=== PATIENT | male | born 2000 | race Caucasian/White ===

== ENCOUNTER 2019-12-02 10:45 | Emergency (ER) | payer OTHER, SELFPAY ==
[2019-12-02 10:50] VITALS: BP 134/87; PULSE 118; RESP 14; TEMP 37.1; O2SAT 100
--- NOTE | 2019-12-02 11:03 | ED.GENADULT ---
HPI - General Adult General Chief complaint: Skin/Abscess/Foreign Body Stated complaint: genital rash Time Seen by Provider: 12/02/19 10:51 Source: patient Mode of arrival: ambulatory Limitations: no limitations History of Present Illness HPI narrative: Patient is a 19-year-old male who presents to emergency department for evaluation of wound to his penis noting small bump to the dorsal surface of the shaft that is been there for 1 day patient denies similar occurrence injury or trauma or concern for STD patient notes that he had shaved the area but was unsure as to whether or not this may have caused the problem. Patient has not taken anything for his symptoms patient has not been seen for this complaint Related Data Home Medications Medication Instructions Recorded Confirmed No Home Medications 12/02/19 12/02/19 Allergies Allergy/AdvReac Type Severity Reaction Status Date / Time No Known Allergies Allergy Verified 12/02/19 10:46 Review of Systems Review of Systems: All systems reviewed & are unremarkable except as noted in HPI and below PMFSH Social History Social History (Updated 12/02/19 @ 11:05 by Arya Aparicio PA-C) Smoking status: Current every day smoker Gender identity (if verbalized by the patient): Male Exam Narrative: Exam Narrative: GENERAL: Well-appearing, well-nourished, and in no acute distress. HEAD: Normocephalic, atraumatic. EYES: PERRLA and EOMI. ENT: Nares clear, no rhinorrhea or epistaxis. Mucous membranes moist. MALE GENITOURINARY: Patient with small nonerythematous less than half centimeter bump to the dorsal surface of the shaft of the penis without any other abnormalities noted SKIN: Warm, dry, no rash. NEURO: No focal deficits. Alert and oriented x3. Normal speech and gait PSYCH: Normal mood and affect. Course Course Emergency Course: Patient in the room in no distress aware of case findings treatment plan and diagnosis Vital Signs Vital signs: Vital Signs Temperature 98.8 F 12/02/19 10:50 Pulse Rate 118 H 12/02/19 10:50 Respiratory Rate 12/02/19 10:50 Blood Pressure 134/87 12/02/19 10:50 Pulse Oximetry 100 12/02/19 10:50 Temperature 98.8 F 12/02/19 10:50 Pulse Rate 118 H 12/02/19 10:50 Respiratory Rate 14 12/02/19 10:50 Blood Pressure 134/87 12/02/19 10:50 Pulse Oximetry 100 12/02/19 10:50 Medical Decision Making MDM Narrative Medical decision making narrative: Patient in the room in no distress agreeing to follow-up with urology and primary care also provided with reasons to return was tested for STDs and referred to urology for further identification of the etiology of the bump on his shaft of his penis Vital Signs Vital Signs: Vital Signs Temperature 98.8 F 12/02/19 10:50 Pulse Rate 118 H 12/02/19 10:50 Respiratory Rate 14 12/02/19 10:50 Blood Pressure 134/87 12/02/19 10:50 Pulse Oximetry 100 12/02/19 10:50 Temperature 98.8 F 12/02/19 10:50 Pulse Rate 118 H 12/02/19 10:50 Respiratory Rate 14 12/02/19 10:50 Blood Pressure 134/87 12/02/19 10:50 Pulse Oximetry 100 12/02/19 10:50 Discharge Plan Discharge Clinical Impression: Sore of penis Patient Disposition: Home, Self-Care Condition: Stable Instructions: Antibiotic Form, Acute Wounds (ED) Additional Instructions: Follow-up with primary care and urology in the next 7 days for reevaluation of your wound Practice safe sex and use condoms Increase fluid intake. Tylenol and Motrin for pain and or fever if needed. Follow up with your doctor for further care. Call your doctor or return to the emergency department if needed for worsening symptoms or problems, especially if you have persistent high fever, vomiting, inability to urinate, weakness, blood in your urine, chnage in mental status, or other serious concerns. Prescriptions: No Action No Home Medications RF: 0 Follow-up/Referrals: PHYSICIAN,ON
[2019-12-02 11:57] VITALS: BP 120/80; PULSE 80; RESP 20; TEMP 36.7; O2SAT 99
[2019-12-02 12:21] LABS: Add Urine Microscopic? YES; Appearance Urine Clear (Clear); Bilirubin Urine Negative (Negative); Blood Urine Negative (Negative); Calcium Oxalate Crystals Urine Present /hpf; Color Urine Yellow (Yellow); Glucose Urine UA Negative (Negative); Ketones Urine Trace mg/dL (Negative); Leukocyte Esterase Ur Negative LEU/UL (Negative); Mucus Urine Heavy /lpf; Nitrate Urine Negative (Negative); Protein Urine 2+ mg/dL (Negative); RBC Urine 0-2 /hpf (0-2); Squamous Epithelial Cell Urine Rare /hpf (Few); WBC Urine 0-3 /hpf
[2019-12-02 12:23] LABS: Specific Grav Ur 1.031 (1.001-1.035)
== END 2019-12-02 11:58 | disposition home or self-care (01) ==
PROVIDERS: Emergency Medicine Emergency Medical Services; Emergency Provider Emergency Medicine
DX: L98.9 Disorder of the skin and subcutaneous tissue, unspecified (principal); F17.200 Nicotine dependence, unspecified, uncomplicated
CPT/HCPCS: 81001; 87491; 87591; 99283

== ENCOUNTER 2020-04-06 02:50 | Emergency (ER) | payer OTHER, SELFPAY ==
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
[2020-04-06 02:51] VITALS: BP 129/109; PULSE 122; RESP 18; TEMP 35.7; O2SAT 100
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
[2020-04-06 03:30] VITALS: BP 107/76; PULSE 117; RESP 21; O2SAT 97
[2020-04-06 04:00] VITALS: BP 112/78; PULSE 108; RESP 21; O2SAT 95
[2020-04-06 04:30] VITALS: BP 111/73; PULSE 116; RESP 18; O2SAT 95
[2020-04-06 05:15] VITALS: BP 134/89; PULSE 93; RESP 18; TEMP 36.7; O2SAT 98
== END 2020-04-06 05:16 | disposition home or self-care (01) ==
PROVIDERS: Emergency Provider Emergency Medicine
DX: S09.90XA Unspecified injury of head, initial encounter (principal); S66.911A Strain of unspecified muscle, fascia and tendon at wrist and hand level, right hand, initial encounter; S80.211A Abrasion, right knee, initial encounter; Y00.XXXA Assault by blunt object, initial encounter; F17.200 Nicotine dependence, unspecified, uncomplicated
CPT/HCPCS: 70450; 73130; 73560; 99284

== ENCOUNTER 2020-05-08 09:02 | Emergency (ER) | payer OTHER, SELFPAY ==
[2020-05-08 09:08] VITALS: BP 141/97; PULSE 113; RESP 15; TEMP 37; O2SAT 98
--- NOTE | 2020-05-08 09:19 | ED.GENADULT ---
HPI - General Adult General Chief complaint: Animal Bite <Arya Aparicio PA-C - Last Filed: 05/08/20 09:53> Stated complaint: Spider Bite On Head <Arya Aparicio PA-C - Last Filed: 05/08/20 09:53> Time Seen by Provider: 05/08/20 09:08 <Arya Aparicio PA-C - Last Filed: 05/08/20 09:53> Source: patient <CONSUELO Hale Last Filed: 05/08/20 09:53> Mode of arrival: ambulatory <CONSUELO Hale Last Filed: 05/08/20 09:53> Limitations: no limitations <Arya Aparicio PA-C - Last Filed: 05/08/20 09:53> History of Present Illness HPI narrative: Patient is a 19-year-old male who presents with a wound to the parietal scalp that has been present since Friday believes he was bit by an insect is unsure notes small red area notes minimal discomfort or other complaints presents in no distress has not been seen for this complaint <Arya Aparicio PA-C - Last Filed: 05/08/20 09:53> Related Data Allergies/adverse reactions: Allergies Allergy/AdvReac Type Severity Reaction Status Date / Time No Known Allergies Allergy Verified 12/02/19 10:46 <Arya Aparicio PA-C - Last Filed: 05/08/20 09:53> Review of Systems Review of Systems: All systems reviewed & are unremarkable except as noted in HPI and below <Arya Aparicio PA-C - Last Filed: 05/08/20 09:53> PMFSH Social History Social History: Social History Smoking status: Current every day smoker Gender identity (if verbalized by the patient): Male <Arya Aparicio PA-C - Last Filed: 05/08/20 09:53> Exam Narrative: Exam Narrative: GENERAL: Well-appearing, well-nourished, and in no acute distress. HEAD: Normocephalic, atraumatic. EYES: PERRLA and EOMI. ENT: Nares clear, no rhinorrhea or epistaxis. Mucous membranes moist. EXTREMITIES: Normal range of motion. No edema. SKIN: Warm, dry, no rash. Small pink-colored lesion half centimeter in diameter slightly raised of the parietal scalp no drainage no fluctuance NEURO: No focal deficits. Alert and oriented x3. PSYCH: Normal mood and affect. <Arya Aparicio PA-C - Last Filed: 05/08/20 09:53> Course Course Emergency Course: Patient in the room in no distress will be referred back to primary care for reevaluation and consideration of dermatology referral patient agrees with this plan will be discharged home patient provided with reasons to return <Arya Aparicio PA-C - Last Filed: 05/08/20 09:53> Vital Signs Vital signs: Vital Signs Temperature 37.0 C 05/08/20 09:08 Pulse Rate 113 H 05/08/20 09:08 Respiratory Rate 15 05/08/20 09:08 Blood Pressure 141/97 H 05/08/20 09:08 Pulse Oximetry 98 05/08/20 09:08 Temperature 37.0 C 05/08/20 09:08 Pulse Rate 113 H 05/08/20 09:08 Respiratory Rate 15 05/08/20 09:08 Blood Pressure 141/97 H 05/08/20 09:08 Pulse Oximetry 98 05/08/20 09:08 <Arya Aparicio PA-C - Last Filed: 05/08/20 09:53> Vital Signs Temperature 37.0 C 05/08/20 09:08 Pulse Rate 113 H 05/08/20 09:08 Respiratory Rate 15 05/08/20 09:08 Blood Pressure 141/97 H 05/08/20 09:08 Pulse Oximetry 98 05/08/20 09:08 Temperature 37.0 C 05/08/20 09:08 Pulse Rate 113 H 05/08/20 09:08 Respiratory Rate 15 05/08/20 09:08 Blood Pressure 141/97 H 05/08/20 09:08 Pulse Oximetry 98 05/08/20 09:08 <Crissy Richards MD - Last Filed: 05/08/20 10:29> Medical Decision Making MDM Narrative Medical decision making narrative: Patient in the room in no distress no concerning findings will be referred to primary care for reevaluation discussion of dermatology referral for consideration of biopsy if necessary <Arya Aparicio PA-C - Last Filed: 05/08/20 09:53> Vital Signs Vital Signs: Vital Signs Temperature 37.0 C 05/08/20 09:08 Pulse Rate 113 H 05/08/20 09:08 Respiratory Rate 15 05/08
== END 2020-05-08 10:01 | disposition home or self-care (01) ==
PROVIDERS: Emergency Provider Emergency Medicine
DX: S01.00XA Unspecified open wound of scalp, initial encounter (principal); X58.XXXA Exposure to other specified factors, initial encounter
CPT/HCPCS: 99283

== ENCOUNTER 2020-12-20 07:36 | Emergency (ER) | payer OTHER, SELFPAY ==
[2020-12-20 08:06] VITALS: BP 128/90; PULSE 115; RESP 22; TEMP 37.1; O2SAT 100
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
[2020-12-20 09:02] LABS: Basophils Percent Auto 0.4 % (0.2-1.2); Eosinophils Percent Auto 0.2 % (0-4.4); Hematocrit 46.9 % (42.0-52.0); Hemoglobin 16.3 g/dL (14.0-18.0); Immature Granulocyte Absolute 0.03 K/mm3 (0.00-0.031); Immature Granulocyte Percent A 0.4 % (0-0.5); Lymphocytes Percent Auto 23.6 % (18.3-44.2); Mean Corpuscular HGB Conc 34.8 g/dl (32-36); Mean Corpuscular Hemoglobin 30.6 pg (26-34); Mean Platelet Volume 9.3 fl (7.4-10.4); Monocytes Absolute Auto 0.8 K/mm3 (0.1-0.6); Monocytes Percent Auto 9.7 % (2.6-8.5); Neutrophils Absolute Auto 5.3 K/mm3 (1.3-6.7); Neutrophils Percent Auto 65.7 % (45.5-73.1); Platelet Count Result 358 k/mm3 (150-375); Red Blood Count 5.33 M/mm3 (4.6-6.20); Red Cell Distribution Width 12.1 % (11.5-14.5); White Blood Count 8.1 K/mm3 (4.5-10.0)
--- NOTE | 2020-12-20 09:03 | PC.NURSE ---
Spoke with Andreina at [facility] in [facility] pt left [facility] waiting room this am after being told he would have to wait until noon to be seen by a doctor. Pt tried returning to [facility] but was told he needed medical clearance fist Andreina stated to fax over [facility] d/c papers once obtained (fax: [phone], direct phone [phone]), then they can call back once approved to arrange transportation
[2020-12-20 09:12] LABS: Alanine Aminotransferase 33 U/L (4-50); Albumin Level 5.3 g/dL (3.5-5.1); Alkaline Phosphatase 86 U/L (38-126); Anion Gap 15 mmol/L (8-16); Aspartate Amino Transferase 25 U/L (17-59); Bilirubin,Total 1.2 mg/dL (0.2-1.3); Blood Urea Nitrogen 29 mg/dL (9-20); Calcium 10.9 mg/dL (8.4-10.2); Carbon Dioxide 30 mmol/L (22-30); Chloride 88 mmol/L (98-107); Estimated CRCL calculation 82 ml/min; Estimated Glomerular Filt Rate > 60; Glucose 101 mg/dL (75-110); Lipase 57 U/L (23-300); Potassium 4.2 mmol/L (3.4-5.0); Sodium 133 mmol/L (137-145)
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
[2020-12-20] MEDS: SODIUM CHLORIDE 0.9% IV 1,000 ML 999 ML IV CONT (10:20)
[2020-12-20 13:11] VITALS: BP 130/96; PULSE 107; RESP 16; O2SAT 98
== END 2020-12-20 13:11 | disposition other institution (70) ==
PROVIDERS: Emergency Provider Emergency Medicine; PCP Physician Assistant
DX: R11.2 Nausea with vomiting, unspecified (principal); F17.210 Nicotine dependence, cigarettes, uncomplicated
CPT/HCPCS: 36415; 80053; 83690; 85025; 96360; 96361; 99283; J7030

== ENCOUNTER 2021-06-25 15:11 | Outpatient (CLI) | payer OTHER, SELFPAY ==
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
== END 2021-06-25 15:12 | disposition home or self-care (01) ==
LOC: ANHIMG 15:17
PROVIDERS: PCP Family Medicine; Visit Provider Physician Assistant
DX: M54.9 Dorsalgia, unspecified (principal); S22.088A Other fracture of T11-T12 vertebra, initial encounter for closed fracture; M41.84 Other forms of scoliosis, thoracic region
CPT/HCPCS: 72072

== ENCOUNTER 2022-04-15 23:52 | Emergency (ER) | payer OTHER, SELFPAY ==
--- NOTE | 2022-04-15 23:55 | PC.NURSE ---
arrived to ed c/o lac to left index finger. Decided not to be seen prior to triage, as no active bleeding.
== END 2022-04-16 00:26 | disposition left against medical advice (07) ==
LOC: ANHED 04-16 00:07
PROVIDERS: PCP Family Medicine
DX: Z53.21 Procedure and treatment not carried out due to patient leaving prior to being seen by health care provider (principal)
CPT/HCPCS: 99199

== ENCOUNTER 2023-03-28 16:27 | Emergency (ER) | payer OTHER, SELFPAY ==
[2023-03-28 16:41] VITALS: BP 131/76; PULSE 100; RESP 18; TEMP 36.4; O2SAT 99
--- NOTE | 2023-03-28 19:47 | PC.NURSE ---
Patient called for room assignment, no answer and not seen in waiting room.
== END 2023-03-28 19:50 | disposition left against medical advice (07) ==
LOC: ANHED 19:54
PROVIDERS: PCP Family Medicine
DX: T14.8XXA Other injury of unspecified body region, initial encounter (principal)
CPT/HCPCS: 99199

== ENCOUNTER 2024-05-08 20:03 | Emergency (ER) | payer OTHER, SELFPAY ==
--- NOTE | 2024-05-08 20:22 | ECG_ITS ---
Test Date: 2024-05-08 20:26:05 Measurements Intervals [place] Rate: 117 P: 57 ID: [id number] QRS: 84 QRSD: 92 T: 48 QT: 315 QTc: 441 Interpretive Statements SINUS TACHYCARDIA MINIMAL Q WAVES- INFERIOR LEADS BASELINE ARTIFACT- I, II, III, AVR, AVL, AVF, V1-V6 ABNORMAL ECG No previous ECG available for comparison Electronically Signed On 05-08-2024 22:27:58 INTERNAL SECURITY MANAGER by Eric Blackwell D.O.
[2024-05-08 20:25] VITALS: BP 129/90; PULSE 106; RESP 14; TEMP 36.8; O2SAT 100
[2024-05-08 20:31] VITALS: O2SAT 100
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
[2024-05-08 20:51] LABS: Basophils Absolute Auto 0.1 K/mm3 (0.0-0.1); Basophils Percent Auto 0.6 % (0.2-1.2); Eosinophils Percent Auto 0.1 % (0-4.4); Hematocrit 46.1 % (42.0-52.0); Hemoglobin 15.3 g/dL (14.0-18.0); Immature Granulocyte Absolute 0.03 K/mm3 (0.00-0.031); Immature Granulocyte Percent A 0.3 % (0-0.5); Lymphocytes Absolute Auto 3.64 K/mm3 (0.9-3.2); Lymphocytes Percent Auto 32.3 % (18.3-44.2); Mean Corpuscular HGB Conc 33.2 g/dl (32-36); Mean Corpuscular Hemoglobin 28.7 pg (26-34); Mean Corpuscular Volume 86.3 fl (80-100); Mean Platelet Volume 9.8 fl (7.4-10.4); Monocytes Absolute Auto 0.6 K/mm3 (0.1-0.6); Monocytes Percent Auto 5.4 % (2.6-8.5); Neutrophils Absolute Auto 6.9 K/mm3 (1.3-6.7); Neutrophils Percent Auto 61.3 % (45.5-73.1); Platelet Count Result 314 k/mm3 (150-375); Red Blood Count 5.34 M/mm3 (4.6-6.20); Red Cell Distribution Width 11.6 % (11.5-14.5); White Blood Count 11.3 K/mm3 (4.5-10.0)
--- NOTE | 2024-05-08 20:52 | PC.NURSE ---
RN and Provider explained to patient the importance of being seen for unknown drug overdose. Patient states he wants to leave and does not want to stay here. Patient walked out of [facility] with steady gait.
--- NOTE | 2024-05-08 20:58 | ED_ITS ---
HPI - Overdose General Chief Complaint: Overdose Stated Complaint: od Time Seen by Provider: 05/08/24 20:24 History of Present Illness HPI Narrative: 23-year-old male with a history of opiate use disorder presenting to the emergency department in custody by police. Patient was. A traffic violation and has no rest warrant. On route to the group home the patient disclosed to the officer that patient recently injected fentanyl about 1 hour prior to being pulled over. Patient has a history of injection and intranasal fentanyl use. Previously has had substance abuse therapy and rehabilitation. Previously was on Suboxone therapy. Patient presents to the emergency department for medical clearance at this time. Patient is awake alert oriented as baseline mentation. He states that he feels like his heart is racing a that he is going to withdrawal he admits to last intravenous vanco use about 1 hour prior to arrival. Denies any respiratory complaints such as difficulty breathing or chest pain. States that he has gone through withdrawals before but denies any use of naloxone or antagonist opiate therapy today such as buprenorphine. Patient denies any other symptoms at this time and states he otherwise was in his normal state of health. Related Data Allergies Allergy/AdvReac Type Severity Reaction Status Date / Time No Known Allergies Allergy Verified 10/20/23 15:21 Review of Systems Review of Systems: As reviewed above in HPI [facility] Past Medical History Medical History Healthy adult male Surgical History Surgical History No history of previous surgery Social History Social History Smoking status: Smoker, status unknown Tobacco type: e-cigarettes/vaping Alcohol intake: never Gender identity (if verbalized by the patient): Male Exam Narrative: GENERAL: [Well-appearing, well-nourished, and in no acute distress.] HEAD: [Normocephalic, atraumatic.] EYES: [PERRLA and EOMI.] ENT: Nares clear, no rhinorrhea or epistaxis. Mucous membranes moist. NECK: Supple. CHEST: [Clear to auscultation. No respiratory distress.] HEART: [ tachycardic rate but regular rhythm, warm well-perfused extremities]. No murmur heard. [Normal peripheral pulses.] ABDOMEN: [Soft, nondistended], [nontender], [No rigidity or guarding] EXTREMITIES: Normal range of motion. [No edema.] SKIN: Warm, dry, no rash. NEURO: [No focal deficits]. Alert and oriented [x3.] PSYCH: [Normal mood and affect.] Course Vital Signs Vital signs: Vital Signs Temperature 36.8 C 05/08/24 20:25 Pulse Rate 106 H 05/08/24 20:25 Respiratory Rate 14 05/08/24 20:25 Blood Pressure 129/90 05/08/24 20:25 Pulse Oximetry 100 05/08/24 20:25 Oxygen Delivery Room Air 05/08/24 20:25 Temperature 36.8 C 05/08/24 20:25 Pulse Rate 106 H 05/08/24 20:25 Respiratory Rate 14 05/08/24 20:25 Blood Pressure 129/90 05/08/24 20:25 Pulse Oximetry 100 05/08/24 20:31 Oxygen Delivery Room Air 05/08/24 20:31 MDM - Overdose MDM Narrative Medical decision making narrative: 23-year-old male with a history of fentanyl use disorder. Patient presents the emergency department in police custody. Patient states that he used fentanyl and disclose this to the officer while they were on route to the group home. Patient was diverted to the nearest hospital for medical clearance. Patient otherwise has only complaints of feeling his heart is racing. also states he felt somewhat nauseous but presently no vomiting. Denies any fever, chills, chest pain shortness a breath. Slightly tachycardic on triage vitals but otherwise not hypoxic, no fever or blood pressure concerns. Respiratory rate appropriate of 14. He states that 1 hour ago he used fentanyl intravenously. No signs of respiratory depression or intoxication at this time. CBC, BMP and urine drug screen is ordered his provided fluid bolus as well as Zofran for symptom control. Patient will be observed for medical clearance to make sure that he does not show any signs of respiratory depression or an opiate intoxication/toxidrome. Clinically patient is not going through withdrawals especially with the timeline of events being 1 hour since last opiate use. Shortly after my initial evaluation the patient I was informed by the mounted police that he was no longer in custody and that they were leaving the department. Patient was made aware of this by the mounted police and elected to leave against medical advice at this time given that he is no longer in custody. Patient's laboratory studies are still pending. I discussions with the patient risks and benefits about leaving the hospital without any further evaluation or observation. Patient is in his right mind awake alert oriented and not intoxicated, able to make his own medical decisions at this time. Patient signed AMA paperwork and left without any further incident. Medical Records Attestation: I reviewed the patient's medical records. Lab Data Attestation: I reviewed the patient's lab results. 05/08/24 20:35 05/08/24 20:35 Labs: Lab Results 05/08/24 Range/Units 20:35 WBC 11.3 H (4.5-10.0) K/mm3 RBC 5.34 (4.6-6.20) M/mm3 Hgb 15.3 (14.0-18.0) g/dL Hct 46.1 (42.0-52.0) % MCV 86.3 (80-100) fl MCH 28.7 (26-34) pg MCHC 33.2 (32-36) g/dl RDW 11.6 (11.5-14.5) % Plt Count 314 (150-375) k/mm3 MPV 9.8 (7.4-10.4) fl Immature Gran % (Auto) 0.3 (0-0.5) % Neut % (Auto) 61.3 (45.5-73.1) % Lymph % (Auto) 32.3 (18.3-44.2) % Moffat % (Auto) 5.4 (2.6-8.5) % Eos % (Auto) 0.1 (0-4.4) % Baso % (Auto) 0.6 (0.2-1.2) % Lymph # (Auto) 3.64 H (0.9-3.2) K/mm3 Moffat # (Auto) 0.6 (0.1-0.6) K/mm3 Eos # (Auto) 0.0 (0-0.3) K/mm3 Baso # (Auto) 0.1 (0.0-0.1) K/mm3 Abs Immat Gran (auto) 0.03 (0.00-0.031) K/mm3 Absolute Neuts (auto) 6.9 H (1.3-6.7) K/mm3 Absolute Nucleated RBC 0.000 (0.0-0.012) K/mm3 Nucleated RBC % 0.0 (0.0-0.2) % Sodium Pending Potassium Pending Chloride Pending Carbon Dioxide Pending Anion Gap Pending BUN Pending Creatinine Pending Estim Creat Clear Calc Pending Estimated GFR Pending Glucose Pending Calcium Pending Urine Opiates Screen Pending Urine Methadone Screen Pending Ur Barbiturates Screen Pending Ur Phencyclidine Scrn Pending Ur Amphetamine Screen Pending U Benzodiazepines Scrn Pending Urine Cocaine Screen Pending U Cannabinoids Screen Pending Discharge Plan Discharge Clinical Impression: Fentanyl use disorder, severe, dependence, Drug overdose Patient Disposition: Left Against Medical Advice Condition: Stable Prescriptions: No Action ibuprofen 800 mg tablet 800 mg PO TID Qty: 90 0RF lidocaine 5 % adhesive patch,medicated 1 patch topical DAILY Qty: 30 0RF Rx Instructions: leave on most painful area for up to 12 hrs Follow-up/Referrals: Aminah Torres MD [Primary Care Provider] - Time of Disposition: 21:04
[2024-05-08 21:00] LABS: Anion Gap 10 mmol/L (4-12); Blood Urea Nitrogen 15 mg/dL (9-20); Calcium 8.8 mg/dL (8.4-10.2); Carbon Dioxide 26 mmol/L (22-30); Chloride 102 mmol/L (98-107); Estimated Glomerular Filt Rate > 60; Glucose 116 mg/dL (65-110); Sodium 138 mmol/L (137-145)
[2024-05-08 21:04] LABS: Amphetamine Screen Urine Positive (Negative); Barbiturate Screen Urine Negative (Negative); Benzodiazepines Screen Urine Negative (Negative); Cannabinoid Screen Urine Positive (Negative); Cocaine Screen Urine Negative (Negative); Methadone Screen Urine Negative (Negative); Opiate Screen Urine Positive (Negative); Phencyclidine Screen Urine Negative (Negative)
== END 2024-05-08 20:54 | disposition left against medical advice (07) ==
LOC: ANHED 20:43
PROVIDERS: Emergency Provider Student in an Organized Health Care Education/Training Program; PCP Family Medicine
DX: T40.411A Poisoning by fentanyl or fentanyl analogs, accidental (unintentional), initial encounter (principal); F11.20 Opioid dependence, uncomplicated; F17.290 Nicotine dependence, other tobacco product, uncomplicated
CPT/HCPCS: 36415; 80048; 80307; 85025; 93005; 99281; 99283

== ENCOUNTER 2024-07-14 03:31 | Emergency (ER) | payer OTHER, SELFPAY ==
--- OUTSIDE RECORDS SUMMARY | 2024-07-14 03:34 | XMS_ITS | Patient Health Record ---
Author Organization [facility] Address [address] [place] [address] Care Team Providers Care Vault Person Name Role Phone Dwight Mas Primary Care Provider Ti Jain Williams [phone] Allergies No Known Allergies Results Component Value Reference Range Notes 12 Panel Urine Drug Screen Reviewed date:01/09/2024 09:42:01 AM Interpretation: Performing Lab: Notes/Report: THC pos LOLIS neg MOP (OPI) neg AMP neg MET neg BAR neg BZO neg MDMA neg MTD neg OXY neg PCP neg BUP neg Medication Assisted Treatmen t (MAT) Buprenorphine, Norbuprenorphine, and Naloxone MS Confirmation, Urine Reviewed date:11/11/2023 03:44:04 PM Interpretation: Performing Lab:[facility], [address] [place] [address], Phone - [phone], Director - Colten Notes/Report: Creatinine 229 Testing Threshold: buprenorphine, 1.0 ng/mL norbuprenorphine, 5.0 ng/mL naloxone, 10 ng/mL This test was developed and its performance characteristics determined by [facility]. It has not been cleared or approved by the Food and Drug Administration. REFERENCE RANGE: Ref Range>=20 BUPRENORPHINE ++POSITIVE++ Buprenorphine 68 Norbuprenorphine 148 N/B Ratio 2.17 >=0.3 OPIATE ANTAGONIST ++POSITIVE++ Naloxone 85 12 Panel Urine Drug Screen Reviewed date:10/24/2023 10:39:12 AM Interpretation: Performing Lab: Notes/Report: THC POS LOLIS neg MOP (OPI) neg AMP neg MET neg BAR neg BZO neg MDMA neg MTD neg OXY neg PCP neg BUP POS 12 Panel Urine Drug Screen Reviewed date:11/11/2023 03:44:05 PM Interpretation: Performing Lab: Notes/Report: THC pos LOLIS neg MOP (OPI) neg AMP neg MET neg BAR neg BZO neg MDMA neg MTD neg OXY neg PCP neg BUP pos Reason For Referral Reason OUD, depressed mood, family issues, childhood and adult trauma Diagnosis 1 Mood disorder (F39) Referral Organization [facility] Referring Provider First Name Sally Referring Provider Last Name Jarvis Referring Provider Speciality Behavioral Health Referred Provider Specialty Behavioral [facility] Clinical Notes Swati Hess 08:51:41 AM >HN PW attempted contact with consumer regarding referral. VM left requesting a return call., Swati Hess 10/31/2023 09:54:28 AM >[facility] PW attempted contact with consumer regarding referral. VM left requesting a return call., Swati Hess 11/05/2023 03:47:04 PM >HN PW contacted consumer regarding referral. Consumer stated he is not wanting to start therapy services at this time. Consumer is not in agreement with therapy referral and stated no other needed resources at this time. Advised consumer to inform provider if and when therapy services are warranted. Case addressed and closed. Referral Priority Routine Medications Medication SIG (Take, Route, Frequency, Duration) Notes Start Date End Date Status Suboxone 8-2 MG 1/2 film under the t ongue and allow to dissolve Sublingual TWICE A DAY 01/09/2024 Active Narcan 4 MG/0.1ML 4mg as needed for op ioid overdose Nasally once 11/07/2023 Not-Taking Acetaminophen 500 MG two tablets as need ed for pain (maximum of 6 tablets in 24 hours) Orally every 6 hrs 10/24/2023 Not-Taking Social History Tobacco Use: Social History Observation Description Date Details (start date - stop date) Current Smoker NA - NA Sex Assigned At : Social History Observation Description Sex Assigned At Male Dont use, Tobacco Use/Smoking Question Answer Notes Are you a current every day smoker Tobacco Control (Standard) Question Answer Notes Tobacco use: Current every day smoker Additional Findings: Tobacco user e-cigarette Problems Problem Type SNOMED Code ICD Code Onset Dates Problem Status W/U Status Risk Notes Problem Mood disorder (55669302) Mood disorder (F39) 10/24/2023 Active confirmed Problem Scoliosis (549913339) Scoliosis (M41.9) Active confirmed Problem Tobacco use (213106167) Tobacco use disorder (F17.200) Active confirmed Problem Mental disorder caused by drug (741959388) Opioid use disorder (F11.99) Active confirmed Vital Signs Heart Rate 71 /min 01/09/2024 Respiratory Rate 16 /min 01/09/2024 Blood pressure diastolic 70 mm Hg 01/09/2024 Oximetry 97 % 01/09/2024 Height 69.50 in 01/09/2024 Blood pressure systolic 118 mm Hg 01/09/2024 Weight 116.00 lbs 01/09/2024 BMI 16.88 kg/m2 01/09/2024 Encounters Encounter Location Date Provider Diagnosis [address] [facility] [place] [address] 11/05/2023 Dwight Mas [address] [place] [address] 12/17/2023 Ti Jain [address] [place] [address] 11/07/2023 Ti Jain Opioid use disorder F11.99 and Opioid use disorder F11.99 [address] [address] [place] [address] 01/09/2024 Ti Jain Opioid use disorder F11.99 [address] [address] [place] [address] 10/24/2023 Ti Jain Opioid use disorder F11.99 ; 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 11/07/2023 Opioid use disorder (ICD-10 - F11.99) RECORDS REVIEWED FROM [facility] 10/24/2023 Dorsalgia of multiple sites in spine (ICD-10 - M54.9) 10/24/2023 Opioid use disorder (ICD-10 - F11.99) RAJENDRA SIGNED FOR [facility]. 10/24/2023 Scoliosis (ICD-10 - M41.9) 10/24/2023 Mood disorder (ICD-10 - F39) 10/24/2023 Body mass index (BMI) 19.9 or less, adult (ICD-10 - Z68.1) 10/24/2023 Nutritional counseling (ICD-10 - Z71.3) Plan Of Treatment No Information Insurance Providers Payer Name Payer Address Payer Phone Subscriber Number Group Number Insured Name Patient Relationship to Insured Coverage Start Date Coverage End Date [employer] [address] [phone] [id number] Humberto Tan Self - patient is the insured 1 Medical (General) History Surgical History Surgery Date(Month/Year) Hospitalization History Reason Date(Month/Year) detoxed [facility] fractured spine 09/2020
--- OUTSIDE RECORDS SUMMARY | 2024-07-14 03:34 | XMS_ITS | Clinical Summary ---
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 ondansetron (ZOFRAN-ODT) 4 MG TABLET DISPERSIBLE Take 1 Tablet by mouth every 6 hours as needed for Nausea - 1st line. 10 Tablet 4 Active senna (SENOKOT) 8.6 MG Tablet Take 1 Tablet by mouth 2 times daily as needed for Constipation - 2nd line. 30 Tablet 4 Active nicotine (NICODERM CQ) 21 MG/24HR PATCH 24 HR 1 Patch by Transdermal route daily as needed for Other (smoking cessation). 30 Patch 4 Active Active Problems Problem Noted Date Diagnosed Date Opiate withdrawal 09/12/2023 Severe malnutrition 09/12/2023 Encounters * This document contains information received from the source organization and may not represent a complete record from that organization. Date Type Department Care Team Description 06/28/2024 Travel from Last 3 Months Immunizations Immunization Administration Dates Next Due Influenza,Split Virus,Trivalent,Injectable,PF Family History Medical History Relation Name Comments Cirrhosis Father Lung Cancer Father Dementia Mother Liver Disease Mother Relation Name Status Comments Father Alive Mother Social History Tobacco Use Types Packs/Day Years Used Date Smoking Tobacco: Never Passive Smoke Exposure: Never Smokeless Tobacco: Never Tobacco Cessation:Counseling Given: Not Answered Alcohol Use Standard Drinks/Week Comments Not Currently 0 (1 standard drink = 0.6 oz pur e alcohol) [facility] Utilities Answer Date Recorded In the past 12 months has e electric, gas, oil, or water company threatened to shut off services in your home? No 06/28/2024 Social Connection and Isolat ion Panel [NHANES] Answer Date Recorded In a typical week, how many times do you talk on the phone with family, friends, or neighbors? Three times a week 06/28/2024 How often do you get togethe r with friends or relatives? Twice a week 06/28/2024 How often do you attend chur ch or hoahaoism services? More than 4 times per year 06/28/2024 Do you belong to any clubs o r organizations such as religious groups, unions, fraternal or athletic groups, or school groups? No 06/28/2024 How often do you attend meet ings of the clubs or organizations you belong to? Never 06/28/2024 Are you , , di vorced, , never , or living with a partner? Never 06/28/2024 AUDIT-C Answer Date Recorded Q1: How often do you have a drink containing alcohol? Never 06/28/2024 Q2: How many drinks containi ng alcohol do you have on a typical day when you are drinking? Patient does not drink Q3: How often do you have si x or more drinks on one occasion? Never 06/28/2024 Overall Financial Resource Strain (CARDIA) Answe r Date Recorded How hard is it for you to pa y for the very basics like food, housing, medical care, and heating? Not very hard 06/28/2024 [facility] - Occupational Stress Questionnaire Answer Date Recorded Do you feel stress - tense, restless, nervous, or anxious, or unable to sleep at night because your mind is troubled all the time - these days? Very much 06/28/2024 Exercise Vital Sign Answer Date Recorde d On average, how many days pe r week do you engage in moderate to strenuous exercise (like a brisk walk)? 2 days 06/28/2024 On average, how many minutes do you engage in exercise at this level? 20 min 06/28/2024 Hunger Vital Sign Answer Date Recorded Within the past 12 months, y ou worried that your food would run out before you got the money to buy more. Never true 06/28/19 Within the past 12 months, t he food you bought just didn't last and you didn't have money to get more. Never true 06/28/2024 PRAPARE - Transportation Answer Date Re corded In the past 12 months, has l ack of transportation kept you from medical appointments or from getting medications? No 06/16 In the past 12 months, has l ack of transportation kept you from meetings, work, or from getting things needed for daily living? No 06/28/2024 Housing Stability Vital Sign Answer Myles e Recorded In the last 12 months, was t here a time when you were not able to pay the mortgage or rent on time? No 09/12/2023 In the last 12 months, how many places have you lived? 1 09/12/2023 In the last 12 months, was t here a time when you did not have a steady place to sleep or slept in a senior living (including now)? No 09/12/2023 Housing Stability Vital Sign Answer Myles e Recorded In the last 12 months, was t here a time when you were not able to pay the mortgage or rent on time? No 06/28/19 In the past 12 months, how m any times have you moved where you were living? 1 06/28/2024 At any time in the past 12 m [facility], were you homeless or living in a senior living (including now)? Patient declined 06/28/2024 Sexually Active Control Partners Comments Not Currently Female Sex and Gender Information Value Date Recorded Sex Assigned at Not on file Legal Sex Male 12:50 PM CDT Gender Identity Not on file Sexual Orientation Not on file Last Filed Vital Signs Vital Sign Reading Time Taken Comments Blood Pressure 114/80 06/30/2024 1:36 AM REVENUE ENFORCEMENT COLLECTION AGENT Pulse 97 06/30/2024 1:36 AM REVENUE ENFORCEMENT COLLECTION AGENT Temperature 36.4 ??C (97.6 ??F) 06/30/2024 1:36 AM CS T Respiratory Rate 16 06/30/2024 1:36 AM [employer]UE ENFORCEMENT COLLECTION AGENT Oxygen Saturation 96% 06/30/2024 1:36 AM RE[employer]UE ENFORCEMENT COLLECTION AGENT Inhaled Oxygen Concentration - - Weight 54.9 kg (121 lb) 06/29/2024 9:00 AM REVENUE ENFORCEMENT COLLECTION AGENT b ed scale Height 172.7 cm (5' 8 ) 06/28/2024 5:20 PM [employer]UE ENFORCEMENT COLLECTION AGENT Body Mass Index 18.4 06/28/2024 5:20 PM RE[employer]UE ENFORCEMENT COLLECTION AGENT Plan of Treatment Not on file Procedures Procedure Name Priority Date/Time Associated Diagnosis Comments URINE DRUG SCREEN Routine 06/28/2024 6:1 6 PM [employer] ENF[employer]CEMENT COLLECTION AGENT CBC WITH AUTO DIFFERENTIAL Routine 06/28/2024 6:10 PM [employer] ENFORCEMENT COLLECTION AGENT COMPLETE BLOOD COUNT (CBC) WITH DIFF Routine 06/28/2024 6:10 PM RE[employer]UE ENFORCEMENT COLLECTION AGENT CMP (COMPREHENSIVE METABOLIC PANEL) Routine 06/28/2024 6:10 PM REVENUE ENFORCEMENT COLLECTION AGENT from Last 3 Months Results * (ABNORMAL) Urine Drug Screen (06/28/2024 6:16 PM REVENUE ENFORCEMENT COLLECTION AGENT) [facility] UR AMPHETAMINE DETECTED(A) NON DETECTED 06/28/2024 6:36 PM REVENUE ENFORCEMENT COLLECTION AGENT [facility] Comment: FOR MEDICAL USE ONLY. CUTOFF CONCENTRATION FOR DETECTED RESULT: AMPHETAMINE: ??500 NG/ML UR BENZODIAZEPINES NON DETECTED NON DETECTED 06/28/2024 6:36 PM REVENUE ENFORCEMENT COLLECTION AGENT [facility] Comment: FOR MEDICAL USE ONLY. CUTOFF CONCENTRATION FOR DETECTED RESULT: BENZODIAZAPINE: ??200 NG/ML UR COCAINE METABOLITE NON DETECTED NON DETECTED 06/28/2024 6:36 PM REVENUE ENFORCEMENT COLLECTION AGENT [facility] Comment: FOR MEDICAL USE ONLY. CUTOFF CONCENTRATION FOR DETECTED RESULT: COCAINE: ??150 NG/ML UR OPIATES DETECTED(A) NON DETECTED 06/28/2024 6:36 PM REVENUE ENFORCEMENT COLLECTION AGENT [facility] Comment: FOR MEDICAL USE ONLY. CUTOFF CONCENTRATION FOR DETECTED RESULT: OPIATES: ? 300 NG/ML UR PHENCYCLIDINE NON DETECTED NON DETECTED 06/28/2024 6:36 PM REVENUE ENFORCEMENT COLLECTION AGENT [facility] Comment: FOR MEDICAL USE ONLY. CUTOFF CONCENTRATION FOR DETECTED RESULT: PCP: ? 25 NG/ML UR CANNABINOID DETECTED(A) NON DETECTED 06/28/2024 6:36 PM REVENUE ENFORCEMENT COLLECTION AGENT [facility] Comment: FOR MEDICAL USE ONLY. CUTOFF CONCENTRATION FOR DETECTED RESULT: THC (MARIJUANA): 50 NG/ML UR BARBITURATE NON DETECTED NON DETECTED 06/28/2024 6:36 PM REVENUE ENFORCEMENT COLLECTION AGENT [facility] Comment: FOR MEDICAL USE ONLY. CUTOFF CONCENTRATION FOR DETECTED RESULT: BARBITUATES: ? 200 NG/ML UR FENTANYL DETECTED(A) NON DETECTED 06/28/2024 6:36 PM REVENUE ENFORCEMENT COLLECTION AGENT [facility] Comment: FOR MEDICAL USE ONLY. CUTOFF CONCENTRATION FOR DETECTED RESULT: FENTANYL: ??1.0 NG/ML Urine Non-Phlebotomy Collection / Unknown 06/28/2024 6:16 PM RE[employer] ENFORCEMENT COLLECTION AGENT 06/28/2024 6:16 PM REVENUE ENFORCEMENT COLLECTION AGENT us Merrick Painter MD URINE ORDERABLES Final R esult [facility] [address] [place] [address] * (ABNORMAL) CBC with Auto Differential (06/28/2024 6:10 PM RE[employer] ENFORCEMENT COLLECTION AGENT) WBC 12.84(H) 4.00 - 12.00 10(3)/mcL 06/28/2024 6:24 PM RE[employer] ENFORCEMENT COLLECTION AGENT [facility] RBC 5.19 4.40 - 5.80 10(6)/mcL 06/28/2024 6:24 PM RE[employer] ENFORCEMENT COLLECTION AGENT [facility] HEMOGLOBIN (HGB) 14.8 13.0 - 16.5 g/dL 06/28/2024 6:24 PM RE[employer] ENFORCEMENT COLLECTION AGENT [facility] HEMATOCRIT (HCT) 42.6 38.0 - 50.0 % 06/28/2024 6:24 PM RE[employer] ENFORCEMENT COLLECTION AGENT [facility] MCV 82.1 82.0 - 96.0 fL 06/28/2024 6:24 PM [employer] E[employer]ORCEMENT COLLECTION AGENT [facility] MCH 28.5 26.0 - 32.0 pg 06/28/2024 6:24 PM RE[employer] ENFORCEMENT COLLECTION AGENT [facility] MCHC 34.7 31.0 - 36.0 g/dL 06/28/2024 6:24 PM [facility] PLATELET COUNT 451(H) 140 - 440 10(3)/[facility] 06/28/2024 6:24 PM [facility] RDW 12.1 11.8 - 15.5 % 06/28/2024 6:24 PM [facility] MPV 9.1 8.0 - 12.6 fL 06/28/2024 6:24 PM [facility] NEUTROPHILS 83.5(H) 40.0 - 68.0 % 06/28/2024 6:24 PM [facility] LYMPHOCYTES 12.5(L) 19.0 - 49.0 % 06/28/2024 6:24 PM [facility] MONOCYTES 3.6 3.0 - 13.0 % 06/28/2024 6:24 PM [facility] EOSINOPHILS 0.0 0.0 - 8.0 % 06/28/2024 6:24 PM [facility] BASOPHILS 0.4 0.0 - 1.0 % 06/28/2024 6:24 PM [facility] ABSOLUTE NEUTROPHILS 10.72(H) 1.40 - 5.30 10(3)/[facility] 06/28/2024 6:24 PM [facility] ABSOLUTE LYMPHOCYTES 1.61 0.90 - 3.30 10(3)/[facility] 06/28/2024 6:24 PM [facility] ABSOLUTE MONOCYTES 0.46 0.10 - 0.90 10(3)/[facility] 06/28/2024 6:24 PM [facility] ABSOLUTE EOSINOPHIL 0.00 0.00 - 0.50 10(3)/[facility] 06/28/2024 6:24 PM [facility] ABSOLUTE BASOPHILS 0.05 0.00 - 0.10 10(3)/[facility] 06/28/2024 6:24 PM [facility] NRBC PER 100 WBC 0 06/28/19 6:24 PM [facility] Blood Venipuncture / Unknown 06/28/2024 6:10 PM RE[employer] E[employer]ORCEMENT COLLECTION AGENT 06/28/2024 6:17 PM REVENUE ENFORCEMENT COLLECTION AGENT us Merrick Painter MD HEMATOLOGY ORDERABLES Fi nal Result [facility] [address] [place] [address] * (ABNORMAL) CMP (Comprehensive Metabolic Panel) (06/28/2024 6:10 PM REVENUE ENFORCEMENT COLLECTION AGENT) SODIUM 143 136 - 145 mmol/L 06/28/2024 6:39 PM [facility] POTASSIUM 4.3 3.5 - 5.1 mmol/L 06/28/2024 6:39 PM [facility] CHLORIDE 106 98 - 107 mmol/L 06/28/2024 6:39 PM [facility] CO2, VENOUS 24 22 - 30 mmol/L 06/28/2024 6:39 PM [facility] ANION GAP 17.3 <18.0 mmol/L 06/28/2024 6:39 PM [facility] GLUCOSE 129(H) 70 - 99 mg/dL 06/28/2024 6:39 PM [facility] BUN 8(L) 9 - 21 mg/dL 06/28/2024 6:39 PM [facility] CREATININE, BLOOD 0.97 0.70 - 1.30 mg/dL 06/28/2024 6:39 PM [facility] BUN/CREATININE RATIO 8(L) 12 - 20 ratio 06/28/2024 6:39 PM [facility] TOTAL PROTEIN 7.7 6.3 - 8.2 g/dL 06/28/2024 6:39 PM [facility] ALBUMIN 4.8 3.5 - 5.0 g/dL 06/28/2024 6:39 PM [facility] A/G RATIO 1.7 1.0 - 2.2 06/28/2024 6:39 PM [employer] ENFORCEMENT COLLECTION AGENT [facility] CALCIUM 10.2 8.7 - 10.5 mg/dL 06/28/2024 6:39 PM RE[employer] ENFORCEMENT COLLECTION AGENT [facility] T BILI 0.4 0.2 - 1.2 mg/dL 06/28/2024 6:39 PM [employer] ENFORCEMENT COLLECTION AGENT [facility] SGOT (AST) 16 5 - 34 U/L 06/28/2024 6:39 PM [employer] ENFORCEMENT COLLECTION AGENT [facility] SGPT (ALT) 14 0 - 55 U/L 06/28/2024 6:39 PM [employer] ENFORCEMENT COLLECTION AGENT [facility] ALKALINE PHOSPHATASE 89 40 - 150 U/L 06/28/2024 6:39 PM [employer] ENFORCEMENT COLLECTION AGENT [facility] GFR, ESTIMATED >60 >=60 06/28/2024 6:39 PM REVENUE ENFORCEMENT COLLECTION AGENT [facility] Comment: Creatinine Clearance is the preferred criteria for selecting drug dose adjustments in renally impaired patients. ??The GFR is provided as additional pertinent clinical information. GFR is reported in mL/min/1.73 sq m. Calculation based on the Chronic Kidney Disease Epidemiology Collaboration (CKD- EPI) equation refit without adjustment for race. GFR, EST. >60 >=60 025 6:39 PM REVENUE ENFORCEMENT COLLECTION AGENT [facility] GFR, EST. NONAFRICAN >60 >=60 06/28/2024 6:39 PM REVENUE ENFORCEMENT COLLECTION AGENT [facility] Blood Venipuncture / Unknown 06/28/2024 6:10 PM RE[employer] ENFORCEMENT COLLECTION AGENT 06/28/2024 6:17 PM RE[employer]UE ENFORCEMENT COLLECTION AGENT us Merrick Painter MD CHEMISTRY ORDERABLES Fin al Result [facility] [address] [place] [address] from Last 3 Months Insurance [place]ID [place] Advance Directives * Full Code (Latest Code Status on File) Date Activated Date Inactivated Comments 06/29/2024 2:25 PM CPR-Full Treat ment: FULL ARREST: Attempt Resuscitation/CPR wit intubation and mechanical ventilation. PRE-ARREST: Use entire range of life support measures to stabilize the patient. * Full Code Date Activated Date Inactivated Comments 09/12/2023 12:30 PM 09/17/2023 1:09 PM CPR-Full [place] atment: FULL ARREST: Attempt Resuscitation/CPR wit intubation and mechanical ventilation. PRE-ARREST: Use entire range of life support measures to stabilize the patient. Care Teams Deck Engine Operator Relationship Specialty Start Date End Date Jessica Carrington PAC [address] [place] [address] PCP - General Physician Director Of Critical Care 09/12/23
--- OUTSIDE RECORDS SUMMARY | 2024-07-14 03:34 | XMS_ITS | Patient Health Summary ---
Author Organization [facility] Address [address] [place] [address] Care Team Providers Care Appliance Worker Name Role Phone Unavailable Primary Care Provider Unavailabl e Note from [facility],non-owned Affiliates and Associated Physician Practices is amultiple site organization consisting of ambulatory clinics and hospital sitesin [place], [place], [place] and [place]. This disclosure is being madepursuant to the Care Everywhere program and may not contain all information available regarding this patient. Last updated 18.[facility] Allergies No known active allergies Medications * Be aware that medications may not be up to date on this document. Alwaysverify current medications with the patient. * melatonin 3 MG tablet Take 3 mg by mouth nightly as needed for Insomnia * oxyCODONE, immediate release, 10 MG tablet(Started 10/04/2020) Take 1 (one) tablet by mouth every 4 hours as needed for Pain * folic acid (FOLVITE) 1 MG tablet(Started 10/05/2020) Take 1 (one) tablet by mouth once daily * thiamine (VITAMIN B-1) 100 MG tablet(Started 10/05/2020) Take 1 (one) tablet by mouth once daily * multivitamin daily tablet(Started 10/05/2020) Take 1 (one) tablet by mouth once daily Active Problems Problem Noted Date Diagnosed Date Alcohol withdrawal syndrome with complication Alcohol withdrawal seizure 10/04/2020 Alcohol use disorder, severe, dependence 021 Compression fracture of T11 vertebra 10/04/2020 Burst fracture of T12 vertebra 10/04/2020 Acute midline thoracic back pain 10/02/2020 Mood disorder 07/29/2013 Resolved Problems Problem Noted Date Diagnosed Date Resolved Date Hypokalemia 10/04/2020 10/04/2020 Alcohol abuse 10/02/2020 10/04/2020 Seizure 10/02/2020 10/04/2020 Shaking 10/02/2020 10/04/2020 Social History Tobacco Use Types Packs/Day Years Used Date Smoking Tobacco: Never Smokeless Tobacco: Never Tobacco Cessation:Counseling Given: Yes Alcohol Use Standard Drinks/Week Comments Yes 0 (1 standard drink = 0.6 oz pur e alcohol) 1/2 pint per day Sex and Gender Information Value Date Recorded Sex Assigned at Not on file Gender Identity Not on file Sexual Orientation Not on file Last Filed Vital Signs Vital Sign Reading Time Taken Comments Blood Pressure 128/80 10/04/2020 3:31 PM CDT Pulse 98 10/04/2020 3:31 PM CDT Temperature 36.8 ??C (98.2 ??F) 10/04/2020 3:31 PM CD T Respiratory Rate 16 10/04/2020 3:31 PM CDT Oxygen Saturation 95% 10/04/2020 8:22 AM CDT Inhaled Oxygen Concentration - - Weight 63.5 kg (140 lb) 10/02/2020 8:03 PM CDT Height 177.8 cm (5' 10 ) 10/02/2020 8:03 PM CDT Body Mass Index 20.09 10/02/2020 8:03 PM CDT Procedures * XR THORACOLUMBAR SPINE 2VW(Performed 10/04/2020) Performed for Acute midline thoracic back pain * CBC W/O DIFFERENTIAL(Performed 10/04/2020) Performed for Acute midline thoracic back pain, Seizure (HCC) * BASIC METABOLIC PANEL (CALCIUM TOTAL)(Performed 10/04/2020) Performed for Acute midline thoracic back pain, Shaking, Seizure (HCC) * CT HEAD WO CONTRAST(Performed 10/03/2020) Performed for Seizure (HCC) * CARDIAC EKG ORDER(Performed 10/03/2020) * URINE DRUG SCREEN IMMUNOASSAY(Performed 10/03/2020) * CBC W/O DIFFERENTIAL(Performed 10/03/2020) Performed for Acute midline thoracic back pain, Seizure (HCC) * MAGNESIUM BLOOD(Performed 10/03/2020) Performed for Mood disorder (HCC) * BASIC METABOLIC PANEL (CALCIUM TOTAL)(Performed 10/03/2020) Performed for Acute midline thoracic back pain, Shaking, Seizure (HCC) * CK BLOOD(Performed 10/03/2020) Performed for Acute midline thoracic back pain, Shaking * CT CERVICAL SPINE WO CONTRAST(Performed 10/03/2020) Performed for Acute midline thoracic back pain * CT LUMBAR SPINE WO CONTRAST(Performed 10/03/2020) Performed for Acute midline thoracic back pain * EKG 12-LEAD(Performed 10/02/2020) Performed for Shaking * CT THORACIC SPINE WO CONTRAST(Performed 10/02/2020) Performed for Acute midline thoracic back pain * PT-INR [facility](Performed 10/02/2020) * ALCOHOL ETHYL BLOOD(Performed 10/02/2020) * COMPREHENSIVE METABOLIC PANEL(Performed 10/02/2020) * CBC W AUTO DIFFERENTIAL(Performed 10/02/2020) * URINE DRUG SCREEN IMMUNOASSAY(Performed 07/29/2013) * URINALYSIS REFLEX TO MICROSCOPIC NO CULTURE(Performed 07/29/2013) * URINE MICROSCOPIC ONLY(Performed 07/29/2013) * URINALYSIS REFLEX TO MICROSCOPIC NO CULTURE(Performed 04/22/2013) * URINE DRUG SCREEN IMMUNOASSAY(Performed 04/22/2013) * DRUG SCREEN TOX LIMITED BLD PNL 3 INHOUSE(Performed 04/21/2013) * COMPREHENSIVE METABOLIC PANEL(Performed 04/21/2013) * CBC W AUTO DIFFERENTIAL(Performed 04/21/2013) * T4 TOTAL(Performed 04/21/2013) * TSH(Performed 04/21/2013) Results * XR THORACOLUMBAR SPINE 2VW (10/04/2020 12:58 PM CDT) Anatomical Region Laterality Modality Spine Radiographic Micaela ging 10/04/2020 3:42 PM CDT Impressions 10/05/2020 7:41 AM CDT FINDINGS/impression: Patient was imaged supine. There is leftward scoliosis. Compression deformity of the T8, T10-T12 are again noted. Fracture of the T2-T4 which were in prior CT are not visualized in this study. There is diffuse osteoporosis demineralization. Report dictated by Almas Desai M.D. (residential program manager). IDr. SAI have personally reviewed and interpreted this examination/study. This report was electronically signed by SAI HURD ??on 10/05/2020 7:41 AM . Narrative 10/05/2020 7:41 AM CDT EXAMINATION: XR THORACOLUMBAR SPINE 2VW HISTORY: M54.6: Acute midline thoracic back pain COMPARISON: CT thoracic spine dated 10/02/2020 Procedure Note Sai Hurd DO - 10/05/2020 EXAMINATION: XR THORACOLUMBAR SPINE 2VW HISTORY: M54.6: Acute midline thoracic back pain COMPARISON: CT thoracic spine dated 10/02/2020 FINDINGS/impression: Patient was imaged supine. There is leftward scoliosis. Compression deformity of the T8, [id number] again noted. Fracture of the T2-T4 which were in prior CT are not visualized in this study. There is diffuse osteoporosisdemineralization. Report dictated by Almas Desai M.D. (residential program manager). I, Dr. SAI HURD have personally reviewed and interpreted this examination/study. This report was electronically signed by SAI HURD on 10/05/2020 7:41 AM . Julio Cesar Dixon MD DIAGNOSTIC MICAELA GING ORDERABLES * CBC W/O DIFFERENTIAL (10/04/2020 2:57 AM CDT) Only the most recent of2 resultswithin the time period is included. WBC 8.3 3.5 - 10.5 10? 3 /uL 10/04/2020 3:32 AM CDT [facility] RBC 4.66 4.30 - 5.70 10? 6 /uL 10/04/2020 3:32 AM T [facility] Hemoglobin 14.5 13.5 - 17.5 g/dL 10/04/2020 3:32 AM [facility] Hematocrit 41.9 39.0 - 50.0 % 10/04/2020 3:32 AM [facility] MCV 89.9 81.0 - 97.0 fL 10/04/2020 3:32 AM T [facility] MCH 31.1 28.0 - 34.0 pg 10/04/2020 3:32 [facility] MCHC 34.6 32.0 - 36.0 g/dL 10/04/2020 3:32 AM [facility] Platelet Count 255 150 - 400 10? 3 /uL 10/04/2020 3:32 AM [facility] RDW-SD 38.4 36.0 - 50.0 fL 10/04/2020 3:32 AM [facility] RDW-CV 11.8 11.2 - 14.8 % 10/04/2020 3:32 AM [facility] MPV 10.0 9.3 - 12.8 fL 10/04/2020 3:32 AM [facility] nRBC Absolute 0.00 0 10? 3 /uL 10/04/2020 3:32 AM [facility] nRBC Auto 0.0 0 /100 WBC 10/04/2020 3:32 AM [facility] Blood BLOOD SPECIMEN / Unknown Lab Venipuncture / Unknown 10/04/2020 2:57 AM CDT 10/04/2020 3:22 AM CDT Yoli Lofton MD LAB - HEMATOLOGY OR DERABLES Performing Organization Address City/State/[facility] Co de Phone Number [facility] [address] [place] [address], [facility] [phone] * (ABNORMAL) BASIC METABOLIC PANEL (CALCIUM TOTAL) (10/04/2020 2:57 AM CDT) Only the most recent of2 resultswithin the time period is included. BUN <5(L) 7 - 26 mg/dL 10/04/2020 3:45 AM [facility] Creatinine 0.8 0.6 - 1.2 mg/dL 10/04/2020 3:45 AM [facility] Sodium 140 136 - 145 mmol/L 10/04/2020 3:45 AM [facility] Potassium 3.7 3.5 - 4.5 mmol/L 10/04/2020 3:45 AM [facility] Chloride 107 98 - 107 mmol/L 10/04/2020 3:45 AM CDT [facility] CO2 22 22 - 29 mmol/L 10/04/2020 3:45 AM CDT [facility] Glucose 83 70 - 115 mg/dL 10/04/2020 3:45 AM T [facility] Calcium 8.4 8.4 - 10.2 mg/dL 10/04/2020 3:45 AM T [facility] Anion Gap 15 8 - 18 10/04/2020 3:45 AM T [facility] BUN/Creatinine Ratio <6(L) 7 - 23 10/04/2020 3:45 AM [facility] Osmolality Calculated <286 270 - 300 mOsm/kg 10/04/2020 3:45 AM [facility] eGFR >60 >60 mL/min/1.7 3 m2 10/04/2020 3:45 AM T [facility] Blood BLOOD SPECIMEN / Unknown Lab Venipuncture / Unknown 10/04/2020 2:57 AM CDT 10/04/2020 3:22 AM CDT Yoli Lofton MD LAB - CHEMISTRY ORD ERABLES [facility] [address] [place] [address], [facility] [phone] * CT HEAD WO CONTRAST (10/03/2020 7:23 PM CDT) Anatomical Region Laterality Modality Head Computed Tomogra phy 10/04/2020 9:50 AM CDT Impressions 10/04/2020 10:53 AM CDT IMPRESSION: 1.No acute intracranial hemorrhage, midline shift, or significant mass effect. Dictated by Yamil Garza MD (residential program manager). This report was approved ??by Yamil Garza ?? on 10/04/2020 10:53 AM . I, Dr. DAVID FINNEY have personally reviewed and interpreted this examination/study. This report was electronically signed by DAVID FINNEY ??on 10/04/2020 10:53 AM . Narrative 10/04/2020 10:[address] HEAD WO CONTRAST EXAMINATION: Computed tomography (CT) of the head without contrast DATE: 10/03/2020 7:23 PM HISTORY: R56.9: 20-year-old male presenting with seizures secondary to alcohol withdrawal. TECHNIQUE: CT of the head was performed without contrast according to standard protocol. COMPARISON: CT head 10/02/2020. FINDINGS: No acute intra- or extra-axial fluid collections are identified. The ventricles are of normal size, shape, and morphology. The basilar cisterns are patent. No mass effect or midline shift is seen. The roblero-white matter differentiation is normal. There is suspected trace vascular calcification of the carotid siphons. No acute calvarial fracture is identified. The orbits appear normal. Mild aged indeterminate deformity of the left nasal bone. There is mild paranasal sinus disease. Partial opacification of the left mastoid air cells. No soft tissue abnormality is identified. Procedure Note David Finney MD - 10/04/2020 CT HEAD WO CONTRAST EXAMINATION: Computed tomography (CT) of the head without contrast DATE: 10/03/2020 7:23 PM HISTORY: R56.9: 20-year-old male presenting with seizures secondary to alcohol withdrawal. TECHNIQUE: CT of the head was performed without contrast according to standard protocol. COMPARISON: CT head 10/02/2020. FINDINGS: No acute intra- or extra-axial fluid collections are identified. The ventricles are of normal size, shape, and morphology. The basilarcisterns are patent. No mass effect or midline shift is seen. The roblero-whitematter differentiation is normal. There is suspected trace vascularcalcification of the carotid siphons. No acute calvarial fracture is identified. The orbits appear normal. Mild aged indeterminate deformity of the leftnasal bone. There is mild paranasal sinus disease. Partial opacification ofthe left mastoid air cells. No soft tissue abnormality is identified. IMPRESSION: 1.No acute intracranial hemorrhage, midline shift, or significant mass effect. Dictated by Yamil Garza MD (residential program manager). This report was approved by Yamil Garza on 10/04/2020 10:53 AM . I, Dr. DAVID FINNEY have personally reviewed and interpreted this examination/study. This report was electronically signed by DAVID FINNEY on10/04/2020 10:53 AM . Julio Cesar Dixon MD CT ORDERABLES * CARDIAC EKG ORDER (10/03/2020 2:27 PM CDT) Narrative 10/03/2020 2:27 PM CDT Ordered by an unspecified provider. Scanned Document CARDIAC SERVICES ORD ERABLES * (ABNORMAL) DRUG SCREEN TOX URINE PANEL (10/03/2020 12:06 PM CDT) Only the most recent of3 resultswithin the time period is included. Amphetamines Screen Urine Negative Negative : < 1000 ng/mL 10/03/2020 12:49 PM [facility] Barbiturates Screen Urine Negative Negative : < 200 ng/mL 10/03/2020 12:49 PM [facility] Benzodiazepine Screen Urine Negative Negative : < 200 ng/mL 10/03/2020 12:49 PM [facility] Opiates Urine Positive(A) Negative : < 300 ng/mL 10/03/2020 12:49 PM [facility] Comment:Positive urine opiat e screening results should be confirmed by another generally accepted non-immunological method such as gas chromatography or mass spectrometry. Cocaine Metabolites Urine Negative Negative : < 300 ng/mL 10/03/2020 12:49 PM [facility] Phencyclidine Screen Urine Negative Negative : < 25 ng/ml 10/03/2020 12:49 PM [facility] Cannabinoids Screen Urine Positive(A) Negative : <50 ng/mL 10/03/2020 12:49 PM [facility] Comment:Positive urine canna binoids (THC) screening results should be confirmed by another generally accepted non-immunological method such as gas chromatography or mass spectrometry. Methadone Screen Urine Negative Negative : < 300 ng/mL 10/03/2020 12:49 PM [facility] Fentanyl Screen Urine Positive(A) Negative : <1.0 ng/mL 10/03/2020 12:49 PM [facility] Comment:Positive urine fenta nyl screening results should be confirmed by another generally accepted non-immunological method such as gas chromatography or mass spectrometry. Urine URINE / Unknown Collection / Unknown 10/03/2020 12:06 PM CDT 10/03/2020 12:34 PM CDT Narrative [facility] - 10/03/2020 12:49 PM CDT The Urine Toxicology Screening Panel does not screen for Propoxyphene, Meprobamate, Carisoprodol, Trazodone, laam-qcm-jqfrshx medications and/or volatiles (Acetone, Isopropanol, Methanol or Ethylene Glycol). Ethanol, Salicylate, Acetaminophen, Tricyclic Antidepressants and several therapeutic drugs may be individually assayed in serum or plasma specimen. Toxicology testing by the [facility] is an aid to medical diagnosis and treatment of patients. No documented chain of custody was maintained. Results are intended to be used for clinical purposes only. ? Moniac Sauceda MD LAB - URINE CHEMISTR Y ORDERABLES Performing Organization Address [facility] Phone Number [address] [address], [facility] [phone] * MAGNESIUM BLOOD (10/03/2020 2:25 AM CDT) Magnesium 1.8 1.6 - 2.6 mg/dL 10/03/2020 6:04 AM CDT [facility] Blood BLOOD SPECIMEN / Unknown Lab Venipuncture / Unknown 10/03/2020 2:25 AM CDT 10/03/2020 3:00 AM CDT Salman Adrián Rolly MD LAB - CHEMISTRY ORD ERABLES [address] [address], [facility] [phone] * CK BLOOD (10/03/2020 2:25 AM CDT) CK Total 150 30 - 200 Units/L 10/03/2020 3:32 AM CDT [facility] Blood BLOOD SPECIMEN / Unknown Lab Venipuncture / Unknown 10/03/2020 2:25 AM CDT 10/03/2020 3:00 AM CDT Yoli Lofton MD LAB - CHEMISTRY ORD ERABLES Performing Organization Address [facility]/ZIP Co de Phone Number [address] [address], [place] [phone] * CT LUMBAR SPINE WO CONTRAST (10/03/2020 12:03 AM CDT) Anatomical Region Laterality Modality Spine Computed Tomogra phy 10/03/2020 8:56 AM CDT Impressions 10/03/2020 10:12 AM CDT IMPRESSION: 1.No fracture of the cervical and lumbar spine. 2.Acute fractures of T2-T4, T8, T10-T12 vertebral bodies. 3.Retropulsion at T12 with mild spinal canal stenosis. 4.Diffuse severe osseous demineralization, greater than expected for age. Please refer to the separately dictated report of CT scan of the chest, abdomen and pelvis for intrathoracic and intra-abdominal findings. Dictated by Mariama Rodriguez MD (residential program manager). I, Dr. JOAN JEFF have personally reviewed and interpreted this examination/study. This report was electronically signed by JOAN JEFF ??on 10/03/2020 10:12 AM . Narrative 10/03/2020 10:12 AM CDT EXAMINATION: Computed tomography (CT) of the cervical spine without contrast CT of the thoracic spine CT of the lumbar spine HISTORY: M54.6: Acute midline thoracic back pain s/p fall of 12 steps backward, diffuse back pain, denies numbness TECHNIQUE: CT of the cervical spine, thoracic and lumbar was performed without contrast according to standard protocol. COMPARISON: No prior study is available for comparison at the time of this dictation. FINDINGS: Diffuse osteopenia is present. CERVICAL SPINE: There is no acute fracture . The spine curvature is maintained without subluxation. There is no aggressive appearing lytic or sclerotic lesions. There is no significant degenerative changes. There is no prevertebral soft tissue swelling. Subsegmental atelectasis is present in the dependent portions of bilateral lungs. THORACIC SPINE: There is mild height loss and superior endplate concavity of T2, T3, T4, T8 and T10 vertebrae, most likely representing acute fractures. There is moderate height loss of anterior compression deformity of T11 vertebral body without significant retropulsion. There is mild height loss of T12 vertebral body with retropulsion of the posterior superior fracture fragment for approximately 4 mm. There is resulting mild spinal canal stenosis. There is no subluxation. There are no aggressive appearing lytic or sclerotic lesions. There is no significant degenerative changes. There is no evidence of foraminal stenosis. There is no significant soft tissue abnormality. LUMBAR SPINE: Lumbarization of the S1 is incidentally noted. There is no acute fracture. There is deformity of the posterior superior endplate of L2 vertebral body, likely due to a Schmorl's node. The spinal curvature is otherwise maintained without subluxation. There are no aggressive appearing lytic or sclerotic lesions. Minor degenerative changes are seen without significant spinal canal or foraminal stenosis. There is narrowing of the right L4-5 lateral recess due to right central disc protrusion. There is no significant soft tissue abnormality. Procedure Note Joan Jeff MD - 10/03/2020 EXAMINATION: Computed tomography (CT) of the cervical spine without contrast CT of the thoracic spine CT of the lumbar spine HISTORY: M54.6: Acute midline thoracic back pain s/p fall of 12 steps backward, diffuse back pain, denies numbness TECHNIQUE: CT of the cervical spine, thoracic and lumbar was performed without contrast according to standard protocol. COMPARISON: No prior study is available for comparison at the time ofthis dictation. FINDINGS: Diffuse osteopenia is present. CERVICAL SPINE: There is no acute fracture . The spine curvature is maintained without subluxation. There is no aggressive appearing lytic or scleroticlesions. There is no significant degenerative changes. There is no prevertebral soft tissue swelling. Subsegmental atelectasis is present in thedependent portions of bilateral lungs. THORACIC SPINE: There is mild height loss and superior endplate concavity of T2, T3, T4, T8 and T10 vertebrae, most likely representing acute fractures. There is moderate height loss of anterior compression deformity of T11 vertebral body without significant retropulsion. There is mild height loss of T12 vertebral body with retropulsion of the posterior superior fracture fragment for approximately 4 mm. There is resulting mild spinal canal stenosis. There is no subluxation. There are no aggressive appearing lytic or sclerotic lesions. There isno significant degenerative changes. There is no evidence of foraminal stenosis. There is no significant soft tissue abnormality. LUMBAR SPINE: Lumbarization of the S1 is incidentally noted. There is no acute fracture. There is deformity of the posterior superior endplate of L2 vertebral body, likely due to a Schmorl's node. Thespinal curvature is otherwise maintained without subluxation. There are no aggressive appearing lytic or sclerotic lesions. Minor degenerative changes are seen without significant spinal canal or foraminal stenosis. There is narrowing of the right L4-5 lateral recess due to right central disc protrusion. There is no significant soft tissue abnormality. IMPRESSION: 1.No fracture of the cervical and lumbar spine. 2.Acute fractures of T2-T4, T8, T10-T12 vertebral bodies. 3.Retropulsion at T12 with mild spinal canal stenosis. 4.Diffuse severe osseous demineralization, greater than expected forage. Please refer to the separately dictated report of CT scan of the chest, abdomen and pelvis for intrathoracic and intra-abdominal findings. Dictated by Mariama Rodriguez MD (residential program manager). I, Dr. JOAN JEFF have personally reviewed and interpreted this examination/study. This report was electronically signed by JOAN JEFF on 10/03/2020 10:12 AM . Monica Sauceda MD CT ORDERABLES * CT CERVICAL SPINE WO CONTRAST (10/03/2020 12:03 AM CDT) Anatomical Region Laterality Modality Spine Computed Tomogra phy 10/03/2020 8:56 AM CDT Impressions 10/03/2020 10:12 AM CDT IMPRESSION: 1.No fracture of the cervical and lumbar spine. 2.Acute fractures of T2-T4, T8, T10-T12 vertebral bodies. 3.Retropulsion at T12 with mild spinal canal stenosis. 4.Diffuse severe osseous demineralization, greater than expected for age. Please refer to the separately dictated report of CT scan of the chest, abdomen and pelvis for intrathoracic and intra-abdominal findings. Dictated by Mariama Rodriguez MD (residential program manager). I, Dr. JOAN JEFF have personally reviewed and interpreted this examination/study. This report was electronically signed by JOAN JEFF ??on 10/03/2020 10:12 AM . Narrative 10/03/2020 10:12 AM CDT EXAMINATION: Computed tomography (CT) of the cervical spine without contrast CT of the thoracic spine CT of the lumbar spine HISTORY: M54.6: Acute midline thoracic back pain s/p fall of 12 steps backward, diffuse back pain, denies numbness TECHNIQUE: CT of the cervical spine, thoracic and lumbar was performed without contrast according to standard protocol. COMPARISON: No prior study is available for comparison at the time of this dictation. FINDINGS: Diffuse osteopenia is present. CERVICAL SPINE: There is no acute fracture . The spine curvature is maintained without subluxation. There is no aggressive appearing lytic or sclerotic lesions. There is no significant degenerative changes. There is no prevertebral soft tissue swelling. Subsegmental atelectasis is present in the dependent portions of bilateral lungs. THORACIC SPINE: There is mild height loss and superior endplate concavity of T2, T3, T4, T8 and T10 vertebrae, most likely representing acute fractures. There is moderate height loss of anterior compression deformity of T11 vertebral body without significant retropulsion. There is mild height loss of T12 vertebral body with retropulsion of the posterior superior fracture fragment for approximately 4 mm. There is resulting mild spinal canal stenosis. There is no subluxation. There are no aggressive appearing lytic or sclerotic lesions. There is no significant degenerative changes. There is no evidence of foraminal stenosis. There is no significant soft tissue abnormality. LUMBAR SPINE: Lumbarization of the S1 is incidentally noted. There is no acute fracture. There is deformity of the posterior superior endplate of L2 vertebral body, likely due to a Schmorl's node. The spinal curvature is otherwise maintained without subluxation. There are no aggressive appearing lytic or sclerotic lesions. Minor degenerative changes are seen without significant spinal canal or foraminal stenosis. There is narrowing of the right L4-5 lateral recess due to right central disc protrusion. There is no significant soft tissue abnormality. Procedure Note Joan Jeff MD - 10/03/2020 EXAMINATION: Computed tomography (CT) of the cervical spine without contrast CT of the thoracic spine CT of the lumbar spine HISTORY: M54.6: Acute midline thoracic back pain s/p fall of 12 steps backward, diffuse back pain, denies numbness TECHNIQUE: CT of the cervical spine, thoracic and lumbar was performed without contrast according to standard protocol. COMPARISON: No prior study is available for comparison at the time ofthis dictation. FINDINGS: Diffuse osteopenia is present. CERVICAL SPINE: There is no acute fracture . The spine curvature is maintained without subluxation. There is no aggressive appearing lytic or scleroticlesions. There is no significant degenerative changes. There is no prevertebral soft tissue swelling. Subsegmental atelectasis is present in thedependent portions of bilateral lungs. THORACIC SPINE: There is mild height loss and superior endplate concavity of T2, T3, T4, T8 and T10 vertebrae, most likely representing acute fractures. There is moderate height loss of anterior compression deformity of T11 vertebral body without significant retropulsion. There is mild height loss of T12 vertebral body with retropulsion of the posterior superior fracture fragment for approximately 4 mm. There is resulting mild spinal canal stenosis. There is no subluxation. There are no aggressive appearing lytic or sclerotic lesions. There isno significant degenerative changes. There is no evidence of foraminal stenosis. There is no significant soft tissue abnormality. LUMBAR SPINE: Lumbarization of the S1 is incidentally noted. There is no acute fracture. There is deformity of the posterior superior endplate of L2 vertebral body, likely due to a Schmorl's node. Thespinal curvature is otherwise maintained without subluxation. There are no aggressive appearing lytic or sclerotic lesions. Minor degenerative changes are seen without significant spinal canal or foraminal stenosis. There is narrowing of the right L4-5 lateral recess due to right central disc protrusion. There is no significant soft tissue abnormality. IMPRESSION: 1.No fracture of the cervical and lumbar spine. 2.Acute fractures of T2-T4, T8, T10-T12 vertebral bodies. 3.Retropulsion at T12 with mild spinal canal stenosis. 4.Diffuse severe osseous demineralization, greater than expected forage. Please refer to the separately dictated report of CT scan of the chest, abdomen and pelvis for intrathoracic and intra-abdominal findings. Dictated by Mariama Rodriguez MD (residential program manager). I, Dr. JOAN JEFF have personally reviewed and interpreted this examination/study. This report was electronically signed by JOAN JEFF on 10/03/2020 10:12 AM . Monica Sauceda MD CT ORDERABLES * EKG 12-LEAD (10/02/2020 8:57 PM CDT) Ventricular Rate 83 BPM [facility] Atrial Rate 83 BPM [facility] P-R Interval 148 ms [facility] QRS Duration ms 92 ms [facility] Q-T Interval ms 350 ms [facility] QTC Calculation (Bezet) 411 ms [facility] Calculated P [place] 4 degrees [facility] Calculated R [place] 81 degrees [facility] Calculated T [place] 63 degrees [facility] Interpretation EKG NORMAL SINUS RHYTHM NORMAL ECG NO PREVIOUS ECGS AVAILABLE Confirmed by Jose Barclay ([id number]) on 10/03/2020 1:06:39 PM [facility] MUSE 10/02/2020 8:57 PM CDT 10/03/2020 1:06 PM CDT Monica Sauceda MD ECG ORDERABLES [facility] MUSE * CT THORACIC SPINE WO CONTRAST (10/02/2020 8:41 PM CDT) Anatomical Region Laterality Modality Spine Computed Tomogra phy 10/03/2020 8:56 AM CDT Impressions 10/03/2020 10:12 AM CDT IMPRESSION: 1.No fracture of the cervical and lumbar spine. 2.Acute fractures of T2-T4, T8, T10-T12 vertebral bodies. 3.Retropulsion at T12 with mild spinal canal stenosis. 4.Diffuse severe osseous demineralization, greater than expected for age. Please refer to the separately dictated report of CT scan of the chest, abdomen and pelvis for intrathoracic and intra-abdominal findings. Dictated by Mariama Rodriguez MD (residential program manager). I, Dr. JOAN JEFF have personally reviewed and interpreted this examination/study. This report was electronically signed by JOAN JEFF ??on 10/03/2020 10:12 AM . Narrative 10/03/2020 10:12 AM CDT EXAMINATION: Computed tomography (CT) of the cervical spine without contrast CT of the thoracic spine CT of the lumbar spine HISTORY: M54.6: Acute midline thoracic back pain s/p fall of 12 steps backward, diffuse back pain, denies numbness TECHNIQUE: CT of the cervical spine, thoracic and lumbar was performed without contrast according to standard protocol. COMPARISON: No prior study is available for comparison at the time of this dictation. FINDINGS: Diffuse osteopenia is present. CERVICAL SPINE: There is no acute fracture . The spine curvature is maintained without subluxation. There is no aggressive appearing lytic or sclerotic lesions. There is no significant degenerative changes. There is no prevertebral soft tissue swelling. Subsegmental atelectasis is present in the dependent portions of bilateral lungs. THORACIC SPINE: There is mild height loss and superior endplate concavity of T2, T3, T4, T8 and T10 vertebrae, most likely representing acute fractures. There is moderate height loss of anterior compression deformity of T11 vertebral body without significant retropulsion. There is mild height loss of T12 vertebral body with retropulsion of the posterior superior fracture fragment for approximately 4 mm. There is resulting mild spinal canal stenosis. There is no subluxation. There are no aggressive appearing lytic or sclerotic lesions. There is no significant degenerative changes. There is no evidence of foraminal stenosis. There is no significant soft tissue abnormality. LUMBAR SPINE: Lumbarization of the S1 is incidentally noted. There is no acute fracture. There is deformity of the posterior superior endplate of L2 vertebral body, likely due to a Schmorl's node. The spinal curvature is otherwise maintained without subluxation. There are no aggressive appearing lytic or sclerotic lesions. Minor degenerative changes are seen without significant spinal canal or foraminal stenosis. There is narrowing of the right L4-5 lateral recess due to right central disc protrusion. There is no significant soft tissue abnormality. Procedure Note Joan Jeff MD - 10/03/2020 EXAMINATION: Computed tomography (CT) of the cervical spine without contrast CT of the thoracic spine CT of the lumbar spine HISTORY: M54.6: Acute midline thoracic back pain s/p fall of 12 steps backward, diffuse back pain, denies numbness TECHNIQUE: CT of the cervical spine, thoracic and lumbar was performed without contrast according to standard protocol. COMPARISON: No prior study is available for comparison at the time ofthis dictation. FINDINGS: Diffuse osteopenia is present. CERVICAL SPINE: There is no acute fracture . The spine curvature is maintained without subluxation. There is no aggressive appearing lytic or scleroticlesions. There is no significant degenerative changes. There is no prevertebral soft tissue swelling. Subsegmental atelectasis is present in thedependent portions of bilateral lungs. THORACIC SPINE: There is mild height loss and superior endplate concavity of T2, T3, T4, T8 and T10 vertebrae, most likely representing acute fractures. There is moderate height loss of anterior compression deformity of T11 vertebral body without significant retropulsion. There is mild height loss of T12 vertebral body with retropulsion of the posterior superior fracture fragment for approximately 4 mm. There is resulting mild spinal canal stenosis. There is no subluxation. There are no aggressive appearing lytic or sclerotic lesions. There isno significant degenerative changes. There is no evidence of foraminal stenosis. There is no significant soft tissue abnormality. LUMBAR SPINE: Lumbarization of the S1 is incidentally noted. There is no acute fracture. There is deformity of the posterior superior endplate of L2 vertebral body, likely due to a Schmorl's node. Thespinal curvature is otherwise maintained without subluxation. There are no aggressive appearing lytic or sclerotic lesions. Minor degenerative changes are seen without significant spinal canal or foraminal stenosis. There is narrowing of the right L4-5 lateral recess due to right central disc protrusion. There is no significant soft tissue abnormality. IMPRESSION: 1.No fracture of the cervical and lumbar spine. 2.Acute fractures of T2-T4, T8, T10-T12 vertebral bodies. 3.Retropulsion at T12 with mild spinal canal stenosis. 4.Diffuse severe osseous demineralization, greater than expected forage. Please refer to the separately dictated report of CT scan of the chest, abdomen and pelvis for intrathoracic and intra-abdominal findings. Dictated by Mariama Rodriguez MD (residential program manager). I, Dr. JOAN JEFF have personally reviewed and interpreted this examination/study. This report was electronically signed by JOAN JEFF on 10/03/2020 10:12 AM . Monica Sauceda MD CT ORDERABLES * PT-INR [facility] (10/02/2020 8:19 PM CDT) PT 13.0 12.1 - 14.8 Seconds 10/02/2020 8:37 PM CDT [facility] INR 1.0 See Comment 10/02/2020 8:37 PM CDT [facility] Comment:The suggested therap eutic range for standard coumadin (warfarin) therapy is an INR of 2.0-3.0. For high-risk patients (Mechanical Mitral Valve Prosthesis, etc.), the suggested prophylactic therapeutic range is an INR of 2.5-3.5. Blood BLOOD SPECIMEN / Unknown Venipuncture / Unknown 10/02/2020 8:19 PM CDT 10/02/2020 8:28 PM CDT Monica Sauceda MD LAB - COAGULATION OR DERABLES Performing Organization Address City/State/[facility] Co de Phone Number [facility] [address] [place] [id number], [facility] [phone] * (ABNORMAL) CBC W AUTO DIFFERENTIAL (10/02/2020 8:19 PM CDT) Only the most recent of2 resultswithin the time period is included. WBC 12.1(H) 3.5 - 10.5 10? 3 /uL 10/02/2020 8:28 PM CDT [facility] RBC 4.44 4.30 - 5.70 10? 6 /uL 10/02/2020 8:28 PM CDT [facility] Hemoglobin 14.1 13.5 - 17.5 g/dL 10/02/2020 8:28 PM CDT [facility] Hematocrit 40.8 39.0 - 50.0 % 10/02/2020 8:28 PM [facility] MCV 91.9 81.0 - 97.0 fL 10/02/2020 8:28 PM [facility] MCH 31.8 28.0 - 34.0 pg 10/02/2020 8:28 PM [facility] MCHC 34.6 32.0 - 36.0 g/dL 10/02/2020 8:28 PM [facility] Platelet Count 248 150 - 400 10? 3 /uL 10/02/2020 8:28 PM [facility] RDW-SD 39.6 36.0 - 50.0 fL 10/02/2020 8:28 PM [facility] RDW-CV 11.7 11.2 - 14.8 % 10/02/2020 8:28 PM [facility] MPV 9.8 9.3 - 12.8 fL 10/02/2020 8:28 PM [facility] nRBC Absolute 0.00 0 10? 3 /uL 10/02/2020 8:28 PM [facility] nRBC Auto 0.0 0 /100 WBC 10/02/2020 8:28 PM [facility] Neutrophils % 83.0(H) 35.0 - 70.0 % 10/02/2020 8:28 PM [facility] Lymphocytes % 11.0(L) 19.7 - 55.1 % 10/02/2020 8:28 PM [facility] Monocytes % 4.7 3.0 - 15.0 % 10/02/2020 8:28 PM [facility] Eosinophils % 0.5 0.0 - 6.0 % 10/02/2020 8:28 PM [facility] Basophil % 0.2 0.0 - 1.5 % 10/02/2020 8:28 PM [facility] Neutrophils Absolute 10.1(H) 1.6 - 7.0 10? 3 /uL 10/02/2020 8:28 PM [facility] Lymphocyte Absolute 1.3 0.8 - 2.9 10? 3 /uL 10/02/2020 8:28 PM [facility] Monocytes Absolute 0.57 0.14 - 0.66 10? 3 /uL 10/02/2020 8:28 PM CDT [facility] Eosinophils Absolute 0.06 0.00 - 0.45 10? 3 /uL 10/02/2020 8:28 PM CDT [facility] Basophils Absolute 0.03 0.00 - 0.06 10? 3 /uL 10/02/2020 8:28 PM CDT [facility] Immature Granulocytes % 0.6 0.0 - 1.0 % 10/02/2020 8:28 PM T [facility] Blood BLOOD SPECIMEN / Unknown Venipuncture / Unknown 10/02/2020 8:19 PM CDT 10/02/2020 8:24 PM CDT Monica Sauceda MD LAB - HEMATOLOGY ORD ERABLES [facility] [address] [place] [address], [facility] [phone] * (ABNORMAL) COMPREHENSIVE METABOLIC PANEL (10/02/2020 8:19 PM CDT) Only the most recent of2 resultswithin the time period is included. BUN <5(L) 7 - 26 mg/dL 10/02/2020 8:53 PM [facility] Creatinine 0.7 0.6 - 1.2 mg/dL 10/02/2020 8:53 PM [facility] Sodium 139 136 - 145 mmol/L 10/02/2020 8:53 PM [facility] Potassium 4.3 3.5 - 4.5 mmol/L 10/02/2020 8:53 PM [facility] Comment: Hemolysis detected in this specimen. ??Hemolysis is known to cause elevations in this analyte. ??Caution should be exercised in the interpretation of this result. ??Recommend repeat testing if clinically indicated. Hemolysis detected in this specimen. Hemolysis is known to cause elevations in this analyte. Caution should be exercised in the interpretation of this result. Recommend repeat testing if clinically indicated. Chloride 107 98 - 107 mmol/L 10/02/2020 8:53 PM [facility] CO2 22 22 - 29 mmol/L 10/02/2020 8:53 PM [facility] Glucose 80 70 - 115 mg/dL 10/02/2020 8:53 PM [facility] Calcium 8.0(L) 8.4 - 10.2 mg/dL 10/02/2020 8:53 PM [facility] Protein Total 6.4 6.0 - 8.3 g/dL 10/02/2020 8:53 PM [facility] Comment:Hemolysis detected i n this specimen. Hemolysis is known to cause elevations in this analyte. Caution should be exercised in the interpretation of this result. Recommend repeat testing if clinically indicated. Albumin 3.6 3.4 - 5.0 g/dL 10/02/2020 8:53 PM [facility] Bilirubin Total 0.7 0.2 - 1.2 mg/dL 10/02/2020 8:53 PM [facility] Alkaline Phosphatase 87 40 - 150 Units/L 10/02/2020 8:53 PM [facility] ALT 30 0 - 55 Units/L 10/02/2020 8:53 PM [facility] AST 37(H) 5 - 34 Units/L 10/02/2020 8:53 PM [facility] Comment: Hemolysis detected in this specimen. ??Hemolysis is known to cause elevations in this analyte. ??Caution should be exercised in the interpretation of this result. ??Recommend repeat testing if clinically indicated. Hemolysis detected in this specimen. Hemolysis is known to cause elevations in this analyte. Caution should be exercised in the interpretation of this result. Recommend repeat testing if clinically indicated. Anion Gap 14 8 - 18 10/02/2020 8:53 PM [facility] BUN/Creatinine Ratio <7(L) 7 - 23 10/02/2020 8:53 PM [facility] Osmolality Calculated <284 270 - 300 mOsm/kg 10/02/2020 8:53 PM [facility] Albumin/Globulin Ratio 1.3 1.1 - 2.3 10/02/2020 8:53 PM [facility] eGFR >60 >60 mL/min/1. 73 m2 10/02/2020 8:53 PM [facility] Blood BLOOD SPECIMEN / Unknown Venipuncture / Unknown 10/02/2020 8:19 PM CDT 10/02/2020 8:24 PM CDT Monica Sauceda MD LAB - CHEMISTRY [facility]HR[facility] J[facility]NS[facility] [address] [address], [facility] [phone] * ALCOHOL ETHYL BLOOD (10/02/2020 8:19 PM CDT) Interpretation Ethanol None Detected None Detected mg/dL 10/02/2020 8:53 PM CDT [facility] Comment:Ethanol levels less than 10 mg/dL are resulted as None detected . Blood BLOOD SPECIMEN / Unknown Venipuncture / Unknown 10/02/2020 8:19 PM CDT 10/02/2020 8:24 PM CDT Monica Sauceda MD LAB - CHEMISTRY MEHRAN JOHNSON Performing Organization Address [facility] Co de Phone Number [address] [address], [facility] [phone] * (ABNORMAL) URINALYSIS ROUTINE AUTO (07/29/2013 9:28 AM [employer]) Only the most recent of2 resultswithin the time period is included. Color UA Yellow Straw, Yellow, Dark Yellow 07/29/2013 9:40 AM [employer] [facility] Clarity UA Clear 07/29/2013 9:40 AM [employer] [facility] Specific Thompson UA 1.010 1.005 - 1.030 07/29/2013 9:40 AM [employer] [facility] pH UA 5.5 5.0 - 8.0 pH 07/29/2013 9:40 AM [employer] [facility] Protein UA Negative Negative 07/29/2013 9:40 AM [employer] [facility] Blood UA Trace(A) Negative 07/29/2013 9:40 AM [employer] [facility] Leukocyte UA Negative Negative 07/29/2013 9:40 AM [employer] [facility] Nitrite UA Negative Negative 07/29/2013 9:40 AM [employer] [facility] Glucose UA Negative Negative 07/29/2013 9:40 AM [employer] [facility] Ketone UA Negative Negative 07/29/2013 9:40 AM [employer] [facility] Bilirubin UA Negative Negative 07/29/2013 9:40 AM [facility] Urobilinogen UA 0.2 0.1 - 1.0 EU/dL 07/29/2013 9:40 AM [facility] Urine Microscopy Urine microscopy to follow 07/29/2013 9:40 AM [facility] Urine URINE SPECIMEN OBTAINED BY CLEAN CATCH PROCEDURE / Unknown 07/29/2013 9:28 AM [employer] 07/29/2013 9:30 AM [facility] [email or web address]] Dougie Snyder MD LAB - URINALYSIS ORD ERABLES Performing Organization Address [facility]/ZIP Co de Phone Number [facility] [address] [place] [address] * URINALYSIS MICROSCOPIC ONLY (07/29/2013 9:28 AM [facility] [[email or web address] RBC UA 0-2 0-2, 2-5 # /hpf 07/29/2013 9:40 AM [facility] WBC UA 0-2 0-2, 2-5 # /hpf 07/29/2013 9:40 AM [facility] Bacteria UA None Seen None Seen 07/29/2013 9:40 AM [facility] Epithelial Cell UA 0-2 0-2, 2-5 07/29/2013 9:40 AM [facility] Hyaline Casts 0-2 0 - 2 # /lpf 07/29/2013 9:40 AM [facility] Urine URINE SPECIMEN OBTAINED BY CLEAN CATCH PROCEDURE / Unknown 07/29/2013 9:28 AM [employer] 07/29/2013 9:30 AM [facility] [[email or web address]] Dougie Snyder MD LAB - URINALYSIS ORD ERABLES Performing Organization Address [facility] Co de Phone Number [facility] [address] [place] [address] * (ABNORMAL) DRUG SCREEN TOX LIMITED BLD PNL 3 INHOUSE (04/21/2013 10:45 AM [employer]) Acetaminophen 3.5(L) 10.0 - 30.0 ug/mL 04/21/2013 11:08 AM [facility] Ethanol <3 <10 mg/dL 04/21/2013 11:08 AM [facility] Salicylate <1.7 <20.0 mg/dL 04/21/2013 11:08 AM [facility] Ethanol Calculated <0.100 gm/dL 04/21/2013 11:08 AM [facility] [employer] Comment:Not Calculated Blood BLOOD SPECIMEN / Unknown 04/21/2013 10:45 AM [employer] 04/21/2013 10:49 AM [employer] Narrative [facility] - 04/21/2013 11:08 AM [facility] ACETAMINOPHEN COMMENT Contact the [place] [facility] at [facility] for advice in interpreting acetaminophen levels or if an overdose is suspected. Critical values: 4 Hours Post Ingestion: Critical value > 200 ??g/mL 12 Hours Post Ingestion: Critical value >150 ??g/mL Random values: Critical value: For patients 18 years or less: No numeric critical defined. Critical value: For patients 18 years or older: >50 ??g/mL. Dougie Snyder MD LAB - CHEMISTRY MEHRAN JOHNSON Performing Organization Address City/[facility] Co de Phone Number [facility] [address] [place] [address] * (ABNORMAL) TSH (04/21/2013 10:45 AM [employer]) TSH 4.54(H) 0.358 - 3.740 uIU/mL 04/21/2013 5:00 PM [employer] [facility] Blood BLOOD SPECIMEN / Unknown 04/21/2013 10:45 AM [employer] 04/21/2013 4:33 PM [employer] Santhosh Cuellar MD LAB - CHEMISTRY MEHRAN JOHNSON Performing Organization Address [facility] Co de Phone Number [facility] [address] [place] [address] * T4 TOTAL (04/21/2013 10:45 AM [employer]) T4 Total 8.6 4.7 - 13.3 ug/dL 04/21/2013 4:55 PM [employer] [facility] Blood BLOOD SPECIMEN / Unknown 04/21/2013 10:45 AM [employer] 04/21/2013 4:33 PM [employer] Santhosh Cuellar MD LAB - CHEMISTRY MEHRAN JOHNSON [facility] [address] [place] [address]
--- OUTSIDE RECORDS SUMMARY | 2024-07-14 03:34 | XMS_ITS ---
[facility] Organization [facility] Address [address] [place] [address] Care Team Providers Care Printed Circuit Photographer Name Role Phone Dwight Mas Primary Care Provider Ti Jain [phone] REASON FOR VISIT MAT F/U; relapsed in past 30 days; SUBOXONE; has warm handoff info Social History Sex Assigned At : Social History Observation Description Sex Assigned At Male Encounters Encounter Location Date Provider Diagnosis [facility] [address] [place] [address] 12/19/2023 Ti Jain Plan Of Treatment No Information Progress Notes * Humberto TANDOB:2000 (24 yo M)Acc No.[id number]:12/19/2023 UNLOCKED PROGRESS NOTE Patient:?Humberto TAN Provider:?Ti Jain :2000???Age:23 Y???Sex:Male Myles e:12/19/2023 Address:[address] , [place], [place] Pcp:Dwight Mas Subjective: * Chief Complaints: * ???1. MAT F/U; relapsed in p ast 30 days; SUBOXONE; has warm handoff info. * Medical History:? Objective: * Vitals:? Assessment: Plan: * Treatment: * Care Plan Details* * Electronic signature of Juvenal Jain [id number] on 07/14/2024 at 03:34 AM TEXTILE CUTTING MACHINE OPERATOR Sign off status: Pending * Provider:?Ti Jain Date:? 4 Generated for Jovany obrien/Terrie/Afia on:?07/14/2024 03:34 AM TEXTILE CUTTING MACHINE OPERATOR
--- OUTSIDE RECORDS SUMMARY | 2024-07-14 03:34 | XMS_ITS | Referral Summary ---
Author Organization [facility] Address [address] [place] [address] Care Team Providers Care Signal System Testing Maintainer Name Role Phone Unavailable Primary Care Provider Unavailabl e Source Comments [facility], formerly [facility],non-owned Affiliates and Associated Physician Practices is amultiple site organization consisting of ambulatory clinics and hospital sitesin [place], [place], [place] and [place]. This disclosure is being madepursuant to the Care Everywhere program and may not contain all information available regarding this patient. Last updated 18.[facility] Allergies No known active allergies Medications * Be aware that medications may not be up to date on this document. Alwaysverify current medications with the patient. Medication Sig Dispensed Refills Start Date End Date Status melatonin 3 MG tablet Take 3 mg by mouth nightly as needed for Insomnia Active oxyCODONE, immediate release, 10 MG tablet Take 1 (one) tablet by mouth every 4 hours as needed for Pain 12 tablet 10/04/2020 Active folic acid (FOLVITE) 1 MG tablet Take 1 (one) tablet by mouth once daily 10/05/2020 Active thiamine (VITAMIN B-1) 100 MG tablet Take 1 (one) tablet by mouth once daily 10/05/2020 Active multivitamin daily tablet Take 1 (one) tablet by mouth once daily 10/05/2020 Active Active Problems Problem Noted Date Diagnosed [...] Mass Index 20.09 10/02/2020 8:03 PM CDT Functional Status Functional Status Response Date of Assess ment Is person deaf or have serious hearing difficult y? No 10/04/2020 Is person blind or have serious difficulty seein g? No 10/04/2020 Does person have serious dif ficulty walking/climbing stairs? Yes 10/04/2020 Does person have difficulty dressing/bathing? Ye s 10/04/2020 Does person have difficulty doing errands alone? No 10/04/2020 Cognitive Status Response Date of Assessm ent Does person have difficulty concentrating/remembering/making decisions? No 10/04/2020 Plan of Treatment Not on file Advance Directives * Full Code (Latest Code Status on File) Date Activated Date Inactivated Comments 10/02/2020 11:13 PM 10/04/2020 6:19 PM
--- OUTSIDE RECORDS SUMMARY | 2024-07-14 03:34 | XMS_ITS | Clinical Summary ---
Author Organization [facility] Address [address] [place] [address] Care Team Providers Care Crm Marketing Analyst Name Role Phone Unavailable Primary Care Provider Unavailabl e Source Comments [facility],non-owned Affiliates and Associated Physician Practices is amultiple site organization consisting of ambulatory clinics and hospital sitesin [place], [place] and [place]. This disclosure is being madepursuant to the Care Everywhere program and may not contain all information available regarding this patient. Last updated 18.[facility] Allergies No known active allergies Medications * [...] 10/04/2020 Seizure 10/02/2020 10/04/2020 Shaking 10/02/2020 10/04/2020 Family History Relation Name Status Comments Mother Social History Tobacco Use Types Packs/Day [...] Mass Index 20.09 10/02/2020 8:03 PM CDT Plan of Treatment Health Maintenance Due Date Last Done Comments HIV SCREENING 2013 HPV VACCINE (1 - Male 3-dose series) 2013 HEPATITIS C SCREENING 06/16/2016 DTAP/TDAP/TD VACCINES (1 - Tdap) 2017 HEPATITIS B VACCINE (1 of 3 - 19+ 3-dose series) 2017 COVID-19 VACCINE (1 - 2023-2 5 season) 2024 INFLUENZA VACCINE (#1) 2024 DEPRESSION SCREENING 06/16/2024 ZOSTER VACCINE (1 of 2) 2048 HIB VACCINE Aged Out No longer eligi ble based on patient's age to complete this topic MENINGOCOCCAL (Group B) VACCINE Aged Out No longer eligible based on patient's age to complete this topic MENINGOCOCCAL VACCINE Aged Out No corwin janny eligible based on patient's age to complete this topic PNEUMOCOCCAL VACCINE Aged Out No long er eligible based on patient's age to complete this topic Advance Directives * Full Code (Latest Code Status on File) Date Activated Date Inactivated Comments 10/02/2020 11:13 PM 10/04/2020 6:19 PM
--- OUTSIDE RECORDS SUMMARY | 2024-07-14 03:35 | XMS_ITS ---
Author Organization [facility] Address [address] [place] [address] Care Team Providers Care Centrex Radio Operator Name Role Phone Dwight Mas Primary Care Provider Ti Jain [phone] REASON FOR VISIT MAT F/U Social History Sex Assigned At : Social History Observation Description Sex Assigned At Male Encounters Encounter Location Date Provider Diagnosis [address] [place] [address] 12/17/2023 Ti Jain Plan Of Treatment No Information Progress Notes * Humberto TANDOB:2000 (23 yo M)Acc No.[id number]:12/17/2023 Patient:?Humberto TAN :2000???Age:23 Y???Sex:Male Address:[address], [place], [address] * true * Date:? Generated for Printi ng/Facharang/eTransmitting on:?07/14/2024 03:34 AM LABORATORY IMMUNOLOGIST
[2024-07-14 03:39] VITALS: BP 150/102; PULSE 95; RESP 24; TEMP 36.4; O2SAT 99
[2024-07-14 05:16] VITALS: BP 125/76; PULSE 80; RESP 20; O2SAT 100
--- NOTE | 2024-07-14 05:36 | PC.NURSE ---
This rn was cleaning the waiting room and found a prescription pill bottle with this patients name for suboxone 8/2mg film slips. Under the couch where the patient was laying and shoved between the couch cushions there were 10 open suboxone film slips. ED Charge and patient RN notified of this rn findings.
[2024-07-14 05:50] VITALS: O2SAT 98
[2024-07-14 05:51] VITALS: RESP 17
--- NOTE | 2024-07-14 06:18 | PC.NURSE ---
Pt continuously yelling out I am in pain, I need help. Get me some Librium . Pt moved from room 2 to H3 for private room. Pt educated on importance of using call light instead of yelling throughout department and respecting other patients within department.
--- OUTSIDE RECORDS SUMMARY | 2024-07-14 06:57 | XMS_ITS ---
Author Organization [facility] Address [address] [place] [address] Care Team Providers Care Corporate Representative Name Role Phone Dwight Mas Primary Care Provider [phone] Ti Jain [phone] Results Component Value Reference Range Notes 12 Panel Urine Drug Screen Reviewed date:01/09/2024 09:42:01 AM Interpretation: Performing Lab: Notes/Report: 0 THC pos LOLIS neg MOP (OPI) neg AMP neg MET neg BAR neg BZO neg MDMA neg MTD neg OXY neg PCP neg BUP neg REASON FOR VISIT MAT F/U Medications Medication SIG (Take, Route, Frequency, Duration) [...] day smoker Additional Findings: Tobacco user e-cigarette Vital Signs Weight 116.00 lbs 01/09/2024 Height 69.50 in 01/09/2024 Blood pressure systolic 118 mm Hg 01/09/20 24 Blood pressure diastolic 70 mm Hg 024 Heart Rate 71 /min 01/09/2024 Respiratory Rate 16 /min 01/09/2024 BMI 16.88 kg/m2 01/09/2024 Oximetry 97 % 01/09/2024 Encounters Encounter Location Date Provider Diagnosis [facility] [address] [address] 01/09/2024 Ti Jain Opioid use disorder F11.99 Assessments Encounter Date Diagnosis (ICD Code) Assessment Notes Treatment Notes Treatment Clinical Notes Section Notes 01/09/2024 Opioid use disorder (ICD-10 - F11.99) Plan Of Treatment Medication Medication Name Sig Start Date Stop Date Notes Suboxone 8-2 MG 1/2 film under the t ongue and allow to dissolve Sublingual TWICE A DAY 01/09/2024 Next Appt Details Follow Up: 1 Week, Reason: 1 WK MAT AFTER RESTARTING SUBOXONE Progress Notes * Humberto TANDOB:2000 (23 yo M)Acc No.[id number]:01/09/2024 Patient:?Humberto TAN Provider:?Ti Jain :2000???Age:23 Y???Sex:Male Myles e:01/09/2024 Address:[address] [place], [place] [id number] Pcp:Dwight Mas Check 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 Wish to be : Have you wished you were or wished you could go to sleep and not wake up??No ?2. Suicidal Thoughts: Have you actually had any thoughts of killing yourself??No ?6. Suicide Behaviour: Have you ever done anything,started to do anything, or prepared to end your life??No ?Interpretation:?Low Risk ???Preventative Health and Wellness follow-up:? . . ???CSSRS Interpretation and Follow Up Plan:?CSSRS Interpretation and Follow Up Plan. ?CSSRS Interpretation and Follow Up Plan?CSSRS Screen documented using SF?Yes ?Moderate or High risk requires selection of a follow up plan?CSSRS No/Low: intervention not needed at this time ???MAR follow-up:?MAR F/U TAPERED OFF SUBOXONE AND HAD CRAVINGS. FOUND SOME OLD FENTANYL IN HIS HOUSE LAST WEEK AND USED IT 4 DAYS AGO.? TODAY IS HAVING MILD ACHES AND RHINORHEA.? WANTS TO RESTART SUBOXONE. ?Medication Monitoring and Risk Mitigation?Up-to-date on ASA recommended lab testing??Yes [facility] 09/2023 ?Prescribed a buprenorphine product??Yes ?Has patient had a buprenorphine and metabolite lab ordered/collected??Yes (see notes for date of last metabolite testing) ?Date of last buprenorphine and metabolite?11/07/2023 ?Prescription Drug Monitoring Program Review?Yes. No concerns at this time. ?Plan to address any concerns identified:?No concerns identified. Will continue treatment plan as is. ?Cravings, Setbacks, Substance use, and Stressors?Cravings since last visit:?No. Patient denies cravings since last visit. ?Setbacks since last visit??No, patient denies setbacks since last visit. ?Misuse of substances since last visit:?No, patient denies. ?Stressors?Yes, patient admits to stressors. See notes. ?Mental Health, Support System, and Social Determinants?Mental Health Status?Stable. ?Support Systems Include:?Individual counseling or therapy., Personal support system (see notes). ?Court System Involvement??No ?Housing Stability:?Stable and safe housing. 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 ?Referrals needed:?No referrals needed at this time. ?Recommended Wellness and Prevention Follow-up?Recommended Wellness and Prevention reviewed:?Yes. No additional orders/actions needed at this time. ?Other concerns:?Other Concerns??No. ?Narcan need?No. Patient already has Narcan. * ROS:?Basic ROS:?Admits?Substance Abuse.? * Medical History:? * Surgical History:?No Surgica l History documented. * Hospitalization/Major Diagno stic Procedure:?fractured spine etoxed [facility] * Family History:?Father: vangie jang.?Mother: , drug overdose.? * Social History:?Primary Social History:?Living Arrangement?Living Arrangement:?Dependent Living ?Living with:?Parent(s), Grandparent(s) ?Is this a supportive environment??Yes ?Alcohol Use?Alcohol Use Frequency:?Monthly or less ?Illicit Substance Usage?Illicit Substance Usage:?Yes Last Use Fentanyl 08/2023 ?Interested in quitting:?Yes ?Employment Status?Employment Status:?Unemployed ???Tobacco Use:?Dont use, Tobacco Use/Smoking?Are you a?current every day smoker ?Tobacco Control (Standard)?Tobacco use:?Current every day smoker ?Additional Findings: Tobacco user?e-cigarette ???Miscellaneous:?Method of learning?Preferred method of learning:?Discussion,Demonstration,Hearing * Medications:?Not-TakingSubox one 8-2 MG Film 1/2 film under the tongue and allow to dissolve Sublingual TWICE A DAY Acetaminophen 500 MG Tablet two tablets as needed for pain (maximum of 6 tablets in 24 hours) Orally every 6 hrs Narcan 4 MG/0.1ML Liquid 4mg as needed for opioid overdose Nasally once Not-Taking Suboxone 8-2 MG Film 1/2 film under the tongue and allow to dissolve Sublingual TWICE A DAY Not-Taking Acetaminophen 500 MG Tablet two tablets as needed for pain (maximum of 6 tablets in 24 hours) Orally every 6 hrs Not-Taking Narcan 4 MG/0.1ML Liquid 4mg as needed for opioid overdose Nasally once * Allergies:?no[Allergies Veri fied] Objective: * Vitals:?Initials: hp, Wt:116 .00, Ht:69.50, BMI:16.88, BP:118/70, HR:71, Oxygen sat %:97, RR:16, Pain scale:7. * Examination: ???ASAM Physical Assessment: ?Intoxication and Withdrawal signs? Assessment: * Assessment: 1.?Opioid use disorder - F11 .99 (Primary)??? Plan: * Treatment: ? Value Reference Range ?THC pos * ?LOLIS neg * ?MOP (OPI) neg * ?AMP neg * ?MET neg * ?BAR neg * ?BZO neg * ?MDMA neg * ?MTD neg * ?OXY neg * ?PCP neg * ?BUP neg * Recommended Wellness and Pre vention Guidelines: * ?Status ?Alert ?Last Done ?Next Due ?Action Taken ?NONCOMPLIANT ?Alcohol use screening ?- ? 4 ?- ?NONCOMPLIANT ?HIV screening ?- ?01/09/2024 ?- * Procedure Codes:?45192 SPECI MEN HANDLING * Follow Up:?1 Week (Reason: 1 WK MAT AFTER RESTARTING SUBOXONE) * Care Plan Details* * Sign off status: Completed true * Provider:?Ti Jain Date:? 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 Wish to be : Have yo u wished you were or wished you could go to sleep and not wake up?: No ?2. Suicidal Thoughts: Have you actually had any thoughts of killing yourself?: No ?6. Suicide Behaviour: Have you ever done anything,started to do anything, or prepared to end your life?: No ?Interpretation:: Low Risk Do Not Use CSSRS Interpretation and Follow Up Plan CSSRS Interpretation and Follow Up Plan CSSRS Screen documented using SF: Yes Moderate or High risk requir es selection of a follow up plan: CSSRS No/Low: intervention not needed at this time MAR follow-up Medication Monitorin g and Risk Mitigation Up-to-date on ASA recommended lab testing?: Yes [facility] 09/2023 Prescribed a buprenorphine product?: Yes ?Has patient had a buprenorp deidra and metabolite lab ordered/collected?: Yes (see notes for date of last metabolite testing) ??Date of last buprenorphine and metabol ite: 11/07/2023 Prescription Drug Monitoring Program Rev iew: Yes. No concerns at this time. Plan to address any concerns identified:: No concerns identified. Will continue treatment plan as is. Cravings, Setbacks, Substanc e use, and Stressors Cravings since last visit:: No. Patient denies cravings since last visit. Setbacks since last visit?: No, patient denies setbacks since last visit. Misuse of substances since last visit:: No, patient denies. Stressors: Yes, patient admits to stress ors. See notes. Mental Health, Support Syste m, and Social Determinants Mental Health Status: Stable. Support Systems Include:: In dividual counseling or therapy., Personal support system (see notes). Court System Involvement?: No Housing Stability:: Stable and safe hous ing. 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 Referrals needed:: No referrals needed a t this time. Recommended Wellness and Pre vention Follow-up Recommended Wellness and Prevention reviewed:: Yes. No additional orders/actions needed at this time. Other concerns: Other Concerns?: No. Narcan need: No. Patient already has [place] can. Preventative Health and Wellness follow-up . . Examination Category Sub-Category Detail Notes Category Not es ASAM Physical Assessment Intoxication and Withdrawal signs Intoxication signs: No signs of intoxication are present during examination. Withdrawal Signs: No withdrawal signs ar e present during examination.
--- OUTSIDE RECORDS SUMMARY | 2024-07-14 06:57 | XMS_ITS | Patient Health Summary ---
Author Organization [facility] Address [address] [place] [address] Care Team Providers Care Offline Editor Name Role Phone Unavailable Primary Care Provider Unavailabl e Note from [facility],non-owned Affiliates and Associated Physician Practices is amultiple site organization consisting of ambulatory clinics and hospital sitesin [place], [place], [place] and [place]. This disclosure is being madepursuant to the Care Everywhere program and may not contain all information available regarding this patient. Last updated 18.[facility] Allergies No known active allergies Medications * [...] demineralization. Report dictated by Almas Desai M.D. (radiology asst). IDr. SAI have personally reviewed and interpreted [...] leftward scoliosis. Compression deformity of the T8, [id number] again noted. Fracture of the T2-T4 which were in prior CT are not visualized in this study. There is diffuse osteoporosisdemineralization. Report dictated by Almas Desai M.D. (radiology asst). I, Dr. SAI HURD have personally reviewed and interpreted this examination/study. This report was electronically signed by SAI HURD on 10/05/2020 7:41 AM . Julio Cesar Dixon MD DIAGNOSTIC MICAELA GING ORDERABLES * CBC W/O DIFFERENTIAL (10/04/2020 2:57 AM CDT) Only the most recent of2 resultswithin the time period is included. WBC 8.3 3.5 - 10.5 10? 3 /uL 10/04/2020 3:32 AM CDT [facility] RBC 4.66 4.30 - 5.70 10? 6 /uL 10/04/2020 3:32 AM T [facility] Hemoglobin 14.5 13.5 - 17.5 g/dL 10/04/2020 3:32 AM [facility] Hematocrit 41.9 39.0 - 50.0 % 10/04/2020 3:32 AM [facility] MCV 89.9 81.0 - 97.0 fL 10/04/2020 3:32 AM T [facility] MCH 31.1 28.0 - 34.0 pg 10/04/2020 3:32 AM [facility] MCHC 34.6 32.0 - 36.0 g/dL 10/04/2020 3:32 AM [facility] Platelet Count 255 150 - 400 10? 3 /uL 10/04/2020 3:32 AM [facility] RDW-SD 38.4 36.0 - 50.0 fL 10/04/2020 3:32 AM [facility] RDW-CV 11.8 11.2 - 14.8 % 10/04/2020 3:32 AM [facility] MPV 10.0 9.3 - 12.8 fL 10/04/2020 3:32 AM [facility] nRBC Absolute 0.00 0 10? 3 /uL 10/04/2020 3:32 AM [facility] nRBC Auto 0.0 0 /100 WBC 10/04/2020 3:32 AM [facility] Blood BLOOD SPECIMEN / Unknown Lab Venipuncture / Unknown 10/04/2020 2:57 AM CDT 10/04/2020 3:22 AM CDT Yoli Lofton MD LAB - HEMATOLOGY OR DERABLES Performing Organization Address City/State/[facility] Co de Phone Number [facility] [address] [place] [address], [facility] [phone] * (ABNORMAL) BASIC METABOLIC PANEL (CALCIUM TOTAL) (10/04/2020 2:57 AM CDT) Only the most recent of2 resultswithin the time period is included. BUN <5(L) 7 - 26 mg/dL 10/04/2020 3:45 AM [facility] Creatinine 0.8 0.6 - 1.2 mg/dL 10/04/2020 3:45 AM [facility] Sodium 140 136 - 145 mmol/L 10/04/2020 3:45 AM [facility] Potassium 3.7 3.5 - 4.5 mmol/L 10/04/2020 3:45 AM [facility] Chloride 107 98 - 107 mmol/L 10/04/2020 3:45 AM CDT [facility] CO2 22 22 - 29 mmol/L 10/04/2020 3:45 AM CDT [facility] Glucose 83 70 - 115 mg/dL 10/04/2020 3:45 AM T [facility] Calcium 8.4 8.4 - 10.2 mg/dL 10/04/2020 3:45 AM T [facility] Anion Gap 15 8 - 18 10/04/2020 3:45 AM T [facility] BUN/Creatinine Ratio <6(L) 7 - 23 10/04/2020 3:45 AM [facility] Osmolality Calculated <286 270 - 300 mOsm/kg 10/04/2020 3:45 AM [facility] eGFR >60 >60 mL/min/1.7 3 m2 10/04/2020 3:45 AM T [facility] Blood BLOOD SPECIMEN / Unknown Lab Venipuncture / Unknown 10/04/2020 2:57 AM CDT 10/04/2020 3:22 AM CDT Yoli Lofton MD LAB - CHEMISTRY ORD ERABLES [facility] [address] [place] [address], [facility] [phone] * CT HEAD WO CONTRAST (10/03/2020 7:23 PM CDT) Anatomical Region Laterality Modality Head Computed Tomogra phy 10/04/2020 9:50 AM CDT Impressions 10/04/2020 10:53 AM CDT IMPRESSION: 1.No acute intracranial hemorrhage, midline shift, or significant mass effect. Dictated by Yamil Garza MD (radiology asst). This report was approved ??by Yamil Garza [...] mass effect. Dictated by Yamil Garza MD (radiology asst). This report was approved by Yamil Garza [...] : < 1000 ng/mL 10/03/2020 12:49 PM [facility] Barbiturates Screen Urine Negative Negative : < 200 ng/mL 10/03/2020 12:49 PM [facility] Benzodiazepine Screen Urine Negative Negative : < 200 ng/mL 10/03/2020 12:49 PM [facility] Opiates Urine Positive(A) Negative : < 300 ng/mL 10/03/2020 12:49 PM [facility] Comment:Positive urine opiat e screening results should be confirmed by another generally accepted non-immunological method such as gas chromatography or mass spectrometry. Cocaine Metabolites Urine Negative Negative : < 300 ng/mL 10/03/2020 12:49 PM [facility] Phencyclidine Screen Urine Negative Negative : < 25 ng/ml 10/03/2020 12:49 PM [facility] Cannabinoids Screen Urine Positive(A) Negative : <50 ng/mL 10/03/2020 12:49 PM [facility] Comment:Positive urine canna binoids (THC) screening results should be confirmed by another generally accepted non-immunological method such as gas chromatography or mass spectrometry. Methadone Screen Urine Negative Negative : < 300 ng/mL 10/03/2020 12:49 PM [facility] Fentanyl Screen Urine Positive(A) Negative : <1.0 ng/mL 10/03/2020 12:49 PM [facility] Comment:Positive urine fenta nyl screening results should be confirmed by another generally accepted non-immunological method such as gas chromatography or mass spectrometry. Urine URINE / Unknown Collection / Unknown 10/03/2020 12:06 PM CDT 10/03/2020 12:34 PM CDT Narrative [facility] - 10/03/2020 12:49 PM CDT The Urine Toxicology Screening Panel does not screen for Propoxyphene, Meprobamate, Carisoprodol, Trazodone, [id number] medications and/or volatiles (Acetone, Isopropanol, Methanol or Ethylene Glycol). Ethanol, Salicylate, Acetaminophen, Tricyclic Antidepressants and several therapeutic drugs may be individually assayed in serum or plasma specimen. Toxicology testing by the [facility] is an aid to medical diagnosis and treatment of patients. No documented chain of custody was maintained. Results are intended to be used for clinical purposes only. ? Monica Sauceda MD LAB - URINE CHEMISTR Y ORDERABLES Performing Organization Address [facility] Phone Number [address] [address], [facility] [phone] * MAGNESIUM BLOOD (10/03/2020 2:25 AM CDT) Magnesium 1.8 1.6 - 2.6 mg/dL 10/03/2020 6:04 AM CDT [facility] Blood BLOOD SPECIMEN / Unknown Lab Venipuncture / Unknown 10/03/2020 2:25 AM CDT 10/03/2020 3:00 AM CDT Salman Adrián Rolly MD LAB - CHEMISTRY ORD ERABLES [address] [address], [facility] [phone] * CK BLOOD (10/03/2020 2:25 AM CDT) CK Total 150 30 - 200 Units/L 10/03/2020 3:32 AM CDT [facility] Blood BLOOD SPECIMEN / Unknown Lab Venipuncture / Unknown 10/03/2020 2:25 AM CDT 10/03/2020 3:00 AM CDT Yoli Lofton MD LAB - CHEMISTRY ORD ERABLES Performing Organization Address [facility]/ZIP Co de Phone Number [address] [address], [place] [phone] * CT LUMBAR SPINE WO CONTRAST (10/03/2020 [...] intra-abdominal findings. Dictated by Mariama Rodriguez MD (radiology asst). I, Dr. JOAN JEFF have personally reviewed [...] intra-abdominal findings. Dictated by Mariama Rodriguez MD (radiology asst). I, Dr. JOAN JEFF have personally reviewed [...] intra-abdominal findings. Dictated by Mariama Rodriguez MD (radiology asst). I, Dr. JOAN JEFF have personally reviewed [...] intra-abdominal findings. Dictated by Mariama Rodriguez MD (radiology asst). I, Dr. JOAN JEFF have personally reviewed [...] (Bezet) 411 ms [facility] MUSE Calculated P [place] 4 degrees [facility] MUSE Calculated R [place] 81 degrees [facility] MUSE Calculated T [place] 63 degrees [facility] MUSE Interpretation EKG NORMAL SINUS RHYTHM NORMAL ECG NO PREVIOUS ECGS AVAILABLE Confirmed by Jose Barclay ([id number]) on 10/03/2020 1:06:39 PM SL MUSE 10/02/2020 8:57 PM CDT 10/03/2020 1:06 PM CDT Monica Sauceda MD ECG ORDERABLES [facility] MUSE * CT THORACIC SPINE WO CONTRAST [...] intra-abdominal findings. Dictated by Mariama Rodriguez MD (radiology asst). I, Dr. JOAN JEFF have personally reviewed [...] intra-abdominal findings. Dictated by Mariama Rodriguez MD (radiology asst). I, Dr. JOAN JEFF have personally reviewed and interpreted this examination/study. This report was electronically signed by JOAN JEFF on 10/03/2020 10:12 AM . Monica Sauceda MD CT ORDERABLES * PT-INR [facility] (10/02/2020 8:19 PM CDT) PT 13.0 12.1 - 14.8 Seconds 10/02/2020 8:37 PM CDT [facility] INR 1.0 See Comment 10/02/2020 8:37 PM CDT [facility] Comment:The suggested therap eutic range for standard coumadin (warfarin) therapy is an INR of 2.0-3.0. For high-risk patients (Mechanical Mitral Valve Prosthesis, etc.), the suggested prophylactic therapeutic range is an INR of 2.5-3.5. Blood BLOOD SPECIMEN / Unknown Venipuncture / Unknown 10/02/2020 8:19 PM CDT 10/02/2020 8:28 PM CDT Monica Sauceda MD LAB - COAGULATION OR DERABLES Performing Organization Address City/State/[facility] Co de Phone Number [facility] [address] [place] [phone], [facility] [phone] * (ABNORMAL) CBC W AUTO DIFFERENTIAL (10/02/2020 8:19 PM CDT) Only the most recent of2 resultswithin the time period is included. WBC 12.1(H) 3.5 - 10.5 10? 3 /uL 10/02/2020 8:28 PM CDT [facility] RBC 4.44 4.30 - 5.70 10? 6 /uL 10/02/2020 8:28 PM CDT [facility] Hemoglobin 14.1 13.5 - 17.5 g/dL 10/02/2020 8:28 PM CDT [facility] Hematocrit 40.8 39.0 - 50.0 % 10/02/2020 8:28 PM [facility] MCV 91.9 81.0 - 97.0 fL 10/02/2020 8:28 PM [facility] MCH 31.8 28.0 - 34.0 pg 10/02/2020 8:28 PM [facility] MCHC 34.6 32.0 - 36.0 g/dL 10/02/2020 8:28 PM [facility] Platelet Count 248 150 - 400 10? 3 /uL 10/02/2020 8:28 PM [facility] RDW-SD 39.6 36.0 - 50.0 fL 10/02/2020 8:28 PM [facility] RDW-CV 11.7 11.2 - 14.8 % 10/02/2020 8:28 PM [facility] MPV 9.8 9.3 - 12.8 fL 10/02/2020 8:28 PM [facility] nRBC Absolute 0.00 0 10? 3 /uL 10/02/2020 8:28 PM [facility] nRBC Auto 0.0 0 /100 WBC 10/02/2020 8:28 PM [facility] Neutrophils % 83.0(H) 35.0 - 70.0 % 10/02/2020 8:28 PM [facility] Lymphocytes % 11.0(L) 19.7 - 55.1 % 10/02/2020 8:28 PM [facility] Monocytes % 4.7 3.0 - 15.0 % 10/02/2020 8:28 PM [facility] Eosinophils % 0.5 0.0 - 6.0 % 10/02/2020 8:28 PM [facility] Basophil % 0.2 0.0 - 1.5 % 10/02/2020 8:28 PM [facility] Neutrophils Absolute 10.1(H) 1.6 - 7.0 10? 3 /uL 10/02/2020 8:28 PM [facility] Lymphocyte Absolute 1.3 0.8 - 2.9 10? 3 /uL 10/02/2020 8:28 PM [facility] Monocytes Absolute 0.57 0.14 - 0.66 10? 3 /uL 10/02/2020 8:28 PM CDT [facility] Eosinophils Absolute 0.06 0.00 - 0.45 10? 3 /uL 10/02/2020 8:28 PM CDT [facility] Basophils Absolute 0.03 0.00 - 0.06 10? 3 /uL 10/02/2020 8:28 PM CDT [facility] Immature Granulocytes % 0.6 0.0 - 1.0 % 10/02/2020 8:28 PM T [facility] Blood BLOOD SPECIMEN / Unknown Venipuncture / Unknown 10/02/2020 8:19 PM CDT 10/02/2020 8:24 PM CDT Monica Sauceda MD LAB - HEMATOLOGY ORD ERABLES [facility] [address] [place] [address], [facility] [phone] * (ABNORMAL) COMPREHENSIVE METABOLIC PANEL (10/02/2020 8:19 PM CDT) Only the most recent of2 resultswithin the time period is included. BUN <5(L) 7 - 26 mg/dL 10/02/2020 8:53 PM [facility] Creatinine 0.7 0.6 - 1.2 mg/dL 10/02/2020 8:53 PM [facility] Sodium 139 136 - 145 mmol/L 10/02/2020 8:53 PM [facility] Potassium 4.3 3.5 - 4.5 mmol/L 10/02/2020 8:53 PM [facility] Comment: Hemolysis detected in this specimen. [...] 98 - 107 mmol/L 10/02/2020 8:53 PM [facility] CO2 22 22 - 29 mmol/L 10/02/2020 8:53 PM [facility] Glucose 80 70 - 115 mg/dL 10/02/2020 8:53 PM [facility] Calcium 8.0(L) 8.4 - 10.2 mg/dL 10/02/2020 8:53 PM [facility] Protein Total 6.4 6.0 - 8.3 g/dL 10/02/2020 8:53 PM [facility] Comment:Hemolysis detected i n this specimen. Hemolysis is known to cause elevations in this analyte. Caution should be exercised in the interpretation of this result. Recommend repeat testing if clinically indicated. Albumin 3.6 3.4 - 5.0 g/dL 10/02/2020 8:53 PM [facility] Bilirubin Total 0.7 0.2 - 1.2 mg/dL 10/02/2020 8:53 PM [facility] Alkaline Phosphatase 87 40 - 150 Units/L 10/02/2020 8:53 PM [facility] ALT 30 0 - 55 Units/L 10/02/2020 8:53 PM [facility] AST 37(H) 5 - 34 Units/L 10/02/2020 8:53 PM [facility] Comment: Hemolysis detected in this specimen. [...] 14 8 - 18 10/02/2020 8:53 PM [facility] BUN/Creatinine Ratio <7(L) 7 - 23 10/02/2020 8:53 PM [facility] Osmolality Calculated <284 270 - 300 mOsm/kg 10/02/2020 8:53 PM [facility] Albumin/Globulin Ratio 1.3 1.1 - 2.3 10/02/2020 8:53 PM [facility] eGFR >60 >60 mL/min/1. 73 m2 10/02/2020 8:53 PM [facility] Blood BLOOD SPECIMEN / Unknown Venipuncture / Unknown 10/02/2020 8:19 PM CDT 10/02/2020 8:24 PM CDT Monica Sauceda MD LAB - CHEMISTRY MEHRAN JOHNSON [address] [address], [facility] [phone] * ALCOHOL ETHYL BLOOD (10/02/2020 8:19 PM CDT) Interpretation Ethanol None Detected None Detected mg/dL 10/02/2020 8:53 PM CDT [facility] Comment:Ethanol levels less than 10 mg/dL are resulted as None detected . Blood BLOOD SPECIMEN / Unknown Venipuncture / Unknown 10/02/2020 8:19 PM CDT 10/02/2020 8:24 PM CDT Monica Sauceda MD LAB - CHEMISTRY MEHRAN JOHNSON Performing Organization Address [facility] Co de Phone Number [address] [address], [facility] [phone] * (ABNORMAL) URINALYSIS ROUTINE AUTO (07/29/2013 9:28 AM CALCULATOR OPERATOR) Only the most recent of2 resultswithin the time period is included. Color UA Yellow Straw, Yellow, Dark Yellow 07/29/2013 9:40 AM CALCULATOR OPERATOR [facility] Clarity UA Clear 07/29/2013 9:40 AM CALCULATOR OPERATOR [facility] Specific [place] UA 1.010 1.005 - 1.030 07/29/2013 9:40 AM CALCULATOR OPERATOR [facility] pH UA 5.5 5.0 - 8.0 pH 07/29/2013 9:40 AM CALCULATOR OPERATOR [facility] Protein UA Negative Negative 07/29/2013 9:40 AM CALCULATOR OPERATOR [facility] Blood UA Trace(A) Negative 07/29/2013 9:40 AM CALCULATOR OPERATOR [facility] Leukocyte UA Negative Negative 07/29/2013 9:40 AM CALCULATOR OPERATOR [facility] Nitrite UA Negative Negative 07/29/2013 9:40 AM CALCULATOR OPERATOR [facility] Glucose UA Negative Negative 07/29/2013 9:40 AM CALCULATOR OPERATOR [facility] Ketone UA Negative Negative 07/29/2013 9:40 AM CALCULATOR OPERATOR [facility] Bilirubin UA Negative Negative 07/29/2013 9:[address] [facility] Urobilinogen UA 0.2 0.1 - 1.0 EU/dL 07/29/2013 9:[address] [facility] Urine Microscopy Urine microscopy to follow 07/29/2013 9:[address] [facility] Urine URINE SPECIMEN OBTAINED BY CLEAN CATCH PROCEDURE / Unknown 07/29/2013 9:28 AM CALCULATOR OPERATOR 07/29/2013 9:30 AM [facility] Dougie Snyder MD LAB - URINALYSIS ORD ERABLES Performing Organization Address [facility]/ZIP Co de Phone Number [facility] [address] [place] [address] * URINALYSIS MICROSCOPIC ONLY (07/29/2013 9:28 AM [facility]) RBC UA 0-2 0-2, 2-5 # /hpf 07/29/2013 9:[address] [facility] WBC UA 0-2 0-2, 2-5 # /hpf 07/29/2013 9:[address] [facility] Bacteria UA None Seen None Seen 07/29/2013 9:[address] [facility] Epithelial Cell UA 0-2 0-2, 2-5 07/29/2013 9:[address] [facility] Hyaline Casts 0-2 0 - 2 # /lpf 07/29/2013 9:[address] [facility] Urine URINE SPECIMEN OBTAINED BY CLEAN CATCH PROCEDURE / Unknown 07/29/2013 9:28 AM CALCULATOR OPERATOR 07/29/2013 9:30 AM [facility] Dougie Snyder MD LAB - URINALYSIS ORD ERABLES Performing Organization Address [facility] Co de Phone Number [facility] [address] [place] [address] * (ABNORMAL) DRUG SCREEN TOX LIMITED BLD PNL 3 INHOUSE (04/21/2013 10:45 AM CALCULATOR OPERATOR) Acetaminophen 3.5(L) 10.0 - 30.0 ug/mL 04/21/2013 11:[address] [facility] Ethanol <3 <10 mg/dL 04/21/2013 11:[address] [facility] Salicylate <1.7 <20.0 mg/dL 04/21/2013 11:08 AM CALCULATOR OPERATOR [facility] Ethanol Calculated <0.100 gm/dL 04/21/2013 11:08 AM CALCULATOR OPERATOR [facility] Comment:Not Calculated Blood BLOOD SPECIMEN / Unknown 04/21/2013 10:45 AM CALCULATOR OPERATOR 04/21/2013 10:49 AM CALCULATOR OPERATOR Narrative [facility] - 04/21/2013 11:08 AM [facility] ACETAMINOPHEN COMMENT Contact the [place] [facility] at [facility] [employer] [phone] for advice in interpreting acetaminophen levels or [...] - CHEMISTRY MEHRAN JOHNSON Performing Organization Address City/[facility] Co de Phone Number [facility] [address] [place] [address] * (ABNORMAL) TSH (04/21/2013 10:45 AM CALCULATOR OPERATOR) TSH 4.54(H) 0.358 - 3.740 uIU/mL 04/21/2013 5:00 PM CALCULATOR OPERATOR [facility] Blood BLOOD SPECIMEN / Unknown 04/21/2013 10:45 AM CALCULATOR OPERATOR 04/21/2013 4:33 PM CALCULATOR OPERATOR Santhosh Cuellar MD LAB - CHEMISTRY MEHRAN JOHNSON Performing Organization Address [facility] Co de Phone Number [facility] [address] [place] [address] * T4 TOTAL (04/21/2013 10:45 AM CALCULATOR OPERATOR) T4 Total 8.6 4.7 - 13.3 ug/dL 04/21/2013 4:55 PM CALCULATOR OPERATOR [facility] Blood BLOOD SPECIMEN / Unknown 04/21/2013 10:45 AM CALCULATOR OPERATOR 04/21/2013 4:33 PM CALCULATOR OPERATOR Santhosh Cuellar MD LAB - CHEMISTRY MEHRAN JOHNSON [facility] [address] [place] [address]
--- OUTSIDE RECORDS SUMMARY | 2024-07-14 06:57 | XMS_ITS | Referral Summary ---
Author Organization [facility] [employer] Address [address] [place] [address] Care Team Providers Care Electronics Engineering Technician Name Role Phone Unavailable Primary Care Provider Unavailabl e Source Comments [facility],non-owned Affiliates and Associated Physician Practices is amultiple site organization consisting of ambulatory clinics and hospital sitesin [place], [place], [place] and [place]. This disclosure is being madepursuant to the Care Everywhere program and may not contain all information available regarding this patient. Last updated 18.[facility] [employer] Allergies No known active allergies Medications * [...]
--- OUTSIDE RECORDS SUMMARY | 2024-07-14 06:57 | XMS_ITS | Clinical Summary ---
Author Organization [facility] [employer] Address [address] [place] [address] Care Team Providers Care Fishing Instructor Name Role Phone Unavailable Primary Care Provider Unavailabl e Source Comments [facility] [employer],non-owned Affiliates and Associated Physician Practices is amultiple site organization consisting of ambulatory clinics and hospital sitesin [place], [place], [place] and [place]. This disclosure is being madepursuant to the Care Everywhere program and may not contain all information available regarding this patient. Last updated 18.[facility] [employer] Allergies No known active allergies Medications * [...]
--- OUTSIDE RECORDS SUMMARY | 2024-07-14 06:57 | XMS_ITS | Clinical Summary ---
Author Organization [facility] Address [address] [place] [address] Phone Care Team Providers Care Shingle Catcher Name Role Phone Jessica Carrington PAC Primary [...] drink = 0.6 oz pur e alcohol) [facility] Utilities Answer Date Recorded In the past [...] often do you attend chur ch or restorationist services? More than 4 times per year 06/28/2024 Do you belong to any clubs o r organizations such as taoism groups, unions, fraternal or athletic groups, or [...] care, and heating? Not very hard 06/28/2024 [facility] - Occupational Stress [...] place to sleep or slept in a long-term (including now)? No 09/12/2023 Housing Stability Vital Sign Answer Myles e Recorded In the last 12 months, was t here a time when you were not able to pay the mortgage or rent on time? No 06/28/19 In the past 12 months, how m any times have you moved where you were living? 1 06/28/2024 At any time in the past [address] [facility], were you homeless or living in a long-term (including now)? Patient declined 06/28/2024 Sexually Active Control Partners Comments Not Currently Female Sex and Gender Information Value Date Recorded Sex Assigned at Not on file Legal Sex Male 12:50 PM CDT Gender Identity Not on file Sexual Orientation Not on file Last Filed Vital Signs Vital Sign Reading Time Taken Comments Blood Pressure 114/80 06/30/2024 1:36 AM PRECISION DANCER Pulse 97 06/30/2024 1:36 AM PRECISION DANCER Temperature 36.4 ??C (97.6 ??F) 06/30/2024 1:36 AM CS T Respiratory Rate 16 06/30/2024 1:36 AM PRECISION DANCER Oxygen Saturation 96% 06/30/2024 1:36 AM PRECISION DANCER Inhaled Oxygen Concentration - - Weight 54.9 kg (121 lb) 06/29/2024 9:00 AM PRECISION DANCER b ed scale Height 172.7 cm (5' 8 ) 06/28/2024 5:20 PM PRECISION DANCER Body Mass Index 18.4 06/28/2024 5:20 PM PRECISION DANCER Plan of Treatment Not on file Procedures Procedure Name Priority Date/Time Associated Diagnosis Comments URINE DRUG SCREEN Routine 06/28/2024 6:1 6 PM PRECISION DANCER CBC WITH AUTO DIFFERENTIAL Routine 06/28/2024 6:10 PM PRECISION DANCER COMPLETE BLOOD COUNT (CBC) WITH DIFF Routine 06/28/2024 6:10 PM PRECISION DANCER CMP (COMPREHENSIVE METABOLIC PANEL) Routine 06/28/2024 6:10 PM PRECISION DANCER from Last 3 Months Results * (ABNORMAL) Urine Drug Screen (06/28/2024 6:16 PM PRECISION DANCER) [facility] UR AMPHETAMINE DETECTED(A) NON DETECTED 06/28/2024 6:36 PM PRECISION DANCER [facility] Comment: FOR MEDICAL USE ONLY. CUTOFF CONCENTRATION FOR DETECTED RESULT: AMPHETAMINE: ??500 NG/ML UR BENZODIAZEPINES NON DETECTED NON DETECTED 06/28/2024 6:36 PM PRECISION DANCER [facility] Comment: FOR MEDICAL USE ONLY. CUTOFF CONCENTRATION FOR DETECTED RESULT: BENZODIAZAPINE: ??200 NG/ML UR COCAINE METABOLITE NON DETECTED NON DETECTED 06/28/2024 6:36 PM PRECISION DANCER [facility] Comment: FOR MEDICAL USE ONLY. CUTOFF CONCENTRATION FOR DETECTED RESULT: COCAINE: ??150 NG/ML UR OPIATES DETECTED(A) NON DETECTED 06/28/2024 6:36 PM PRECISION DANCER [facility] Comment: FOR MEDICAL USE ONLY. CUTOFF CONCENTRATION FOR DETECTED RESULT: OPIATES: ? 300 NG/ML UR PHENCYCLIDINE NON DETECTED NON DETECTED 06/28/2024 6:36 PM PRECISION DANCER [facility] Comment: FOR MEDICAL USE ONLY. CUTOFF CONCENTRATION FOR DETECTED RESULT: PCP: ? 25 NG/ML UR CANNABINOID DETECTED(A) NON DETECTED 06/28/2024 6:36 PM PRECISION DANCER [facility] Comment: FOR MEDICAL USE ONLY. CUTOFF CONCENTRATION FOR DETECTED RESULT: THC (MARIJUANA): 50 NG/ML UR BARBITURATE NON DETECTED NON DETECTED 06/28/2024 6:36 PM PRECISION DANCER [facility] Comment: FOR MEDICAL USE ONLY. CUTOFF CONCENTRATION FOR DETECTED RESULT: BARBITUATES: ? 200 NG/ML UR FENTANYL DETECTED(A) NON DETECTED 06/28/2024 6:36 PM PRECISION DANCER [facility] Comment: FOR MEDICAL USE ONLY. CUTOFF CONCENTRATION FOR DETECTED RESULT: FENTANYL: ??1.0 NG/ML Urine Non-Phlebotomy Collection / Unknown 06/28/2024 6:16 PM PRECISION DANCER 06/28/2024 6:16 PM PRECISION DANCER us Merrick Painter MD URINE ORDERABLES Final R esult [facility] [address] [place] [address] * (ABNORMAL) CBC with Auto Differential (06/28/2024 6:10 PM PRECISION DANCER) WBC 12.84(H) 4.00 - 12.00 10(3)/mcL 06/28/2024 6:24 PM PRECISION DANCER [facility] RBC 5.19 4.40 - 5.80 10(6)/mcL 06/28/2024 6:24 PM PRECISION DANCER [facility] HEMOGLOBIN (HGB) 14.8 13.0 - 16.5 g/dL 06/28/2024 6:24 PM PRECISION DANCER [facility] HEMATOCRIT (HCT) 42.6 38.0 - 50.0 % 06/28/2024 6:24 PM PRECISION DANCER [facility] MCV 82.1 82.0 - 96.0 fL 06/28/2024 6:24 PM PRECISION DANCER [facility] MCH 28.5 26.0 - 32.0 pg 06/28/2024 6:24 PM PRECISION DANCER [facility] MCHC 34.7 31.0 - 36.0 g/dL 06/28/2024 6:24 PM [facility] PLATELET COUNT 451(H) 140 - 440 10(3)/[facility] 06/28/2024 6:24 PM [facility] RDW 12.1 11.8 - 15.5 % 06/28/2024 6:24 PM [facility] MPV 9.1 8.0 - 12.6 fL 06/28/2024 6:24 PM [facility] NEUTROPHILS 83.5(H) 40.0 - 68.0 % 06/28/2024 6:24 PM [facility] LYMPHOCYTES 12.5(L) 19.0 - 49.0 % 06/28/2024 6:24 PM [facility] MONOCYTES 3.6 3.0 - 13.0 % 06/28/2024 6:24 PM [facility] EOSINOPHILS 0.0 0.0 - 8.0 % 06/28/2024 6:24 PM [facility] BASOPHILS 0.4 0.0 - 1.0 % 06/28/2024 6:24 PM [facility] ABSOLUTE NEUTROPHILS 10.72(H) 1.40 - 5.30 10(3)/[facility] 06/28/2024 6:24 PM [facility] ABSOLUTE LYMPHOCYTES 1.61 0.90 - 3.30 10(3)/[facility] 06/28/2024 6:24 PM [facility] ABSOLUTE MONOCYTES 0.46 0.10 - 0.90 10(3)/[facility] 06/28/2024 6:24 PM [facility] ABSOLUTE EOSINOPHIL 0.00 0.00 - 0.50 10(3)/[facility] 06/28/2024 6:24 PM [facility] ABSOLUTE BASOPHILS 0.05 0.00 - 0.10 10(3)/[facility] 06/28/2024 6:24 PM [facility] NRBC PER 100 WBC 0 06/28/19 6:24 PM [facility] Blood Venipuncture / Unknown 06/28/2024 6:10 PM PRECISION DANCER 06/28/2024 6:17 PM PRECISION DANCER us Merrick Painter MD HEMATOLOGY ORDERABLES Fi nal Result [facility] [address] [place] [address] * (ABNORMAL) CMP (Comprehensive Metabolic Panel) (06/28/2024 6:10 PM PRECISION DANCER) SODIUM 143 136 - 145 mmol/L 06/28/2024 6:39 PM [facility] POTASSIUM 4.3 3.5 - 5.1 mmol/L 06/28/2024 6:39 PM [facility] CHLORIDE 106 98 - 107 mmol/L 06/28/2024 6:39 PM [facility] CO2, VENOUS 24 22 - 30 mmol/L 06/28/2024 6:39 PM [facility] ANION GAP 17.3 <18.0 mmol/L 06/28/2024 6:39 PM [facility] GLUCOSE 129(H) 70 - 99 mg/dL 06/28/2024 6:39 PM [facility] BUN 8(L) 9 - 21 mg/dL 06/28/2024 6:39 PM [facility] CREATININE, BLOOD 0.97 0.70 - 1.30 mg/dL 06/28/2024 6:39 PM [facility] BUN/CREATININE RATIO 8(L) 12 - 20 ratio 06/28/2024 6:39 PM [facility] TOTAL PROTEIN 7.7 6.3 - 8.2 g/dL 06/28/2024 6:39 PM [facility] ALBUMIN 4.8 3.5 - 5.0 g/dL 06/28/2024 6:39 PM [facility] A/G RATIO 1.7 1.0 - 2.2 06/28/2024 6:39 PM PRECISION DANCER [facility] CALCIUM 10.2 8.7 - 10.5 mg/dL 06/28/2024 6:39 PM PRECISION DANCER [facility] T BILI 0.4 0.2 - 1.2 mg/dL 06/28/2024 6:39 PM PRECISION DANCER [facility] SGOT (AST) 16 5 - 34 U/L 06/28/2024 6:39 PM PRECISION DANCER [facility] SGPT (ALT) 14 0 - 55 U/L 06/28/2024 6:39 PM PRECISION DANCER [facility] ALKALINE PHOSPHATASE 89 40 - 150 U/L 06/28/2024 6:39 PM PRECISION DANCER [facility] GFR, ESTIMATED >60 >=60 06/28/2024 6:39 PM PRECISION DANCER [facility] Comment: Creatinine Clearance is the preferred criteria for selecting drug dose adjustments in renally impaired patients. ??The GFR is provided as additional pertinent clinical information. GFR is reported in mL/min/1.73 sq m. Calculation based on the Chronic Kidney Disease Epidemiology Collaboration (CKD- EPI) equation refit without adjustment for race. GFR, EST. >60 >=60 025 6:39 PM PRECISION DANCER [facility] GFR, EST. NONAFRICAN >60 >=60 06/28/2024 6:39 PM PRECISION DANCER [facility] Blood Venipuncture / Unknown 06/28/2024 6:10 PM PRECISION DANCER 06/28/2024 6:17 PM PRECISION DANCER us Merrick Painter MD CHEMISTRY ORDERABLES Fin al Result [facility] [address] [place] [address] from Last 3 Months Insurance MEDICAID [place] [...] measures to stabilize the patient. Care Teams Shingle Catcher Relationship Specialty Start Date End Date Jessica Carrington PAC [address] [place] [address] PCP - General Physician Map And Chart Mounter 09/12/23
[2024-07-14] MEDS: METOCLOPRAMIDE HCL INJ 10 MG/2 ML VIAL IV PUSH (07:17)
[2024-07-14] MEDS: SODIUM CHLORIDE 0.9% IV 1,000 ML 999 ML IV CONT (07:17)
[2024-07-14 07:20] VITALS: BP 132/77; PULSE 78; RESP 26; O2SAT 100
[2024-07-14 07:22] LABS: Basophils Percent Auto 0.2 % (0.2-1.2); Hematocrit 44.2 % (42.0-52.0); Hemoglobin 15.4 g/dL (14.0-18.0); Immature Granulocyte Absolute 0.04 K/mm3 (0.00-0.031); Immature Granulocyte Percent A 0.3 % (0-0.5); Lymphocytes Absolute Auto 0.85 K/mm3 (0.9-3.2); Lymphocytes Percent Auto 6.9 % (18.3-44.2); Mean Corpuscular HGB Conc 34.8 g/dl (32-36); Mean Corpuscular Hemoglobin 28.8 pg (26-34); Mean Corpuscular Volume 82.8 fl (80-100); Monocytes Absolute Auto 0.3 K/mm3 (0.1-0.6); Monocytes Percent Auto 2.2 % (2.6-8.5); Neutrophils Absolute Auto 11.2 K/mm3 (1.3-6.7); Neutrophils Percent Auto 90.4 % (45.5-73.1); Platelet Count Result 479 k/mm3 (150-375); Red Blood Count 5.34 M/mm3 (4.6-6.20); Red Cell Distribution Width 12.3 % (11.5-14.5); White Blood Count 12.4 K/mm3 (4.5-10.0)
[2024-07-14 07:32] LABS: Alanine Aminotransferase 19 U/L (6-50); Alkaline Phosphatase 101 U/L (38-126); Anion Gap 15 mmol/L (4-12); Aspartate Amino Transferase 23 U/L (17-59); Bilirubin,Total 0.7 mg/dL (0.2-1.3); Blood Urea Nitrogen 12 mg/dL (9-20); Calcium 10.5 mg/dL (8.4-10.2); Carbon Dioxide 25 mmol/L (22-30); Chloride 101 mmol/L (98-107); Estimated CRCL calculation 109 ml/min; Estimated Glomerular Filt Rate > 60; Glucose 166 mg/dL (65-110); Potassium 3.8 mmol/L (3.4-5.0); Sodium 141 mmol/L (137-145)
[2024-07-14 07:40] LABS: INR 1.1; Prothrombin Time 14.1 Seconds (11.1-14.7)
[2024-07-14 07:41] LABS: Partial Thromboplastin Time 25.4 Seconds (22.3-36.8)
[2024-07-14] MEDS: KETOROLAC 15 MG/ML VIAL (*BKC) IV PUSH (07:48)
--- NOTE | 2024-07-14 07:52 | ED_ITS ---
HPI - General Adult General Chief complaint: Overdose Stated complaint: fentanyl Time Seen by Provider: 07/14/24 06:52 History of Present Illness HPI narrative: 24-year-old male presents to the emergency department for evaluation for fentanyl withdrawal. Patient states he is attempting to stop his family is. Patient reports he had been using 20-30 beings of fentanyl daily. Patient did take final yesterday. Patient does not appear to be in significant distress. Patient was complaining of nausea vomiting and body ache. Patient was told he would not be treated with narcotic pain medications. Related Data Allergies Allergy/AdvReac Type Severity Reaction Status Date / Time No Known Allergies Allergy Verified 10/20/23 15:21 Review of Systems 2 Review of Systems: All systems reviewed & are unremarkable except as noted in HPI and below PMFSH Past Medical History Medical History Healthy adult male Surgical History Surgical History No history of previous surgery Social History Social History Smoking status: Smoker, status unknown Tobacco type: e-cigarettes/vaping Alcohol intake: never Substance use type: opiates Gender identity (if verbalized by the patient): Male Exam 2 Narrative: APPEARANCE: Well appearing, no pain, no distress, well-nourished. HEAD: normocephalic, atraumatic. EYES: PERRLA/EOMI, conjunctivae clear. NOSE: Normal no drainage EARS:TMS clear with good light reflex. THROAT: Pharynx clear, no exudate. NECK: Supple. No adenopathy, no masses. RESPIRATORY: Airway patent, respirations nonlabored. Clear to auscultation bilaterally, no rales, rhonchi, wheezing. CARDIOVASCULAR: Regular rate and rhythm without murmurs rubs or gallops. ABDOMINAL: Soft, nontender, nondistended, normal bowel sounds MUSCULOSKELETAL: Moves all extremities. Strength/ROM intact, No edema, No calf tenderness. NEURO: Alert. Cranial nerves II through XII intact. Grossly intact SKIN: Warm, dry. Normal Color Course Vital Signs Vital signs: Vital Signs Temperature 97.6 F 07/14/24 03:39 Pulse Rate 95 07/14/24 03:39 Respiratory Rate 24 H 07/14/24 03:39 Blood Pressure 150/102 H 07/14/24 03:39 Pulse Oximetry 99 07/14/24 03:39 Temperature 97.6 F 07/14/24 03:39 Pulse Rate 78 07/14/24 07:20 Respiratory Rate 26 H 07/14/24 07:20 Blood Pressure 132/77 07/14/24 07:20 Pulse Oximetry 100 07/14/24 07:20 Oxygen Delivery Room Air 07/14/24 05:50 Medical Decision Making MDM Narrative Medical decision making narrative: 24-year-old male presents emergency department for evaluation for fentanyl withdrawal/nausea vomiting. Patient was treated with Toradol for pain control, Ativan for anxiety L of IV fluid. Patient did have a white blood cell count of 12.4 hemoglobin of 15.4. Patient and INR 1.1. Patient's creatinine was 0.6 a bed and a gap of 15 prior to rehydration. Patient's glucose 166. Patient did elope from the emergency department prior to re-evaluation. Vital Signs Vital Signs: Vital Signs Temperature 97.6 F 07/14/24 03:39 Pulse Rate 95 07/14/24 03:39 Respiratory Rate 24 H 07/14/24 03:39 Blood Pressure 150/102 H 07/14/24 03:39 Pulse Oximetry 99 07/14/24 03:39 Temperature 97.6 F 07/14/24 03:39 Pulse Rate 78 07/14/24 07:20 Respiratory Rate 26 H 07/14/24 07:20 Blood Pressure 132/77 07/14/24 07:20 Pulse Oximetry 100 07/14/24 07:20 Oxygen Delivery Room Air 07/14/24 05:50 Lab Data 07/14/24 07:17 07/14/24 07:17 Labs: Lab Results 07/14/24 Range/Units 07:17 WBC 12.4 H (4.5-10.0) K/mm3 RBC 5.34 (4.6-6.20) M/mm3 Hgb 15.4 (14.0-18.0) g/dL Hct 44.2 (42.0-52.0) % MCV 82.8 (80-100) fl MCH 28.8 (26-34) pg MCHC 34.8 (32-36) g/dl RDW 12.3 (11.5-14.5) % Plt Count 479 H D (150-375) k/mm3 MPV 9.0 (7.4-10.4) fl Immature Gran % (Auto) 0.3 (0-0.5) % Neut % (Auto) 90.4 H (45.5-73.1) % Lymph % (Auto) 6.9 L (18.3-44.2) % [place] % (Auto) 2.2 L (2.6-8.5) % Eos % (Auto) 0.0 (0-4.4) % Baso % (Auto) 0.2 (0.2-1.2) % Lymph # (Auto) 0.85 L (0.9-3.2) K/mm3 [place] # (Auto) 0.3 (0.1-0.6) K/mm3 Eos # (Auto) 0.0 (0-0.3) K/mm3 Baso # (Auto) 0.0 (0.0-0.1) K/mm3 Abs Immat Gran (auto) 0.04 H (0.00-0.031) K/mm3 Absolute Neuts (auto) 11.2 H (1.3-6.7) K/mm3 Absolute Nucleated RBC 0.000 (0.0-0.012) K/mm3 Nucleated RBC % 0.0 (0.0-0.2) % PT 14.1 (11.1-14.7) Seconds INR 1.1 APTT 25.4 (22.3-36.8) Seconds Sodium 141 (137-145) mmol/L Potassium 3.8 (3.4-5.0) mmol/L Chloride 101 (98-107) mmol/L Carbon Dioxide 25 (22-30) mmol/L Anion Gap 15 H (4-12) mmol/L BUN 12 (9-20) mg/dL Creatinine 0.68 L (0.7-1.3) mg/dL Estim Creat Clear Calc 109 ml/min Estimated GFR > 60 (59 - ) Glucose 166 H (65-110) mg/dL Calcium 10.5 H (8.4-10.2) mg/dL Total Bilirubin 0.7 (0.2-1.3) mg/dL AST 23 (17-59) U/L ALT 19 (6-50) U/L Alkaline Phosphatase 101 (38-126) U/L Total Protein 9.0 H (6.3-8.2) g/dL Albumin 5.0 (3.5-5.1) g/dL Discharge Plan Discharge Clinical Impression: Fentanyl use disorder, severe, dependence Patient Disposition: Elopement After Seen by Prov Condition: Stable Patient Language: Comoran Prescriptions: No Action ibuprofen 800 mg tablet 800 mg PO TID Qty: 90 0RF lidocaine 5 % adhesive patch,medicated 1 patch topical DAILY Qty: 30 0RF Rx Instructions: leave on most painful area for up to 12 hrs Follow-up/Referrals: Aminah Torres MD [Primary Care Provider] -
[2024-07-14] MEDS: LORazepam INJ (*CRX) 2 MG/ML VIAL 1 MG IV PUSH (08:46)
--- NOTE | 2024-07-14 10:09 | PC.NURSE ---
Pt found to be leaving ED w/out papers. EDP at bedside to discuss plan and meds, pt declined, removed own IV and left w/out re vitals, steady gait on exit. Refused to sign paperwork.
== END 2024-07-14 10:11 | disposition left against medical advice (07) ==
PROVIDERS: Emergency Provider Emergency Medicine; PCP Family Medicine
DX: F11.20 Opioid dependence, uncomplicated (principal); F17.290 Nicotine dependence, other tobacco product, uncomplicated
CPT/HCPCS: 36415; 80053; 85025; 85610; 85730; 96361; 96374; 96375; 99284; J1885; J2060; J2765; J7030

== ENCOUNTER 2024-09-27 16:54 | Emergency (ER) | payer OTHER, SELFPAY ==
[2024-09-27 17:11] VITALS: BP 104/66; PULSE 118; RESP 16; TEMP 36.3; O2SAT 98
[2024-09-27 17:47] LABS: Amphetamine Screen Urine Negative (Negative); Barbiturate Screen Urine Negative (Negative); Benzodiazepines Screen Urine Negative (Negative); Cannabinoid Screen Urine Positive (Negative); Cocaine Screen Urine Negative (Negative); Methadone Screen Urine Negative (Negative); Opiate Screen Urine Positive (Negative); Phencyclidine Screen Urine Negative (Negative)
--- OUTSIDE RECORDS SUMMARY | 2024-09-27 17:52 | XMS_ITS ---
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 Name Role Phone Dwight Mas Primary Care Provider [phone] Ti Jani [phone] Results Component Value Reference Range Notes 12 [...] 116.00 lbs 01/09/2024 Height 69.50 in 01/09/2024 BMI 16.88 kg/m2 01/09/2024 Blood pressure systolic 118 mm Hg 01/09/20 24 Blood pressure diastolic 70 mm Hg 024 Heart Rate 71 /min 01/09/2024 Oximetry 97 % 01/09/2024 Respiratory Rate 16 /min 01/09/2024 Encounters Encounter Location Date Provider Diagnosis [facility] [place] [address] 01/09/2024 Ti Jain Opioid use disorder F11.99 [...] Notes * Humberto TANDOB:2000 (23 yo M)Acc No.[id number]:01/09/2024 Patient: Humberto MARISCAL Provider: Crista Jain :2000 A ge:23 Y S ex:Male Date:01/09/2024 Address:[address] [place], [place] [id number] Pcp:Dwight Mas Check 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 Was hospitalized N o. S creening: [place] Suicide Severity Rating Scale (LF) D o you want to initiate with S creener form 1 . Wish to be : Have you wished you were or wished you could go to sleep and not wake up? N o 2 . Suicidal Thoughts: Have you actually had any thoughts of killing yourself? N o 6 . Suicide Behaviour: Have you ever done anything,started to do anything, or prepared to end your life? N o I nterpretation: L ow Risk P reventative Health and Wellness follow-up: . . C SSRS Interpretation and Follow Up Plan: CSSRS Interpretation and Follow Up Plan. CSSRS Interpretation and Follow Up Plan C SSRS Screen documented using SF Y es M oderate or High risk requires selection of a follow up plan C SSRS No/Low: intervention not needed at this time M AR follow-up: AUG F/U TAPERED OFF SUBOXONE AND HAD CRAVINGS. FOUND SOME OLD FENTANYL IN HIS HOUSE LAST WEEK AND USED IT 4 DAYS AGO. TODAY IS HAVING MILD ACHES AND RHINORHEA. WANTS TO RESTART SUBOXONE. Medication Monitoring and Risk Mitigation U p-to-date on ASAM recommended lab testing??Yes [facility] 09/2023 P rescribed a buprenorphine product? Y es H as patient had a buprenorphine and metabolite lab ordered/collected? Y es (see notes for date of last metabolite testing) D ate of last buprenorphine and metabolite?11/07/2023 P rescription Drug Monitoring Program Review?Yes. No concerns at this time. P helena to address any concerns identified: N o concerns identified. Will continue treatment plan as is. Cravings, Setbacks, Substance use, and Stressors C ravings since last visit: N o. Patient denies cravings since last visit. S etbacks since last visit? N o, patient denies setbacks since last visit. M isuse of substances since last visit: N o, patient denies. S tressors Y es, patient admits to stressors. See notes. Mental Health, Support System, and Social Determinants M ental Health Status S table. S upport Systems Include: I ndividual counseling or therapy., Personal support system (see notes). C ourt System Involvement? N o H ousing Stability: S table and safe housing. 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 R eferrals needed: N o referrals needed at this time. Recommended Wellness and Prevention Follow-up R ecommended Wellness and Prevention reviewed:?Yes. No additional orders/actions needed at this time. Other concerns: O ther Concerns? N o. N arcan need N o. Patient already has Narcan. * ROS: B asic ROS: Admits S ubstance Abuse. * Medical History: * Surgical History: N o Surgical History documented. * Hospitalization/Major Diagno stic Procedure: f ractured spine etoxed [facility] * Family History: F ather: alive, lukemia. M other: , drug overdose. * Social History: P rimary Social History: L iving Arrangement L iving Arrangement: D ependent Living L iving with: P arent(s), Grandparent(s) I s this a supportive environment? Y es Alcohol Use A lcohol Use Frequency: M onthly or less Illicit Substance Usage I llicit Substance Usage: Y es Last Use Fentanyl 08/2023 I nterested in quitting: Y es Employment Status E mployment Status: U nemployed T obacco Use: D ont use, Tobacco Use/Smoking A re you a c urrent every day smoker Tobacco Control (Standard) T obacco use: C urrent every day smoker A dditional Findings: Tobacco user e -cigarette M iscellaneous: M ethod of learning P referred method of learning: D iscussion,Demonstration,Hearing * Medications: N ot-TakingSuboxone 8-2 MG Film 1/2 film under the [...] needed for opioid overdose Nasally once * Allergies: n o[Allergies Verified] Objective: * Vitals: I nitials: hp, Wt:116.00, Ht:69.50, BMI:16.88, BP:118/70, HR:71, Oxygen sat %:97, RR:16, Pain scale:7. * Examination: A SHERIDAN Physical Assessment: Intoxication and Withdrawal signs I ntoxication signs N o signs of intoxication are present during examination. W ithdrawal Signs N o withdrawal signs are present during examination. Assessment: * Assessment: 1. O pioid use disorder - F11.99 (Primary) Plan: * Treatment: Value Reference Range T HC pos * C OC neg * M OP (OPI) neg * A MP neg * M ET neg * B AR neg * B ZO neg * M DMA neg * M TD neg * O XY neg * P CP neg * B UP neg * Recommended Wellness and Pre vention Guidelines: * S tatus A lert L ast Done N ext Due A ction Taken N ONCOMPLIANT A lcohol use screening - 0 01/09/2024 - N ONCOMPLIANT H IV screening - 0 01/09/2024 - * Procedure Codes: 9 9000 SPECIMEN HANDLING * Follow Up: 1 Week (Reason: 1 WK MAT AFTER RESTARTING SUBOXONE) * Care Plan Details* * Sign off status: Completed true * Provider: Crista Jain Date: 0 01/09/2024 Generated for Jovany obrien/Terrie/eTransmitting on: 0 09/27/2024 05:52 PM CDT History and Physical Notes * HPI (History of Present Illness) Category Sub-Category Detail Notes Category Not es Interim History Was hospitalized No Emergency room visit No Screening [place] Suicide Sev erity Rating Scale (LF) Do you want to initiate with: Screener form 1. Wish to be : Have you wished you were or wished you could go to sleep and not wake up?: No 2. Suicidal Thoughts: Have you actually had any thoughts of killing yourself?: No 6. Suicide Behavior Question: Have you ever done anything,started to do anything, or prepared to end your life?: No Interpretation:: Low Risk Do Not Use CSSRS Interpretation and Follow Up Plan CSSRS Interpretation and Follow Up Plan CSSRS Screen documented using SF: Yes Moderate or High risk requir es selection of a follow up plan: CSSRS No/Low: intervention not needed at this time MAR follow-up Medication Monitorin g and Risk Mitigation Up-to-date on ASA recommended lab testing?: Yes [facility] 09/2023 Prescribed a buprenorphine product?: Yes Has patient had a buprenorphine and metabolite lab ordered/collected?: Yes (see notes for date of last metabolite testing) Date of last buprenorphine and metabolite: 11/07/2023 Prescription Drug Monitoring Program Rev iew: [...] and safe hous ing. 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 Referrals needed:: No referrals needed a t [...]
--- OUTSIDE RECORDS SUMMARY | 2024-09-27 17:53 | XMS_ITS | Patient Health Record ---
Author Organization [facility] Address [address] [place] [address] Care Team Providers Care Gas Line Installer Name Role Phone Mas, Dwight Primary Care Provider Kiara Paula Unavailable [phone] Ti Jain Unavailable [phone] Allergies No Known Allergies Results Component Value Reference Range Notes 12 Panel Urine Drug Screen Reviewed date:01/09/2024 09:42:01 AM Interpretation: Performing Lab: Notes/Report: THC pos LOLIS neg MOP (OPI) neg AMP neg MET neg BAR neg BZO neg MDMA neg MTD neg OXY neg PCP neg BUP neg 12 Panel Urine Drug Screen Reviewed date:09/08/2024 04:01:46 PM Interpretation: Performing Lab: Notes/Report: THC positive LOLIS neg MOP (OPI) positive AMP neg MET neg BAR neg BZO positive MDMA positive MTD neg OXY neg PCP neg BUP positive Rapid Plasma Reagin (RPR) Te st With Reflex to Quantitative RPR and Confirmatory Treponema pallidum Antibodies Reviewed date:09/15/2024 09:14:26 AM Interpretation:Normal Performing Lab:[facility], [facility], Phone - [phone], Director - PhDMarin Notes/Report: RPR Non Reactive Non Reactive QuantiFERON-TB Gold Plus ([id number]) Reviewed date:09/15/2024 09:14:26 AM Interpretation:Normal Performing Lab:[facility], [address], [place], Phone - [phone], Director - PhDWaqasi Notes/Report: QuantiFERON Incubation Incubation performed. QuantiFERON-TB Gold Plus Negative Negative No response to M tuberculosis antigens detected. Infection with M tuberculosis is unlikely, but high risk individuals should be considered for additional testing (ATS/IDSA/CDC Clinical Practice Guidelines, 2017). The reference range is an Antigen minus Nil result of <0.35 IU/mL. Chemiluminescence immunoassay methodology QuantiFERON Criteria QuantiFERON-TB Gold Plus is a qualitative indirect test for M tuberculosis infection (including disease) and is intended for use in conjunction with risk assessment, radiography, and other medical and diagnostic evaluations. The QuantiFERON-TB Gold Plus result is determined by subtracting the Nil value from either TB antigen (Ag) value. The Mitogen tube serves as a control for the test. QuantiFERON TB1 Ag Value 0.04 QuantiFERON TB2 Ag Value 0.04 QuantiFERON Nil Value 0.04 QuantiFERON Mitogen Value >10.00 CMP 14 Comprehensive Metabol ic Panel* Reviewed date:09/15/2024 09:14:26 AM Interpretation: Performing Lab:[facility] [facility] [employer] [place], [employer] [facility], [place], Phone - [phone], Director - Elise Notes/Report: Glucose 68 70-99 mg/dL BUN 10 6-20 mg/dL Creatinine 0.78 0.76-1.27 mg/dL eGFR 126 >59 mL/min/1.73 BUN/Creatinine Ratio 13 9-20 Sodium 144 134-144 mmol/L Potassium 3.2 3.5-5.2 mmol/L Chloride 97 96-106 mmol/L Carbon Dioxide, Total 30 20-29 mmol/L Calcium 9.2 8.7-10.2 mg/dL Protein, Total 6.2 6.0-8.5 g/dL Albumin 4.3 4.3-5.2 g/dL Globulin, Total 1.9 1.5-4.5 g/dL Bilirubin, Total 0.3 0.0-1.2 mg/dL Alkaline Phosphatase 87 44-121 IU/L AST (SGOT) 20 0-40 IU/L ALT (SGPT) 17 0-44 IU/L Hepatitis C Virus Antibody w /Rflx to Quantitative Real-time PCR ([id number]) Reviewed date:09/15/2024 09:13:40 AM Interpretation:Normal [facility]forming Lab[facility], [address] [facility], Phone - [phone], Director - [facility] Notes/Report: HCV Ab Non Reactive Non Reactive Interpretation: Not infected with HCV unless early or acute infection is suspected (which may be delayed in an immunocompromised individual), or other evidence exists to indicate HCV infection. CBC With Differential/Platel et* Reviewed date:09/15/2024 09:13:40 AM Interpretation:Normal Performing Lab:[facility], [address] [facility], Phone - [phone], Director - [facility] Notes/Report: WBC 7.0 3.4-10.8 x10E3/uL RBC 4.55 4.14-5.80 x10E6/uL Hemoglobin 13.2 13.0-17.7 g/dL Hematocrit 40.5 37.5-51.0 % MCV 89 79-97 fL MCH 29.0 26.6-33.0 pg MCHC 32.6 31.5-35.7 g/dL RDW 13.2 11.6-15.4 % Platelets 374 150-450 x10E3/uL Neutrophils 63 Not Estab. % Lymphs 32 Not Estab. % Monocytes 5 Not Estab. % Eos 0 Not Estab. % Basos 0 Not Estab. % Neutrophils (Absolute) 4.3 1.4-7.0 x10E3/uL Lymphs (Absolute) 2.3 0.7-3.1 x10E3/uL Monocytes(Absolute) 0.3 0.1-0.9 x10E3/uL Eos (Absolute) 0.0 0.0-0.4 x10E3/uL Baso (Absolute) 0.0 0.0-0.2 x10E3/uL Immature Granulocytes 0 Not Estab. % Immature Grans (Abs) 0.0 0.0-0.1 x10E3/uL HIV Screen *HIV 1, 2 Ab, p24 Ag ([id number]) Reviewed date:09/15/2024 09:13:40 AM Interpretation:Normal Performing Lab:[facility], [address] [facility], Phone - [phone], Director - [facility] Notes/Report: HIV Ab/p24 Ag Screen Non Reactive Non Reactive HIV-1/HIV-2 antibodies and HIV-1 p24 antigen were NOT detected. There is no laboratory evidence of HIV infection. HIV Negative 12 Panel Urine Drug Screen Reviewed date:10/24/2023 [...] neg OXY neg PCP neg BUP pos Medication Assisted Treatmen t (MAT) Buprenorphine, Norbuprenorphine, and Naloxone MS Confirmation, Urine Reviewed date:11/11/2023 03:44:04 PM Interpretation: Performing Lab:[facility], [address] [place] [address], Phone - [phone], Director - Colten Notes/Report: Creatinine 229 Testing Threshold: buprenorphine, 1.0 ng/mL norbuprenorphine, 5.0 ng/mL naloxone, 10 ng/mL This test was developed and its performance characteristics determined by [employer] It has not been cleared or approved by the Food and Drug Administration. REFERENCE RANGE: Ref Range>=20 BUPRENORPHINE ++POSITIVE++ Buprenorphine 68 Norbuprenorphine 148 N/B Ratio 2.17 >=0.3 OPIATE ANTAGONIST ++POSITIVE++ Naloxone 85 Reason For Referral Reason OUD, depressed mood, family issues, childhood and adult trauma Diagnosis 1 Mood disorder (F39) Referral Organization [facility] Referring Provider First Name Sally Referring Provider Last Name Jarvis Referring Provider Speciality Behavioral Health Referred Provider Specialty Behavioral [facility] Clinical Notes Swati Hess 08:51:41 AM >HN PW attempted contact with consumer regarding referral. SAURAV left requesting a return call.Deshawn Paulean 10/31/2023 09:54:28 AM >HN PW attempted contact with consumer regarding referral. SAURAV left requesting a return call.Deshawn Paulean 11/05/2023 03:47:04 PM >HN PW contacted consumer [...] Duration) Notes Start Date End Date Status Acetaminophen 500 MG two tablets as need ed for pain (maximum of 6 tablets in 24 hours) Orally every 6 hrs 10/24/2023 Active Narcan 4 MG/0.1ML 4mg as needed for op ioid overdose Nasally once 11/07/2023 Active Buprenorphine HCl-Naloxone HCl 8-2 MG 1 film under the tongue and allow to dissolve Sublingual twice a day 09/07/2024 Active Social History Tobacco Use: Social History Observation Description Date Details (start date - stop date) Current Smoker NA - NA Sex Assigned At : Social History Observation Description Sex Assigned At Male Dont use, Tobacco Use/Smoking Question Answer Notes Are you a current every day smoker Tobacco Control (Standard) Question Answer Notes Tobacco use: Current smoker How often do you smoke cigarettes? Every day Additional Findings: Tobacco user e-cigarette Problems Problem Type SNOMED Code ICD Code Onset Dates Problem Status W/U Status Risk Notes Problem Tobacco user (696715800) Nicotine dependence, unspecified, uncomplicated (F17.200) Active confirmed Problem Mood disorder (57111192) Mood disorder (F39) Active confirmed Problem Scoliosis (646652616) Scoliosis (M41.9) Active confirmed Problem Tobacco use (072813088) Tobacco use disorder (F17.200) Active confirmed Problem Opioid use disorder (9654910995) Opioid use disorder (F11.99) Active confirmed Vital Signs Heart Rate 90 /min 09/07/2024 Temperature 98.6 degrees Fahrenheit 09/07/2024 Respiratory Rate 16 /min 09/07/2024 Blood pressure diastolic 68 mm Hg 09/07/2024 Oximetry 99 % 09/07/2024 Height 69 in 09/07/2024 Blood pressure systolic 100 mm Hg 09/07/2024 Weight 114.8 lbs 09/07/2024 BMI 16.95 kg/m2 09/07/2024 Encounters Encounter Location Date Provider Diagnosis [facility] [address] [place] [address] 10/24/2023 Ti Jain Opioid use disorder F11.99 ; 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 ; Scoliosis M41.9 ; Mood disorder F39 ; Body mass index (BMI) 19.9 or less, adult Z68.1 and Nutritional counseling Z71.3 [facility] [address] [facility] [address] 11/07/2023 Ti Jain Opioid use disorder F11.99 and Opioid use disorder F11.99 [facility] [place] [address] 01/09/2024 Ti Jain Opioid use disorder F11.99 [place] [address] [place] [address] 09/07/2024 Kiara Mcnealherman Opioid use disorder F11.99 ; Patient underweight R63.6 ; Nutritional counseling Z71.3 and Tobacco use disorder F17.[address] [place] [address] 11/05/2023 Dwight Mas [address] [place] [address] 12/17/2023 Ti Jain Assessments Encounter Date Diagnosis (ICD Code) Assessment Notes Treatment Notes Treatment Clinical Notes Section Notes 09/07/2024 Opioid use disorder (ICD-10 - F11.99) 01/09/2024 Opioid use disorder (ICD-10 - F11.99) 11/07/2023 Opioid use disorder (ICD-10 - F11.99) RECORDS [facility] FROM [facility] 11/07/2023 Opioid use disorder (ICD-10 - F11.99) RECORDS REVIEWED FROM [facility] 09/07/2024 Patient underweight (ICD-10 - R63.6) 10/24/2023 Dorsalgia of multiple sites in spine (ICD-10 - M54.9) 10/24/2023 Opioid use disorder (ICD-10 - F11.99) RAJENDRA SIGNED FOR [facility]. 09/07/2024 Nutritional counseling (ICD-10 - Z71.3) 10/24/2023 Scoliosis (ICD-10 - M41.9) 09/07/2024 Tobacco use disorder (ICD-10 - F17.200) 10/24/2023 Mood disorder (ICD-10 - F39) 10/24/2023 Body mass index (BMI) 19.9 or less, adult (ICD-10 - Z68.1) 10/24/2023 Nutritional counseling (ICD-10 - Z71.3) 09/07/2024 Other Discussed medication side effects, adverse effects, risks, benefits, as well as interactions. Encouraged non-use of opioids. Has naloxone. Recommended participation in recovery groups and/or counseling services. May contact office with questions or concerns. Patient may self-administer their own medications or may self-administer their own oral medications per [facility] Protocol. Plan Of Treatment No Information Insurance Providers Payer Name Payer Address Payer Phone Subscriber Number Group Number Insured Name Patient Relationship to Insured Coverage Start Date Coverage End Date [employer] [address] [phone] [id number] Humberto Tan Self - patient is the insured 1 Medical (General) History Surgical History Surgery Date(Month/Year) Hospitalization History Reason Date(Month/Year) fractured spine 09/[address] [facility]
--- OUTSIDE RECORDS SUMMARY | 2024-09-27 17:53 | XMS_ITS | Clinical Summary ---
Author Organization [facility] Address [address] [place] [address] Phone Care Team Providers Care Dealer Sales Manager Name Role Phone Jessica Carrington PAC Primary [...] Date Opiate withdrawal 09/12/2023 Severe malnutrition 09/12/2023 Immunizations Immunization Administration Dates Next Due Influenza,Split [...] drink = 0.6 oz pur e alcohol) [facility] Utilities Answer Date Recorded In the past 12 months has e [employer], gas, oil, or water [employer] threatened to shut off services in your [...] 06/28/2024 How often do you attend chur or worship services? More than 4 times per year 06/28/2024 Do you belong to any clubs o r organizations such as buddhism groups, unions, fraternal or athletic groups, or [...] care, and heating? Not very hard 06/28/2024 [facility] - Occupational Stress [...] the money to buy more. Never true 01/13/20 25 Within the past 12 months, t he [...] place to sleep or slept in a nursing home (including now)? No 09/12/2023 Housing Stability Vital Sign Answer Myles e Recorded In the last 12 months, was t here a time when you were not able to pay the mortgage or rent on time? No 06/28/19 In the past 12 months, how m any times have you moved where you were living? 1 06/28/2024 At any time in the past 12 m [facility], were you homeless or living in a nursing home (including now)? 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 [employer] Pulse 97 06/30/2024 1:36 AM INST[employer] Temperature 36.4 C (97.6 F) 06/30/2024 1:36 AM INSTALLER [employer]ING Respiratory Rate 16 06/30/2024 1:36 AM INSTALLER [employer] Oxygen Saturation 96% 06/30/2024 1:36 AM INST[employer]ER [employer] Inhaled Oxygen Concentration - - Weight 54.9 kg (121 lb) 06/29/2024 9:00 AM INSTALLER [employer]LOORING b ed scale Height 172.7 cm (5' 8 ) 06/28/2024 5:20 PM INST[employer]ER [employer] Body Mass Index 18.4 06/28/2024 5:20 PM [employer] Plan of Treatment Not on file Insurance MEDICAID [place] Advance Directives * Full [...] measures to stabilize the patient. Care Teams Dealer Sales Manager Relationship Specialty Start Date End Date Jessica Carrington PAC [address] [place] [address] PCP - General Physician Tunnel Kiln Repairer 09/12/23
--- OUTSIDE RECORDS SUMMARY | 2024-09-27 17:53 | XMS_ITS | Clinical Summary ---
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 20 tablet 8 Active cyclobenzaprine (FLEXERIL) 10 mg tablet Take 1 tablet (10 mg total) by mouth 2 (two) times a day as needed for muscle spasms. 20 tablet 8 Active traMADol (ULTRAM) 50 mg tablet Take 1 tablet (50 mg total) by mouth every 4 (four) hours as needed for pain. 20 tablet 8 Active ibuprofen (ADVIL,MOTRIN) 800 mg tablet Take 1 tablet (800 mg total) by mouth 3 (three) times a day. 21 tablet 8 Active cefuroxime (CEFTIN) 500 mg tabletIndication s:Febrile illness suspected aspiration Take 1 tablet (500 mg total) by mouth 2 (two) times a day for 14 doses 14 tablet 5 09/07/19 25 doxycycline monohydrate (MONODOX) 100 mg capsuleIndicatio ns:Febrile illness suspected aspiration Take 1 capsule (100 mg total) by mouth 2 (two) times a day for 13 doses 13 capsule 5 09/08/19 25 Active Problems Patient Care Coordination No te Formatting of this note migh t be different from the original. Checked with [facility] to see if referral to them re: pt's father convincing his very sick son to come home to take care of him rather than get the treatment he needs. Was told that unless the son was disabled, they would not take case. No Adult Protective Services case will be made. Problem Noted Date Diagnosed Date Alcohol withdrawal syndrome without complication 08/28/2024 Syncope and collapse 08/27/2024 Moderate protein-calorie malnutrition 08/27/2024 Opiate withdrawal 09/12/2023 Severe malnutrition 09/12/2023 Alcohol use disorder, severe, dependence 021 Alcohol withdrawal seizure 10/04/2020 Burst fracture of T12 vertebra 10/04/2020 Compression fracture of T11 vertebra 10/04/2020 Mood disorder 07/29/2013 Resolved Problems Problem Noted Date Diagnosed Date Resolved Date Visual disturbance 02/23/2015 Overview (09/19/2016): Visual disturbance Headache 02/23/2015 08/27/2024 Overview (09/19/2016): Frequent headaches Encounters Date Type Department Care Team Description 08/31/2024 Documentation [facility] Social Work [address] [place] [id number] Francesco Ortega, COMPONENT INSPECTOR 08/26/2024 10:32 PM CDT - 08/30/2024 6:34 PM CDT Hospital Encounter [address] [id number] Edith Peck DO Chowdhury, Farhanaz, MD Alcohol withdrawal syndrome without complication (HCC) (Primary Dx); Opioid withdrawal (HCC); Chest pain, unspecified type; Shortness of breath; Syncope, unspecified syncope type; New onset a-fib (HCC) Discharge Disposition: Left Against Medical Advice from Last 3 Months Immunizations Immunization Administration Dates Next Due Influenza, Unspecified 02/15/2024 Medical History Medical History Date Comments Alcohol withdrawal seizure (HCC) 10/04/2020 Alcohol use disorder, severe, dependence (HCC) 0 10/04/2020 Burst fracture of T12 vertebra (HCC) 10/04/2020 Mood disorder 07/29/2013 Compression fracture of T11 vertebra (HCC) 10/04 Opiate withdrawal (HCC) 09/12/2023 Severe malnutrition 09/12/2023 Family History Medical History Relation Name Comments Alcohol abuse Father Alcoholism; Hypertension Father Hypertension; Arthritis Mother Arthritis; Relation Name Status Comments Father Mother Social History Tobacco Use Types Packs/Day Years Used Date Smoking Tobacco: Never Smokeless Tobacco: Never [facility] Utilities Answer Date Recorded In the past 12 months has th e electric, gas, oil, or water company threatened to shut off services in your home? No 08/27/2024 Social Connection and Isolation Panel [NHANES] A nswer Date Recorded In a typical week, how many times do you talk on the phone with family, friends, or neighbors? Three times a week 08/28/19 How often do you get togethe r with friends or relatives? Three times a week 08/27/2024 How often do you attend chur ch or adventism services? Never 08/27/2024 Do you belong to any clubs o r organizations such as uatsdin groups, unions, fraternal or athletic groups, or school groups? No 08/27/2024 How often do you attend meet ings of the clubs or organizations you belong to? Never 08/27/2024 Are you , , di vorced, , never , or living with a partner? Living with partner 08/27/2024 Overall Financial Resource Strain (CARDIA) Answe r Date Recorded How hard is it for you to pa y for the very basics like food, housing, medical care, and heating? Not hard at all 08/27/2024 Hunger Vital Sign Answer Date Recorded Within the past 12 months, y ou worried that your food would run out before you got the money to buy more. Never true 08/28/19 Within the past 12 months, t he food you bought just didn't last and you didn't have money to get more. Never true 08/27/2024 PRAPARE - Transportation Answer Date Re corded In the past 12 months, has l ack of transportation kept you from medical appointments or from getting medications? No 08/14 In the past 12 months, has l ack of transportation kept you from meetings, work, or from getting things needed for daily living? No 08/27/2024 Housing Stability Vital Sign Answer Myles e Recorded In the last 12 months, was t here a time when you were not able to pay the mortgage or rent on time? No 08/27/2024 In the past 12 months, how m any times have you moved where you were living? 0 08/27/2024 At any time in the past 12 m [facility], were you homeless or living in a skilled nursing (including now)? No 08/27/2024 Personal Safety Answer Date Recorded Have you ever been in or are you currently in a harmful physical or emotional relationship or is someone making you feel afraid or unsafe? Denies 08/27/2024 Sex and Gender Information Value Date Recorded Sex Assigned at Not on file Legal Sex Male 1:41 PM [employer]AL INS[employer] Gender Identity Not on file Sexual Orientation Not on file Obstetrics History Last Filed Vital Signs Vital Sign Reading Time Taken Comments Blood Pressure 120/73 08/30/2024 4:46 PM CDT Pulse 63 08/30/2024 4:46 PM CDT Temperature 36.8 C (98.2 F) 08/30/2024 4:46 PM CDT Respiratory Rate 18 08/30/2024 4:46 PM CDT Oxygen Saturation 99% 08/30/2024 4:46 PM CDT Inhaled Oxygen Concentration - - Weight 55 kg (121 lb 4.1 oz) 08/27/2024 3:56 AM CDT Height 175.3 cm (5' 9 ) 08/27/2024 3:56 AM CDT Body Mass Index 17.91 08/27/2024 3:56 AM CDT Plan of Treatment Health Maintenance Due Date Last Done Comments Depression Screening 1998 Hepatitis C Screening 1998 HPV Vaccines (1 - Male 3-dose series) 2013 Regular Well Visit/Exam 18-64 2016 DTaP/Tdap/Td Vaccine (8 - Td or Tdap) 01/11/2029 01/11/2019, 02/13/2009, 02/22/2003, Additional history exists Hepatitis B Screening Completed 04/27/1999 , 1998, 1998 Varicella Vaccines Completed 07/18/2008, 06/29/1999 Influenza Vaccine Completed 06/29/2024, , 04/27/2012 Pneumococcal vaccine <65 Aged Out No longer eligible based on patient's age to complete this topic Procedures Procedure Name Priority Date/Time Associated Diagnosis Comments XR FEMUR LEFT 1 VIEW IP Routine 08/30/2024 1:05 PM CDT XR FEMUR RIGHT 1 VIEW IP Routine 08/30/2024 1:04 PM CDT EGFR Routine 08/30/2024 6:43 AM CDT DIFFERENTIAL AUTO Routine 08/30/2024 6:4 3 AM CDT VANCOMYCIN LEVEL TROUGH Timed 08/30/2024 6:43 AM CDT CBC WITH AUTO DIFFERENTIAL Routine 08/30/2024 6:43 AM CDT BASIC METABOLIC PANEL Routine 08/30/2024 6:43 AM CDT XR CHEST 1 VIEW IP Routine 08/29/2024 8:36 AM CDT EGFR Routine 08/29/2024 4:42 AM CDT DIFFERENTIAL AUTO Routine 08/29/2024 4: 42 AM CDT CBC WITH AUTO DIFFERENTIAL Routine 08/29/2024 4:42 AM CDT VANCOMYCIN LEVEL TROUGH Timed 08/29/2024 4:42 AM CDT BASIC METABOLIC PANEL Routine 08/29/2024 4:[address] HEAD WO CONTRAST IP Routine 08/29/2024 1 2:[address] FACIAL BONES WO CONTRAST IP Routine 08/29/2024 12:25 AM CDT URINALYSIS, MICROSCOPIC ONLY STAT 08/28/2024 11:37 AM CDT DRUGS OF ABUSE SCREEN, URINE WITHOUT CONFIRMATION Routine 08/28/2024 11:37 AM CDT URINALYSIS AND REFLEX TO MICROSCOPIC AND CULTURE STAT 08/28/2024 11:37 AM CDT TRANSTHORACIC ECHO (TTE) COMPLETE W DOPPLER/CF WO CONTRAST Routine 08/28/2024 10:54 AM CDT MANUAL DIFFERENTIAL Routine 08/28/2024 9 :31 AM CDT CBC WITH AUTO DIFFERENTIAL Routine 08/28/2024 9:31 AM CDT EGFR Routine 08/28/2024 4:10 AM CDT BASIC METABOLIC PANEL Routine 08/28/2024 4:10 AM CDT VANCOMYCIN LEVEL TROUGH Timed 08/28/2024 4:10 AM CDT HEMOGLOBIN AND HEMATOCRIT Routine 08/27/2024 4:57 PM CDT ECG 12-LEAD Routine 08/27/2024 3:10 PM CDT TROPONIN T HIGH-SENSITIVITY 6-HOUR Timed 08/27/2024 5:34 AM CDT EGFR Timed 08/27/2024 5:34 AM CDT DIFFERENTIAL AUTO Timed 08/27/2024 5:3 4 AM CDT CBC WITH AUTO DIFFERENTIAL Timed 08/27/2024 5:34 AM CDT PHOSPHORUS Timed 08/27/2024 5:34 AM CDT MAGNESIUM Timed 08/27/2024 5:34 AM CDT COMPREHENSIVE METABOLIC PANEL Timed 08/27/2024 5:34 AM CDT SEPSIS LACTATE WITH REFLEX Timed 08/27/2024 5:34 AM CDT BLOOD CULTURE STAT 08/27/2024 1:39 AM CDT BLOOD CULTURE STAT 08/27/2024 1:39 AM CDT CRP (ACUTE PHASE) Timed 08/27/2024 1:0 2 AM CDT PROLACTIN Add-On 08/27/2024 1:02 AM CDT TROPONIN T HIGH-SENSITIVITY 2-HOUR Timed 08/27/2024 1:02 AM CDT ECG 12-LEAD Routine 08/27/2024 1:[address] CHEST PE W CONTRAST ED 08/27/2024 12:[address] HEAD WO CONTRAST ED 08/27/2024 1 2:36 AM CDT ERYTHROCYTE SEDIMENTATION RATE STAT 08/26/2024 11:00 PM CDT PRO B-TYPE NATRIURETIC PEPTIDE STAT 08/26/2024 11:00 PM CDT MAGNESIUM STAT 08/26/2024 11:00 PM CDT EGFR STAT 08/26/2024 11:00 PM CDT PHOSPHORUS STAT 08/26/2024 11:00 PM CDT ETHANOL STAT 08/26/2024 11:00 PM CDT DIFFERENTIAL AUTO STAT 08/26/2024 11: 00 PM CDT SEPSIS LACTATE WITH REFLEX STAT 08/26/2024 11:00 PM CDT TROPONIN T HIGH-SENSITIVITY SERIES (BASELINE, 2HR, 4HR, 6HR) STAT 08/26/2024 11:00 PM CDT CBC WITH AUTO DIFFERENTIAL STAT 08/26/2024 11:00 PM CDT COMPREHENSIVE METABOLIC PANEL STAT 08/26/2024 11:00 PM CDT INFLUENZA A/B, RSV, AND COVID-19 PCR STAT 08/26/2024 11:00 PM CDT XR CHEST 1 VIEW ED 08/26/2024 10:44 PM CDT ECG 12-LEAD STAT 08/26/2024 10:39 PM CDT from Last 3 Months Results * XR Femur Left 1 View (08/30/2024 1:05 PM CDT) Anatomical Region Laterality Modality Lower Extremities, Thigh, Femur Left Computed Radiography 08/30/2024 3:39 PM CDT Narrative 08/30/2024 3:40 PM CDT EXAM DESCRIPTION: XR FEMUR RIGHT 1 VIEW; XR FEMUR LEFT 1 VIEW REASON FOR STUDY: to r/o presence of bullet TECHNIQUE: 2 radiographic view(s) of the right femur; two views of the left femur . COMPARISON: None FINDINGS: BONES/JOINTS: There is no acute fracture, malalignment or osseous abnormality. The joint spaces are normal. SOFT TISSUES: Within normal limits. IMPRESSION: No acute osseous abnormality. No radiopaque foreign body. THIS IS AN ELECTRONICALLY VERIFIED FINAL REPORT 08/30/2024 3:40 PM - Electronically signed by Marley Burger M.D. FT T: Report ID: [id number] Reading Location: [id number] Procedure Note Marley Benson MD - 08/30/2024 EXAM DESCRIPTION: XR FEMUR RIGHT 1 VIEW; XR FEMUR LEFT 1 VIEW REASON FOR STUDY: to r/o presence of bullet TECHNIQUE: 2 radiographic view(s) of the right femur; two views of theleft femur . COMPARISON: None FINDINGS: BONES/JOINTS: There is no acute fracture, malalignment orosseous abnormality. The joint spaces are normal. SOFT TISSUES: Within normal limits. IMPRESSION: No acute osseous abnormality. No radiopaque foreign body. THIS IS AN ELECTRONICALLY VERIFIED FINAL REPORT 08/30/2024 3:40 PM - Electronically signed by Marley Burger M.D. FT T: Report ID: [id number] Reading Location: [id number] Leticia Gonzalez MD IMG XR PROCEDURES Final Re sult * XR Femur Right 1 View (08/30/2024 1:04 PM CDT) Anatomical Region Laterality Modality Lower Extremities, Thigh, Femur Right Computed Radiography 08/30/2024 3:39 PM CDT Narrative 08/30/2024 3:40 PM CDT EXAM DESCRIPTION: XR FEMUR RIGHT 1 VIEW; XR FEMUR LEFT 1 VIEW REASON FOR STUDY: to r/o presence of bullet TECHNIQUE: 2 radiographic view(s) of the right femur; two views of the left femur . COMPARISON: None FINDINGS: BONES/JOINTS: There is no acute fracture, malalignment or osseous abnormality. The joint spaces are normal. SOFT TISSUES: Within normal limits. IMPRESSION: No acute osseous abnormality. No radiopaque foreign body. THIS IS AN ELECTRONICALLY VERIFIED FINAL REPORT 08/30/2024 3:40 PM - Electronically signed by Marley uBrger M.D. FT T: Report ID: [id number] Reading Location: [place] [id number] Procedure Note Marley Benson MD - 08/30/2024 EXAM DESCRIPTION: XR FEMUR RIGHT 1 VIEW; XR FEMUR LEFT 1 VIEW REASON FOR STUDY: to r/o presence of bullet TECHNIQUE: 2 radiographic view(s) of the right femur; two views of theleft femur . COMPARISON: None FINDINGS: BONES/JOINTS: There is no acute fracture, malalignment orosseous abnormality. The joint spaces are normal. SOFT TISSUES: Within normal limits. IMPRESSION: No acute osseous abnormality. No radiopaque foreign body. THIS IS AN ELECTRONICALLY VERIFIED FINAL REPORT 08/30/2024 3:40 PM - Electronically signed by Marley Burger M.D. FT T: Report ID: [id number] Reading Location: [id number] Leticia Gonzalez MD IMG XR PROCEDURES Final Re sult * eGFR (08/30/2024 6:43 AM CDT) eGFR >90 >=60 mL/min/1. 73 m2 Comment: Interpretive Data Reference Interval Normal >/= 90 mL/min/1.73m2 Mildly decreased* 60 - 89 mL/min/1.73m2 Mildly to moderately decreased 45 - 59 mL/min/1.73m2 Moderately to severely decreased 30 - 44 mL/min/1.73m2 Severely decreased 15 - 29 mL/min/1.73m2 Kidney Failure < 15 mL/min/1.73m2 *Relative to young adult level Estimated glomerular filtration rate is determined by the 2020 CKD-EPI equation recommended by the National Kidney Foundation (A Unifying Approach to GFR Estimation: Recommendations of the NKF-ASK Task Force on Reassessing the Inclusion of Race in Diagnosing Kidney Disease, JASN 2020). The CKD-EPI equation should not be used for patients with unstable renal function and has not been validated in children and those over 70. Current interpretive data was last reviewed 2021. Blood 08/30/2024 6:43 AM CDT 08/30/2024 7:07 AM CDT Edith Peck DO LAB BLOOD ORDERABLES Fin al Result [facility] [address] [facility] Department [place] [address] * Differential, auto (08/30/2024 6:43 AM CDT) Neutrophil abs 6.1 1.5 - 6.5 K/cumm Imm gran abs 0.0 0.0 - 0.1 K/cumm [facility] Lymphocyte abs 2.1 0.8 - 3.3 K/cumm [facility] Monocyte abs 0.5 0.2 - 0.8 K/cumm [facility] Eosinophil abs 0.1 0.0 - 0.5 K/cumm [facility] Basophil abs 0.1 0.0 - 0.1 K/cumm [facility] Neutrophil pct 68.8 % [facility] Comment: Interpretive Data Percent cell count reference ranges are not reported, since discordance with absolute values may lead to misinterpretation of CBC data. Current Interpretive Data was last revised on 2017. Imm gran pct 0.5 % [facility] Comment: Interpretive Data Percent cell count reference ranges are not reported, since discordance with absolute values may lead to misinterpretation of CBC data. Current Interpretive Data was last revised on 2017. Lymphocyte pct 24.2 % [facility] Comment: Interpretive Data Percent cell count reference ranges are not reported, since discordance with absolute values may lead to misinterpretation of CBC data. Current Interpretive Data was last revised on 2017. Monocyte pct 5.3 % [facility] Comment: Interpretive Data Percent cell count reference ranges are not reported, since discordance with absolute values may lead to misinterpretation of CBC data. Current Interpretive Data was last revised on 2017. Eosinophil pct 0.6 % [facility] Comment: Interpretive Data Percent cell count reference ranges are not reported, since discordance with absolute values may lead to misinterpretation of CBC data. Current Interpretive Data was last revised on 2017. Basophil pct 0.6 % [facility] Comment: Interpretive Data Percent cell count reference ranges are not reported, since discordance with absolute values may lead to misinterpretation of CBC data. Current Interpretive Data was last revised on 2017. Blood 08/30/2024 6:43 AM CDT 08/30/2024 7:07 AM CDT us Leticia Gonzalez MD LAB BLOOD ORDERABLES Final Result [facility] [address] [facility] Department of Laboratories [place], [place] [id number] * CBC with auto differential (08/30/2024 6:43 AM CDT) WBC 8.8 3.8 - 9.9 K/cumm Hgb 13.5 13.0 - 17.5 g/dL [facility] Hct 38.9 38.9 - 50.3 % [facility] Plt 311 150 - 400 K/cumm [facility] MPV 9.6 9.1 - 12.3 fL [facility] RBC 4.71 4.30 - 5.80 M/cumm [facility] MCV 82.6 81.3 - 96.4 fL [facility] MCH 28.7 27.1 - 33.3 pg [facility] MCHC 34.7 32.3 - 35.7 g/dL [facility] RDW CV 12.0 11.1 - 14.9 % [facility] RDW SD 36.7 35.7 - 48.1 fL [facility] NRBC abs 0.00 0.00 - 0.01 K/cumm [facility] Blood 08/30/2024 6:43 AM CDT 08/30/2024 7:07 AM CDT Leticia Gonzalez MD LAB BLOOD ORDERABLES Final Result Performing Organization Address [facility] Co de Phone Number [address] [place] [place] [address] * (ABNORMAL) Vancomycin level trough (08/30/2024 6:43 AM CDT) [facility] Vancomycin trough 23.1(H) 10.0 - 20.0 mcg/mL Blood 08/30/2024 6:43 AM CDT 08/30/2024 7:07 AM CDT Leticia Gonzalez MD LAB BLOOD ORDERABLES Final Result Performing Organization Address City/[facility] Co de Phone Number [address] [place] [address] * (ABNORMAL) Basic metabolic panel (08/30/2024 6:43 AM CDT) [facility] Sodium 135 135 - 145 mmol/L Potassium, pl 3.6 3.3 - 4.9 mmol/L [facility] Chloride 104 97 - 110 mmol/L [facility] CO2 17(L) 22 - 32 mmol/L [facility] Anion gap 14 2 - 15 mmol/L [facility] BUN 6 6 - 25 mg/dL [facility] Creatinine 0.68(L) 0.80 - 1.30 mg/dL [facility] Glucose 78 70 - 199 mg/dL [facility] Comment: Interpretive Data Fasting glucose >/= 126 mg/dl is diagnostic for diabetes. Fasting is defined as no caloric intake for at least 8 hours. Fasting glucose between 100 mg/dl to 125 mg/dl is diagnostic of prediabetes. In a patient with classic symptoms of hyperglycemia or hyperglycemic crisis, a random glucose >/= 200 mg/dl is diagnostic for diabetes. In the absence of unequivocal hyperglycemia, results should be confirmed by repeat testing. The classification and Diagnosis of Diabetes Diabetes Care 202; 46: S19-S40. Current interpretive data was last revised 2022. Calcium 8.7 8.5 - 10.3 mg/dL [facility] Blood 08/30/2024 6:43 AM CDT 08/30/2024 7:07 AM CDT Edith Peck DO LAB BLOOD ORDERABLES Fin al Result [facility] [address] [facility] Department [place] [address] * XR Chest 1 View (08/29/2024 8:36 AM CDT) Anatomical Region Laterality Modality Body, Chest N/A Computed Radiogr aphy 08/29/2024 9:28 AM CDT Narrative 08/29/2024 9:30 AM CDT EXAM DESCRIPTION: XR CHEST 1 VIEW REASON FOR STUDY: fever, Tachypnea Fever, tachypnea per order reasoning. TECHNIQUE: Frontal radiographic view(s) of the chest. COMPARISON: 08/27/2024 , 10/02/2020 FINDINGS: LUNGS: Mild bibasilar atelectasis. No focal pulmonary parenchymal consolidation, pulmonary edema, pleural effusion, or pneumothorax. HEART/MEDIASTINUM: Cardiac silhouette normal in size. Mediastinal and hilar contours appear normal. LINES/TUBES: None. BONES: There is mild dextro rotatory curvature of the thoracic spine. Lower thoracic vertebral compression fractures are redemonstrated, better characterized on prior CT 10/02/2020. IMPRESSION: No definitive radiographic evidence of acute cardiopulmonary abnormality. THIS IS AN ELECTRONICALLY VERIFIED FINAL REPORT 08/29/2024 9:30 AM - Electronically signed by Sravan Oliva M.D. AT T: Report ID: [id number] Reading Location: [id number] Procedure Note Sravan Oliva MD - 08/29/2024 EXAM DESCRIPTION: XR CHEST 1 VIEW REASON FOR STUDY: fever, Tachypnea Fever, tachypnea per order reasoning. TECHNIQUE: Frontal radiographic view(s) of the chest. COMPARISON: 08/27/2024 , 10/02/2020 FINDINGS: LUNGS: Mild bibasilar atelectasis. No focal pulmonaryparenchymal consolidation, pulmonary edema, pleural effusion, or pneumothorax. HEART/MEDIASTINUM: Cardiac silhouette normal in size. Mediastinal andhilar contours appear normal. LINES/TUBES: None. BONES: There is mild dextro rotatory curvature of the thoracic spine.Lower thoracic vertebral compression fractures are redemonstrated, better characterized on prior CT 10/02/2020. IMPRESSION: No definitive radiographic evidence of acute cardiopulmonary abnormality. THIS IS AN ELECTRONICALLY VERIFIED FINAL REPORT 08/29/2024 9:30 AM - Electronically signed by Sravan Oliva M.D. AT T: Report ID: [id number] Reading Location: [id number] us Leticia Gonzalez MD IMG XR PROCEDURES Final Re sult * eGFR (08/29/2024 4:42 AM CDT) eGFR >90 >=60 mL/min/1. 73 m2 Comment: Interpretive Data Reference Interval Normal >/= 90 mL/min/1.73m2 Mildly decreased* 60 - 89 mL/min/1.73m2 Mildly to moderately decreased 45 - 59 mL/min/1.73m2 Moderately to severely decreased 30 - 44 mL/min/1.73m2 Severely decreased 15 - 29 mL/min/1.73m2 Kidney Failure < 15 mL/min/1.73m2 *Relative to young adult level Estimated glomerular filtration rate is determined by the 2020 CKD-EPI equation recommended by the National Kidney Foundation (A Unifying Approach to GFR Estimation: Recommendations of the NKF-ASK Task Force on Reassessing the Inclusion of Race in Diagnosing Kidney Disease, JASN 202). The CKD-EPI equation should not be used for patients with unstable renal function and has not been validated in children and those over 70. Current interpretive data was last reviewed 2021. Blood 08/29/2024 4:42 AM CDT 08/29/2024 5:19 AM CDT Edith Peck DO LAB BLOOD ORDERABLES Fin al Result [facility] [address] [facility] Department [place] [address] * (ABNORMAL) Differential, auto (08/29/2024 4:42 AM CDT) Neutrophil abs 10.0(H) 1.5 - 6.5 K/cumm Imm gran abs 0.1 0.0 - 0.1 K/cumm [facility] Lymphocyte abs 2.2 0.8 - 3.3 K/cumm [facility] Monocyte abs 0.8 0.2 - 0.8 K/cumm [facility] Eosinophil abs 0.0 0.0 - 0.5 K/cumm [facility] Basophil abs 0.0 0.0 - 0.1 K/cumm [facility] Neutrophil pct 76.2 % [facility] Comment: Interpretive Data Percent cell count reference ranges are not reported, since discordance with absolute values may lead to misinterpretation of CBC data. Current Interpretive Data was last revised on 2017. Imm gran pct 0.5 % [facility] Comment: Interpretive Data Percent cell count reference ranges are not reported, since discordance with absolute values may lead to misinterpretation of CBC data. Current Interpretive Data was last revised on 2017. Lymphocyte pct 16.9 % [facility] Comment: Interpretive Data Percent cell count reference ranges are not reported, since discordance with absolute values may lead to misinterpretation of CBC data. Current Interpretive Data was last revised on 2017. Monocyte pct 6.2 % [facility] Comment: Interpretive Data Percent cell count reference ranges are not reported, since discordance with absolute values may lead to misinterpretation of CBC data. Current Interpretive Data was last revised on 2017. Eosinophil pct 0.0 % [facility] Comment: Interpretive Data Percent cell count reference ranges are not reported, since discordance with absolute values may lead to misinterpretation of CBC data. Current Interpretive Data was last revised on 2017. Basophil pct 0.2 % [facility] [facility] Comment: Interpretive Data Percent cell count reference ranges are not reported, since discordance with absolute values may lead to misinterpretation of CBC data. Current Interpretive Data was last revised on 2017. Blood 08/29/2024 4:42 AM CDT 08/29/2024 5:13 AM CDT us Leticia Gonzalez MD LAB BLOOD ORDERABLES Final Result [facility] [address] [facility] Department [place] [address] * (ABNORMAL) CBC with auto differential (08/29/2024 4:42 AM CDT) WBC 13.2(H) 3.8 - 9.9 K/cumm Hgb 12.9(L) 13.0 - 17.5 g/dL [facility] Hct 36.4(L) 38.9 - 50.3 % [facility] Plt 390 150 - 400 K/cumm [facility] MPV 9.7 9.1 - 12.3 fL [facility] RBC 4.50 4.30 - 5.80 M/cumm [facility] MCV 80.9(L) 81.3 - 96.4 fL [facility] MCH 28.7 27.1 - 33.3 pg [facility] MCHC 35.4 32.3 - 35.7 g/dL [facility] RDW CV 12.4 11.1 - 14.9 % [facility] RDW SD 35.9 35.7 - 48.1 fL [facility] NRBC abs 0.00 0.00 - 0.01 K/cumm [facility] Blood 08/29/2024 4:42 AM CDT 08/29/2024 5:13 AM CDT Leticia Gonzalez MD LAB BLOOD ORDERABLES Final Result Performing Organization Address [facility] Co de Phone Number [address] [place] [address] * (ABNORMAL) Vancomycin level trough (08/29/2024 4:42 AM CDT) [facility] Vancomycin trough 22.8(H) 10.0 - 20.0 mcg/mL Blood 08/29/2024 4:42 AM CDT 08/29/2024 5:13 AM CDT Leticia Gonzalez MD LAB BLOOD ORDERABLES Final Result Performing Organization Address [facility] de Phone Number [address] [place] [address] * (ABNORMAL) Basic metabolic panel (08/29/2024 4:42 AM CDT) [facility] Sodium 131(L) 135 - 145 mmol/L Potassium, pl 3.3 3.3 - 4.9 mmol/L [facility] Chloride 102 97 - 110 mmol/L [facility] CO2 18(L) 22 - 32 mmol/L [facility] Anion gap 11 2 - 15 mmol/L [facility] BUN 7 6 - 25 mg/dL [facility] Creatinine 0.71(L) 0.80 - 1.30 mg/dL [facility] Glucose 118 70 - 199 mg/dL [facility] Comment: Interpretive Data Fasting glucose >/= 126 mg/dl is diagnostic for diabetes. Fasting is defined as no caloric intake for at least 8 hours. Fasting glucose between 100 mg/dl to 125 mg/dl is diagnostic of prediabetes. In a patient with classic symptoms of hyperglycemia or hyperglycemic crisis, a random glucose >/= 200 mg/dl is diagnostic for diabetes. In the absence of unequivocal hyperglycemia, results should be confirmed by repeat testing. The classification and Diagnosis of Diabetes Diabetes Care 2021; 46: S19-S40. Current interpretive data was last revised 2022. Calcium 8.4(L) 8.5 - 10.3 mg/dL [facility] Blood 08/29/2024 4:42 AM CDT 08/29/2024 5:19 AM CDT us Edith Peck DO LAB BLOOD ORDERABLES Fin al Result [facility] [address] [facility] Department [place] [address] * CT Facial Bones WO Contrast (08/29/2024 12:25 AM CDT) Anatomical Region Laterality Modality Head and Neck N/A Computed Tomogra phy 08/29/2024 12:5 8 AM CDT Narrative 08/29/2024 1:08 AM CDT EXAM DESCRIPTION: CT FACIAL BONES WO CONTRAST REASON FOR STUDY: Facial trauma, blunt Pt fell out of bed, he's restless and detoxing and is trying to get up and walk around. Happened this evening pt hit right side of head TECHNIQUE: Noncontrast computed tomography images through the paranasal sinuses. Reconstructed MPR images reviewed. All images stored on PACS. Automated exposure control was used as a dose optimization technique for this examination. COMPARISON: None FINDINGS: BONES: No fracture, malalignment, or suspicious lesion. SINUSES/MIDDLE EAR/MASTOIDS: Mild mucosal thickening TMJ: Normal. NASAL CAVITY: Midline nasal septum. ORBITS: Orbits and globes appear normal. OTHER SOFT TISSUES: Unremarkable. BRAIN: Visualized portions unremarkable. C-SPINE: Unremarkable. IMPRESSION: No fracture or malalignment identified. THIS IS AN ELECTRONICALLY VERIFIED FINAL REPORT 08/29/2024 1:08 AM - Electronically signed by Adin ARCHULETA T: Report ID: [id number] Reading Location: [id number] Procedure Note Adin Fitzpatrick MD - 08/29/2024 EXAM DESCRIPTION: CT FACIAL BONES WO CONTRAST REASON FOR STUDY: Facial trauma, blunt Pt fell out of bed, he's restless and detoxing and is trying to get up and walk around. Happened this evening pt hit right side of head TECHNIQUE: Noncontrast computed tomography images through the paranasal sinuses. Reconstructed MPR images reviewed. All images stored on PACS. Automated exposure control was used as a dose optimization technique forthis examination. COMPARISON: None FINDINGS: BONES: No fracture, malalignment, or suspicious lesion. SINUSES/MIDDLE EAR/MASTOIDS: Mild mucosal thickening TMJ: Normal. NASAL CAVITY: Midline nasal septum. ORBITS: Orbits and globes appear normal. OTHER SOFT TISSUES: Unremarkable. BRAIN: Visualized portions unremarkable. C-SPINE: Unremarkable. IMPRESSION: No fracture or malalignment identified. THIS IS AN ELECTRONICALLY VERIFIED FINAL REPORT 08/29/2024 1:08 AM - Electronically signed by Adin ARCHULETA T: Report ID: [id number] Reading Location: [id number] Edith Peck DO IMG CT PROCEDURES Final Result * CT Head WO Contrast (08/29/2024 12:25 AM CDT) Anatomical Region Laterality Modality Head and Neck N/A Computed Tomogra phy 08/29/2024 1:08 AM CDT Narrative 08/29/2024 1:09 AM CDT EXAM DESCRIPTION: CT HEAD WO CONTRAST REASON FOR STUDY: Facial trauma, blunt Pt fell out of bed, he's restless and detoxing and is trying to get up and walk around. Happened this evening pt hit right side of head TECHNIQUE: Axial images acquired through the brain without intravenous contrast. Images stored on PACS. Automated exposure control was used as a dose optimization technique for this examination. COMPARISON: 08/27/2024 FINDINGS: BRAIN: No mass, hemorrhage, or recent infarct. Normal white matter. Volume within normal limits for age. VASCULAR: No dense vessel or obvious aneurysm. EXTRA-AXIAL SPACES: No mass or fluid collection. ORBITS/GLOBES: Unremarkable. SOFT TISSUES: Unremarkable. BONES/SINUSES: No fracture or lesion. Paranasal sinuses and other skullbase airspaces are clear. IMPRESSION: No acute abnormality identified. THIS IS AN ELECTRONICALLY VERIFIED FINAL REPORT 08/29/2024 1:09 AM - Electronically signed by Adin Fitzpatrick M.D. AR T: Report ID: [id number] Reading Location: [id number] Procedure Note Adin Fitzpatrick MD - 08/29/2024 EXAM DESCRIPTION: CT HEAD WO CONTRAST REASON FOR STUDY: Facial trauma, blunt Pt fell out of bed, he's restless and detoxing and is trying to get up and walk around. Happened this evening pt hit right side of head TECHNIQUE: Axial images acquired through the brain without intravenous contrast. Images stored on PACS. Automated exposure control was used asa dose optimization technique for this examination. COMPARISON: 08/27/2024 FINDINGS: BRAIN: No mass, hemorrhage, or recent infarct. Normal white matter. Volume within normal limits for age. VASCULAR: No dense vessel or obvious aneurysm. EXTRA-AXIAL SPACES: No mass or fluid collection. ORBITS/GLOBES: Unremarkable. SOFT TISSUES: Unremarkable. BONES/SINUSES: No fracture or lesion. Paranasal sinuses and otherskullbase airspaces are clear. IMPRESSION: No acute abnormality identified. THIS IS AN ELECTRONICALLY VERIFIED FINAL REPORT 08/29/2024 1:09 AM - Electronically signed by Adin Fitzpatrick M.D. AR T: Report ID: [id number] Reading Location: [id number] Edith Peck DO IMG CT PROCEDURES Final Result * (ABNORMAL) Urinalysis reflex to microscopic and culture Urine (08/28/2024 11:37 AM CDT) Color, ur Yellow Yellow Clarity, ur Cloudy(A) Clear [facility] Specific gravity, ur 1.034(H) 1.003 - 1.030 [facility] pH, urine 6.0 [facility] Comment: Interpretive Data U rine pH is affected by diet, medications, systemic acid-base disturbances, and renal tubular function. pH may affect urinary stone formation. For example, urine pH below 6.0 may help reduce the tendency for calcium phosphate stones and pH greater than 6.0 may reduce the tendency for uric acid stone formation. Source: [facility] Current Interpretive Data was last revised on 2017 Protein, ur ql 1+(A) Negative [facility] Glucose, ur ql Negative Negative [facility] Ketones, ur 1+(A) Negative [facility] Bilirubin, ur Negative Negative [facility] Blood, ur Negative Negative [facility] Urobilinogen, ur <2.0 <2.0 mg/dL [facility] Nitrite, ur Negative Negative [facility] Leukocyte esterase, ur Negative Negative [facility] UA reflex comment Reflex to microscopic UA will be performed. [facility] Urine 08/28/2024 11:3 7 AM CDT 08/28/2024 12:05 PM CDT Carmina GARCIA LAB MICROBIOLOGY - GENERAL ORDER LAINA Final Result [facility] [address] [facility] Department [place] [address] * (ABNORMAL) Drugs of Abuse Screen, Urine without Confirmation (08/28/2024 11:37 AM CDT) Amphetamine, ur Not Detected CutOff 500ng/mL Comment: Interpretive Data - Amphetamines: Samples containing greater than 500 ng/mL d-methamphetamine or other cross-reacting amphetamine compounds are reported as positive. Amphetamine immunoassays are subject to significant false positive rates due to cross-reactivity of non-amphetamine drugs. Confirmatory testing required for definitive results. Current Interpretive Data was last reviewed 2023. Barbiturates, ur Not Detected CutOff 200ng/mL [facility] Comment: Interpretive Data - Barbiturates: Samples containing greater than 200 ng/mL secobarbital or other cross-reacting barbiturate compounds are reported as positive. False positive and false negative results are possible. Confirmatory testing required for definitive results. Current Interpretive Data was last reviewed 2023. Benzodiazepines, ur Screen Positive, presumptive (A) CutOff 100ng/mL [facility] Comment: Interpretive Data - Benzodiazepines: Samples containing greater than 100 ng/mL nordiazepam or other cross-reacting compounds are reported as positive. False positive and false negative results are possible. Confirmatory testing required for definitive results. Current Interpretive Data was last reviewed 2023. Cannabinoids, ur Screen Positive, presumptive (A) CutOff 50 ng/mL [facility] Comment: Interpretive Data - Cannabinoids: Samples containing greater than 50 ng/mL delta-9 THC -COOH or other cross- reacting compounds are reported as positive. False positive and false negative results are possible. Confirmatory testing required for definitive results. Current Interpretive Data was last reviewed 2023. Cocaine, ur Not Detected CutOff 150ng/mL [facility] Comment: Interpretive Data - Cocaine: Samples containing greater than 150 ng/mL benzoylecgonine or other cross- reacting compounds are reported as positive. False positive and false negative results are possible. Confirmatory testing required for definitive results. Current Interpretive Data was last reviewed 2023. Fentanyl, Ur Screen Positive, presumptive (A) CutOff 5 ng/mL [facility] Comment: Interpretive Data - Fentanyl: Samples containing greater than 5 ng/mL norfentanyl, fentanyl, or other cross-reacting fentanyl compounds are reported as positive. False positive and false negative results are possible. Confirmatory testing required for definitive results. Current Interpretive Data was last reviewed 2023. Methadone, ur Not Detected CutOff 300ng/mL [facility] Comment: Interpretive Data - Methadone: Samples containing greater than 300 ng/mL d,l-methadone or other cross-reacting compounds are reported as positive. False positive and false negative results are possible. Confirmatory testing required for definitive results. Current Interpretive Data was last reviewed 2023. Opiates, ur Not Detected CutOff 300ng/mL [facility] Comment: Interpretive Data - Opiates: Samples containing greater than 300 ng/mL morphine or other cross-reacting compounds are reported as positive. False positive and false negative results are possible. Confirmatory testing required for definitive results. Current Interpretive Data was last reviewed 2023. Oxycodone, ur Not Detected CutOff 100ng/mL [facility] Comment: Interpretive Data - Oxycodone: Samples containing greater than 100 ng/mL oxycodone or other cross-reacting compounds are reported as positive. False positive and false negative results are possible. Confirmatory testing required for definitive results. Current Interpretive Data was last reviewed 2023. Phencyclidine, ur Not Detected CutOff 25 ng/mL [facility] Comment: Interpretive Data - Phencyclidine: Samples containing greater than 25 ng/mL phencyclidine or other cross-reacting compounds are reported as positive. False positive and false negative results are possible. Confirmatory testing required for definitive results. Current Interpretive Data was last reviewed 2023. Urine Creatinine 270 mg/dL [facility] Comment: Interpretive Data Urine Creatinine: < 10 mg/dL is extremely dilute = or > 10 but < 20 mg/dL is dilute = or > 20 mg/dL is normal Current Interpretive Data was last revised on 2017. Urine 08/28/2024 11:3 7 AM CDT 08/28/2024 12:05 PM CDT Leticia Gonzalez MD LAB URINE ORDERABLES Final Result Performing Organization Address [facility] Co de Phone Number [address] [place] [address] * (ABNORMAL) Urinalysis, microscopic only (08/28/2024 11:37 AM CDT) WBC, ur 6-10(A) 0 - 5 /HPF RBC, ur 3-5(A) 0 - 2 /HPF [facility] Epithelial cells, squamous, ur 1-5 0 - 5 /HPF [facility] Mucous, ur Present(A) [facility] Culture Reflex Comment Reflex conditions for urine culture (WBC >10) not met. [facility] Urine 08/28/2024 11:3 7 AM CDT 08/28/2024 12:05 PM CDT Carmina GARCIA LAB URINE ORDERABLES Final Resul t Performing Organization Address [facility] Co de Phone Number [address] [place] [address] * TRANSTHORACIC ECHO (TTE) COMPLETE W DOPPLER/CF WO CONTRAST (08/28/2024 10:54 AM CDT) Anatomical Region Laterality Modality Ultrasound 08/28/2024 10:4 2 AM CDT Narrative 08/29/2024 1:21 PM CDT Transthoracic Echocardiographic Report Patient Name: CLAIRE XIAO A : 2000 (24y 2m) Gender: M Study Date: 08/28/2024 10:42:45 AM Ht(Inch): 69 Wt(Lb): 121 BSA: 1.63 Pot Annealer: MORTEZA Noonan,RVT Location: [id number] Order Provider: EDITH PECK Heart Rate: 76 BMI: 17.87 BP: 139/88 Ref Provider: EDITH PECK PROCEDURES: Echocardiographic Report: ([id number]) Transthoracic complete echo, 2D, spectral and tissue Doppler, color flow Doppler, M-mode. Technically difficult study due to: Technically difficult study due patients inability to cooperate. INDICATIONS: Syncope. FINDINGS: Left Ventricle: The Ejection Fraction (Parada's) is measured at 51 %. Diastolic Function Left ventricular diastolic parameters are consistent with Grade I diastolic dysfunction (normal LA pressure). Appears grossly normal in size. Right Ventricle: Grossly normal in size and appears to have normal systolic function. Left Atrium: The left atrium is normal in size. Right Atrium: The right atrium is normal in size. Mitral Valve: Normal mitral valve leaflet structure. There is mild mitral valve regurgitation. No mitral valve stenosis. Aortic Valve: Trileaflet aortic valve. No aortic regurgitation seen. No aortic valve stenosis. Tricuspid Valve: The tricuspid valve demonstrates normal leaflet structure. There is mild tricuspid regurgitation. The estimated right ventricular systolic pressure is 27 mmHg. Pulmonic Valve: Pulmonic Valve not well visualized due to poor echo windows. There is trace pulmonic regurgitation. Aorta: Aorta not well visualized. IVC: The estimated RA pressure is 3 mmHg. CONCLUSIONS: 1. The Ejection Fraction (Parada's) is measured at 51 %. Diastolic Function Left ventricular diastolic parameters are consistent with Grade I diastolic dysfunction (normal LA pressure). 2. There is mild mitral valve regurgitation. 3. There is trace pulmonic regurgitation. 4. There is mild tricuspid regurgitation. The estimated right ventricular systolic pressure is 27 mmHg. MEASUREMENTS: 2D/MM Value Range Doppler Value EF Mod BP 51 % [ 52 - 72 ] AV Peak Amaury 1.17 m/s LA Length 4C 4.11 cm AV Peak PG 5.48 mmHg LVOT Peak Amaury 0.98 m/s LVOT Peak PG 3.84 mmHg MV E Peak Amaury 0.64 m/s MV A Peak Amaury 0.75 m/s MV E/A 0.90 ratio MV Decel Time 90.00 msec Med E` Amaury 9.46 cm/sec Lat E` Amaury 12.20 cm/sec Average E/E` 5.91 TR Peak Amaury 2.43 m/s TR Peak PG 23.6 mmHg RA Pressure 3.00 mmHg RVSP 26.60 mmHg PV Peak Amaury 0.92 m/s PV Peak PG 3.39 mmHg - ATTESTATION: I have reviewed and interpreted the pertinent images and measurements of this study. I attest to the conclusions in the final report that is provided above. DISCLAIMER: The study images and the final report will be retained in the patient chart by the [facility] for the legally required time period. This chart constitutes the legal record of any testing performed. Electronically Signed By: Saurav Meeks MD 08/29/2024 1:21:08 PM CDT Procedure Note Saurav Meeks Jr., MD - 09/07/2024 Transthoracic Echocardiographic Report Patient Name: CLAIRE XIAO A : 2000 (24y 2m) Gender: M Study Date: 08/28/2024 10:42:45 AM Ht(Inch): 69 Wt(Lb): 121 BSA: 1.63 Pot Annealer: MORTEZA Noonan,RVT Location: [id number] Order Provider:EDITH PECK Heart Rate: 76 BMI: 17.87 BP: 139/88 Ref Provider: EDITH PECK PROCEDURES: Echocardiographic Report: ([id number]) Transthoracic complete echo, 2D,spectral and tissue Doppler, color flow Doppler, M-mode. Technically difficult study due to: Technically difficult study duepatients inability to cooperate. INDICATIONS: Syncope. FINDINGS: Left Ventricle: The Ejection Fraction (Parada's) is measured at 51 %.Diastolic Function Left ventricular diastolic parameters are consistent with Grade Idiastolic dysfunction (normal LA pressure). Appears grossly normal in size. Right Ventricle: Grossly normal in size and appears to have normalsystolic function. Left Atrium: The left atrium is normal in size. Right Atrium: The right atrium is normal in size. Mitral Valve: Normal mitral valve leaflet structure. There is mild mitralvalve regurgitation. No mitral valve stenosis. Aortic Valve: Trileaflet aortic valve. No aortic regurgitation seen. Noaortic valve stenosis. Tricuspid Valve: The tricuspid valve demonstrates normal leafletstructure. There is mild tricuspid regurgitation. The estimated right ventricular systolic pressureis 27 mmHg. Pulmonic Valve: Pulmonic Valve not well visualized due to poor echowindows. There is trace pulmonic regurgitation. Aorta: Aorta not well visualized. IVC: The estimated RA pressure is 3 mmHg. CONCLUSIONS: 1. The Ejection Fraction (Parada's) is measured at 51 %. DiastolicFunction Left ventricular diastolic parameters are consistent with Grade I diastolicdysfunction (normal LA pressure). 2. There is mild mitral valve regurgitation. 3. There is trace pulmonic regurgitation. 4. There is mild tricuspid regurgitation. The estimated right ventricularsystolic pressure is 27 mmHg. MEASUREMENTS: 2D/MM Value Range Doppler Value EF Mod BP 51 % [ 52 - 72 ] AV Peak Amaury 1.17 m/s LA Length 4C 4.11 cm AV Peak PG 5.48 mmHg LVOT Peak Amaury 0.98 m/s LVOT Peak PG 3.84 mmHg MV E Peak Amaury 0.64 m/s MV A Peak Amaury 0.75 m/s MV E/A 0.90 ratio MV Decel Time 90.00 msec Med E` Amaury 9.46 cm/sec Lat E` Amaury 12.20 cm/sec Average E/E` 5.91 TR Peak Amaury 2.43 m/s TR Peak PG 23.6 mmHg RA Pressure 3.00 mmHg RVSP 26.60 mmHg PV Peak Amaury 0.92 m/s PV Peak PG 3.39 mmHg - ATTESTATION: I have reviewed and interpreted the pertinent images and measurements ofthis study. I attest to the conclusions in the final report that is provided above. DISCLAIMER: The study images and the final report will be retained in the patientchart by the [facility] for the legally required time period. This chart constitutesthe legal record of any testing performed. Electronically Signed By: Saurav Meeks MD 08/29/2024 1:21:08 PM CDT Edith Peck DO CV ECHO PROCEDURES Edite d * (ABNORMAL) CBC with auto differential (08/28/2024 9:31 AM CDT) [facility] WBC 15.8(H) 3.8 - 9.9 K/cumm Hgb 14.0 13.0 - 17.5 g/dL [facility] Hct 40.0 38.9 - 50.3 % [facility] Plt 483(H) 150 - 400 K/cumm [facility] MPV 9.7 9.1 - 12.3 fL [facility] RBC 4.84 4.30 - 5.80 M/cumm [facility] MCV 82.6 81.3 - 96.4 fL [facility] MCH 28.9 27.1 - 33.3 pg [facility] MCHC 35.0 32.3 - 35.7 g/dL [facility] RDW CV 12.8 11.1 - 14.9 % [facility] RDW SD 38.5 35.7 - 48.1 fL [facility] NRBC abs 0.00 0.00 - 0.01 K/cumm [facility] Blood 08/28/2024 9:31 AM CDT 08/28/2024 10:02 AM CDT us Leticia Gonzalez MD LAB BLOOD ORDERABLES Edite d Result - Final [facility] [address] [facility] Department [place] [address] * (ABNORMAL) Manual Differential (08/28/2024 9:31 AM CDT) Differential Manual Cells Counted 100 [facility] Neutrophil abs 13.1(H) 1.5 - 6.5 K/cumm [facility] Lymphocyte abs 2.5 0.8 - 3.3 K/cumm [facility] Monocyte abs 0.2 0.2 - 0.8 K/cumm [facility] Neutrophil pct 83.0 % [facility] Comment: Interpretive Data Percent cell count reference ranges are not reported, since discordance with absolute values may lead to misinterpretation of CBC data. Current Interpretive Data was last revised on 2017. Lymphocyte pct 16.0 % [facility] Comment: Interpretive Data Percent cell count reference ranges are not reported, since discordance with absolute values may lead to misinterpretation of CBC data. Current Interpretive Data was last revised on 2017. Monocyte pct 1.0 % [facility] Comment: Interpretive Data Percent cell count reference ranges are not reported, since discordance with absolute values may lead to misinterpretation of CBC data. Current Interpretive Data was last revised on 2017. RBC morphology Normal [facility] Platelet estimate Automated Count Confirmed [facility] Blood 08/28/2024 9:31 AM CDT 08/28/2024 10:02 AM CDT Leticia Gonzalez MD LAB BLOOD ORDERABLES Final Result Performing Organization Address [facility] de Phone Number [id number] [address] * eGFR (08/28/2024 4:10 AM CDT) eGFR >90 >=60 mL/min/1. 73 m2 Comment: Interpretive Data Reference Interval Normal >/= 90 mL/min/1.73m2 Mildly decreased* 60 - 89 mL/min/1.73m2 Mildly to moderately decreased 45 - 59 mL/min/1.73m2 Moderately to severely decreased 30 - 44 mL/min/1.73m2 Severely decreased 15 - 29 mL/min/1.73m2 Kidney Failure < 15 mL/min/1.73m2 *Relative to young adult level Estimated glomerular filtration rate is determined by the 2020 CKD-EPI equation recommended by the [employer] (A Unifying Approach to GFR Estimation: Recommendations of the NKF-ASK Task Force on Reassessing the Inclusion of Race in Diagnosing Kidney Disease, JASN 2020). The CKD-EPI equation should not be used for patients with unstable renal function and has not been validated in children and those over 70. Current interpretive data was last reviewed 2021. Blood 08/28/2024 4:10 AM CDT 08/28/2024 4:20 AM CDT Edith Peck DO LAB BLOOD ORDERABLES Fin al Result Performing Organization Address [facility] Co de Phone Number CANDIE[address] [place] [address] * (ABNORMAL) Vancomycin level trough (08/28/2024 4:10 AM CDT) Vancomycin trough 9.4(L) 10.0 - 20.0 mcg/mL Blood 08/28/2024 4:10 AM CDT 08/28/2024 4:20 AM CDT Edith Peck DO LAB BLOOD ORDERABLES Mio shyanne Result - Final Performing Organization Address City/[facility]/ZIP Co de Phone Number [facility] [address] [place] [address] * (ABNORMAL) Basic metabolic panel (08/28/2024 4:10 AM CDT) Sodium 135 135 - 145 mmol/L Potassium, pl 3.1(L) 3.3 - 4.9 mmol/L [facility] Comment:Delta - Results Revi ewed Chloride 102 97 - 110 mmol/L [facility] CO2 19(L) 22 - 32 mmol/L [facility] Anion gap 14 2 - 15 mmol/L [facility] BUN 11 6 - 25 mg/dL [facility] Creatinine 0.77(L) 0.80 - 1.30 mg/dL [facility] Glucose 135 70 - 199 mg/dL [facility] Comment: Interpretive Data Fasting glucose >/= 126 mg/dl is diagnostic for diabetes. Fasting is defined as no caloric intake for at least 8 hours. Fasting glucose between 100 mg/dl to 125 mg/dl is diagnostic of prediabetes. In a patient with classic symptoms of hyperglycemia or hyperglycemic crisis, a random glucose >/= 200 mg/dl is diagnostic for diabetes. In the absence of unequivocal hyperglycemia, results should be confirmed by repeat testing. The classification and Diagnosis of Diabetes Diabetes Care 202; 46: S19-S40. Current interpretive data was last revised 2022. Calcium 8.9 8.5 - 10.3 mg/dL [facility] Blood 08/28/2024 4:10 AM CDT 08/28/2024 4:20 AM CDT Edith Peck DO LAB BLOOD ORDERABLES Fin al Result Performing Organization Address City/[facility]/ZIP Co de Phone Number [facility] [place] [address] * Hemoglobin and hematocrit (08/27/2024 4:57 PM CDT) Hgb 14.2 13.0 - 17.5 g/dL Hct 40.9 38.9 - 50.3 % [facility] Blood 08/27/2024 4:57 PM CDT 08/27/2024 5:47 PM CDT Leticia Gonzalez MD LAB BLOOD ORDERABLES Final Result [facility] [address] [facility] Department [place] [address] * ECG 12 lead (08/27/2024 3:10 PM CDT) Pathologist [facility] Ventricular Rate EKG/Min [address] [facility] QRS-Interval (MSEC) [address] [facility] QT-Interval (MSEC) [address] [facility] QTc [address] [facility] R [place] [address] [facility] T [place] [address] [facility] Diagnosis Sinus rhythm with competing Junctional rhythm Rightward axis Abnormal ECG When compared with ECG of 27-AUG-2024 01:00, T wave inversion no longer evident in Anterior leads Junctional beats are new Confirmed by ANGELA PEREIRA M.D. ([id number]) on 08/30/2024 9:45:[address] [facility] 08/27/2024 3:10 PM CDT 08/30/2024 9:45 AM CDT Leticia Gonzalez MD ECG ORDERABLES Final Resu lt Performing Organization Address City/[facility]/ZIP Co de Phone Number [facility] * Troponin T high-sensitivity 6-hour (08/27/2024 5:34 AM CDT) Pathologist [facility] Trop T hs 7 <=22 ng/L Comment: Interpretive Data For further hscTnT resources including the diagnostic algorithm and an aid in interpretation, copy and paste this link: https://nrl.testcatalog.org/show/hsTrop Current Interpretive Data last revised 2020. Trop T hs delta -1 ng/L [facility] Trop T hs interp Insignificant [facility] Blood 08/27/2024 5:34 AM CDT 08/27/2024 6:02 AM CDT Carmina Hoffmanbridger GARCIA LAB BLOOD ORDERABLES Final Resul t [facility] [address] [place] [address] * Sepsis Lactate w/ Reflex (08/27/2024 5:34 AM CDT) Sepsis Lactate 1.5 0.7 - 2.0 mmol/L Blood 08/27/2024 5:34 AM CDT 08/27/2024 6:03 AM CDT Carmina GARCIA LAB BLOOD ORDERABLES Final Resul t Performing Organization Address [facility] de Phone Number [facility] [address] [address] * eGFR (08/27/2024 5:34 AM CDT) eGFR >90 >=60 mL/min/1. 73 m2 Comment: Interpretive Data Reference Interval Normal >/= 90 mL/min/1.73m2 Mildly decreased* 60 - 89 mL/min/1.73m2 Mildly to moderately decreased 45 - 59 mL/min/1.73m2 Moderately to severely decreased 30 - 44 mL/min/1.73m2 Severely decreased 15 - 29 mL/min/1.73m2 Kidney Failure < 15 mL/min/1.73m2 *Relative to young adult level Estimated glomerular filtration rate is determined by the 2020 CKD-EPI equation recommended by the National Kid[employer] (A Unifying Approach to GFR Estimation: Recommendations of the NKF-ASK Task Force on Reassessing the Inclusion of Race in Diagnosing Kidney Disease, JASN 202). The CKD-EPI equation should not be used for patients with unstable renal function and has not been validated in children and those over 70. Current interpretive data was last reviewed 2021. Blood 08/27/2024 5:34 AM CDT 08/27/2024 6:02 AM CDT Edith Peck DO LAB BLOOD ORDERABLES Fin al Result [facility] [address] [facility] Department [place] [address] * (ABNORMAL) Differential, auto (08/27/2024 5:34 AM CDT) Neutrophil abs 16.0(H) 1.5 - 6.5 K/cumm Imm gran abs 0.1 0.0 - 0.1 K/cumm [facility] Lymphocyte abs 1.3 0.8 - 3.3 K/cumm [facility] Monocyte abs 0.9(H) 0.2 - 0.8 K/cumm [facility] Eosinophil abs 0.0 0.0 - 0.5 K/cumm [facility] Basophil abs 0.0 0.0 - 0.1 K/cumm [facility] Neutrophil pct 87.7 % [facility] Comment: Interpretive Data Percent cell count reference ranges are not reported, since discordance with absolute values may lead to misinterpretation of CBC data. Current Interpretive Data was last revised on 2017. Imm gran pct 0.5 % [facility] Comment: Interpretive Data Percent cell count reference ranges are not reported, since discordance with absolute values may lead to misinterpretation of CBC data. Current Interpretive Data was last revised on 2017. Lymphocyte pct 6.8 % [facility] Comment: Interpretive Data Percent cell count reference ranges are not reported, since discordance with absolute values may lead to misinterpretation of CBC data. Current Interpretive Data was last revised on 2017. Monocyte pct 4.8 % [facility] Comment: Interpretive Data Percent cell count reference ranges are not reported, since discordance with absolute values may lead to misinterpretation of CBC data. Current Interpretive Data was last revised on 2017. Eosinophil pct 0.1 % [facility] Comment: Interpretive Data Percent cell count reference ranges are not reported, since discordance with absolute values may lead to misinterpretation of CBC data. Current Interpretive Data was last revised on 2017. Basophil pct 0.1 % [facility] Comment: Interpretive Data Percent cell count reference ranges are not reported, since discordance with absolute values may lead to misinterpretation of CBC data. Current Interpretive Data was last revised on 2017. Blood 08/27/2024 5:34 AM CDT 08/27/2024 6:02 AM CDT [facility] Fin al Result Performing Organization Address City/[facility] Co de Phone Number [facility] [address] [address] * (ABNORMAL) CBC with auto differential (08/27/2024 5:34 AM CDT) WBC 18.3(H) 3.8 - 9.9 K/cumm Hgb 14.4 13.0 - 17.5 g/dL [facility] Hct 42.8 38.9 - 50.3 % [facility] Plt 556(H) 150 - 400 K/cumm [facility] MPV 9.9 9.1 - 12.3 fL [facility] RBC 5.17 4.30 - 5.80 M/cumm [facility] MCV 82.8 81.3 - 96.4 fL [facility] MCH 27.9 27.1 - 33.3 pg [facility] MCHC 33.6 32.3 - 35.7 g/dL [facility] RDW CV 12.6 11.1 - 14.9 % [facility] RDW SD 37.9 35.7 - 48.1 fL [facility] NRBC abs 0.00 0.00 - 0.01 K/cumm [facility] Blood 08/27/2024 5:34 AM CDT 08/27/2024 6:02 AM CDT Edith Jacobs Contextbro[employer] DO LAB BLOOD ORDERABLES Fin al Result Performing Organization Address City/[facility] Co de Phone Number [facility] [address] [place] [address] * Phosphorus (08/27/2024 5:34 AM CDT) Phosphorus, pl 3.6 2.3 - 4.5 mg/dL Blood 08/27/2024 5:34 AM CDT 08/27/2024 6:02 AM CDT Edith Peck LAB BLOOD ORDERABLES Fin al Result Performing Organization Address City/[facility] Co de Phone Number CAND[address] [address] * Magnesium (08/27/2024 5:34 AM CDT) [facility] Magnesium 2.3 1.4 - 2.5 mg/dL Blood 08/27/2024 5:34 AM CDT 08/27/2024 6:02 AM CDT Edith Peck LAB BLOOD ORDERABLES Fin al Result Performing Organization Address [facility] de Phone Number [address] [address] * (ABNORMAL) Comprehensive metabolic panel (08/27/2024 5:34 AM CDT) [facility] Sodium 138 135 - 145 mmol/L Potassium, pl 4.6 3.3 - 4.9 mmol/L [facility] Chloride 103 97 - 110 mmol/L [facility] CO2 20(L) 22 - 32 mmol/L [facility] Anion gap 15 2 - 15 mmol/L [facility] BUN 15 6 - 25 mg/dL [facility] Creatinine 0.83 0.80 - 1.30 mg/dL [facility] Glucose 118 70 - 199 mg/dL [facility] Comment: Interpretive Data Fasting glucose >/= 126 mg/dl is diagnostic for diabetes. Fasting is defined as no caloric intake for at least 8 hours. Fasting glucose between 100 mg/dl to 125 mg/dl is diagnostic of prediabetes. In a patient with classic symptoms of hyperglycemia or hyperglycemic crisis, a random glucose >/= 200 mg/dl is diagnostic for diabetes. In the absence of unequivocal hyperglycemia, results should be confirmed by repeat testing. The classification and Diagnosis of Diabetes Diabetes Care 2021; 46: S19-S40. Current interpretive data was last revised 2022. Calcium 9.6 8.5 - 10.3 mg/dL [facility] Bilirubin, total 0.2 0.1 - 1.2 mg/dL [facility] Protein, pl 7.3 6.5 - 8.5 g/dL [facility] Albumin 4.2 3.5 - 5.0 g/dL [facility] Alk phos 107 40 - 130 Units/L [facility] ALT 8 7 - 55 Units/L [facility] AST 17 10 - 50 Units/L [facility] Blood 08/27/2024 5:34 AM CDT 08/27/2024 6:02 AM CDT Edith Peck DO LAB BLOOD ORDERABLES Fin al Result [facility] [address] [facility] Department [place] [address] * Blood culture Blood Peripheral (08/27/2024 1:39 AM CDT) Report Final Report: No growth Comment:Testing performed by : [facility], [address] [facility] [place]., [address] Blood (Peripheral) 08/27/2024 1:39 AM CDT 08/27/2024 6:09 AM CDT Narrative [facility] - 08/31/2024 7:01 AM CDT From a different site than #1. Draw Blood cultures before administration of Antibiotics Collection->Peripheral 1. Blood cultures are incubated for 4 days on a continuously monitored blood culture system. The first report of a negative culture is issued within 24 hours of receipt of the specimen in the laboratory. 2. Positive culture results are reported as soon as they are detected. 3. The most important factor for detection of microbes in the setting of bloodstream infection is the volume of blood submitted for culture. Failure to collect an optimal blood volume can result in false negative blood cultures. 4. For pediatric patients, the recommended blood volume to collect follows a weight based strategy. See the electronic test catalog for collection instructions. 5. For positive blood cultures, a rapid molecular test may be performed for organism identification using the nusrat ePlex blood culture identification panel for gram positive (BCID-GP) and gram negative (BCID-GN) organisms. This nucleic acid amplification test detects microbial DNA in positive blood culture broth. This assay has been cleared by the [place] Food and Drug Administration and its performance characteristics have been verified by the [facility] Microbiology Laboratory. For questions about this culture, contact the Microbiology Laboratory at [phone]. Interpretive data was last revised on 24. Carmina GARCIA LAB MICROBIOLOGY - GENERAL ORDER LAINA Final Result [facility] [address] [facility] Department [place] [address] * Blood culture Blood Peripheral (08/27/2024 1:39 AM CDT) Report Final Report: No growth Comment:Testing performed by : [facility], [address] [facility] [place]., [address] Blood (Peripheral) 08/27/2024 1:39 AM CDT 08/27/2024 6:09 AM CDT Narrative [facility] - 08/31/2024 7:01 AM CDT Draw Blood cultures before administration of Antibiotics Collection->Peripheral 1. Blood cultures are incubated for 4 days on a continuously monitored blood culture system. The first report of a negative culture is issued within 24 hours of receipt of the specimen in the laboratory. 2. Positive culture results are reported as soon as they are detected. 3. The most important factor for detection of microbes in the setting of bloodstream infection is the volume of blood submitted for culture. Failure to collect an optimal blood volume can result in false negative blood cultures. 4. For pediatric patients, the recommended blood volume to collect follows a weight based strategy. See the electronic test catalog for collection instructions. 5. For positive blood cultures, a rapid molecular test may be performed for organism identification using the nusrat ePlex blood culture identification panel for gram positive (BCID-GP) and gram negative (BCID-GN) organisms. This nucleic acid amplification test detects microbial DNA in positive blood culture broth. This assay has been cleared by the [place] Food and Drug Administration and its performance characteristics have been verified by the [facility]biology [facility]. For questions about this culture, contact the Microbiology Laboratory at [phone]. Interpretive data was last revised on 24. Carmina GARCIA LAB MICROBIOLOGY - GENERAL ORDER LAINA Final Result Performing Organization Address City/[facility]/ZIP Co de Phone Number [facility] [address] [address] * Troponin T high-sensitivity 2-hour (08/27/2024 1:02 AM CDT) Trop T hs 7 <=22 ng/L Comment: Interpretive Data For further hscTnT resources including the diagnostic algorithm and an aid in interpretation, copy and paste this link: https://nrl.testcatalog.org/show/hsTrop Current Interpretive Data last revised 2020. Trop T hs delta -1 ng/L [facility] Trop T hs interp Insignificant [facility] Blood 08/27/2024 1:02 AM CDT 08/27/2024 1:07 AM CDT Carmina GARCIA LAB BLOOD ORDERABLES Final Resul t Performing Organization Address [facility] Co de Phone Number CANDIE[address] [address] * Prolactin (08/27/2024 1:02 AM CDT) Prolactin 4.7 4.0 - 15.2 ng/mL Comment:Testing performed by : [facility], [address] [facility] [place]., [address] Blood 08/27/2024 1:02 AM CDT 08/27/2024 7:24 AM CDT Narrative [facility] - 08/27/2024 7:51 AM CDT Please use blood drawn on 08/26 Edith Peck DO LAB BLOOD ORDERABLES Fin al Result Performing Organization Address City/[facility]/ZIP Co de Phone Number CANDIE[address] [place] [address] * CRP (acute phase) (08/27/2024 1:02 AM CDT) CRP 1.6 <=10.0 mg/L Blood 08/27/2024 1:02 AM CDT 08/27/2024 1:07 AM CDT Edith Peck DO LAB BLOOD ORDERABLES Fin al Result Performing Organization Address [facility] Co de Phone Number [facility] [address] Department [place] [address] * ECG 12 lead (08/27/2024 1:00 AM CDT) Ventricular Rate EKG/Min 61 BPM [facility] Atrial Rate 13 BPM [facility] QRS-Interval (MSEC) 90 ms [facility] QT-Interval (MSEC) [address] [facility] QTc [address] [facility] R [place] [address] [facility] T [place] [address] 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 ([id number]) on 08/30/2024 8:43:[address] [facility] 08/27/2024 1:00 AM CDT 08/30/2024 8:43 AM CDT Carmina GARCIA ECG ORDERABLES Final Result Performing Organization Address [facility] de Phone Number [facility] [employer] [facility] * CT Chest PE (CTA) W Contrast (08/27/2024 12:36 AM CDT) Anatomical Region Laterality Modality Body N/A Computed Tomogra phy 08/27/2024 12:5 4 AM CDT Narrative 08/27/2024 12:57 AM CDT EXAM DESCRIPTION: CT CHEST PE (CTA) W CONTRAST REASON FOR STUDY: Pulmonary embolism (PE) suspected, high prob TECHNIQUE: CT angiogram of the chest performed with intravenous contrast using helical scanning technique with dynamic intravenous contrast injection. Reconstructed coronal and sagittal MPR images reviewed. All images stored on PACS. 3D MIP images rendered on scanning unit and reviewed at time of interpretation. Automated exposure control was used as a dose optimization technique for this examination. CONTRAST TYPE/DOSE: 75mL of IOVERSOL 350 MG IODINE/ML INTRAVENOUS SYRINGE injected via intravenous COMPARISON: 08/26/2024 chest x-ray FINDINGS: VASCULATURE: No identified pulmonary emboli. LUNGS: No nodules or masses. No pneumonia. PLEURA: No effusion. No pneumothorax. MEDIASTINUM/DARREL: No identified masses or abnormal nodes. HEART: Heart size is normal with no pericardial effusion. AXILLA: No adenopathy. CHEST WALL: No masses. No subcutaneous air. HARDWARE/LINES/TUBES: None. UPPER ABDOMEN: No significant abnormality. MUSCULOSKELETAL: Compression fractures are seen of the anterior bodies of T8-T12. This is most severe at T9 where there is almost complete loss of height. No significant retropulsion of fragments is evident. The compression fractures at T11 and T12 are present on the prior study. OTHER: No significant abnormality. IMPRESSION: Multiple lower thoracic compression fractures as above. A least 2 are new when compared with the prior study. Correlation with patient history and symptoms is suggested. THIS IS AN ELECTRONICALLY VERIFIED FINAL REPORT 08/27/2024 12:57 AM - Electronically signed by Ti Willis M.D. T: Report ID: [id number] Reading Location: [place] [address] Procedure Note Ti Willis MD - 08/27/2024 EXAM DESCRIPTION: CT CHEST PE (CTA) W CONTRAST REASON FOR STUDY: Pulmonary embolism (PE) suspected, high prob TECHNIQUE: CT angiogram of the chest performed with intravenous contrastusing helical scanning technique with dynamic intravenous contrast injection. Reconstructed coronal and sagittal MPR images reviewed. All images storedon PACS. 3D MIP images rendered on scanning unit and reviewed at time of interpretation. Automated exposure control was used as a doseoptimization technique for this examination. CONTRAST TYPE/DOSE: 75mL of IOVERSOL 350 MG IODINE/ML INTRAVENOUSSYRINGE injected via intravenous COMPARISON: 08/26/2024 chest x-ray FINDINGS: VASCULATURE: No identified pulmonary emboli. LUNGS: No nodules or masses. No pneumonia. PLEURA: No effusion. No pneumothorax. MEDIASTINUM/DARREL: No identified masses or abnormal nodes. HEART: Heart size is normal with no pericardial effusion. AXILLA: No adenopathy. CHEST WALL: No masses. No subcutaneous air. HARDWARE/LINES/TUBES: None. UPPER ABDOMEN: No significant abnormality. MUSCULOSKELETAL: Compression fractures are seen of the anterior bodiesof T8-T12. This is most severe at T9 where there is almost complete loss of height. No significant retropulsion of fragments is evident. Thecompression fractures at T11 and T12 are present on the prior study. OTHER: No significant abnormality. IMPRESSION: Multiple lower thoracic compression fractures as above. Aleast 2 are new when compared with the prior study. Correlation with patient history and symptoms is suggested. THIS IS AN ELECTRONICALLY VERIFIED FINAL REPORT 08/27/2024 12:57 AM - Electronically signed by Ti Willis M.D. T: Report ID: [id number] Reading Location: [id number] Carmina GARCIA IMG CT PROCEDURES Final Result * CT head without contrast (08/27/2024 12:36 AM CDT) Anatomical Region Laterality Modality Head and Neck N/A Computed Tomogra phy 08/27/2024 12:5 3 AM CDT Narrative 08/27/2024 12:54 AM CDT EXAM DESCRIPTION: CT HEAD WO CONTRAST REASON FOR STUDY: syncope, syncope Pt bibems from [facility] for complaint of syncopal episode. Pt endorses chest pain and SoB in addition, beginning this AM. 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 EMS states pt had an approx 5 min episode of unresponsiveness tug captain, witnessed by facility staff. Pt states chest pain rated 7 out of 10 to middle of chest. Notes recent refusal of Suboxone therapy at facility. Pt Ax4 at baseline, arrives Ax3 TECHNIQUE: Axial images acquired through the brain without intravenous contrast. Images stored on PACS. Automated exposure control was used as a dose optimization technique for this examination. COMPARISON: None FINDINGS: BRAIN: No hemorrhage, edema or mass effect. No recent infarct. Normal white matter. EXTRA-AXIAL SPACES: No fluid collections. No masses. CALVARIUM: No fracture. SINUSES/MASTOIDS: No fluid or mucosal thickening. ORBITS: No significant abnormality. OTHER: No other significant abnormality. IMPRESSION: No acute intracranial findings. THIS IS AN ELECTRONICALLY VERIFIED FINAL REPORT 08/27/2024 12:54 AM - Electronically signed by Ti LONGORIA T: Report ID: [id number] Reading Location: [id number] Procedure Note Ti Willis MD - 08/27/2024 EXAM DESCRIPTION: CT HEAD WO CONTRAST REASON FOR STUDY: syncope, syncope Pt bibems from [facility] for complaint of syncopal episode. Ptendorses chest pain and SoB in addition, beginning this AM. Pt activelyreceiving treatment at [facility] for Opiate, ETOH, and Canabis withdrawal perEMS with last use approx 4 days tug captain. EMS states pt had an approx 5 min episode of unresponsiveness tug captain, witnessed by facility staff. Ptstates chest pain rated 7 out of 10 to middle of chest. Notes recent refusalof Suboxone therapy at facility. Pt Ax4 at baseline, arrives Ax3 TECHNIQUE: Axial images acquired through the brain without intravenous contrast. Images stored on PACS. Automated exposure control was used asa dose optimization technique for this examination. COMPARISON: None FINDINGS: BRAIN: No hemorrhage, edema or mass effect. No recent infarct. Normal white matter. EXTRA-AXIAL SPACES: No fluid collections. No masses. CALVARIUM: No fracture. SINUSES/MASTOIDS: No fluid or mucosal thickening. ORBITS: No significant abnormality. OTHER: No other significant abnormality. IMPRESSION: No acute intracranial findings. THIS IS AN ELECTRONICALLY VERIFIED FINAL REPORT 08/27/2024 12:54 AM - Electronically signed by Ti LONGORIA T: Report ID: [id number] Reading Location: [id number] Carmina GARCIA IMG CT PROCEDURES Final Result * Troponin T high-sensitivity series (baseline, 2hr, 4hr, 6hr) (08/26/2024 11:00 PM CDT) Pathologist [facility] Trop T hs 8 <=22 ng/L Comment: Interpretive Data For further hscTnT resources including the diagnostic algorithm and an aid in interpretation, copy and paste this link: https://nrl.testcatalog.org/show/hsTrop Current Interpretive Data last revised 2020. Blood 08/26/2024 11:0 0 PM CDT 08/26/2024 11:05 PM CDT us Carmina GARCIA LAB BLOOD ORDERABLES Final Resul t [facility] [address] [facility] Department [place] [address] * Influenza A/B, RSV, and COVID-19 PCR Nasopharyngeal (08/26/2024 11:00 PM CDT) [facility] COVID-19 RNA Negative Negative Influenza A RNA Negative Negative [facility] Influenza B RNA Negative Negative [facility] RSV RNA Negative Negative [facility] Comment: Interpretive data: Testing performed by [facility]. This test is performed using the [employer] Xpert Xpress CoV-2/Flu/RSV plus assay. This is a multiplex, real-time reverse transcriptase PCR assay intended for the qualitative detection of nucleic acid from SARS-CoV-2, influenza A, influenza B, and respiratory syncytial virus. This assay has been cleared by the [place] Food and Drug administration. The performance characteristics have been verified by the [facility]. Results must be considered in the clinical context, and a negative result does not rule out infection. Interpretive Data last revised 2023 Nasopharyngeal 08/26/2024 11 :00 PM CDT 08/26/2024 11:07 PM CDT Narrative [facility] - 08/26/2024 11:45 PM CDT Is the Patient experiencing symptoms consistent with COVID?->Unknown us Carmina Lexus PA LAB MICROBIOLOGY - GENERAL ORDER LAINA Final Result [facility] [address] [address] * (ABNORMAL) Sepsis Lactate w/ Reflex (08/26/2024 11:00 PM CDT) Sepsis Lactate 2.5(H) 0.7 - 2.0 mmol/L Blood 08/26/2024 11:0 0 PM CDT 08/26/2024 11:06 PM CDT us [employer] PA LAB BLOOD ORDERABLES Final Resul t Performing Organization Address City/[facility]/ZIP Co de Phone Number [facility] [address] [address] * eGFR (08/26/2024 11:00 PM CDT) eGFR >90 >=60 mL/min/1. 73 m2 Comment: Interpretive Data Reference Interval Normal >/= 90 mL/min/1.73m2 Mildly decreased* 60 - 89 mL/min/1.73m2 Mildly to moderately decreased 45 - 59 mL/min/1.73m2 Moderately to severely decreased 30 - 44 mL/min/1.73m2 Severely decreased 15 - 29 mL/min/1.73m2 Kidney Failure < 15 mL/min/1.73m2 *Relative to young adult level Estimated glomerular filtration rate is determined by the 2020 CKD-EPI equation recommended by the National Kidney Foundation (A Unifying Approach to GFR Estimation: Recommendations of the NKF-ASK Task Force on Reassessing the Inclusion of Race in Diagnosing Kidney Disease, JASN 2020). The CKD-EPI equation should not be used for patients with unstable renal function and has not been validated in children and those over 70. Current interpretive data was last reviewed 2021. Blood 08/26/2024 11:0 0 PM CDT 08/26/2024 11:05 PM CDT us CarminaScarossoe PA LAB BLOOD ORDERABLES Final Resul t [facility] [address] [facility] Department [place] [address] * (ABNORMAL) Differential, auto (08/26/2024 11:00 PM CDT) Neutrophil abs 18.3(H) 1.5 - 6.5 K/cumm Imm gran abs 0.1 0.0 - 0.1 K/cumm [facility] Lymphocyte abs 1.0 0.8 - 3.3 K/cumm [facility] Monocyte abs 0.7 0.2 - 0.8 K/cumm [facility] Eosinophil abs 0.1 0.0 - 0.5 K/cumm [facility] Basophil abs 0.0 0.0 - 0.1 K/cumm [facility] Neutrophil pct 91.0 % [facility] Comment: Interpretive Data Percent cell count reference ranges are not reported, since discordance with absolute values may lead to misinterpretation of CBC data. Current Interpretive Data was last revised on 2017. Imm gran pct 0.4 % [facility] Comment: Interpretive Data Percent cell count reference ranges are not reported, since discordance with absolute values may lead to misinterpretation of CBC data. Current Interpretive Data was last revised on 2017. Lymphocyte pct 4.7 % [facility] Comment: Interpretive Data Percent cell count reference ranges are not reported, since discordance with absolute values may lead to misinterpretation of CBC data. Current Interpretive Data was last revised on 2017. Monocyte pct 3.4 % [facility] Comment: Interpretive Data Percent cell count reference ranges are not reported, since discordance with absolute values may lead to misinterpretation of CBC data. Current Interpretive Data was last revised on 2017. Eosinophil pct 0.4 % [facility] Comment: Interpretive Data Percent cell count reference ranges are not reported, since discordance with absolute values may lead to misinterpretation of CBC data. Current Interpretive Data was last revised on 2017. Basophil pct 0.1 % [facility] Comment: Interpretive Data Percent cell count reference ranges are not reported, since discordance with absolute values may lead to misinterpretation of CBC data. Current Interpretive Data was last revised on 2017. Blood 08/26/2024 11:0 0 PM CDT 08/26/2024 11:05 PM CDT us Carmina GARCIA LAB BLOOD ORDERABLES Final Resul t [facility] [address] [facility] Department [place] [address] * Pro B-type natriuretic peptide (08/26/2024 11:00 PM CDT) NT-proBNP 208 <=300 pg/mL Comment: Interpretive Comments: A. Dyspnea in Acute Care Setting All Ages: < 300 pg/ml, acute heart failure unlikely. < 50 yrs: 300 - 450 pg/ml, further investigation warranted. > 450 pg/ml, acute heart failure likely. 50 - 74 yrs: 300 - 900 pg/ml, further investigation warranted. > 900 pg/ml, acute heart failure likely . > or = 75 yrs: 450 - 1800 pg/ml, further investigation warranted. > 1800 pg/ml, acute heart failure likely. B. Non-acute Setting < 75 yrs < 125 pg/ml, rules out heart failure. > or = 125 pg/ml, further investigation warranted. > or = 75 yrs < 450 pg/ml, rules out heart failure. > or = 450 pg/ml, further investigation warranted. - Knowledge of each individual patient's NT-proBNP range may be more useful than using similar cut-points for every patient. Please note that marked elevations in NT-proBNP levels may be observed in state other than Left Ventricular Congestive Failure, including: acute coronary syndromes, right heart strain/failure (including pulmonary embolism and cor pulmonale), critical illness, renal failure, as well as advanced age. - References: 1. Everton CORDOBA et.al. Eur Heart J. 2006:27:330-337. 2. Roxana CUELLAR, Tres ASKEW. J. AM Anna Cardiol: Cardiovasc Imag. 2009;2: 216- 225. Interpretive Data Last Revised Date: 2018. Blood 08/26/2024 11:0 0 PM CDT 08/26/2024 11:05 PM CDT Carmina GARCIA LAB BLOOD ORDERABLES Final Resul t Performing Organization Address [facility] Co de Phone Number [address] [address] * (ABNORMAL) CBC with auto differential (08/26/2024 11:00 PM CDT) WBC 20.1(H) 3.8 - 9.9 K/cumm Hgb 15.3 13.0 - 17.5 g/dL [facility] Hct 43.7 38.9 - 50.3 % [facility] Plt 494(H) 150 - 400 K/cumm [facility] MPV 9.8 9.1 - 12.3 fL [facility] RBC 5.38 4.30 - 5.80 M/cumm [facility] MCV 81.2(L) 81.3 - 96.4 fL [facility] MCH 28.4 27.1 - 33.3 pg [facility] MCHC 35.0 32.3 - 35.7 g/dL [facility] RDW CV 12.4 11.1 - 14.9 % [facility] RDW SD 35.8 35.7 - 48.1 fL [facility] NRBC abs 0.00 0.00 - 0.01 K/cumm [facility] Blood 08/26/2024 11:0 0 PM CDT 08/26/2024 11:05 PM CDT Carmina GARCIA LAB BLOOD ORDERABLES Final Resul t Performing Organization Address [facility] Co de Phone Number [address] [place] [address] * (ABNORMAL) Erythrocyte sedimentation rate (08/26/2024 11:00 PM CDT) Erythrocyte sedimentation rate 26(H) 1 - 15 mm/hr Blood 08/26/2024 11:0 0 PM CDT 08/26/2024 11:05 PM CDT Edith Peck DO LAB BLOOD ORDERABLES Fin al Result Performing Organization Address [facility] Co de Phone Number CANDIE[address] [place] [address] * (ABNORMAL) Phosphorus (08/26/2024 11:00 PM CDT) Phosphorus, pl 1.5(L) 2.3 - 4.5 mg/dL Blood 08/26/2024 11:0 0 PM CDT 08/26/2024 11:05 PM CDT Carmina GARCIA LAB BLOOD ORDERABLES Final Resul t Performing Organization Address [facility] Co de Phone Number [facility] [address] [place] [address] * Magnesium (08/26/2024 11:00 PM CDT) Pathologist [facility] Magnesium 2.0 1.4 - 2.5 mg/dL Blood 08/26/2024 11:0 0 PM CDT 08/26/2024 11:05 PM CDT Carmina GARCIA LAB BLOOD ORDERABLES Final Resul t Performing Organization Address [facility] de Phone Number [address] [place] [address] * Ethanol (08/26/2024 11:00 PM CDT) Pathologist [facility] Ethanol <10 <=10 mg/dL Comment: Interpretive Data Legal limit of intoxication > or = 80 mg/dL Levels > or = 400 mg/dL are potentially TOXIC. Current interpretive data was last revised on 2018. Blood 08/26/2024 11:0 0 PM CDT 08/26/2024 11:05 PM CDT Carmina GARCIA LAB BLOOD ORDERABLES Final Resul t Performing Organization Address [facility] Co de Phone Number [facility] [address] [place] [address] * (ABNORMAL) Comprehensive metabolic panel (08/26/2024 11:00 PM CDT) Sodium 136 135 - 145 mmol/L Potassium, pl 3.8 3.3 - 4.9 mmol/L [facility] Chloride 98 97 - 110 mmol/L [facility] CO2 21(L) 22 - 32 mmol/L [facility] Anion gap 17(H) 2 - 15 mmol/L [facility] BUN 16 6 - 25 mg/dL [facility] Creatinine 0.89 0.80 - 1.30 mg/dL [facility] Glucose 149 70 - 199 mg/dL [facility] Comment: Interpretive Data Fasting glucose >/= 126 mg/dl is diagnostic for diabetes. Fasting is defined as no caloric intake for at least 8 hours. Fasting glucose between 100 mg/dl to 125 mg/dl is diagnostic of prediabetes. In a patient with classic symptoms of hyperglycemia or hyperglycemic crisis, a random glucose >/= 200 mg/dl is diagnostic for diabetes. In the absence of unequivocal hyperglycemia, results should be confirmed by repeat testing. The classification and Diagnosis of Diabetes Diabetes Care 202; 46: S19-S40. Current interpretive data was last revised 2022. Calcium 10.4(H) 8.5 - 10.3 mg/dL [facility] Bilirubin, total 0.3 0.1 - 1.2 mg/dL [facility] Protein, pl 7.8 6.5 - 8.5 g/dL [facility] Albumin 4.5 3.5 - 5.0 g/dL [facility] Alk phos 123 40 - 130 Units/L [facility] ALT 10 7 - 55 Units/L [facility] AST 21 10 - 50 Units/L [facility] Blood 08/26/2024 11:0 0 PM CDT 08/26/2024 11:05 PM CDT us Carmina GARCIA LAB BLOOD ORDERABLES [facility] [address] Department [place] [address] * XR Chest 1 Vw Portable (if patient condition/safety warrant portable) (08/26/2024 10:44 PM CDT) Anatomical Region Laterality Modality Body, Chest N/A Computed Radiogr aphy 08/26/2024 11:1 6 PM CDT Narrative 08/26/2024 11:19 PM CDT EXAM DESCRIPTION: XR CHEST 1 VIEW REASON FOR STUDY: Shortness of breath Pt bibems from [facility] for complaint of syncopal episode. Pt endorses chest pain and SoB in addition, beginning this AM. 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 EMS states pt had an approx 5 min episode of unresponsiveness tug captain, witnessed by facility staff. Pt states chest pain rated 7 out of 10 to middle of chest. TECHNIQUE: Portable upright AP view of the chest. COMPARISON: 10/02/2020 FINDINGS: LUNGS AND PLEURA: No focal opacity, large effusion, or pneumothorax identified. HEART/MEDIASTINUM: Trachea midline. Cardiac silhouette normal in size. Mediastinal contours appear normal. BONES: Moderate scoliosis. CHEST WALL: Unremarkable. UPPER ABDOMEN: Unremarkable. IMPRESSION: No acute abnormality identified. THIS IS AN ELECTRONICALLY VERIFIED FINAL REPORT 08/26/2024 11:19 PM - Electronically signed by Adin Fitzpatrick M.D. AR T: Report ID: [id number] Reading Location: [id number] Procedure Note Adin Fitzpatrick MD - 08/26/2024 EXAM DESCRIPTION: XR CHEST 1 VIEW REASON FOR STUDY: Shortness of breath Pt bibems from [facility] for complaint of syncopal episode. Ptendorses chest pain and SoB in addition, beginning this AM. Pt activelyreceiving treatment at [facility] for Opiate, ETOH, and Canabis withdrawal perEMS with last use approx 4 days tug captain. EMS states pt had an approx 5 min episode of unresponsiveness tug captain, witnessed by facility staff. Ptstates chest pain rated 7 out of 10 to middle of chest. TECHNIQUE: Portable upright AP view of the chest. COMPARISON: 10/02/2020 FINDINGS: LUNGS AND PLEURA: No focal opacity, large effusion, orpneumothorax identified. HEART/MEDIASTINUM: Trachea midline. Cardiac silhouette normal in size. Mediastinal contours appear normal. BONES: Moderate scoliosis. CHEST WALL: Unremarkable. UPPER ABDOMEN: Unremarkable. IMPRESSION: No acute abnormality identified. THIS IS AN ELECTRONICALLY VERIFIED FINAL REPORT 08/26/2024 11:19 PM - Electronically signed by Adin Fitzpatrick M.D. AR T: Report ID: [id number] Reading Location: [place] [address] Carmina GARCIA IMG XR PROCEDURES Final Result * ECG 12 lead (08/26/2024 10:39 PM CDT) Ventricular Rate EKG/Min 81 BPM [facility] Atrial Rate 81 BPM [facility] DE-Interval (MSEC) 138 ms [facility] QRS-Interval (MSEC) 86 ms [facility] QT-Interval (MSEC) 356 ms [facility] QTc 413 ms [facility] P [place] 19 degrees [facility] R [place] 84 degrees [facility] T [place] 69 degrees [facility] Diagnosis Sinus rhythm with marked sinus arrhythmia Otherwise normal ECG When compared with ECG of 02-OCT-2020 15:36, No significant change was found Confirmed by ANGELA PEREIRA M.D. ([id number]) on 08/30/2024 8:40:[address] [facility] 08/26/2024 10:3 9 PM CDT 08/30/2024 8:40 AM CDT Carmina GARCIA ECG ORDERABLES Final Result [facility] from Last 3 Months Insurance [facility] Advance Directives For more information, please contact: [phone] * Full Code (Latest Code Status on File) Date Activated Date Inactivated Comments 08/27/2024 2:54 AM 08/30/2024 10:39 PM Care Teams Poultry Hatchery Supervisor Relationship Specialty Start Date End Date Lion Veláz[place] [id number] [address] PCP - General 06/26/17
--- OUTSIDE RECORDS SUMMARY | 2024-09-27 17:53 | XMS_ITS ---
[facility] Organization [facility] Address [address] [place] [address] Care Team Providers Care Coffee Farmer Name Role Phone MasDiegoDwight Primary Care Provider [phone] Kiara Paula Unavailable [phone] Allergies No Known Allergies Results Component Value Reference Range Notes 12 Panel Urine Drug Screen Reviewed date:09/08/2024 04:01:46 PM Interpretation: Performing Lab: Notes/Report: THC positive LOLIS neg MOP (OPI) positive AMP neg MET neg BAR neg BZO positive MDMA positive MTD neg OXY neg PCP neg BUP positive REASON FOR VISIT mat new, suboxone, last use 08/29/2024, fentanyl Medications Medication SIG (Take, Route, Frequency, Duration) [...] History Observation Description Sex Assigned At Male Tobacco Control (Standard) Question Answer Notes Tobacco use: Current smoker How often do you smoke cigarettes? Every day Additional Findings: Tobacco user e-cigarette Problems Problem Type SNOMED Code ICD Code Onset Dates Problem Status W/U Status Risk Notes Problem Tobacco user (996745029) Nicotine dependence, unspecified, uncomplicated (F17.200) Active confirmed Vital Signs Weight 114.8 lbs 09/07/2024 BMI 16.95 kg/m2 09/07/2024 Height 69 in 09/07/2024 Blood pressure systolic 100 mm Hg 09/08/19 Blood pressure diastolic 68 mm Hg 025 Heart Rate 90 /min 09/07/2024 Oximetry 99 % 09/07/2024 Temperature 98.6 degrees Fahrenheit 09/08/19 Respiratory Rate 16 /min 09/07/2024 Encounters Encounter Location Date Provider Diagnosis [place] [address] [place] [address] 09/07/2024 Kiara Jimenezfranklin Opioid use disorder F11.99 ; Patient underweight R63.6 ; Nutritional counseling Z71.3 and Tobacco use disorder F17.200 Assessments Encounter Date Diagnosis (ICD Code) Assessment Notes Treatment Notes Treatment Clinical Notes Section Notes 09/07/2024 Opioid use disorder (ICD-10 - F11.99) 09/07/2024 Patient underweight (ICD-10 - R63.6) 09/07/2024 Nutritional counseling (ICD-10 - Z71.3) 09/07/2024 Tobacco use disorder (ICD-10 - F17.200) 09/07/2024 Other Discussed medication side effects, adverse effects, risks, benefits, as well as interactions. Encouraged non-use of opioids. Has naloxone. Recommended participation in recovery groups and/or counseling services. May contact office with questions or concerns. Patient may self-administer their own medications or may self-administer their own oral medications per [facility] [place] Protocol. Plan Of Treatment Medication Medication Name Sig Start Date Stop Date Notes Buprenorphine HCl-Naloxone H Cl 8-2 MG 1 film under the tongue and allow to dissolve Sublingual twice a day 09/07/2024 Treatment Notes Assessment Notes Other Discussed medication side effects, adverse effects, risks, benefits, as well as interactions. Encouraged non-use of opioids. Has naloxone. Recommended participation in recovery groups and/or counseling services. May contact office with questions or concerns. Next Appt Details Follow Up: 2 Weeks, Reason: MAR f/u Progress Notes * Kriss XIAO:2000 (24 yo M)Acc No.[id number]:09/07/2024 Patient: Humberto MARISCAL Provider: Carmelita Paula, MSN, NOZZLE TENDER, SR. 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 Was hospitalized N o. D epression Screening: PHQ-9 L ittle interest or pleasure in doing things?Not at all F eeling down, depressed, or hopeless S everal days T rouble falling or staying asleep, or sleeping too much N early every day F eeling tired or having little energy S everal days P oor appetite or overeating S everal F eeling bad about yourself or that you are a failure, or have let yourself or your family down S everal days T rouble concentrating on things, such as reading the newspaper or watching television S ever M oving or speaking so slowly that other people could have noticed; or the opposite, being so fidgety or restless that you have been moving around a lot more than usual S everal T houghts that you would be better off or of hurting yourself in some way N ot at all M AR Initial Assessment: Humberto presents for [facility] services. Last seen in office on 01/09/2024. Drug of choice: fentanyl - using $60 intranasally daily, last use 4 days ago. Reports taking buprenorphine in the past and would like to restart. Reports no history of non-fatal overdose in the past. Substance use history S ubstance Use History, drugs of choice: O THER (specify): fentanyl Addiction Treatment History P rior Medications for CERON treatment S uboxone T herapy/counseling and Recovery support (peers/groups) N o history of therapy/counseling or engagement with recovery support peer/groups. Therapy/counseling and recovery support discussed and encouraged. Referrals placed. History of Infectious Diseases H istory of viral hepatitis N o H istory of HIV N o H istory of TB N o H istory of other infectious diseases N o History of IV drug use and related infections H istory of injection drug use? N o Acute Trauma A cute Trauma N o Psychiatric History H istory of psychiatric diagnoses? N o Primary Care H as a primary care provider? Y es. See notes for provider. L ast primary care visit: W kasia last year D isclosure authorization obtained? N o. Patient sees [facility] primary care provider. Assessment and history specific to females F emale/Female at ? N o Hepatitis A and B vaccination status V accination status Hep A D enies vaccination to Hep A. Vaccination encouraged and resources offered. V accination status, Hep B R eports vaccination for Hep B Housing Stability and Employment I s housing stable/safe? Y es C urrently employed? U nemployed. cares for his father who recently was released from a senior living facility Support System: H as a support system: Y es (specify): Narcan Access H as Narcan and has been trained on its use??Yes. Prescription Drug Monitoring Program P rescription Drug Monitoring Program reviewed? Y es. No concerns identified. * ROS: B asic ROS: Denies C hills. I nsomnia D enies. D enies A nxiety. D enies D epressed Mood. D enies S uicidal Thoughts. * Medical History: * Surgical History: D enies Past Surgical History * Hospitalization/Major Diagno stic Procedure: f ractured spine 1detoxed [facility] * Family History: F ather: alive, lukemia. [...] Employment Status E mployment Status: U nemployed Single Question Alcohol Screening H ow may times in the past year have you had (4 for women, or 5 for men) or more drinks in a day? 0 T obacco Use: T obacco Control (Standard) T obacco use: C urrent smoker H ow often do you smoke cigarettes? E very day A dditional Findings: Tobacco user e -cigarette M iscellaneous: M ethod of learning P referred method of learning: D iscussion * Medications: T akingAcetaminophen 500 MG Tablet two tablets as needed for pain (maximum of 6 tablets in 24 hours) Orally every 6 hrs Narcan 4 MG/0.1ML Liquid 4mg as needed for opioid overdose Nasally once Medication List reviewed and reconciled with the patientTaking Acetaminophen 500 MG Tablet two tablets as needed for pain (maximum of 6 tablets in 24 hours) Orally every 6 hrs Taking Narcan 4 MG/0.1ML Liquid 4mg as needed for opioid overdose Nasally once Medication List reviewed and reconciled with the patient * Allergies: N .K.D.A.no[Allergies Verified] Objective: * Vitals: I nitials:TT, Wt:114.8, Ht:69, BMI:16.95, BP:100/68, HR:90, Oxygen sat %:99, Temp:98.6, RR:16, Pain scale:0. * Examination: A [facility] Physical Assessment: Intoxication and Withdrawal signs I ntoxication signs N o signs of intoxication are present during examination. W ithdrawal Signs N o withdrawal signs are present during examination. . G eneral Examination: GENERAL APPEARANCE: p leasant, in no acute distress. EYES: P ERRLA. HEART: r egular rate and rhythm. LUNGS: r espirations regular and easy. PSYCH: s peech clear, alert, oriented x4, judgement and insight good, thought process logical, goal directed. Assessment: * Assessment: 1. P atient underweight - R63.6 2 . O pioid use disorder - F11.99 (Primary)? 3. N utritional counseling - Z71.3 4 . T obacco use disorder - F17.200 Plan: * Treatment: Value Reference Range T HC positive * C OC neg * M OP (OPI) positive * A MP neg * M ET neg * B AR neg * B ZO positive * M DMA positive * M TD neg * O XY neg * P CP neg * B UP positive * A standing order allowed [facility] staff to order lab test.Mona Salgado 09/08/2024 03:56:14 PM CDT >Specimen collected, tolerated wellThis lab was reviewed by Mona Salgado on 09/08/2024 at 16:01 PM CDT ?LAB: CBC With Differential/Platelet* (Ordered for 09/14/2024) (Collection Date & Time - 09/07/2024) ?LAB: CMP 14 Comprehensive Metabolic Panel* (Ordered for 09/14/2024) (Collection Date & Time - 09/07/2024) ?LAB: HIV Screen *HIV 1, 2 Ab, p24 Ag ([id number]) (Ordered for 09/14/2024) (Collection Date & Time - 09/07/2024) ?LAB: QuantiFERON-TB Gold Plus ([id number]) (Ordered for 09/14/2024) (Collection Date & Time - 09/07/2024) ?LAB: Rapid Plasma Reagin (RPR) Test With Reflex to Quantitative RPR and Confirmatory Treponema pallidum Antibodies (Ordered for 09/14/2024) (Collection Date & Time - 09/07/2024) ?LAB: Hepatitis C Virus Antibody w/Rflx to Quantitative Real-time PCR ([id number]) (Ordered for 09/14/2024) (Collection Date & Time - 09/07/2024)2.?Others ? Notes: Discussed medication side effects, adverse effects, risks, benefits, as well as interactions. Encouraged non-use of opioids. Has naloxone. Recommended participation in recovery groups and/or counseling services. May contact office with questions or concerns.?? Clinical Notes: Patient may self-administer their own medications or may self- administer their own oral medications per [facility] [place] Protocol.?? * Procedure Codes: 9 9000 SPECIMEN [id number] BEHAV CHNG SMOKING 3-10 [id number] SELF-MGMT EDUC & TRAIN, 1 PT * Preventive Medicine: Counseling: S MOKING: Patient counselled on the dangers of tobacco use and urged to quit. . C are goal follow-up plan: BMI management provided Y es Below Normal BMI Follow-up L ifestyle education regarding diet * Follow Up: 2 Weeks (Reason: AUG f/u) * * Sign off status: Completed true * Provider: Carmelita Paula, MSN, NOZZLE TENDER, SR. MANAGER CORPORATE COMMUNICATIONS-C Date: 0 09/07/2024 Generated for Jovany obrien/Terrie/eTransmitting on: 0 09/27/2024 05:52 PM CDT History and Physical Notes * HPI (History of Present Illness) Category Sub-Category Detail Notes Category Not es Interim History Was hospitalized No Emergency room visit No Depression Screening PHQ-9 Little inte rest or pleasure in doing things: Not at all Feeling down, depressed, or hopeless: Se veral days Trouble falling or staying asleep, or sl eeping too much: Nearly every day Feeling tired or having little energy: S everal days Poor appetite or overeating: Several day s Feeling bad about yourself o r that you are a failure, or have let yourself or your family down: Several days Trouble concentrating on thi ngs, such as reading the newspaper or watching television: Several days Moving or speaking so slowly that other people could have noticed; or the opposite, being so fidgety or restless that you have been moving around a lot more than usual: Several days Thoughts that you would be b marguerite off or of hurting yourself in some way: Not at all MAR Initial Assessment History of Infect ious Diseases History of viral hepatitis: No History of HIV: No History of TB: No History of other infectious diseases: No Acute Trauma Acute Trauma: No History of IV drug use and r elated infections History of injection drug use?: No Psychiatric History History of psychiatric diagn oses?: No Substance use history Substance Use Hist ory, drugs of choice:: OTHER (specify): fentanyl Addiction Treatment History Prior Medica tions for CERON treatment: Suboxone Therapy/counseling and Recov stella support (peers/groups): No history of therapy/counseling or engagement with recovery support peer/groups. Therapy/counseling and recovery support discussed and encouraged. Referrals placed. Primary Care Has a primary care provider?: Gilmar mares See notes for provider. Last primary care visit:: Within last year Disclosure authorization obtained?: No. Patient sees [facility] primary care provider. Assessment and history speci fic to females Female/Female at ?: No Hepatitis A and B vaccination status Vac cination status Hep A: Denies vaccination to Hep A. Vaccination encouraged and resources offered. Vaccination status, Hep B: Reports vacci nation for Hep B Housing Stability and Employment Is housing stab le/safe?: Yes Currently employed?: Unemployed. [employer] or his father who recently was released from a senior living facility Support System: Has a support system:: Yes (spec mackenzie): Narcan Access Has Narcan and has b een trained on its use?: Yes. Prescription Drug Monitoring Program Pre scription Drug Monitoring Program reviewed?: Yes. No concerns identified. Examination Category Sub-Category Detail Notes Category Not es General Examination GENERAL APPEARANCE: pleasant, in n o acute distress EYES: PERRLA HEART: regular rate and rhy thm LUNGS: respirations regular and easy PSYCH: speech clear, alert, oriented x4, judgement and insight good, thought process logical, goal directed ASAM Physical Assessment Intoxication an d Withdrawal signs Intoxication signs: No signs of intoxication are present during examination. . Withdrawal Signs: No withdrawal signs ar e present during examination.
--- OUTSIDE RECORDS SUMMARY | 2024-09-27 17:53 | XMS_ITS | Clinical Summary ---
Author Organization [facility] Address [address] [place] [address] Care Team Providers Care Blemish Remover Name Role Phone Unavailable Primary Care Provider Unavailabl e Source Comments [facility],non-owned Affiliates and Associated Physician Practices is amultiple site organization consisting of ambulatory clinics and hospital sitesin [place], [place] and [place]. This disclosure is being madepursuant to the Care Everywhere program and may not contain all information available regarding this patient. Last updated 18.[facility] [employer] Allergies No known active allergies Medications * This document contains information received from the source organization and may not represent a complete record from that organization. * Be aware that medications may not be up to date on this document. Alwaysverify current medications with the patient. 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 Gender Identity Not on file Sexual Orientation Not on file Last Filed Vital Signs Vital Sign Reading Time Taken Comments Blood Pressure 128/80 10/04/2020 3:31 PM CDT Pulse 98 10/04/2020 3:31 PM CDT Temperature 36.8 C (98.2 F) 10/04/2020 3:31 PM CDT Respiratory Rate 16 10/04/2020 3:31 PM CDT [...] VACCINE (1 - 2023-2 5 season) 2024 DEPRESSION SCREENING 06/16/2024 INFLUENZA VACCINE (Season Ended) 2025 ZOSTER VACCINE (1 of 2) 2048 HIB VACCINE Aged Out No longer eligi ble based on patient's age to complete this topic MENINGOCOCCAL (Group B) VACC INE SHARED DECISION-MAKING Aged Out No longer eligibl e based on patient's age to complete this topic MENINGOCOCCAL GROUPS A/C/Y/W VACCINE Aged Out No longer eligible b ased on patient's age to complete this topic PNEUMOCOCCAL VACCINE Aged Out No long er eligible based on patient's age to complete this topic Insurance [facility] [place] [facility] [place] - [employer] [facility] Advance Directives * Full Code (Latest Code Status on File) Date Activated Date Inactivated Comments 10/02/2020 11:13 PM 10/04/2020 6:19 PM
--- OUTSIDE RECORDS SUMMARY | 2024-09-27 17:53 | XMS_ITS ---
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 Name Role Phone Dwight Mas Primary Care Provider Ti Jain [phone] REASON FOR VISIT MAT F/U; relapsed in past 30 days; SUBOXONE; has warm handoff info Social History Sex Assigned At : Social History Observation Description Sex Assigned At Male Encounters Encounter Location Date Provider Diagnosis [facility] [address] [place] [address] [place] [address] 12/19/2023 Ti Jain Plan Of Treatment No Information Progress Notes * Humberto TANDOB:2000 (24 yo M)Acc No.[id number]:12/19/2023 UNLOCKED PROGRESS NOTE Patient: Humberto MARISCAL Provider: Crista Jain :2000 A ge:23 Y S ex:Male Date:12/19/2023 Address:[address] , [place], [place] Pcp:Dwight Mas Subjective: * Chief Complaints: * 1 . MAT F/U; relapsed in past 30 days; SUBOXONE; has warm handoff info. * Medical History: Objective: * Vitals: Assessment: Plan: * Treatment: * Care Plan Details* * Electronic signature of Juvenal Jain [id number] on 09/27/2024 at 05:52 PM CDT Sign off status: Pending * Provider: Crista Jain Date: 0 12/19/2023 Generated for Jovany obrien/Terrie/Afia on: 0 09/27/2024 05:52 PM CDT
--- OUTSIDE RECORDS SUMMARY | 2024-09-27 17:53 | XMS_ITS | Referral Summary ---
Author Organization [facility] Address [address] [place] [address] Care Team Providers Care Inspector Eyeglass Frames Name Role Phone Lion Velázquez MD Primary Care Provider [phone]- [phone] Encounters Date Type Department Care Team Description 08/31/2024 Documentation [facility] Social Work [address] [place] [address] Francesco Ortega, AIRLINE OPERATIONS AGENT 08/26/2024 10:32 PM CDT - 08/30/2024 6:34 PM CDT Hospital Encounter [address] [address] Edith Peck DO Chowdhury, Farhanaz, MD Alcohol withdrawal syndrome without complication (HCC) (Primary Dx); Opioid withdrawal (HCC); Chest pain, unspecified type; Shortness of breath; Syncope, unspecified syncope type; New onset a-fib (HCC) Discharge Disposition: Left Against Medical Advice from Last 3 Months Allergies No known active allergies Medications naproxen [...] Headache 02/23/2015 08/27/2024 Overview (09/19/2016): Frequent headaches Immunizations Immunization Administration Dates Next Due Influenza, Unspecified 02/15/2024 Social History Tobacco Use Types Packs/Day Years Used Date Smoking Tobacco: Never Smokeless Tobacco: Never [employer] [facility] [employer] Answer Date Recorded In the past 12 months has th e electric, gas, oil, or water company threatened to shut off services in your home? No 08/27/2024 Social Connection and Isolation Panel [NHANES] A nswer Date Recorded In a typical week, how many times do you talk on the phone with family, friends, or neighbors? Three times a week 08/28/19 25 How often do you get togethe r with friends or relatives? Three times a week 08/27/2024 How often do you attend chur ch or bahai services? Never 08/27/2024 Do you belong to any clubs o r organizations such as islam groups, unions, fraternal or athletic groups, or [...] money to buy more. Never true 08/28/19 25 Within the past 12 months, t [...] any time in the past 12 [facility], were you homeless or living in a mcc (including now)? No 08/27/2024 Personal Safety Answer Date Recorded Have you ever been in or are you currently in a harmful physical or emotional relationship or is someone making you feel afraid or unsafe? 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 FT T: Report ID: [id number] Reading Location: [id number] Procedure Note Marley Benson MD - 08/30/2024 [...] Marley Burger M.D. FT T: Report ID: [id number] Reading Location: [place] [address] Leticia Gonzalez MD IMG XR PROCEDURES Final [...] Marley Burger M.D. FT T: Report ID: [id number] Reading Location: [id number] Procedure Note Marley Benson MD - 08/30/2024 [...] Marley Burger M.D. FT T: Report ID: [id number] Reading Location: [id number] Leticia Gonzalez MD IMG XR PROCEDURES Final [...] DO LAB BLOOD ORDERABLES Fin al Result [facility] [address] [facility] [facility] Department [place] [address] * Differential, auto (08/30/2024 6:43 AM CDT) Neutrophil abs 6.1 1.5 - 6.5 K/cumm Imm gran abs 0.0 0.0 - 0.1 K/cumm [facility] Lymphocyte abs 2.1 0.8 - 3.3 K/cumm [facility] Monocyte abs 0.5 0.2 - 0.8 K/cumm [facility] Eosinophil abs 0.1 0.0 - 0.5 K/cumm [facility] Basophil abs 0.1 0.0 - 0.1 K/cumm [facility] Neutrophil pct 68.8 % [facility] Comment: Interpretive Data Percent cell count reference ranges are not reported, since discordance with absolute values may lead to misinterpretation of CBC data. Current Interpretive Data was last revised on 2017. Imm gran pct 0.5 % [facility] Comment: Interpretive Data Percent cell count reference ranges are not reported, since discordance with absolute values may lead to misinterpretation of CBC data. Current Interpretive Data was last revised on 2017. Lymphocyte pct 24.2 % [facility] Comment: Interpretive Data Percent cell count reference ranges are not reported, since discordance with absolute values may lead to misinterpretation of CBC data. Current Interpretive Data was last revised on 2017. Monocyte pct 5.3 % [facility] Comment: Interpretive Data Percent cell count reference ranges are not reported, since discordance with absolute values may lead to misinterpretation of CBC data. Current Interpretive Data was last revised on 2017. Eosinophil pct 0.6 % [facility] Comment: Interpretive Data Percent cell count reference ranges are not reported, since discordance with absolute values may lead to misinterpretation of CBC data. Current Interpretive Data was last revised on 2017. Basophil pct 0.6 % [facility] Comment: Interpretive Data Percent cell count reference ranges are not reported, since discordance with absolute values may lead to misinterpretation of CBC data. Current Interpretive Data was last revised on 2017. Blood 08/30/2024 6:43 AM CDT 08/30/2024 7:07 AM CDT Leticia Gonzalez MD LAB BLOOD ORDERABLES Final Result Performing Organization Address [facility] Co de Phone Number [address] [place] [address] * CBC with auto differential (08/30/2024 6:43 AM CDT) WBC 8.8 3.8 - 9.9 K/cumm Hgb 13.5 13.0 - 17.5 g/dL [facility] Hct 38.9 38.9 - 50.3 % [facility] Plt 311 150 - 400 K/cumm [facility] MPV 9.6 9.1 - 12.3 fL [facility] RBC 4.71 4.30 - 5.80 M/cumm [facility] MCV 82.6 81.3 - 96.4 fL [facility] MCH 28.7 27.1 - 33.3 pg [facility] MCHC 34.7 32.3 - 35.7 g/dL [facility] RDW CV 12.0 11.1 - 14.9 % [facility] RDW SD 36.7 35.7 - 48.1 fL [facility] NRBC abs 0.00 0.00 - 0.01 K/cumm [facility] Blood 08/30/2024 6:43 AM CDT 08/30/2024 7:07 AM CDT Leticia Gonzalez MD LAB BLOOD ORDERABLES Final Result Performing Organization Address City/[facility] Co de Phone Number [address] [place] [address] * (ABNORMAL) Vancomycin level trough (08/30/2024 6:43 AM CDT) Pathologist [facility] Vancomycin trough 23.1(H) 10.0 - 20.0 mcg/mL Blood 08/30/2024 6:43 AM CDT 08/30/2024 7:07 AM CDT Leticia Gonzalez MD LAB BLOOD ORDERABLES Final Result Performing Organization Address City/State/[facility] Co de Phone Number [facility] [address] Department [place] [address] * (ABNORMAL) Basic metabolic panel (08/30/2024 6:43 AM CDT) [facility] Sodium 135 135 - 145 mmol/L Potassium, pl 3.6 3.3 - 4.9 mmol/L [facility] Chloride 104 97 - 110 mmol/L [facility] CO2 17(L) 22 - 32 mmol/L [facility] Anion gap 14 2 - 15 mmol/L [facility] BUN 6 6 - 25 mg/dL [facility] Creatinine 0.68(L) 0.80 - 1.30 mg/dL [facility] Glucose 78 70 - 199 mg/dL [facility] Comment: Interpretive Data Fasting glucose >/= 126 [...] 2022. Calcium 8.7 8.5 - 10.3 mg/dL [facility] Blood 08/30/2024 6:43 AM CDT 08/30/2024 7:07 AM CDT Edith Peck DO LAB BLOOD ORDERABLES Fin al Result [facility] [address] Department [place] [address] * XR Chest 1 View (08/29/2024 8:36 [...] Sravan Oliva M.D. AT T: Report ID: [id number] Reading Location: [place] [address] Procedure Note Sravan Oliva MD - 08/29/2024 [...] Sravan Oliva M.D. AT T: Report ID: [id number] Reading Location: [id number] Leticia Gonzalez MD IMG XR PROCEDURES Final Re sult * eGFR (08/29/2024 4:42 AM CDT) Pathologist [facility] eGFR >90 >=60 mL/min/1. 73 m2 Comment: [...] DO LAB BLOOD ORDERABLES Fin al Result [facility] [address] [facility] Department of Laboratories [place], [place] [id number] * (ABNORMAL) Differential, auto (08/29/2024 4:42 AM CDT) Neutrophil abs 10.0(H) 1.5 - 6.5 K/cumm Imm gran abs 0.1 0.0 - 0.1 K/cumm [facility] Lymphocyte abs 2.2 0.8 - 3.3 K/cumm [facility] Monocyte abs 0.8 0.2 - 0.8 K/cumm [facility] Eosinophil abs 0.0 0.0 - 0.5 K/cumm [facility] Basophil abs 0.0 0.0 - 0.1 K/cumm [facility] Neutrophil pct 76.2 % [facility] Comment: Interpretive Data Percent cell count reference ranges are not reported, since discordance with absolute values may lead to misinterpretation of CBC data. Current Interpretive Data was last revised on 2017. Imm gran pct 0.5 % [facility] Comment: Interpretive Data Percent cell count reference ranges are not reported, since discordance with absolute values may lead to misinterpretation of CBC data. Current Interpretive Data was last revised on 2017. Lymphocyte pct 16.9 % [facility] Comment: Interpretive Data Percent cell count reference ranges are not reported, since discordance with absolute values may lead to misinterpretation of CBC data. Current Interpretive Data was last revised on 2017. Monocyte pct 6.2 % [facility] Comment: Interpretive Data Percent cell count reference ranges are not reported, since discordance with absolute values may lead to misinterpretation of CBC data. Current Interpretive Data was last revised on 2017. Eosinophil pct 0.0 % [facility] Comment: Interpretive Data Percent cell count reference ranges are not reported, since discordance with absolute values may lead to misinterpretation of CBC data. Current Interpretive Data was last revised on 2017. Basophil pct 0.2 % [facility] Comment: Interpretive Data Percent cell count reference ranges are not reported, since discordance with absolute values may lead to misinterpretation of CBC data. Current Interpretive Data was last revised on 2017. Blood 08/29/2024 4:42 AM CDT 08/29/2024 5:13 AM CDT Leticia Gonzalez MD LAB BLOOD ORDERABLES Final Result [address] [address] * (ABNORMAL) CBC with auto differential (08/29/2024 4:42 AM CDT) [facility] WBC 13.2(H) 3.8 - 9.9 K/cumm Hgb 12.9(L) 13.0 - 17.5 g/dL [facility] Hct 36.4(L) 38.9 - 50.3 % [facility] Plt 390 150 - 400 K/cumm [facility] MPV 9.7 9.1 - 12.3 fL [facility] RBC 4.50 4.30 - 5.80 M/cumm [facility] MCV 80.9(L) 81.3 - 96.4 fL [facility] MCH 28.7 27.1 - 33.3 pg [facility] MCHC 35.4 32.3 - 35.7 g/dL [facility] RDW CV 12.4 11.1 - 14.9 % [facility] RDW SD 35.9 35.7 - 48.1 fL [facility] NRBC abs 0.00 0.00 - 0.01 K/cumm [facility] Blood 08/29/2024 4:42 AM CDT 08/29/2024 5:13 AM CDT us Leticia Gonzalez MD LAB BLOOD ORDERABLES Final Result Performing Organization Address [facility] de Phone Number [address] [place] [address] * (ABNORMAL) Vancomycin level trough (08/29/2024 4:42 AM CDT) [facility] Vancomycin trough 22.8(H) 10.0 - 20.0 mcg/mL Blood 08/29/2024 4:42 AM CDT 08/29/2024 5:13 AM CDT us Leticia Gonzalez MD LAB BLOOD ORDERABLES Final Result Performing Organization Address [facility] Co de Phone Number [address] [place] [address] * (ABNORMAL) Basic metabolic panel (08/29/2024 4:42 AM CDT) Sodium 131(L) 135 - 145 mmol/L Potassium, pl 3.3 3.3 - 4.9 mmol/L [facility] Chloride 102 97 - 110 mmol/L [facility] CO2 18(L) 22 - 32 mmol/L [facility] Anion gap 11 2 - 15 mmol/L [facility] BUN 7 6 - 25 mg/dL [facility] Creatinine 0.71(L) 0.80 - 1.30 mg/dL [facility] Glucose 118 70 - 199 mg/dL [facility] Comment: Interpretive Data Fasting glucose >/= 126 [...] 2022. Calcium 8.4(L) 8.5 - 10.3 mg/dL [facility] Blood 08/29/2024 4:42 AM CDT 08/29/2024 5:19 AM CDT us Edith Peck DO LAB BLOOD ORDERABLES Fin al Result [facility] [address] [facility] Department [place] [address] * CT Facial Bones WO Contrast (08/29/2024 [...] signed by Adin ARCHULETA T: Report ID: [id number] Reading Location: [id number] Procedure Note Adin Fitzpatrick MD - 08/29/2024 [...] signed by Adin ARCHULETA T: Report ID: [id number] Reading Location: [id number] Edith Peck DO IMG CT PROCEDURES Final [...] Adin Fitzpatrick M.D. AR T: Report ID: [id number] Reading Location: [place] [address] Procedure Note Adin Fitzpatrick MD - 08/29/2024 [...] 1:09 AM - Electronically signed by Adin ARCHULETA T: Report ID: [id number] Reading Location: [place] [address] Edith Peck DO IMG CT PROCEDURES Final Result * (ABNORMAL) Urinalysis reflex to microscopic and culture Urine (08/28/2024 11:37 AM CDT) Color, ur Yellow Yellow Clarity, ur Cloudy(A) Clear [facility] Specific gravity, ur 1.034(H) 1.003 - 1.030 [facility] pH, urine 6.0 [facility] Comment: Interpretive Data U rine pH is affected by diet, medications, systemic acid-base disturbances, and renal tubular function. pH may affect urinary stone formation. For example, urine pH below 6.0 may help reduce the tendency for calcium phosphate stones and pH greater than 6.0 may reduce the tendency for uric acid stone formation. Source: [facility] Current Interpretive Data was last revised on 2017 Protein, ur ql 1+(A) Negative [facility] Glucose, ur ql Negative Negative [facility] Ketones, ur 1+(A) Negative [facility] Bilirubin, ur Negative Negative [facility] Blood, ur Negative Negative [facility] Urobilinogen, ur <2.0 <2.0 mg/dL [facility] Nitrite, ur Negative Negative [facility] Leukocyte esterase, ur Negative Negative [facility] UA reflex comment Reflex to microscopic UA will be performed. [facility] Urine 08/28/2024 11:3 7 AM CDT 08/28/2024 12:05 PM CDT Carmina GARCIA LAB MICROBIOLOGY - GENERAL ORDER LAINA Final Result [facility] [address] Department [place] [address] * (ABNORMAL) Drugs of Abuse Screen, Urine without Confirmation (08/28/2024 11:37 AM CDT) Pathologist [facility] Amphetamine, ur Not Detected CutOff 500ng/mL Comment: Interpretive Data - Amphetamines: Samples containing greater than 500 ng/mL d-methamphetamine or other cross-reacting amphetamine compounds are reported as positive. Amphetamine immunoassays are subject to significant false positive rates due to cross-reactivity of non-amphetamine drugs. Confirmatory testing required for definitive results. Current Interpretive Data was last reviewed 2023. Barbiturates, ur Not Detected CutOff 200ng/mL [facility] Comment: Interpretive Data - Barbiturates: Samples containing greater than 200 ng/mL secobarbital or other cross-reacting barbiturate compounds are reported as positive. False positive and false negative results are possible. Confirmatory testing required for definitive results. Current Interpretive Data was last reviewed 2023. Benzodiazepines, ur Screen Positive, presumptive (A) CutOff 100ng/mL [facility] Comment: Interpretive Data - Benzodiazepines: Samples containing greater than 100 ng/mL nordiazepam or other cross-reacting compounds are reported as positive. False positive and false negative results are possible. Confirmatory testing required for definitive results. Current Interpretive Data was last reviewed 2023. Cannabinoids, ur Screen Positive, presumptive (A) CutOff 50 ng/mL [facility] Comment: Interpretive Data - Cannabinoids: Samples containing greater than 50 ng/mL delta-9 THC -COOH or other cross- reacting compounds are reported as positive. False positive and false negative results are possible. Confirmatory testing required for definitive results. Current Interpretive Data was last reviewed 2023. Cocaine, ur Not Detected CutOff 150ng/mL [facility] Comment: Interpretive Data - Cocaine: Samples containing greater than 150 ng/mL benzoylecgonine or other cross- reacting compounds are reported as positive. False positive and false negative results are possible. Confirmatory testing required for definitive results. Current Interpretive Data was last reviewed 2023. Fentanyl, Ur Screen Positive, presumptive (A) CutOff 5 ng/mL [facility] Comment: Interpretive Data - Fentanyl: Samples containing greater than 5 ng/mL norfentanyl, fentanyl, or other cross-reacting fentanyl compounds are reported as positive. False positive and false negative results are possible. Confirmatory testing required for definitive results. Current Interpretive Data was last reviewed 2023. Methadone, ur Not Detected CutOff 300ng/mL [facility] Comment: Interpretive Data - Methadone: Samples containing greater than 300 ng/mL d,l-methadone or other cross-reacting compounds are reported as positive. False positive and false negative results are possible. Confirmatory testing required for definitive results. Current Interpretive Data was last reviewed 2023. Opiates, ur Not Detected CutOff 300ng/mL [facility] Comment: Interpretive Data - Opiates: Samples containing greater than 300 ng/mL morphine or other cross-reacting compounds are reported as positive. False positive and false negative results are possible. Confirmatory testing required for definitive results. Current Interpretive Data was last reviewed 2023. Oxycodone, ur Not Detected CutOff 100ng/mL [facility] Comment: Interpretive Data - Oxycodone: Samples containing greater than 100 ng/mL oxycodone or other cross-reacting compounds are reported as positive. False positive and false negative results are possible. Confirmatory testing required for definitive results. Current Interpretive Data was last reviewed 2023. Phencyclidine, ur Not Detected CutOff 25 ng/mL [facility] Comment: Interpretive Data - Phencyclidine: Samples containing greater than 25 ng/mL phencyclidine or other cross-reacting compounds are reported as positive. False positive and false negative results are possible. Confirmatory testing required for definitive results. Current Interpretive Data was last reviewed 2023. Urine Creatinine 270 mg/dL [facility] Comment: Interpretive Data Urine Creatinine: < 10 mg/dL is extremely dilute = or > 10 but < 20 mg/dL is dilute = or > 20 mg/dL is normal Current Interpretive Data was last revised on 2017. Urine 08/28/2024 11:3 7 AM CDT 08/28/2024 12:05 PM CDT Leticia Gonzalez MD LAB URINE ORDERABLES Final Result [facility] [address] [facility] [facility] Department [place] [address] * (ABNORMAL) Urinalysis, microscopic only (08/28/2024 11:37 AM CDT) WBC, ur 6-10(A) 0 - 5 /HPF RBC, ur 3-5(A) 0 - 2 /HPF [facility] Epithelial cells, squamous, ur 1-5 0 - 5 /HPF [facility] Mucous, ur Present(A) [facility] Culture Reflex Comment Reflex conditions for urine culture (WBC >10) not met. [facility] Urine 08/28/2024 11:3 7 AM CDT 08/28/2024 12:05 PM CDT us Carmina GARCIA LAB URINE ORDERABLES Final [facility]ul t [facility] [address] [facility] [facility] Department [place] [address] * TRANSTHORACIC ECHO (TTE) COMPLETE W DOPPLER/CF WO CONTRAST (08/28/2024 10:54 AM CDT) Anatomical Region Laterality Modality Ultrasound 08/28/2024 10:4 2 AM CDT Narrative 08/29/2024 1:21 PM CDT Transthoracic Echocardiographic Report Patient Name: CLAIRE XIAO A : 2000 (24y 2m) Gender: M Study Date: 08/28/2024 10:42:45 AM Ht(Inch): 69 Wt(Lb): 121 BSA: 1.63 Neurodiagnostic Technician: MORTEZA Noonan,RVT Location: [id number] Order Provider: EDITH PECK Heart Rate: 76 BMI: 17.87 BP: 139/88 Ref Provider: EDITH PECK PROCEDURES: Echocardiographic Report: ([id number]) Transthoracic complete echo, 2D, spectral and tissue [...] MD 08/29/2024 1:21:08 PM CDT Procedure Note Sauarv Meeks Jr., MD - 09/07/2024 Transthoracic Echocardiographic Report Patient Name: CLAIRE XIAO A : 2000 (24y 2m) Gender: M Study Date: 08/28/2024 10:42:45 AM Ht(Inch): 69 Wt(Lb): 121 BSA: 1.63 Neurodiagnostic Technician: MORTEZA NoonanT Location: [id number] Order Provider:EDITH PECK Heart Rate: 76 BMI: 17.87 BP: 139/88 Ref Provider: EDITH PECK PROCEDURES: Echocardiographic Report: ([id number]) Transthoracic complete echo, 2D,spectral and tissue Doppler, [...] with auto differential (08/28/2024 9:31 AM CDT) WBC 15.8(H) 3.8 - 9.9 K/cumm Hgb 14.0 13.0 - 17.5 g/dL [facility] Hct 40.0 38.9 - 50.3 % [facility] Plt 483(H) 150 - 400 K/cumm [facility] MPV 9.7 9.1 - 12.3 fL [facility] RBC 4.84 4.30 - 5.80 M/cumm [facility] MCV 82.6 81.3 - 96.4 fL [facility] MCH 28.9 27.1 - 33.3 pg [facility] MCHC 35.0 32.3 - 35.7 g/dL [facility] RDW CV 12.8 11.1 - 14.9 % [facility] RDW SD 38.5 35.7 - 48.1 fL [facility] NRBC abs 0.00 0.00 - 0.01 K/cumm [facility] Blood 08/28/2024 9:31 AM CDT 08/28/2024 10:02 AM CDT Leticia Gonzalez MD LAB BLOOD ORDERABLES Edite d Result - Final [facility] [address] [facility] Department [place] [address] * (ABNORMAL) Manual Differential (08/28/2024 9:31 AM CDT) Differential Manual Cells Counted 100 [facility] Neutrophil abs 13.1(H) 1.5 - 6.5 K/cumm [facility] Lymphocyte abs 2.5 0.8 - 3.3 K/cumm [facility] Monocyte abs 0.2 0.2 - 0.8 K/cumm [facility] Neutrophil pct 83.0 % [facility] Comment: Interpretive Data Percent cell count reference ranges are not reported, since discordance with absolute values may lead to misinterpretation of CBC data. Current Interpretive Data was last revised on 2017. Lymphocyte pct 16.0 % [facility] Comment: Interpretive Data Percent cell count reference ranges are not reported, since discordance with absolute values may lead to misinterpretation of CBC data. Current Interpretive Data was last revised on 2017. Monocyte pct 1.0 % [facility] Comment: Interpretive Data Percent cell count reference ranges are not reported, since discordance with absolute values may lead to misinterpretation of CBC data. Current Interpretive Data was last revised on 2017. RBC morphology Normal [facility] Platelet estimate Automated Count Confirmed [facility] Blood 08/28/2024 9:31 AM CDT 08/28/2024 10:02 AM CDT Leticia Gonzalez MD LAB BLOOD ORDERABLES Final Result [place] [id number] [facility] Department [place] [address] * eGFR (08/28/2024 4:10 AM CDT) eGFR [...] AM CDT 08/28/2024 4:20 AM CDT Edith Jacobs [employer] DO LAB BLOOD ORDERABLES Fin al Result Performing Organization Address [facility] Co de Phone Number [address] [address] * (ABNORMAL) Vancomycin level trough (08/28/2024 4:10 AM CDT) Vancomycin trough 9.4(L) 10.0 - 20.0 mcg/mL Blood 08/28/2024 4:10 AM CDT 08/28/2024 4:20 AM CDT Edith Jacobs Aliyahsridhar LAB BLOOD ORDERABLES Mio shyanne Result - Final Performing Organization Address [facility] de Phone Number [address] [address] * (ABNORMAL) Basic metabolic panel (08/28/2024 4:10 AM CDT) [facility] Sodium 135 135 - 145 mmol/L Potassium, pl 3.1(L) 3.3 - 4.9 mmol/L [facility] Comment:Delta - Results Revi ewed Chloride 102 97 - 110 mmol/L [facility] CO2 19(L) 22 - 32 mmol/L [facility] Anion gap 14 2 - 15 mmol/L [facility] BUN 11 6 - 25 mg/dL [facility] Creatinine 0.77(L) 0.80 - 1.30 mg/dL [facility] Glucose 135 70 - 199 mg/dL [facility] Comment: Interpretive Data Fasting glucose >/= 126 [...] 2022. Calcium 8.9 8.5 - 10.3 mg/dL [facility] Blood 08/28/2024 4:10 AM CDT 08/28/2024 4:20 AM CDT Edith Peck DO LAB BLOOD ORDERABLES Fin al Result Performing Organization Address City/[facility] Co de Phone Number [address] [place] [address] * Hemoglobin and hematocrit (08/27/2024 4:57 PM CDT) [facility] Hgb 14.2 13.0 - 17.5 g/dL Hct 40.9 38.9 - 50.3 % [facility] Blood 08/27/2024 4:57 PM CDT 08/27/2024 5:47 PM CDT Leticia Gonzalez MD LAB BLOOD ORDERABLES Final Result Performing Organization Address [facility] de Phone Number [address] [place] [address] * ECG 12 lead (08/27/2024 3:10 PM CDT) [facility] Ventricular Rate EKG/Min 77 BPM [facility] QRS-Interval (MSEC) 86 ms [facility] QT-Interval (MSEC) 400 ms [facility] QTc 452 ms [facility] R Madison 92 degrees [facility] T [place] 81 degrees [facility] Diagnosis Sinus rhythm with competing Junctional rhythm Rightward axis Abnormal ECG When compared with ECG of 27-AUG-2024 01:00, T wave inversion no longer evident in Anterior leads Junctional beats are new Confirmed by ANGELA PEREIRA M.D. ([id number]) on 08/30/2024 9:45:06 AM [facility] 08/27/2024 3:10 PM CDT 08/30/2024 9:45 AM CDT Leticia Gonzalez MD ECG ORDERABLES Final Resu lt Performing Organization Address City/[facility] Co de Phone Number [facility] * Troponin T high-sensitivity 6-hour (08/27/2024 5:34 AM CDT) Trop T hs 7 <=22 ng/L Comment: Interpretive Data For further hscTnT resources including the diagnostic algorithm and an aid in interpretation, copy and paste this link: https://nrl.testcatalog.org/show/hsTrop Current Interpretive Data last revised 2020. Trop T hs delta -1 ng/L [facility] Trop T hs interp Insignificant [facility] Blood 08/27/2024 5:34 AM CDT 08/27/2024 6:02 AM CDT Carmina Hoffmane PA LAB BLOOD ORDERABLES Final Resul t Performing Organization Address [facility] Co de Phone Number [address] [employer] [place] [address] * Sepsis Lactate w/ Reflex (08/27/2024 5:34 AM CDT) Pathologist [facility] Sepsis Lactate 1.5 0.7 - 2.0 mmol/L Blood 08/27/2024 5:34 AM CDT 08/27/2024 6:03 AM CDT Carmina Lexus PA LAB BLOOD ORDERABLES Final Resul t Performing Organization Address [facility] Co de Phone Number CANDIE[address] [place] [address] * eGFR (08/27/2024 5:34 AM CDT) Pathologist [facility] eGFR >90 >=60 mL/min/1. 73 m2 Comment: [...] DO LAB BLOOD ORDERABLES Fin al Result [place] [id number] [facility] [place] [address] * (ABNORMAL) Differential, auto (08/27/2024 5:34 AM CDT) Neutrophil abs 16.0(H) 1.5 - 6.5 K/cumm Imm gran abs 0.1 0.0 - 0.1 K/cumm [facility] Lymphocyte abs 1.3 0.8 - 3.3 K/cumm [facility] Monocyte abs 0.9(H) 0.2 - 0.8 K/cumm [facility] Eosinophil abs 0.0 0.0 - 0.5 K/cumm [facility] Basophil abs 0.0 0.0 - 0.1 K/cumm [facility] Neutrophil pct 87.7 % [facility] Comment: Interpretive Data Percent cell count reference ranges are not reported, since discordance with absolute values may lead to misinterpretation of CBC data. Current Interpretive Data was last revised on 2017. Imm gran pct 0.5 % [facility] Comment: Interpretive Data Percent cell count reference ranges are not reported, since discordance with absolute values may lead to misinterpretation of CBC data. Current Interpretive Data was last revised on 2017. Lymphocyte pct 6.8 % [facility] Comment: Interpretive Data Percent cell count reference ranges are not reported, since discordance with absolute values may lead to misinterpretation of CBC data. Current Interpretive Data was last revised on 2017. Monocyte pct 4.8 % [facility] Comment: Interpretive Data Percent cell count reference ranges are not reported, since discordance with absolute values may lead to misinterpretation of CBC data. Current Interpretive Data was last revised on 2017. Eosinophil pct 0.1 % [facility] Comment: Interpretive Data Percent cell count reference ranges are not reported, since discordance with absolute values may lead to misinterpretation of CBC data. Current Interpretive Data was last revised on 2017. Basophil pct 0.1 % [facility] Comment: Interpretive Data Percent cell count reference ranges are not reported, since discordance with absolute values may lead to misinterpretation of CBC data. Current Interpretive Data was last revised on 2017. Blood 08/27/2024 5:34 AM CDT 08/27/2024 6:02 AM CDT Edith Peck DO LAB BLOOD ORDERABLES Fin al Result [facility] [address] [facility] [place] [address] * (ABNORMAL) CBC with auto differential (08/27/2024 5:34 AM CDT) WBC 18.3(H) 3.8 - 9.9 K/cumm Hgb 14.4 13.0 - 17.5 g/dL [facility] Hct 42.8 38.9 - 50.3 % [facility] Plt 556(H) 150 - 400 K/cumm [facility] MPV 9.9 9.1 - 12.3 fL [facility] RBC 5.17 4.30 - 5.80 M/cumm [facility] MCV 82.8 81.3 - 96.4 fL [facility] MCH 27.9 27.1 - 33.3 pg [facility] MCHC 33.6 32.3 - 35.7 g/dL [facility] RDW CV 12.6 11.1 - 14.9 % [facility] RDW SD 37.9 35.7 - 48.1 fL [facility] NRBC abs 0.00 0.00 - 0.01 K/cumm [facility] Blood 08/27/2024 5:34 AM CDT 08/27/2024 6:02 AM CDT [facility] Arlene [employer] DO LAB BLOOD ORDERABLES Fin al Result Performing Organization Address City/[facility]/ZIP Co de Phone Number [address] [place] [address] * Phosphorus (08/27/2024 5:34 AM CDT) [facility] Phosphorus, pl 3.6 2.3 - 4.5 mg/dL Blood 08/27/2024 5:34 AM CDT 08/27/2024 6:02 AM CDT [facility] Arlene [employer] DO LAB BLOOD ORDERABLES Fin al Result Performing Organization Address [facility] Co de Phone Number [address] [place] [address] * Magnesium (08/27/2024 5:34 AM CDT) [facility] Magnesium 2.3 1.4 - 2.5 mg/dL Blood 08/27/2024 5:34 AM CDT 08/27/2024 6:02 AM CDT [facility] Arlene [employer] DO LAB BLOOD ORDERABLES Fin al Result Performing Organization Address [facility] Co de Phone Number [address] [place] [address] * (ABNORMAL) Comprehensive metabolic panel (08/27/2024 5:34 AM CDT) [facility] Sodium 138 135 - 145 mmol/L Potassium, pl 4.6 3.3 - 4.9 mmol/L [facility] Chloride 103 97 - 110 mmol/L [facility] CO2 20(L) 22 - 32 mmol/L [facility] Anion gap 15 2 - 15 mmol/L [facility] BUN 15 6 - 25 mg/dL [facility] Creatinine 0.83 0.80 - 1.30 mg/dL [facility] Glucose 118 70 - 199 mg/dL [facility] Comment: Interpretive Data Fasting glucose >/= 126 [...] 2022. Calcium 9.6 8.5 - 10.3 mg/dL [facility] Bilirubin, total 0.2 0.1 - 1.2 mg/dL [facility] Protein, pl 7.3 6.5 - 8.5 g/dL [facility] Albumin 4.2 3.5 - 5.0 g/dL [facility] Alk phos 107 40 - 130 Units/L [facility] ALT 8 7 - 55 Units/L [facility] AST 17 10 - 50 Units/L [facility] Blood 08/27/2024 5:34 AM CDT 08/27/2024 6:02 AM CDT Edith Peck DO LAB BLOOD ORDERABLES Fin al Result [facility] [address] [facility] [place] [address] * Blood culture Blood Peripheral (08/27/2024 1:39 AM CDT) Report Final Report: No growth Comment:Testing performed by : [facility], [address] [facility], [place]., [address] Blood (Peripheral) 08/27/2024 1:39 AM CDT 08/27/2024 [...] performance characteristics have been verified by the [facility] Microbiology Laboratory. For questions about this culture, contact the Microbiology Laboratory at [phone]. Interpretive data was last revised on 24. us Carmina GARCIA LAB MICROBIOLOGY - GENERAL ORDER LAINA Final Result [facility] [address] [facility] Department of Laboratories [place], [place] [id number] * Blood culture Blood Peripheral (08/27/2024 1:39 AM CDT) Report Final Report: No growth Comment:Testing performed by : [facility], [address] [place]., [address] Blood (Peripheral) 08/27/2024 1:39 AM CDT 08/27/2024 [...] performance characteristics have been verified by the [facility] Microbiology Laboratory. For questions about this culture, contact the Microbiology Laboratory at [phone]. Interpretive data was last revised on 24. [employer] LAB MICROBIOLOGY - GENERAL ORDER LAINA Final Result Performing Organization Address City/[facility]/ZIP Co de Phone Number [facility] [address] [facility] Department [place] [address] * Troponin T high-sensitivity 2-hour (08/27/2024 1:02 AM CDT) Trop T hs 7 <=22 ng/L Comment: Interpretive Data For further hscTnT resources including the diagnostic algorithm and an aid in interpretation, copy and paste this link: https://nrl.testcatalog.org/show/hsTrop Current Interpretive Data last revised 2020. Trop T hs delta -1 ng/L [facility] Trop T hs interp Insignificant [facility] Blood 08/27/2024 1:02 AM CDT 08/27/2024 1:07 AM CDT [employer] LAB BLOOD ORDERABLES Final Resul t [address] [place] [address] * Prolactin (08/27/2024 1:02 AM CDT) [facility] Prolactin 4.7 4.0 - 15.2 ng/mL Comment:Testing performed by : [facility], [address] [place]., [address] Blood 08/27/2024 1:02 AM CDT 08/27/2024 7:24 AM CDT Narrative [facility] 08/27/2024 7:51 AM CDT Please use blood drawn on 08/26 Edith Peck DO LAB BLOOD ORDERABLES Fin al Result Performing Organization Address [facility]/ZIP Co de Phone Number [address] [address] * CRP (acute phase) (08/27/2024 1:02 AM CDT) [facility] CRP 1.6 <=10.0 mg/L Blood 08/27/2024 1:02 AM CDT 08/27/2024 1:07 AM CDT Edith Peck DO LAB BLOOD ORDERABLES Fin al Result Performing Organization Address [facility]/ZIP Co de Phone Number [address] [address] * ECG 12 lead (08/27/2024 1:00 AM CDT) [facility] Ventricular Rate EKG/Min 61 BPM [facility] Atrial Rate 13 BPM [facility] QRS-Interval (MSEC) 90 ms [facility] QT-Interval (MSEC) 412 ms [facility] QTc 414 ms [facility] R [place] 79 degrees [facility] T [place] 73 degrees [facility] Diagnosis 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 ([id number]) on 08/30/2024 8:43:54 AM [employer] 08/27/2024 1:00 AM CDT 08/30/2024 8:43 AM CDT us Carmina GARCIA ECG ORDERABLES Final Result [employer] [facility] * CT Chest PE (CTA) W [...] 12:57 AM - Electronically signed by Ti LONGORIA T: Report ID: [id number] Reading Location: [id number] Procedure Note Ti Willis MD - 08/27/2024 [...] 12:57 AM - Electronically signed by Ti LONGORIA T: Report ID: [id number] Reading Location: [place] [address] Carmina GARCIA [facility] PROCEDURES Final Result * CT head without contrast (08/27/2024 12:36 AM CDT) Anatomical Region Laterality Modality Head and Neck N/A Computed Tomogra phy 08/27/2024 12:5 3 AM CDT Narrative 08/27/2024 12:54 AM CDT EXAM DESCRIPTION: CT HEAD WO CONTRAST REASON FOR STUDY: syncope, syncope Pt bibems from [facility] for complaint of syncopal episode. Pt endorses chest pain and SoB in addition, beginning this AM. 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 Pt states [...] 12:54 AM - Electronically signed by Ti Willis M.D. T: Report ID: [id number] Reading Location: [id number] Procedure Note Ti Willis MD - 08/27/2024 EXAM DESCRIPTION: CT HEAD WO CONTRAST REASON FOR STUDY: syncope, syncope Pt bibems from [facility] for complaint of syncopal episode. Ptendorses chest pain and SoB in addition, beginning this AM. 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 Ptstates chest [...] 12:54 AM - Electronically signed by Ti Willis M.D. KH T: Report ID: [id number] Reading Location: [place] [address] us Carmina GARCIA IMG CT PROCEDURES Final Result * Troponin T high-sensitivity series (baseline, 2hr, 4hr, 6hr) (08/26/2024 11:00 PM CDT) Pathologist [facility] Trop T hs 8 <=22 ng/L Comment: Interpretive Data For further hscTnT resources including the diagnostic algorithm and an aid in interpretation, copy and paste this link: https://nrl.testcatalog.org/show/hsTrop Current Interpretive Data last revised 2020. Blood 08/26/2024 11:0 0 PM CDT 08/26/2024 11:05 PM CDT us Carmina GARCIA LAB BLOOD ORDERABLES Final Resul t [facility] [address] [facility] Department [place] [address] * Influenza A/B, RSV, and COVID-19 PCR Nasopharyngeal (08/26/2024 11:00 PM CDT) Pathologist [facility] COVID-19 RNA Negative Negative Influenza A RNA Negative Negative [facility] Influenza B RNA Negative Negative [facility] RSV RNA Negative Negative [facility] Comment: Interpretive data: Testing performed by [facility]. This test is performed using the [employer] Xpert Xpress CoV-2/Flu/RSV plus assay. This is a multiplex, real-time reverse transcriptase PCR assay intended for the qualitative detection of nucleic acid from SARS-CoV-2, influenza A, influenza B, and respiratory syncytial virus. This assay has been cleared by the [place] Food and Drug administration. The performance characteristics have been verified by the [facility]. Results must be considered in the clinical context, and a negative result does not rule out infection. Interpretive Data last revised 2023 Nasopharyngeal 08/26/2024 11 :00 PM CDT 08/26/2024 11:07 PM CDT Narrative [facility] - 08/26/2024 11:45 PM CDT Is the Patient experiencing symptoms consistent with COVID?->Unknown [employer] LAB MICROBIOLOGY - GENERAL ORDER LAINA Final Result Performing Organization Address [facility]/ZIP Co de Phone Number [place] [id number] [facility] [place] [address] * (ABNORMAL) Sepsis Lactate w/ Reflex (08/26/2024 11:00 PM CDT) [facility] Sepsis Lactate 2.5(H) 0.7 - 2.0 mmol/L Blood 08/26/2024 11:0 0 PM CDT 08/26/2024 11:06 PM CDT [employer] [place] LAB BLOOD ORDERABLES Final Resul t Performing Organization Address City/[facility]/ZIP Co de Phone Number [place] [id number] [place] [address] * eGFR (08/26/2024 11:00 PM CDT) [facility] eGFR >90 >=60 mL/min/1. 73 m2 Comment: [...] GARCIA LAB BLOOD ORDERABLES Final Resul t [facility] Department [place] [address] * (ABNORMAL) Differential, auto (08/26/2024 11:00 PM CDT) Neutrophil abs 18.3(H) 1.5 - 6.5 K/cumm Imm gran abs 0.1 0.0 - 0.1 K/cumm [facility] Lymphocyte abs 1.0 0.8 - 3.3 K/cumm [facility] Monocyte abs 0.7 0.2 - 0.8 K/cumm [facility] Eosinophil abs 0.1 0.0 - 0.5 K/cumm [facility] Basophil abs 0.0 0.0 - 0.1 K/cumm [facility] Neutrophil pct 91.0 % [facility] Comment: Interpretive Data Percent cell count reference ranges are not reported, since discordance with absolute values may lead to misinterpretation of CBC data. Current Interpretive Data was last revised on 2017. Imm gran pct 0.4 % [facility] Comment: Interpretive Data Percent cell count reference ranges are not reported, since discordance with absolute values may lead to misinterpretation of CBC data. Current Interpretive Data was last revised on 2017. Lymphocyte pct 4.7 % [facility] Comment: Interpretive Data Percent cell count reference ranges are not reported, since discordance with absolute values may lead to misinterpretation of CBC data. Current Interpretive Data was last revised on 2017. Monocyte pct 3.4 % [facility] Comment: Interpretive Data Percent cell count reference ranges are not reported, since discordance with absolute values may lead to misinterpretation of CBC data. Current Interpretive Data was last revised on 2017. Eosinophil pct 0.4 % [facility] Comment: Interpretive Data Percent cell count reference ranges are not reported, since discordance with absolute values may lead to misinterpretation of CBC data. Current Interpretive Data was last revised on 2017. Basophil pct 0.1 % [facility] Comment: Interpretive Data Percent cell count reference ranges are not reported, since discordance with absolute values may lead to misinterpretation of CBC data. Current Interpretive Data was last revised on 2017. Blood 08/26/2024 11:0 0 PM CDT 08/26/2024 11:05 PM CDT us Carmina GARCIA LAB BLOOD ORDERABLES Final Resul t [facility] [address] [facility] [place] [address] * Pro B-type natriuretic peptide (08/26/2024 11:00 [...] et.al. Eur Heart J. 2006:27:330-337. 2. Roxana RW, Tres ASKEW. J. AM Anna Cardiol: Cardiovasc Imag. 2009;2: 216- 225. Interpretive Data Last Revised Date: 2018. Blood 08/26/2024 11:0 0 PM CDT 08/26/2024 11:05 PM CDT us Carmina GARCIA LAB BLOOD ORDERABLES Final Resul t [facility] [address] [facility] [place] [address] * (ABNORMAL) CBC with auto differential (08/26/2024 11:00 PM CDT) WBC 20.1(H) 3.8 - 9.9 K/cumm Hgb 15.3 13.0 - 17.5 g/dL [facility] Hct 43.7 38.9 - 50.3 % [facility] Plt 494(H) 150 - 400 K/cumm [facility] MPV 9.8 9.1 - 12.3 fL [facility] RBC 5.38 4.30 - 5.80 M/cumm [facility] MCV 81.2(L) 81.3 - 96.4 fL [facility] MCH 28.4 27.1 - 33.3 pg [facility] MCHC 35.0 32.3 - 35.7 g/dL [facility] RDW CV 12.4 11.1 - 14.9 % [facility] RDW SD 35.8 35.7 - 48.1 fL [facility] NRBC abs 0.00 0.00 - 0.01 K/cumm [facility] Blood 08/26/2024 11:0 0 PM CDT 08/26/2024 11:05 PM CDT Carmina GARCIA LAB BLOOD ORDERABLES Final Resul t Performing Organization Address [facility] Co de Phone Number [facility] [address] [place] [address] * (ABNORMAL) Erythrocyte sedimentation rate (08/26/2024 11:00 PM CDT) Erythrocyte sedimentation rate 26(H) 1 - 15 mm/hr Blood 08/26/2024 11:0 0 PM CDT 08/26/2024 11:05 PM CDT Edith Peck DO LAB BLOOD ORDERABLES Fin al Result Performing Organization Address [facility] Co de Phone Number [address] [address] * (ABNORMAL) Phosphorus (08/26/2024 11:00 PM CDT) Phosphorus, pl 1.5(L) 2.3 - 4.5 mg/dL Blood 08/26/2024 11:0 0 PM CDT 08/26/2024 11:05 PM CDT Carmina GARCIA LAB BLOOD ORDERABLES Final Resul t Performing Organization Address [facility] de Phone Number [address] [place] [address] * Magnesium (08/26/2024 11:00 PM CDT) Magnesium 2.0 1.4 - 2.5 mg/dL Blood 08/26/2024 11:0 0 PM CDT 08/26/2024 11:05 PM CDT [facility] LAB BLOOD ORDERABLES Final Resul t Performing Organization Address [facility] Co de Phone Number [address] [address] * Ethanol (08/26/2024 11:00 PM CDT) Ethanol <10 <=10 mg/dL Comment: Interpretive Data Legal limit of intoxication > or = 80 mg/dL Levels > or = 400 mg/dL are potentially TOXIC. Current interpretive data was last revised on 2018. Blood 08/26/2024 11:0 0 PM CDT 08/26/2024 11:05 PM CDT [facility] LAB BLOOD ORDERABLES Final Resul t Performing Organization Address [facility] de Phone Number CAND[address] [address] * (ABNORMAL) Comprehensive metabolic panel (08/26/2024 11:00 PM CDT) [facility] Sodium 136 135 - 145 mmol/L Potassium, pl 3.8 3.3 - 4.9 mmol/L [facility] Chloride 98 97 - 110 mmol/L [facility] CO2 21(L) 22 - 32 mmol/L [facility] Anion gap 17(H) 2 - 15 mmol/L [facility] BUN 16 6 - 25 mg/dL [facility] Creatinine 0.89 0.80 - 1.30 mg/dL [facility] Glucose 149 70 - 199 mg/dL [facility] Comment: Interpretive Data Fasting glucose >/= 126 [...] 2022. Calcium 10.4(H) 8.5 - 10.3 mg/dL [facility] Bilirubin, total 0.3 0.1 - 1.2 mg/dL [facility] Protein, pl 7.8 6.5 - 8.5 g/dL [facility] Albumin 4.5 3.5 - 5.0 g/dL [facility] Alk phos 123 40 - 130 Units/L [facility] ALT 10 7 - 55 Units/L [facility] AST 21 10 - 50 Units/L [facility] Blood 08/26/2024 11:0 0 PM CDT 08/26/2024 11:05 PM CDT us Carmina GARCIA LAB BLOOD ORDERABLES Final Resul t [facility] [address] [facility] [place], [place] [address] * XR Chest 1 Vw Portable (if patient condition/safety warrant portable) (08/26/2024 10:44 PM CDT) Anatomical Region Laterality Modality Body, Chest N/A Computed Radiogr aphy 08/26/2024 11:1 6 PM CDT Narrative 08/26/2024 11:19 PM CDT EXAM DESCRIPTION: XR CHEST 1 VIEW REASON FOR STUDY: Shortness of breath Pt bibems from [facility] for complaint of syncopal episode. Pt endorses chest pain and SoB in addition, beginning this AM. 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 Pt states [...] Adin Fitzpatrick M.D. AR T: Report ID: [id number] Reading Location: [id number] Procedure Note Adin Fitzpatrick MD - 08/26/2024 EXAM DESCRIPTION: XR CHEST 1 VIEW REASON FOR STUDY: Shortness of breath Pt bibems from [facility] for complaint of syncopal episode. Ptendorses chest pain and SoB in addition, beginning this AM. 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 Ptstates chest [...] Adin Fitzpatrick M.D. AR T: Report ID: [id number] Reading Location: [id number] [facility] GARCIA IMG XR PROCEDURES Final Result * ECG 12 lead (08/26/2024 10:39 PM CDT) Ventricular Rate EKG/Min 81 BPM [facility] Atrial Rate 81 BPM [facility] [place]-Interval (MSEC) 138 ms [facility] QRS-Interval (MSEC) 86 ms [facility] QT-Interval (MSEC) 356 ms [facility] QTc 413 ms [facility] P [place] 19 degrees [facility] R [place] 84 degrees [facility] T [place] 69 degrees [facility] Diagnosis Sinus rhythm with marked sinus arrhythmia Otherwise normal ECG When compared with ECG of 02-OCT-2020 15:36, No significant change was found Confirmed by ANGELA PEREIRA M.D. ([id number]) on 08/30/2024 8:40:53 AM [facility] 08/26/2024 10:3 9 PM CDT 08/30/2024 8:40 AM CDT us Car[facility] GARCIA ECG ORDERABLES Final Result [facility] from Last 3 Months Insurance Advance Directives For more information, please contact: [phone] * Full Code (Latest Code Status on File) Date Activated Date Inactivated Comments 08/27/2024 2:54 AM 08/30/2024 10:39 PM Care Teams Inspector Eyeglass Frames Relationship Specialty Start Date End Date Lion Veláz[place] [id number] [place] [address] PCP - General 06/26/17
[2024-09-27 18:03] LABS: Add Urine Microscopic? YES; Appearance Urine Clear (Clear); Bacteria Urine None Seen /hpf; Bilirubin Urine Negative (Negative); Blood Urine Negative (Negative); Color Urine Yellow (Yellow); Glucose Urine UA Negative (Negative); Ketones Urine Negative (Negative); Leukocyte Esterase Ur Negative LEU/UL (Negative); Nitrate Urine Negative (Negative); Non Pathogenic Casts 0-2; Protein Urine Trace mg/dL (Negative); RBC Urine 0-2 /hpf (0-2); Specific Grav Ur 1.022 (1.001-1.035); Squamous Epithelial Cell Urine None Seen /hpf (Few); Urobilinogen Urine 0.2 mg/dL (<2.0); WBC Urine 0-5 /hpf (0-3); pH Urine 6.5 (5.0-9.0)
--- NOTE | 2024-09-27 19:04 | ED.GENADULT ---
HPI - General Adult General Chief complaint: Unspecified Stated complaint: Fentanyl withdrawal Time Seen by Provider: 09/27/24 19:01 Source: patient and police Limitations: no limitations History of Present Illness HPI narrative: Patient presents with concern for opiate withdrawal. Patient states he uses 200 dollars per day often all typically by snorting. He does 14-15 an hour ?. He states that he has been trying to be more discrete recently because he has a girlfriend does not want to use around her. His last use was approximately 1.5-2.5 hours prior to arrival. There was initial notation of 16 beers being consumed at 4:00 p.m. however patient adamantly denies any alcohol use. He states that he is having nausea, myalgias, back pain. He has chronic back pain and notes that he was recently diagnosed with scoliosis. He notes that he last week through 3 weeks ago this was complicated by questionable seizures (?) For which he was at [facility] and on Suboxone and Librium, again denies alcohol use. He states his Suboxone dose had been 8 mg sublingual. Related Data Allergies Allergy/AdvReac Type Severity Reaction Status Date / Time No Known Allergies Allergy Verified 10/20/23 15:21 [facility] Past Medical History Medical History Scoliosis Surgical History Surgical History No history of previous surgery Social History Social History Smoking status: Smoker, status unknown Tobacco type: e-cigarettes/vaping Alcohol intake: never Substance use type: opiates Last use: 09/27/24 Gender identity (if verbalized by the patient): Male Exam Narrative: GENERAL: Well-appearing, well-nourished, and in no acute distress. HEAD: Normocephalic, atraumatic. EYES: Non injected, non icteric. Pupils 5mm bilaterally. ENT: Nares clear, no rhinorrhea or epistaxis. NECK: Supple. CHEST: Speaking in full sentences. No respiratory distress. HEART: Tachycardic rate and rhythm. . ABDOMEN: Soft, nondistended. EXTREMITIES: Normal range of motion. No lower extremity edema. SKIN: Warm, dry, no rash. No piloerection NEURO: No focal deficits. Alert and oriented x3. Tremulous at baseline and especially with outstretched hands. PSYCH: Congruent mood and affect. Course Vital Signs Vital signs: Vital Signs Temperature 97.4 F L 09/27/24 17:11 Pulse Rate 118 H 09/27/24 17:11 Respiratory Rate 16 09/27/24 17:11 Blood Pressure 104/66 09/27/24 17:11 Pulse Oximetry 98 09/27/24 17:11 Oxygen Delivery Room Air 09/27/24 17:11 Temperature 97.4 F L 09/27/24 17:11 Pulse Rate 111 H 09/27/24 20:07 Respiratory Rate 15 09/27/24 20:07 Blood Pressure 136/88 09/27/24 20:07 Pulse Oximetry 99 09/27/24 20:07 Oxygen Delivery Room Air 09/27/24 17:11 Medical Decision Making MDM Narrative Medical decision making narrative: During emergency department visit today, patient admits to chronic opioid use. As per my assessment patient meets criteria for opiate use disorder (OUD). I am also concerned the patient might be in opioid withdrawal. In the emergency department he is afebrile vital signs notable for tachycardia. Urinalysis unremarkable. UDS positive for opioids and cannabinoids. Normocytic anemia. They have a clinical opiate withdrawal scale (COWS) score of 14 (2 points for resting pulse rate, 1 point for subjective report of chills her flushing, 1 for reporting difficulty to sit still believed to do so, 1 for pupils possibly larger than normal for like, 2 points for severe diffuse aching or joint/muscles, 2 points for nose running or tearing, 2 points for nausea or loose stool, 2 points for slight tremor, 1 point for reported increasing irritability or anxiousness) However, time since last use was <4 hours. Initiating buprenorphine for outpatient treatment of OUD would be complicated given this. Fluids initiated while pursue rest of work up. Physical Anthropologist has left and patient has decided to leave against medical advice. Patient is otherwise of sound mind and has the ability to make decisions for himself. We extensively discussed that he can return at any time in the future. Written Instructions were still provided to the patient and a one-week supply of Suboxone prescribed as well given that by tomorrow patient will be in the window of induction therapy. [employer]PER[employer] MANAGER is reviewed which shows patient had previously been on suboxone. He is also prescribed Narcan if he relapses. Form signed and placed in chart. Vital Signs Vital Signs: Vital Signs Temperature 97.4 F L 09/27/24 17:11 Pulse Rate 118 H 09/27/24 17:11 Respiratory Rate 16 09/27/24 17:11 Blood Pressure 104/66 09/27/24 17:11 Pulse Oximetry 98 09/27/24 17:11 Oxygen Delivery Room Air 09/27/24 17:11 Temperature 97.4 F L 09/27/24 17:11 Pulse Rate 111 H 09/27/24 20:07 Respiratory Rate 15 09/27/24 20:07 Blood Pressure 136/88 09/27/24 20:07 Pulse Oximetry 99 09/27/24 20:07 Oxygen Delivery Room Air 09/27/24 17:11 Lab Data Lab results reviewed: Yes I reviewed the patient's lab results. 09/27/24 19:24 09/27/24 19:24 Labs: Lab Results 09/27/24 09/27/24 09/27/24 Range/Units 17:23 19:24 19:26 WBC 6.8 (4.5-10.0) K/mm3 RBC 4.56 L (4.6-6.20) M/mm3 Hgb 13.0 L (14.0-18.0) g/dL Hct 39.7 L (42.0-52.0) % MCV 87.1 (80-100) fl MCH 28.5 (26-34) pg MCHC 32.7 (32-36) g/dl RDW 12.3 (11.5-14.5) % Plt Count 326 (150-375) k/mm3 MPV 9.5 (7.4-10.4) fl Immature Gran % (Auto) 0.4 (0-0.5) % Neut % (Auto) 76.9 H (45.5-73.1) % Lymph % (Auto) 17.2 L (18.3-44.2) % [place] % (Auto) 4.9 (2.6-8.5) % Eos % (Auto) 0.0 (0-4.4) % Baso % (Auto) 0.6 (0.2-1.2) % Lymph # (Auto) 1.16 (0.9-3.2) K/mm3 [place] # (Auto) 0.3 (0.1-0.6) K/mm3 Eos # (Auto) 0.0 (0-0.3) K/mm3 Baso # (Auto) 0.0 (0.0-0.1) K/mm3 Abs Immat Gran (auto) 0.03 (0.00-0.031) K/mm3 Absolute Neuts (auto) 5.2 (1.3-6.7) K/mm3 Absolute Nucleated RBC 0.000 (0.0-0.012) K/mm3 Nucleated RBC % 0.0 (0.0-0.2) % Sodium 139 (137-145) mmol/L Potassium 4.2 (3.4-5.0) mmol/L Chloride 100 (98-107) mmol/L Carbon Dioxide 32 H (22-30) mmol/L Anion Gap 7 (4-12) mmol/L BUN 11 (9-20) mg/dL Creatinine 0.72 (0.7-1.3) mg/dL Estim Creat Clear Calc 103 ml/min Estimated GFR > 60 (59 - ) Glucose 116 H (65-110) mg/dL Calcium 9.4 (8.4-10.2) mg/dL Magnesium 1.6 Cancelled (1.6-2.3) mg/dL Urine Color Yellow (Yellow) Urine Appearance Clear (Clear) Urine pH 6.5 (5.0-9.0) Ur Specific [place] 1.022 (1.001-1.035) Urine Protein Trace (Negative) mg/dL Urine Glucose (UA) Negative (Negative) mg/dL Urine Ketones Negative (Negative) mg/dL Ur Blood (Man) Negative (Negative) Urine Nitrate Negative (Negative) Urine Bilirubin Negative (Negative) Urine Urobilinogen 0.2 (<2.0) mg/dL Leukocyte Esterase Rfl Negative (Negative) MARCELLA/UL Urine RBC 0-2 (0-2) /hpf Urine WBC 0-5 (0-3) /hpf Ur Squamous Epith Cells None seen (Few) /hpf Urine Bacteria None seen /hpf Urine Casts 0-2 Urine Opiates Screen Positive A (Negative) Urine Methadone Screen Negative (Negative) Ur Barbiturates Screen Negative (Negative) Ur Phencyclidine Scrn Negative (Negative) Ur Amphetamine Screen Negative (Negative) U Benzodiazepines Scrn Negative (Negative) Urine Cocaine Screen Negative (Negative) U Cannabinoids Screen Positive A (Negative) Ethyl Alcohol < 10 (<10) mg/dL Discharge Plan Discharge Clinical Impression: Marijuana use, Opioid withdrawal, Opioid use disorder Patient Disposition: Left Against Medical Advice Condition: Stable Instructions: Antibiotic Form Additional Instructions: As we discussed, your choosing to leave against medical advice. You are welcome to return at any time for new, worsening, recurrent symptoms. A short course of been prescribed for opiate use disorder. If you do use again in the future and overdose, Narcan has been prescribed. Patient Language: Macanese Prescriptions: New buprenorphine-naloxone [Suboxone] 8-2 mg film 1 film buccal Q24H Qty: 7 0RF naloxone [Narcan] 4 mg/actuation spray,non-aerosol 4 mg intranasal Q2-3M PRN (Reason: opioid overdose) Qty: 2 0RF Rx Instructions: spray 1 dose into ONE nostril; alternate nostrils w each dose until help arrives No Action ibuprofen 800 mg tablet 800 mg PO TID Qty: 90 0RF lidocaine 5 % adhesive patch,medicated 1 patch topical DAILY Qty: 30 0RF Rx Instructions: leave on most painful area for up to 12 hrs Follow-up/Referrals: Aminah Torres MD [Primary Care Provider] - Stand Alone Forms: Work/School Release IP Time of Disposition: 20:24
--- OUTSIDE RECORDS SUMMARY | 2024-09-27 19:21 | XMS_ITS | Referral Summary ---
Author Organization [facility] Address [address] [place] [address] Care Team Providers Care Solar Installer Pv Name Role Phone Lion Velázquez MD Primary Care Provider +1- [phone] Encounters Date Type Department Care Team Description 08/31/2024 Documentation [facility] Social Work [address] [place] [address] Francesco Ortega, INDUSTRIAL PSYCHOLOGIST 08/26/2024 10:32 PM CDT - 08/30/2024 6:34 PM CDT Hospital Encounter [address] [address] Edith Peck DO Chowdhury, Farhanaz, MD Alcohol [...] Date Smoking Tobacco: Never Smokeless Tobacco: Never Winking [employer] Utilities Answer Date Recorded In the past [...] often do you attend chur ch or yazidi services? Never 08/27/2024 Do you belong to any clubs o r organizations such as jainism groups, unions, fraternal or athletic groups, or [...] any time in the past 12 m [place] [place], were you homeless or living in a [place] facility (including now)? No 08/27/2024 Personal Safety Answer Date Recorded Have you ever been in or are you currently in a harmful physical or emotional relationship or is someone making you feel afraid or unsafe? 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 FT T: Report ID: [id number] Reading Location: [id number] Procedure Note Marley Benson MD - 08/30/2024 [...] Marley Burger M.D. FT T: Report ID: [id number] Reading Location: [place] [address] Leticia Gonzalez MD IMG XR PROCEDURES Final [...] Marley Burger M.D. FT T: Report ID: [id number] Reading Location: [id number] Procedure Note Marley Benson MD - 08/30/2024 [...] Marley Burger M.D. FT T: Report ID: [id number] Reading Location: [id number] Leticia Gonzalez MD IMG XR PROCEDURES Final [...] BLOOD ORDERABLES Fin al Result [facility] [address] [facility] Department [place] [address] * Differential, auto (08/30/2024 6:43 AM CDT) Neutrophil abs 6.1 1.5 - 6.5 K/cumm Imm gran abs 0.0 0.0 - 0.1 K/cumm [facility] Lymphocyte abs 2.1 0.8 - 3.3 K/cumm [facility] Monocyte abs 0.5 0.2 - 0.8 K/cumm [facility] Eosinophil abs 0.1 0.0 - 0.5 K/cumm [facility] Basophil abs 0.1 0.0 - 0.1 K/cumm [facility] Neutrophil pct 68.8 % [facility] Comment: Interpretive Data Percent cell count reference ranges are not reported, since discordance with absolute values may lead to misinterpretation of CBC data. Current Interpretive Data was last revised on 2017. Imm gran pct 0.5 % [facility] Comment: Interpretive Data Percent cell count reference ranges are not reported, since discordance with absolute values may lead to misinterpretation of CBC data. Current Interpretive Data was last revised on 2017. Lymphocyte pct 24.2 % [facility] Comment: Interpretive Data Percent cell count reference ranges are not reported, since discordance with absolute values may lead to misinterpretation of CBC data. Current Interpretive Data was last revised on 2017. Monocyte pct 5.3 % [facility] Comment: Interpretive Data Percent cell count reference ranges are not reported, since discordance with absolute values may lead to misinterpretation of CBC data. Current Interpretive Data was last revised on 2017. Eosinophil pct 0.6 % [facility] Comment: Interpretive Data Percent cell count reference ranges are not reported, since discordance with absolute values may lead to misinterpretation of CBC data. Current Interpretive Data was last revised on 2017. Basophil pct 0.6 % [facility] Comment: Interpretive Data Percent cell count reference ranges are not reported, since discordance with absolute values may lead to misinterpretation of CBC data. Current Interpretive Data was last revised on 2017. Blood 08/30/2024 6:43 AM CDT 08/30/2024 7:07 AM CDT Leticia Gonzalez MD LAB BLOOD ORDERABLES Final Result Performing Organization Address [facility] Co de Phone Number [address] [place] [address] * CBC with auto differential (08/30/2024 6:43 AM CDT) WBC 8.8 3.8 - 9.9 K/cumm Hgb 13.5 13.0 - 17.5 g/dL [facility] Hct 38.9 38.9 - 50.3 % [facility] Plt 311 150 - 400 K/cumm [facility] MPV 9.6 9.1 - 12.3 fL [facility] RBC 4.71 4.30 - 5.80 M/cumm [facility] MCV 82.6 81.3 - 96.4 fL [facility] MCH 28.7 27.1 - 33.3 pg [facility] MCHC 34.7 32.3 - 35.7 g/dL [facility] RDW CV 12.0 11.1 - 14.9 % [facility] RDW SD 36.7 35.7 - 48.1 fL [facility] NRBC abs 0.00 0.00 - 0.01 K/cumm [facility] Blood 08/30/2024 6:43 AM CDT 08/30/2024 7:07 AM CDT Leticia Gonzalez MD LAB BLOOD ORDERABLES Final Result Performing Organization Address City/[facility] Co de Phone Number [address] [place] [address] * (ABNORMAL) Vancomycin level trough (08/30/2024 6:43 AM CDT) Pathologist [facility] Vancomycin trough 23.1(H) 10.0 - 20.0 mcg/mL Blood 08/30/2024 6:43 AM CDT 08/30/2024 7:07 AM CDT Leticia Gonzalez MD LAB BLOOD ORDERABLES Final Result Performing Organization Address City/State/[facility] Co de Phone Number [facility] [address] [facility] Department [place] [address] * (ABNORMAL) Basic metabolic panel (08/30/2024 6:43 AM CDT) [facility] Sodium 135 135 - 145 mmol/L Potassium, pl 3.6 3.3 - 4.9 mmol/L [facility] Chloride 104 97 - 110 mmol/L [facility] CO2 17(L) 22 - 32 mmol/L [facility] Anion gap 14 2 - 15 mmol/L [facility] BUN 6 6 - 25 mg/dL [facility] Creatinine 0.68(L) 0.80 - 1.30 mg/dL [facility] Glucose 78 70 - 199 mg/dL [facility] Comment: Interpretive Data Fasting glucose >/= 126 [...] 8.7 8.5 - 10.3 mg/dL [facility] Blood 08/30/2024 6:43 AM CDT 08/30/2024 7:07 AM CDT Edith Peck DO LAB BLOOD ORDERABLES Fin al Result [facility] [address] [facility] Department [place] [address] * XR Chest 1 View (08/29/2024 8:36 [...] Sravan Oliva M.D. AT T: Report ID: [id number] Reading Location: [place] [address] Procedure Note Sravan Oliva MD - 08/29/2024 [...] Sravan Oliva M.D. AT T: Report ID: [id number] Reading Location: [id number] Leticia Gonzalez MD IMG XR PROCEDURES Final Re sult * eGFR (08/29/2024 4:42 AM CDT) Pathologist [facility] eGFR >90 >=60 mL/min/1. 73 m2 Comment: [...] DO LAB BLOOD ORDERABLES Fin al Result [facility] [address] [facility] Department of Laboratories [place], [place] [id number] * (ABNORMAL) Differential, auto (08/29/2024 4:42 AM CDT) Neutrophil abs 10.0(H) 1.5 - 6.5 K/cumm Imm gran abs 0.1 0.0 - 0.1 K/cumm [facility] Lymphocyte abs 2.2 0.8 - 3.3 K/cumm [facility] Monocyte abs 0.8 0.2 - 0.8 K/cumm [facility] Eosinophil abs 0.0 0.0 - 0.5 K/cumm [facility] Basophil abs 0.0 0.0 - 0.1 K/cumm [facility] Neutrophil pct 76.2 % [facility] Comment: Interpretive Data Percent cell count reference ranges are not reported, since discordance with absolute values may lead to misinterpretation of CBC data. Current Interpretive Data was last revised on 2017. Imm gran pct 0.5 % [facility] Comment: Interpretive Data Percent cell count reference ranges are not reported, since discordance with absolute values may lead to misinterpretation of CBC data. Current Interpretive Data was last revised on 2017. Lymphocyte pct 16.9 % [facility] Comment: Interpretive Data Percent cell count reference ranges are not reported, since discordance with absolute values may lead to misinterpretation of CBC data. Current Interpretive Data was last revised on 2017. Monocyte pct 6.2 % [facility] Comment: Interpretive Data Percent cell count reference ranges are not reported, since discordance with absolute values may lead to misinterpretation of CBC data. Current Interpretive Data was last revised on 2017. Eosinophil pct 0.0 % [facility] Comment: Interpretive Data Percent cell count reference ranges are not reported, since discordance with absolute values may lead to misinterpretation of CBC data. Current Interpretive Data was last revised on 2017. Basophil pct 0.2 % [facility] Comment: Interpretive Data Percent cell count reference ranges are not reported, since discordance with absolute values may lead to misinterpretation of CBC data. Current Interpretive Data was last revised on 2017. Blood 08/29/2024 4:42 AM CDT 08/29/2024 5:13 AM CDT Leticia Gonzalez MD LAB BLOOD ORDERABLES Final Result [address] [address] * (ABNORMAL) CBC with auto differential (08/29/2024 4:42 AM CDT) [facility] WBC 13.2(H) 3.8 - 9.9 K/cumm Hgb 12.9(L) 13.0 - 17.5 g/dL [facility] Hct 36.4(L) 38.9 - 50.3 % [facility] Plt 390 150 - 400 K/cumm [facility] MPV 9.7 9.1 - 12.3 fL [facility] RBC 4.50 4.30 - 5.80 M/cumm [facility] MCV 80.9(L) 81.3 - 96.4 fL [facility] MCH 28.7 27.1 - 33.3 pg [facility] MCHC 35.4 32.3 - 35.7 g/dL [facility] RDW CV 12.4 11.1 - 14.9 % [facility] RDW SD 35.9 35.7 - 48.1 fL [facility] NRBC abs 0.00 0.00 - 0.01 K/cumm [facility] Blood 08/29/2024 4:42 AM CDT 08/29/2024 5:13 AM CDT us Leticia Gonzalez MD LAB BLOOD ORDERABLES Final Result Performing Organization Address [facility] de Phone Number [address] [place] [address] * (ABNORMAL) Vancomycin level trough (08/29/2024 4:42 AM CDT) [facility] Vancomycin trough 22.8(H) 10.0 - 20.0 mcg/mL Blood 08/29/2024 4:42 AM CDT 08/29/2024 5:13 AM CDT us Leticia Gonzalez MD LAB BLOOD ORDERABLES Final Result Performing Organization Address [facility] Co de Phone Number [address] [place] [address] * (ABNORMAL) Basic metabolic panel (08/29/2024 4:42 AM CDT) Sodium 131(L) 135 - 145 mmol/L Potassium, pl 3.3 3.3 - 4.9 mmol/L [facility] Chloride 102 97 - 110 mmol/L [facility] CO2 18(L) 22 - 32 mmol/L [facility] Anion gap 11 2 - 15 mmol/L [facility] BUN 7 6 - 25 mg/dL [facility] Creatinine 0.71(L) 0.80 - 1.30 mg/dL [facility] Glucose 118 70 - 199 mg/dL [facility] Comment: Interpretive Data Fasting glucose >/= 126 [...] 8.4(L) 8.5 - 10.3 mg/dL [facility] Blood 08/29/2024 4:42 AM CDT 08/29/2024 5:19 AM CDT us Edith Peck DO LAB BLOOD ORDERABLES Fin al Result [facility] [address] [facility] Department [place] [address] * CT Facial Bones WO Contrast (08/29/2024 [...] signed by Adin ARCHULETA T: Report ID: [id number] Reading Location: [id number] Procedure Note Adin Fitzpatrick MD - 08/29/2024 [...] signed by Adin ARCHULETA T: Report ID: [id number] Reading Location: [id number] Edith Peck DO IMG CT PROCEDURES Final [...] Adin Fitzpatrick M.D. AR T: Report ID: [id number] Reading Location: [place] [address] Procedure Note Adin Fitzpatrick MD - 08/29/2024 [...] signed by Adin ARCHULETA T: Report ID: [id number] Reading Location: [place] [address] Edith Peck DO IMG CT PROCEDURES Final Result * (ABNORMAL) Urinalysis reflex to microscopic and culture Urine (08/28/2024 11:37 AM CDT) Color, ur Yellow Yellow Clarity, ur Cloudy(A) Clear [facility] Specific gravity, ur 1.034(H) 1.003 - 1.030 [facility] pH, urine 6.0 [facility] Comment: Interpretive Data U rine pH is affected by diet, medications, systemic acid-base disturbances, and renal tubular function. pH may affect urinary stone formation. For example, urine pH below 6.0 may help reduce the tendency for calcium phosphate stones and pH greater than 6.0 may reduce the tendency for uric acid stone formation. Source: [facility] Current Interpretive Data was last revised on 2017 Protein, ur ql 1+(A) Negative [facility] Glucose, ur ql Negative Negative [facility] Ketones, ur 1+(A) Negative [facility] Bilirubin, ur Negative Negative [facility] Blood, ur Negative Negative [facility] Urobilinogen, ur <2.0 <2.0 mg/dL [facility] Nitrite, ur Negative Negative [facility] Leukocyte esterase, ur Negative Negative [facility] UA reflex comment Reflex to microscopic UA will be performed. [facility] Urine 08/28/2024 11:3 7 AM CDT 08/28/2024 12:05 PM CDT Carmina GARCIA LAB MICROBIOLOGY - GENERAL ORDER LAINA Final Result [facility] [address] [facility] Department [place] [address] * (ABNORMAL) Drugs of Abuse Screen, Urine without Confirmation (08/28/2024 11:37 AM CDT) Pathologist [facility] Amphetamine, ur Not Detected CutOff 500ng/mL Comment: Interpretive Data - Amphetamines: Samples containing greater than 500 ng/mL d-methamphetamine or other cross-reacting amphetamine compounds are reported as positive. Amphetamine immunoassays are subject to significant false positive rates due to cross-reactivity of non-amphetamine drugs. Confirmatory testing required for definitive results. Current Interpretive Data was last reviewed 2023. Barbiturates, ur Not Detected CutOff 200ng/mL [facility] Comment: Interpretive Data - Barbiturates: Samples containing greater than 200 ng/mL secobarbital or other cross-reacting barbiturate compounds are reported as positive. False positive and false negative results are possible. Confirmatory testing required for definitive results. Current Interpretive Data was last reviewed 2023. Benzodiazepines, ur Screen Positive, presumptive (A) CutOff 100ng/mL [facility] Comment: Interpretive Data - Benzodiazepines: Samples containing greater than 100 ng/mL nordiazepam or other cross-reacting compounds are reported as positive. False positive and false negative results are possible. Confirmatory testing required for definitive results. Current Interpretive Data was last reviewed 2023. Cannabinoids, ur Screen Positive, presumptive (A) CutOff 50 ng/mL [facility] Comment: Interpretive Data - Cannabinoids: Samples containing greater than 50 ng/mL delta-9 THC -COOH or other cross- reacting compounds are reported as positive. False positive and false negative results are possible. Confirmatory testing required for definitive results. Current Interpretive Data was last reviewed 2023. Cocaine, ur Not Detected CutOff 150ng/mL [facility] Comment: Interpretive Data - Cocaine: Samples containing greater than 150 ng/mL benzoylecgonine or other cross- reacting compounds are reported as positive. False positive and false negative results are possible. Confirmatory testing required for definitive results. Current Interpretive Data was last reviewed 2023. Fentanyl, Ur Screen Positive, presumptive (A) CutOff 5 ng/mL [facility] Comment: Interpretive Data - Fentanyl: Samples containing [...] MD LAB URINE ORDERABLES Final Result [facility] [address] [facility] Department [place] [address] * (ABNORMAL) Urinalysis, microscopic only (08/28/2024 11:37 AM CDT) WBC, ur 6-10(A) 0 - 5 /HPF RBC, ur 3-5(A) 0 - 2 /HPF [facility] Epithelial cells, squamous, ur 1-5 0 - 5 /HPF [facility] Mucous, ur Present(A) [facility] Culture Reflex Comment Reflex conditions for urine culture (WBC >10) not met. [facility] Urine 08/28/2024 11:3 7 AM CDT 08/28/2024 12:05 PM CDT us Carmina GARCIA LAB URINE ORDERABLES Final Resul t [facility] [address] [facility] Department [place] [address] * TRANSTHORACIC ECHO (TTE) COMPLETE W DOPPLER/CF WO CONTRAST (08/28/2024 10:54 AM CDT) Anatomical Region Laterality Modality Ultrasound 08/28/2024 10:4 2 AM CDT Narrative 08/29/2024 1:21 PM CDT Transthoracic Echocardiographic Report Patient Name: CLAIRE XIAO A : 2000 (24y 2m) Gender: M Study Date: 08/28/2024 10:42:45 AM Ht(Inch): 69 Wt(Lb): 121 BSA: 1.63 [employer] Maker Gift Wrapping: MORTEZA Noonan,RVT Location: [id number] Order Provider: EDITH PECK Heart Rate: 76 BMI: 17.87 BP: 139/88 Ref Provider: EDITH PECK PROCEDURES: Echocardiographic Report: ([id number]) Transthoracic complete echo, 2D, spectral and tissue [...] AM Ht(Inch): 69 Wt(Lb): 121 BSA: 1.63 [employer] Gift Wrapping: MORTEZA NoonanT Location: [id number] Order Provider:EDITH PECK Heart Rate: 76 BMI: 17.87 BP: 139/88 Ref Provider: EDITH PECK PROCEDURES: Echocardiographic Report: ([id number]) Transthoracic complete echo, 2D,spectral and tissue Doppler, [...] 14.0 13.0 - 17.5 g/dL [facility] Hct 40.0 38.9 - 50.3 % [facility] Plt 483(H) 150 - 400 K/cumm [facility] MPV 9.7 9.1 - 12.3 fL [facility] RBC 4.84 4.30 - 5.80 M/cumm [facility] MCV 82.6 81.3 - 96.4 fL [facility] MCH 28.9 27.1 - 33.3 pg [facility] MCHC 35.0 32.3 - 35.7 g/dL [facility] RDW CV 12.8 11.1 - 14.9 % [facility] RDW SD 38.5 35.7 - 48.1 fL [facility] NRBC abs 0.00 0.00 - 0.01 K/cumm [facility] Blood 08/28/2024 9:31 AM CDT 08/28/2024 10:02 AM CDT Leticia Gonzalez MD LAB BLOOD ORDERABLES Edite d Result - Final [facility] [address] [facility] Department [place] [address] * (ABNORMAL) Manual Differential (08/28/2024 9:31 AM CDT) Differential Manual Cells Counted 100 [facility] Neutrophil abs 13.1(H) 1.5 - 6.5 K/cumm [facility] Lymphocyte abs 2.5 0.8 - 3.3 K/cumm [facility] Monocyte abs 0.2 0.2 - 0.8 K/cumm [facility] Neutrophil pct 83.0 % [facility] Comment: Interpretive Data Percent cell count reference ranges are not reported, since discordance with absolute values may lead to misinterpretation of CBC data. Current Interpretive Data was last revised on 2017. Lymphocyte pct 16.0 % [facility] Comment: Interpretive Data Percent cell count reference ranges are not reported, since discordance with absolute values may lead to misinterpretation of CBC data. Current Interpretive Data was last revised on 2017. Monocyte pct 1.0 % [facility] Comment: Interpretive Data Percent cell count reference ranges are not reported, since discordance with absolute values may lead to misinterpretation of CBC data. Current Interpretive Data was last revised on 2017. RBC morphology Normal [facility] Platelet estimate Automated Count Confirmed [facility] Blood 08/28/2024 9:31 AM CDT 08/28/2024 10:02 AM CDT Leticia Gonzalez MD LAB BLOOD ORDERABLES Final Result [place] [address] [facility] Department [place] [address] * eGFR (08/28/2024 4:10 AM CDT) eGFR [...] CDT 08/28/2024 4:20 AM CDT Edith Jacobs AliyahPISTIS Consult DO LAB BLOOD ORDERABLES Fin al Result Performing Organization Address [facility] Co de Phone Number [address] [address] * (ABNORMAL) Vancomycin level trough (08/28/2024 4:10 AM CDT) Vancomycin trough 9.4(L) 10.0 - 20.0 mcg/mL Blood 08/28/2024 4:10 AM CDT 08/28/2024 4:20 AM CDT Edith Jacobs Aliyahsridhar LAB BLOOD ORDERABLES Mio shyanne Result - Final Performing Organization Address [facility] de Phone Number [address] [address] * (ABNORMAL) Basic metabolic panel (08/28/2024 4:10 AM CDT) [facility] Sodium 135 135 - 145 mmol/L Potassium, pl 3.1(L) 3.3 - 4.9 mmol/L [facility] Comment:Delta - Results Revi ewed Chloride 102 97 - 110 mmol/L [facility] CO2 19(L) 22 - 32 mmol/L [facility] Anion gap 14 2 - 15 mmol/L [facility] BUN 11 6 - 25 mg/dL [facility] Creatinine 0.77(L) 0.80 - 1.30 mg/dL [facility] Glucose 135 70 - 199 mg/dL [facility] Comment: Interpretive Data Fasting glucose >/= 126 [...] 8.9 8.5 - 10.3 mg/dL [facility] Blood 08/28/2024 4:10 AM CDT 08/28/2024 4:20 AM CDT Edith Peck DO LAB BLOOD ORDERABLES Fin al Result Performing Organization Address City/[facility] Co de Phone Number [address] [place] [address] * Hemoglobin and hematocrit (08/27/2024 4:57 PM CDT) [facility] Hgb 14.2 13.0 - 17.5 g/dL Hct 40.9 38.9 - 50.3 % [facility] Blood 08/27/2024 4:57 PM CDT 08/27/2024 5:47 PM CDT Leticia Gonzalez MD LAB BLOOD ORDERABLES Final Result Performing Organization Address [facility] de Phone Number [address] [place] [address] * ECG 12 lead (08/27/2024 3:10 PM CDT) [facility] Ventricular Rate EKG/Min 77 BPM [facility] QRS-Interval (MSEC) 86 ms [facility] QT-Interval (MSEC) 400 ms [facility] QTc 452 ms [facility] R [place] 92 degrees [facility] T [place] 81 degrees [facility] Diagnosis Sinus rhythm with competing Junctional rhythm Rightward axis Abnormal ECG When compared with ECG of 27-AUG-2024 01:00, T wave inversion no longer evident in Anterior leads Junctional beats are new Confirmed by ANGELA PEREIRA M.D. ([id number]) on 08/30/2024 9:45:06 AM [facility] 08/27/2024 3:10 PM CDT 08/30/2024 9:45 AM CDT Leticia Gonzalez MD ECG ORDERABLES Final Resu lt Performing Organization Address [facility] Co de Phone Number [facility] * Troponin T high-sensitivity 6-hour (08/27/2024 [...] ORDERABLES Final Resul t Performing Organization Address [facility] Co de Phone Number [address]AND[address] [employer] [place] [address] * Sepsis Lactate w/ Reflex (08/27/2024 5:34 AM CDT) Pathologist [facility] Sepsis Lactate 1.5 0.7 - 2.0 mmol/L Blood 08/27/2024 5:34 AM CDT 08/27/2024 6:03 AM CDT Carmina Lexus PA LAB BLOOD ORDERABLES Final Resul t Performing Organization Address [facility] Co de Phone Number [address]AND[address] [place] [address] * eGFR (08/27/2024 5:34 AM CDT) Pathologist [facility] eGFR >90 >=60 mL/min/1. 73 m2 Comment: [...] DO LAB BLOOD ORDERABLES Fin al Result [place] [address] [facility] Department [place] [address] * (ABNORMAL) Differential, auto (08/27/2024 5:34 AM CDT) Neutrophil abs 16.0(H) 1.5 - 6.5 K/cumm Imm gran abs 0.1 0.0 - 0.1 K/cumm [facility] Lymphocyte abs 1.3 0.8 - 3.3 K/cumm [facility] Monocyte abs 0.9(H) 0.2 - 0.8 K/cumm [facility] Eosinophil abs 0.0 0.0 - 0.5 K/cumm [facility] Basophil abs 0.0 0.0 - 0.1 K/cumm [facility] Neutrophil pct 87.7 % [facility] Comment: Interpretive Data Percent cell count reference ranges are not reported, since discordance with absolute values may lead to misinterpretation of CBC data. Current Interpretive Data was last revised on 2017. Imm gran pct 0.5 % [facility] Comment: Interpretive Data Percent cell count reference ranges are not reported, since discordance with absolute values may lead to misinterpretation of CBC data. Current Interpretive Data was last revised on 2017. Lymphocyte pct 6.8 % [facility] Comment: Interpretive Data Percent cell count reference ranges are not reported, since discordance with absolute values may lead to misinterpretation of CBC data. Current Interpretive Data was last revised on 2017. Monocyte pct 4.8 % [facility] Comment: Interpretive Data Percent cell count reference ranges are not reported, since discordance with absolute values may lead to misinterpretation of CBC data. Current Interpretive Data was last revised on 2017. Eosinophil pct 0.1 % [facility] Comment: Interpretive Data Percent cell count reference ranges are not reported, since discordance with absolute values may lead to misinterpretation of CBC data. Current Interpretive Data was last revised on 2017. Basophil pct 0.1 % [facility] Comment: Interpretive Data Percent cell count reference ranges are not reported, since discordance with absolute values may lead to misinterpretation of CBC data. Current Interpretive Data was last revised on 2017. Blood 08/27/2024 5:34 AM CDT 08/27/2024 6:02 AM CDT Edith Peck DO LAB BLOOD ORDERABLES Fin al Result [facility] [address] [facility] Department [place] [address] * (ABNORMAL) CBC with auto differential (08/27/2024 5:34 AM CDT) WBC 18.3(H) 3.8 - 9.9 K/cumm Hgb 14.4 13.0 - 17.5 g/dL [facility] Hct 42.8 38.9 - 50.3 % [facility] Plt 556(H) 150 - 400 K/cumm [facility] MPV 9.9 9.1 - 12.3 fL [facility] RBC 5.17 4.30 - 5.80 M/cumm [facility] MCV 82.8 81.3 - 96.4 fL [facility] MCH 27.9 27.1 - 33.3 pg [facility] MCHC 33.6 32.3 - 35.7 g/dL [facility] RDW CV 12.6 11.1 - 14.9 % [facility] RDW SD 37.9 35.7 - 48.1 fL [facility] NRBC abs 0.00 0.00 - 0.01 K/cumm [facility] Blood 08/27/2024 5:34 AM CDT 08/27/2024 6:02 AM CDT [facility] [address] [employer] [address] DO LAB BLOOD ORDERABLES Fin al Result Performing Organization Address City/[facility]/ZIP Co de Phone Number [address] [place] [address] * Phosphorus (08/27/2024 5:34 AM CDT) [facility] Phosphorus, pl 3.6 2.3 - 4.5 mg/dL Blood 08/27/2024 5:34 AM CDT 08/27/2024 6:02 AM CDT [facility] Arlene [employer] [address] DO LAB BLOOD ORDERABLES Fin al Result Performing Organization Address [facility] Co de Phone Number [address] [place] [address] * Magnesium (08/27/2024 5:34 AM CDT) [facility] Magnesium 2.3 1.4 - 2.5 mg/dL Blood 08/27/2024 5:34 AM CDT 08/27/2024 6:02 AM CDT [facility] [address]lene [employer] [address] DO LAB BLOOD ORDERABLES Fin al Result Performing Organization Address [facility] Co de Phone Number [address] [place] [address] * (ABNORMAL) Comprehensive metabolic panel (08/27/2024 5:34 AM CDT) [facility] Sodium 138 135 - 145 mmol/L Potassium, pl 4.6 3.3 - 4.9 mmol/L [facility] Chloride 103 97 - 110 mmol/L [facility] CO2 20(L) 22 - 32 mmol/L [facility] Anion gap 15 2 - 15 mmol/L [facility] BUN 15 6 - 25 mg/dL [facility] Creatinine 0.83 0.80 - 1.30 mg/dL [facility] Glucose 118 70 - 199 mg/dL [facility] Comment: Interpretive Data Fasting glucose >/= 126 [...] 9.6 8.5 - 10.3 mg/dL [facility] Bilirubin, total 0.2 0.1 - 1.2 mg/dL [facility] Protein, pl 7.3 6.5 - 8.5 g/dL [facility] Albumin 4.2 3.5 - 5.0 g/dL [facility] Alk phos 107 40 - 130 Units/L [facility] ALT 8 7 - 55 Units/L [facility] AST 17 10 - 50 Units/L [facility] Blood 08/27/2024 5:34 AM CDT 08/27/2024 6:02 AM CDT Edith Peck DO LAB BLOOD ORDERABLES Fin al Result [facility] [address] [facility] Department [place] [address] * Blood culture Blood Peripheral (08/27/2024 1:39 AM CDT) Report Final Report: No growth Comment:Testing performed by : [facility], [address] [facility], [place]., [address] Blood (Peripheral) 08/27/2024 1:39 AM CDT 08/27/2024 [...] performance characteristics have been verified by the [facility] Microbiology Laboratory. For questions about this culture, contact the Microbiology Laboratory at [phone]. Interpretive data was last revised on 24. us Carmina GARCIA LAB MICROBIOLOGY - GENERAL ORDER LAINA Final Result [facility] [address] [facility] Department of Laboratories [place], [place] [id number] * Blood culture Blood Peripheral (08/27/2024 1:39 AM CDT) Report Final Report: No growth Comment:Testing performed by : [facility], [address] [place]., [address] Blood (Peripheral) 08/27/2024 1:39 AM CDT 08/27/2024 [...] performance characteristics have been verified by the [facility] Microbiology Laboratory. For questions about this culture, contact the Microbiology Laboratory at [phone]. Interpretive data was last revised on 24. [employer] LAB MICROBIOLOGY - GENERAL ORDER LAINA Final Result Performing Organization Address City/[facility]/ZIP Co de Phone Number [facility] [address] [facility] Department [place] [address] * Troponin T high-sensitivity 2-hour [...] 1:02 AM CDT 08/27/2024 1:07 AM CDT [employer] LAB BLOOD ORDERABLES Final Resul t [address] [place] [address] * Prolactin (08/27/2024 1:02 AM CDT) [facility] Prolactin 4.7 4.0 - 15.2 ng/mL Comment:Testing performed by : [facility], [address] [place] [address] Blood 08/27/2024 1:02 AM CDT 08/27/2024 7:24 AM CDT Narrative [facility] 08/27/2024 7:51 AM CDT Please use blood drawn on 08/26 Edith Peck DO LAB BLOOD ORDERABLES Fin al Result Performing Organization Address [facility]/ZIP Co de Phone Number [address] [address] * CRP (acute phase) (08/27/2024 1:02 AM CDT) [facility] CRP 1.6 <=10.0 mg/L Blood 08/27/2024 1:02 AM CDT 08/27/2024 1:07 AM CDT Edith Peck DO LAB BLOOD ORDERABLES Fin al Result Performing Organization Address [facility]/ZIP Co de Phone Number [address] [address] * ECG 12 lead (08/27/2024 1:00 AM CDT) [facility] Ventricular Rate EKG/Min 61 BPM [facility] Atrial Rate 13 BPM [facility] QRS-Interval (MSEC) 90 ms [facility] QT-Interval (MSEC) 412 ms [facility] QTc 414 ms [facility] [place] 79 degrees [facility] [place] 73 degrees [facility] Diagnosis 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 ([id number]) on 08/30/2024 8:43:54 AM [employer] 08/27/2024 1:00 AM CDT 08/30/2024 8:43 AM CDT us Carmina GARCIA ECG ORDERABLES Final Result [employer] [facility] * CT Chest PE (CTA) W Contrast [...] signed by Ti LONGORIA T: Report ID: [id number] Reading Location: [id number] Procedure Note Ti Willis MD - 08/27/2024 [...] signed by Ti LONGORIA T: Report ID: [id number] Reading Location: [place] [address] Carmina GARCIA [facility] CT PROCEDURES Final Result * CT head without contrast (08/27/2024 12:36 AM CDT) Anatomical Region Laterality Modality Head and Neck N/A Computed Tomogra phy 08/27/2024 12:5 3 AM CDT Narrative 08/27/2024 12:54 AM CDT EXAM DESCRIPTION: CT HEAD WO CONTRAST REASON FOR STUDY: syncope, syncope Pt bibems from [facility] for complaint of syncopal episode. Pt endorses chest pain and SoB in addition, beginning this AM. Pt actively receiving treatment at [facility] for Opiate, ETOH, and Canabis withdrawal per EMS with last use approx 4 days door captain. EMS states pt had an approx 5 min episode of unresponsiveness door captain, witnessed by facility staff. Pt states [...] by Ti Willis M.D. T: Report ID: [id number] Reading Location: [id number] Procedure Note Ti Willis MD - 08/27/2024 EXAM DESCRIPTION: CT HEAD WO CONTRAST REASON FOR STUDY: syncope, syncope Pt bibems from [facility] for complaint of syncopal episode. Ptendorses chest pain and SoB in addition, beginning this AM. Pt activelyreceiving treatment at [facility] for Opiate, ETOH, and Canabis withdrawal perEMS with last use approx 4 days door captain. EMS states pt had an approx 5 min episode of unresponsiveness door captain, witnessed by facility staff. Ptstates chest [...] Ti Willis M.D. KH T: Report ID: [id number] Reading Location: [place] [address] us Carmina GARCIA IMG CT PROCEDURES Final Result * Troponin T high-sensitivity series (baseline, 2hr, 4hr, 6hr) (08/26/2024 11:00 PM CDT) Pathologist [facility] Trop T hs 8 <=22 ng/L Comment: Interpretive Data For further hscTnT resources including the diagnostic algorithm and an aid in interpretation, copy and paste this link: [email or web address].testcatalog.org/[email or web address] Current Interpretive Data last revised 2020. Blood 08/26/2024 11:0 0 PM CDT 08/26/2024 11:05 PM CDT us Carmina GARCIA LAB BLOOD ORDERABLES Final Resul t [facility] [address] [facility] Department [place] [address] * Influenza A/B, RSV, and COVID-19 PCR Nasopharyngeal (08/26/2024 11:00 PM CDT) Pathologist [facility] COVID-19 RNA Negative Negative Influenza A RNA Negative Negative [facility] Influenza B RNA Negative Negative [facility] RSV RNA Negative Negative [facility] Comment: Interpretive data: Testing performed by [facility]. This test is performed using the [employer] Xpert Xpress CoV-2/Flu/RSV plus assay. This is a multiplex, real-time reverse transcriptase PCR assay intended for the qualitative detection of nucleic acid from SARS-CoV-2, influenza A, influenza B, and respiratory syncytial virus. This assay has been cleared by the [place] Food and Drug administration. The performance characteristics have been verified by the [facility]. Results must be considered in the clinical context, and a negative result does not rule out infection. Interpretive Data last revised 2023 Nasopharyngeal 08/26/2024 11 :00 PM CDT 08/26/2024 11:07 PM CDT Narrative [facility] - 08/26/2024 11:45 PM CDT Is the Patient experiencing symptoms consistent with COVID?->Unknown [employer] LAB MICROBIOLOGY - GENERAL ORDER LAINA Final Result Performing Organization Address [facility]/ZIP Co de Phone Number [place] [phone] [facility] [place] [address] * (ABNORMAL) Sepsis Lactate w/ Reflex (08/26/2024 11:00 PM CDT) [facility] Sepsis Lactate 2.5(H) 0.7 - 2.0 mmol/L Blood 08/26/2024 11:0 0 PM CDT 08/26/2024 11:06 PM CDT [employer] MA LAB BLOOD ORDERABLES Final Resul t Performing Organization Address City/[facility]/ZIP Co de Phone Number [place] [phone] [place] [address] * eGFR (08/26/2024 11:00 PM CDT) [facility] eGFR >90 >=60 mL/min/1. 73 m2 Comment: [...] GARCIA LAB BLOOD ORDERABLES Final Resul t [facility] [facility] Department [place] [address] * (ABNORMAL) Differential, auto (08/26/2024 11:00 PM CDT) Neutrophil abs 18.3(H) 1.5 - 6.5 K/cumm Imm gran abs 0.1 0.0 - 0.1 K/cumm [facility] Lymphocyte abs 1.0 0.8 - 3.3 K/cumm [facility] Monocyte abs 0.7 0.2 - 0.8 K/cumm [facility] Eosinophil abs 0.1 0.0 - 0.5 K/cumm [facility] Basophil abs 0.0 0.0 - 0.1 K/cumm [facility] Neutrophil pct 91.0 % [facility] Comment: Interpretive [...] revised on 2017. Lymphocyte pct 4.7 % [facility] Comment: Interpretive Data Percent cell count reference ranges are not reported, since discordance with absolute values may lead to misinterpretation of CBC data. Current Interpretive Data was last revised on 2017. Monocyte pct 3.4 % [facility] Comment: Interpretive Data Percent cell count reference ranges are not reported, since discordance with absolute values may lead to misinterpretation of CBC data. Current Interpretive Data was last revised on 2017. Eosinophil pct 0.4 % [facility] Comment: Interpretive Data Percent cell count reference ranges are not reported, since discordance with absolute values may lead to misinterpretation of CBC data. Current Interpretive Data was last revised on 2017. Basophil pct 0.1 % [facility] Comment: Interpretive Data Percent cell count reference ranges are not reported, since discordance with absolute values may lead to misinterpretation of CBC data. Current Interpretive Data was last revised on 2017. Blood 08/26/2024 11:0 0 PM CDT 08/26/2024 11:05 PM CDT us Carmina GARCIA LAB BLOOD ORDERABLES Final Resul t [facility] [address] [facility] Department [place] [address] * Pro B-type natriuretic peptide (08/26/2024 11:00 [...] BLOOD ORDERABLES Final Resul t [facility] [address] [facility] Department [place] [address] * (ABNORMAL) CBC with auto differential (08/26/2024 11:00 PM CDT) WBC 20.1(H) 3.8 - 9.9 K/cumm Hgb 15.3 13.0 - 17.5 g/dL [facility] Hct 43.7 38.9 - 50.3 % [facility] Plt 494(H) 150 - 400 K/cumm [facility] MPV 9.8 9.1 - 12.3 fL [facility] RBC 5.38 4.30 - 5.80 M/cumm [facility] MCV 81.2(L) 81.3 - 96.4 fL [facility] MCH 28.4 27.1 - 33.3 pg [facility] MCHC 35.0 32.3 - 35.7 g/dL [facility] RDW CV 12.4 11.1 - 14.9 % [facility] RDW SD 35.8 35.7 - 48.1 fL [facility] NRBC abs 0.00 0.00 - 0.01 K/cumm [facility] Blood 08/26/2024 11:0 0 PM CDT 08/26/2024 11:05 PM CDT Carmina GARCIA LAB BLOOD ORDERABLES Final Resul t Performing Organization Address [facility] Co de Phone Number [facility] [address] [place] [address] * (ABNORMAL) Erythrocyte sedimentation rate (08/26/2024 11:00 PM CDT) Erythrocyte sedimentation rate 26(H) 1 - 15 mm/hr Blood 08/26/2024 11:0 0 PM CDT 08/26/2024 11:05 PM CDT Edith Peck DO LAB BLOOD ORDERABLES Fin al Result Performing Organization Address [facility] Co de Phone Number [address] [address] * (ABNORMAL) Phosphorus (08/26/2024 11:00 PM CDT) Phosphorus, pl 1.5(L) 2.3 - 4.5 mg/dL Blood 08/26/2024 11:0 0 PM CDT 08/26/2024 11:05 PM CDT Carmina GARCIA LAB BLOOD ORDERABLES Final Resul t Performing Organization Address [facility] de Phone Number [address] [place] [address] * Magnesium (08/26/2024 11:00 PM CDT) Magnesium 2.0 1.4 - 2.5 mg/dL Blood 08/26/2024 11:0 0 PM CDT 08/26/2024 11:05 PM CDT [facility] LAB BLOOD ORDERABLES Final Resul t Performing Organization Address [facility] Co de Phone Number CAND[address] [address] * Ethanol (08/26/2024 11:00 PM CDT) Ethanol <10 <=10 mg/dL Comment: Interpretive Data Legal limit of intoxication > or = 80 mg/dL Levels > or = 400 mg/dL are potentially TOXIC. Current interpretive data was last revised on 2018. Blood 08/26/2024 11:0 0 PM CDT 08/26/2024 11:05 PM CDT [facility] LAB BLOOD ORDERABLES Final Resul t Performing Organization Address [facility] de Phone Number CANDIE[address] [address] * (ABNORMAL) Comprehensive metabolic panel (08/26/2024 11:00 PM CDT) [facility] Sodium 136 135 - 145 mmol/L Potassium, pl 3.8 3.3 - 4.9 mmol/L [facility] Chloride 98 97 - 110 mmol/L [facility] CO2 21(L) 22 - 32 mmol/L [facility] Anion gap 17(H) 2 - 15 mmol/L [facility] BUN 16 6 - 25 mg/dL [facility] Creatinine 0.89 0.80 - 1.30 mg/dL [facility] Glucose 149 70 - 199 mg/dL [facility] Comment: Interpretive Data Fasting glucose >/= 126 [...] 10.4(H) 8.5 - 10.3 mg/dL [facility] Bilirubin, total 0.3 0.1 - 1.2 mg/dL [facility] Protein, pl 7.8 6.5 - 8.5 g/dL [facility] Albumin 4.5 3.5 - 5.0 g/dL [facility] Alk phos 123 40 - 130 Units/L [facility] ALT 10 7 - 55 Units/L [facility] AST 21 10 - 50 Units/L [facility] Blood 08/26/2024 11:0 0 PM CDT 08/26/2024 11:05 PM CDT us Carmina GARCIA LAB BLOOD ORDERABLES Final Resul t [facility] [address] [facility] Department [place] [address] * XR Chest 1 Vw Portable (if patient condition/safety warrant portable) (08/26/2024 10:44 PM CDT) Anatomical Region Laterality Modality Body, Chest N/A Computed Radiogr aphy 08/26/2024 11:1 6 PM CDT Narrative 08/26/2024 11:19 PM CDT EXAM DESCRIPTION: XR CHEST 1 VIEW REASON FOR STUDY: Shortness of breath Pt bibems from [facility] for complaint of syncopal episode. Pt endorses chest pain and SoB in addition, beginning this AM. Pt actively receiving treatment at [facility] for Opiate, ETOH, and Canabis withdrawal per EMS with last use approx 4 days door captain. EMS states pt had an approx 5 min episode of unresponsiveness door captain, witnessed by facility staff. Pt states [...] Adin Fitzpatrick M.D. AR T: Report ID: [id number] Reading Location: [id number] Procedure Note Adin Fitzpatrick MD - 08/26/2024 EXAM DESCRIPTION: XR CHEST 1 VIEW REASON FOR STUDY: Shortness of breath Pt bibems from [facility] for complaint of syncopal episode. Ptendorses chest pain and SoB in addition, beginning this AM. Pt activelyreceiving treatment at [facility] for Opiate, ETOH, and Canabis withdrawal perEMS with last use approx 4 days door captain. EMS states pt had an approx 5 min episode of unresponsiveness door captain, witnessed by facility staff. Ptstates chest [...] Adin Fitzpatrick M.D. AR T: Report ID: [id number] Reading Location: [id number] Carmina GARCIA IMG XR PROCEDURES Final Result * ECG 12 lead (08/26/2024 10:39 PM CDT) Ventricular Rate EKG/Min 81 BPM [facility] Atrial Rate 81 BPM [facility] MD-Interval (MSEC) 138 ms [facility] QRS-Interval (MSEC) 86 ms [facility] QT-Interval (MSEC) 356 ms [facility] QTc 413 ms [facility] [place] 19 degrees [facility] R [place] 84 degrees [facility] [place] 69 degrees [facility] Diagnosis Sinus rhythm with marked sinus arrhythmia Otherwise normal ECG When compared with ECG of 02-OCT-2020 15:36, No significant change was found Confirmed by ANGELA PEREIRA M.D. ([id number]) on 08/30/2024 8:40:53 AM [facility] 08/26/2024 10:3 9 PM CDT 08/30/2024 8:40 AM CDT us Carmina GARCIA ECG ORDERABLES Final Result [facility] from Last 3 Months Insurance Advance Directives For more information, please contact: [phone] * Full Code (Latest Code Status on File) Date Activated Date Inactivated Comments 08/27/2024 2:54 AM 08/30/2024 10:39 PM Care Teams [employer] Pv Relationship Specialty Start Date End Date [place] Veláz[place] [address] [place] [address] PCP - General 06/26/17
--- OUTSIDE RECORDS SUMMARY | 2024-09-27 19:22 | XMS_ITS | Clinical Summary ---
Author Organization [facility] Address [address] [place] [address] Care Team Providers Care Sterile Proc Tech Name Role Phone Lion Velázquez MD Primary Care Provider [phone]- [phone] Allergies No known active allergies Medications naproxen [...] Type Department Care Team Description 08/31/2024 Documentation [facility] Social Work [address] [place] [id number] Francesco Ortega, ENVIRONMENTAL HEALTH AND SAFETY LEADER 08/26/2024 10:32 PM CDT - 08/30/2024 6:34 PM CDT Hospital Encounter [address] [address] Edith Peck DO Chowdhury, Farhanaz, MD Alcohol [...] Date Smoking Tobacco: Never Smokeless Tobacco: Never [facility] Utilities Answer Date Recorded In the [...] often do you attend chur ch or baptist services? Never 08/27/2024 Do you belong to [...] any time in the past 12 [facility], were you homeless or living in a nursing home (including now)? No 08/27/2024 Personal Safety Answer Date Recorded Have you ever been in or are you currently in a harmful physical or emotional relationship or is someone making you feel afraid or unsafe? Denies 08/27/2024 Sex and Gender Information Value Date Recorded Sex Assigned at Not on file Legal Sex Male 1:41 PM [employer] Gender Identity Not on file Sexual Orientation [...] Marley Burger M.D. FT T: Report ID: [id number] Reading Location: [id number] Procedure Note Marley Benson MD - 08/30/2024 [...] Marley Burger M.D. FT T: Report ID: [id number] Reading Location: [id number] Leticia Gonzalez MD IMG XR PROCEDURES Final [...] Marley Burger M.D. FT T: Report ID: [id number] Reading Location: [place] [address] Procedure Note Marley Benson MD - 08/30/2024 [...] Marley Burger M.D. FT T: Report ID: [id number] Reading Location: [id number] Leticia Gonzalez MD IMG XR PROCEDURES Final [...] LAB BLOOD ORDERABLES Fin al Result [facility] [address] [facility] [place] [address] * Differential, auto (08/30/2024 6:43 AM CDT) Neutrophil abs 6.1 1.5 - 6.5 K/cumm Imm gran abs 0.0 0.0 - 0.1 K/cumm [facility] Lymphocyte abs 2.1 0.8 - 3.3 K/cumm [facility] Monocyte abs 0.5 0.2 - 0.8 K/cumm [facility] Eosinophil abs 0.1 0.0 - 0.5 K/cumm [facility] Basophil abs 0.1 0.0 - 0.1 K/cumm [facility] Neutrophil pct 68.8 % [facility] Comment: Interpretive Data Percent cell count reference ranges are not reported, since discordance with absolute values may lead to misinterpretation of CBC data. Current Interpretive Data was last revised on 2017. Imm gran pct 0.5 % [facility] Comment: Interpretive Data Percent cell count reference ranges are not reported, since discordance with absolute values may lead to misinterpretation of CBC data. Current Interpretive Data was last revised on 2017. Lymphocyte pct 24.2 % [facility] Comment: Interpretive Data Percent cell count reference ranges are not reported, since discordance with absolute values may lead to misinterpretation of CBC data. Current Interpretive Data was last revised on 2017. Monocyte pct 5.3 % [facility] Comment: Interpretive Data Percent cell count reference ranges are not reported, since discordance with absolute values may lead to misinterpretation of CBC data. Current Interpretive Data was last revised on 2017. Eosinophil pct 0.6 % [facility] Comment: Interpretive Data Percent cell count reference ranges are not reported, since discordance with absolute values may lead to misinterpretation of CBC data. Current Interpretive Data was last revised on 2017. Basophil pct 0.6 % [facility] Comment: Interpretive Data Percent cell count reference ranges are not reported, since discordance with absolute values may lead to misinterpretation of CBC data. Current Interpretive Data was last revised on 2017. Blood 08/30/2024 6:43 AM CDT 08/30/2024 7:07 AM CDT us Leticia Gonzalez MD LAB BLOOD ORDERABLES Final Result [facility] [address] [facility] of [facility] [place], [place] [id number] * CBC with auto differential (08/30/2024 6:43 AM CDT) WBC 8.8 3.8 - 9.9 K/cumm Hgb 13.5 13.0 - 17.5 g/dL [facility] Hct 38.9 38.9 - 50.3 % [facility] Plt 311 150 - 400 K/cumm [facility] MPV 9.6 9.1 - 12.3 fL [facility] RBC 4.71 4.30 - 5.80 M/cumm [facility] MCV 82.6 81.3 - 96.4 fL [facility] MCH 28.7 27.1 - 33.3 pg [facility] MCHC 34.7 32.3 - 35.7 g/dL [facility] RDW CV 12.0 11.1 - 14.9 % [facility] RDW SD 36.7 35.7 - 48.1 fL [facility] NRBC abs 0.00 0.00 - 0.01 K/cumm [facility] Blood 08/30/2024 6:43 AM CDT 08/30/2024 7:07 AM CDT Leticia Gonzalez MD LAB BLOOD ORDERABLES Final Result Performing Organization Address [facility] Co de Phone Number [address] [place] [address] * (ABNORMAL) Vancomycin level trough (08/30/2024 6:43 AM CDT) [facility] Vancomycin trough 23.1(H) 10.0 - 20.0 mcg/mL Blood 08/30/2024 6:43 AM CDT 08/30/2024 7:07 AM CDT Leticia Gonzalez MD LAB BLOOD ORDERABLES Final Result Performing Organization Address City/[facility] Co de Phone Number [address] [place] [address] * (ABNORMAL) Basic metabolic panel (08/30/2024 6:43 AM CDT) [facility] Sodium 135 135 - 145 mmol/L Potassium, pl 3.6 3.3 - 4.9 mmol/L [facility] Chloride 104 97 - 110 mmol/L [facility] CO2 17(L) 22 - 32 mmol/L [facility] Anion gap 14 2 - 15 mmol/L [facility] BUN 6 6 - 25 mg/dL [facility] Creatinine 0.68(L) 0.80 - 1.30 mg/dL [facility] Glucose 78 70 - 199 mg/dL [facility] Comment: Interpretive Data Fasting glucose [...] 2022. Calcium 8.7 8.5 - 10.3 mg/dL [facility] Blood 08/30/2024 6:43 AM CDT 08/30/2024 7:07 AM CDT Edith Peck DO LAB BLOOD ORDERABLES Fin al Result [facility] [address] [facility] [place] [address] * XR Chest 1 View (08/29/2024 8:36 [...] Sravan Oliva M.D. AT T: Report ID: [id number] Reading Location: [id number] Procedure Note Sravan Oliva MD - 08/29/2024 [...] Sravan Oliva M.D. AT T: Report ID: [id number] Reading Location: [id number] us Leticia Gonzalez MD IMG XR PROCEDURES [...] LAB BLOOD ORDERABLES Fin al Result [facility] [address] [facility] [place] [address] * (ABNORMAL) Differential, auto (08/29/2024 4:42 AM CDT) Neutrophil abs 10.0(H) 1.5 - 6.5 K/cumm Imm gran abs 0.1 0.0 - 0.1 K/cumm [facility] Lymphocyte abs 2.2 0.8 - 3.3 K/cumm [facility] Monocyte abs 0.8 0.2 - 0.8 K/cumm [facility] Eosinophil abs 0.0 0.0 - 0.5 K/cumm [facility] Basophil abs 0.0 0.0 - 0.1 K/cumm [facility] Neutrophil pct 76.2 % [facility] Comment: Interpretive Data Percent cell count reference ranges are not reported, since discordance with absolute values may lead to misinterpretation of CBC data. Current Interpretive Data was last revised on 2017. Imm gran pct 0.5 % [facility] Comment: Interpretive Data Percent cell count reference ranges are not reported, since discordance with absolute values may lead to misinterpretation of CBC data. Current Interpretive Data was last revised on 2017. Lymphocyte pct 16.9 % [facility] Comment: Interpretive Data Percent cell count reference ranges are not reported, since discordance with absolute values may lead to misinterpretation of CBC data. Current Interpretive Data was last revised on 2017. Monocyte pct 6.2 % [facility] Comment: Interpretive Data Percent cell count reference ranges are not reported, since discordance with absolute values may lead to misinterpretation of CBC data. Current Interpretive Data was last revised on 2017. Eosinophil pct 0.0 % [facility] Comment: Interpretive Data Percent cell count reference ranges are not reported, since discordance with absolute values may lead to misinterpretation of CBC data. Current Interpretive Data was last revised on 2017. Basophil pct 0.2 % [facility] Comment: Interpretive Data Percent cell count reference ranges are not reported, since discordance with absolute values may lead to misinterpretation of CBC data. Current Interpretive Data was last revised on 2017. Blood 08/29/2024 4:42 AM CDT 08/29/2024 5:13 AM CDT us Leticia Gonzalez MD LAB BLOOD ORDERABLES Final Result [facility] [address] [facility] [place] [address] * (ABNORMAL) CBC with auto differential (08/29/2024 4:42 AM CDT) WBC 13.2(H) 3.8 - 9.9 K/cumm Hgb 12.9(L) 13.0 - 17.5 g/dL [facility] Hct 36.4(L) 38.9 - 50.3 % [facility] Plt 390 150 - 400 K/cumm [facility] MPV 9.7 9.1 - 12.3 fL [facility] RBC 4.50 4.30 - 5.80 M/cumm [facility] MCV 80.9(L) 81.3 - 96.4 fL [facility] MCH 28.7 27.1 - 33.3 pg [facility] MCHC 35.4 32.3 - 35.7 g/dL [facility] RDW CV 12.4 11.1 - 14.9 % [facility] RDW SD 35.9 35.7 - 48.1 fL [facility] NRBC abs 0.00 0.00 - 0.01 K/cumm [facility] Blood 08/29/2024 4:42 AM CDT 08/29/2024 5:13 AM CDT Leticia Gonzalez MD LAB BLOOD ORDERABLES Final Result Performing Organization Address City/[facility] Co de Phone Number [address] [place] [address] * (ABNORMAL) Vancomycin level trough (08/29/2024 4:42 AM CDT) [facility] Vancomycin trough 22.8(H) 10.0 - 20.0 mcg/mL Blood 08/29/2024 4:42 AM CDT 08/29/2024 5:13 AM CDT Leticia Gonzalez MD LAB BLOOD ORDERABLES Final Result Performing Organization Address [facility] de Phone Number [address] [place] [address] * (ABNORMAL) Basic metabolic panel (08/29/2024 4:42 AM CDT) [facility] Sodium 131(L) 135 - 145 mmol/L Potassium, pl 3.3 3.3 - 4.9 mmol/L [facility] Chloride 102 97 - 110 mmol/L [facility] CO2 18(L) 22 - 32 mmol/L [facility] Anion gap 11 2 - 15 mmol/L [facility] BUN 7 6 - 25 mg/dL [facility] Creatinine 0.71(L) 0.80 - 1.30 mg/dL [facility] Glucose 118 70 - 199 mg/dL [facility] Comment: Interpretive Data Fasting glucose [...] LAB BLOOD ORDERABLES Fin al Result [facility] [address] [facility] [place] [address] * CT Facial Bones WO Contrast (08/29/2024 [...] signed by Adin ARCHULETA T: Report ID: [id number] Reading Location: [id number] Procedure Note Adin Fitzpatrick MD - 08/29/2024 [...] signed by Adin ARCHULETA T: Report ID: [id number] Reading Location: [id number] Edith Peck DO IMG CT PROCEDURES Final [...] Adin Fitzpatrick M.D. AR T: Report ID: [id number] Reading Location: [id number] Procedure Note Adin Fitzpatrick MD - 08/29/2024 [...] Adin Fitzpatrick M.D. AR T: Report ID: [id number] Reading Location: [id number] Edith Peck DO IMG CT PROCEDURES Final [...] tendency for uric acid stone formation. Source: [facility] Current Interpretive Data was last revised on 2017 Protein, ur ql 1+(A) Negative [facility] Glucose, ur ql Negative Negative [facility] Ketones, ur 1+(A) Negative [facility] Bilirubin, ur Negative Negative [facility] Blood, ur Negative Negative [facility] Urobilinogen, ur <2.0 <2.0 mg/dL [facility] Nitrite, ur Negative Negative [facility] Leukocyte esterase, ur Negative Negative [facility] UA reflex comment Reflex to microscopic UA will be performed. [facility] Urine 08/28/2024 11:3 7 AM CDT 08/28/2024 12:05 PM CDT Carmina GARCIA LAB MICROBIOLOGY - GENERAL ORDER LAINA Final Result [facility] [address] [facility] [place] [address] * (ABNORMAL) Drugs of Abuse Screen, Urine [...] 2023. Barbiturates, ur Not Detected CutOff 200ng/mL [facility] Comment: Interpretive Data - Barbiturates: Samples containing greater than 200 ng/mL secobarbital or other cross-reacting barbiturate compounds are reported as positive. False positive and false negative results are possible. Confirmatory testing required for definitive results. Current Interpretive Data was last reviewed 2023. Benzodiazepines, ur Screen Positive, presumptive (A) CutOff 100ng/mL [facility] Comment: Interpretive Data - Benzodiazepines: Samples containing greater than 100 ng/mL nordiazepam or other cross-reacting compounds are reported as positive. False positive and false negative results are possible. Confirmatory testing required for definitive results. Current Interpretive Data was last reviewed 2023. Cannabinoids, ur Screen Positive, presumptive (A) CutOff 50 ng/mL [facility] Comment: Interpretive Data - Cannabinoids: Samples containing greater than 50 ng/mL delta-9 THC -COOH or other cross- reacting compounds are reported as positive. False positive and false negative results are possible. Confirmatory testing required for definitive results. Current Interpretive Data was last reviewed 2023. Cocaine, ur Not Detected CutOff 150ng/mL [facility] Comment: Interpretive Data - Cocaine: Samples containing greater than 150 ng/mL benzoylecgonine or other cross- reacting compounds are reported as positive. False positive and false negative results are possible. Confirmatory testing required for definitive results. Current Interpretive Data was last reviewed 2023. Fentanyl, Ur Screen Positive, presumptive (A) CutOff 5 ng/mL [facility] Comment: Interpretive Data - Fentanyl: Samples containing greater than 5 ng/mL norfentanyl, fentanyl, or other cross-reacting fentanyl compounds are reported as positive. False positive and false negative results are possible. Confirmatory testing required for definitive results. Current Interpretive Data was last reviewed 2023. Methadone, ur Not Detected CutOff 300ng/mL [facility] Comment: Interpretive Data - Methadone: Samples containing greater than 300 ng/mL d,l-methadone or other cross-reacting compounds are reported as positive. False positive and false negative results are possible. Confirmatory testing required for definitive results. Current Interpretive Data was last reviewed 2023. Opiates, ur Not Detected CutOff 300ng/mL [facility] Comment: Interpretive Data - Opiates: Samples containing greater than 300 ng/mL morphine or other cross-reacting compounds are reported as positive. False positive and false negative results are possible. Confirmatory testing required for definitive results. Current Interpretive Data was last reviewed 2023. Oxycodone, ur Not Detected CutOff 100ng/mL [facility] Comment: Interpretive Data - Oxycodone: Samples containing greater than 100 ng/mL oxycodone or other cross-reacting compounds are reported as positive. False positive and false negative results are possible. Confirmatory testing required for definitive results. Current Interpretive Data was last reviewed 2023. Phencyclidine, ur Not Detected CutOff 25 ng/mL [facility] Comment: Interpretive Data - Phencyclidine: Samples containing greater than 25 ng/mL phencyclidine or other cross-reacting compounds are reported as positive. False positive and false negative results are possible. Confirmatory testing required for definitive results. Current Interpretive Data was last reviewed 2023. Urine Creatinine 270 mg/dL [facility] Comment: Interpretive Data Urine Creatinine: < 10 mg/dL is extremely dilute = or > 10 but < 20 mg/dL is dilute = or > 20 mg/dL is normal Current Interpretive Data was last revised on 2017. Urine 08/28/2024 11:3 7 AM CDT 08/28/2024 12:05 PM CDT Leticia Gonzalez MD LAB URINE ORDERABLES Final Result Performing Organization Address [facility] Co de Phone Number [address] [place] [address] * (ABNORMAL) Urinalysis, microscopic only (08/28/2024 11:37 AM CDT) WBC, ur 6-10(A) 0 - 5 /HPF RBC, ur 3-5(A) 0 - 2 /HPF [facility] Epithelial cells, squamous, ur 1-5 0 - 5 /HPF [facility] Mucous, ur Present(A) [facility] Culture Reflex Comment Reflex conditions for urine culture (WBC >10) not met. [facility] Urine 08/28/2024 11:3 7 AM CDT 08/28/2024 12:05 PM CDT Carmina GARCIA LAB URINE ORDERABLES Final Resul t Performing Organization Address [facility] Co de Phone Number [address] [place] [address] * TRANSTHORACIC ECHO (TTE) COMPLETE W DOPPLER/CF WO CONTRAST (08/28/2024 10:54 AM CDT) Anatomical Region Laterality Modality Ultrasound 08/28/2024 10:4 2 AM CDT Narrative 08/29/2024 1:21 PM CDT Transthoracic Echocardiographic Report Patient Name: CLAIRE XIAO A : 2000 (24y 2m) Gender: M Study Date: 08/28/2024 10:42:45 AM Ht(Inch): 69 Wt(Lb): 121 BSA: 1.63 Irrigation Teacher: MORTEZA Noonan,RVT Location: [id number] Order Provider: EDITH PECK Heart Rate: 76 BMI: 17.87 BP: 139/88 Ref Provider: EDITH PECK PROCEDURES: Echocardiographic Report: ([id number]) Transthoracic complete echo, 2D, spectral and tissue [...] AM Ht(Inch): 69 Wt(Lb): 121 BSA: 1.63 Irrigation Teacher: MORTEZA Noonan,RVT Location: [id number] Order Provider:EDITH PECK Heart Rate: 76 BMI: 17.87 BP: 139/88 Ref Provider: EDITH PECK PROCEDURES: Echocardiographic Report: ([id number]) Transthoracic complete echo, 2D,spectral and tissue Doppler, [...] with auto differential (08/28/2024 9:31 AM CDT) [facility] WBC 15.8(H) 3.8 - 9.9 K/cumm Hgb 14.0 13.0 - 17.5 g/dL [facility] Hct 40.0 38.9 - 50.3 % [facility] Plt 483(H) 150 - 400 K/cumm [facility] MPV 9.7 9.1 - 12.3 fL [facility] RBC 4.84 4.30 - 5.80 M/cumm [facility] MCV 82.6 81.3 - 96.4 fL [facility] MCH 28.9 27.1 - 33.3 pg [facility] MCHC 35.0 32.3 - 35.7 g/dL [facility] RDW CV 12.8 11.1 - 14.9 % [facility] RDW SD 38.5 35.7 - 48.1 fL [facility] NRBC abs 0.00 0.00 - 0.01 K/cumm [facility] Blood 08/28/2024 9:31 AM CDT 08/28/2024 10:02 AM CDT us Leticia Gonzalez MD LAB BLOOD ORDERABLES Edite d Result - Final [facility] [address] [facility] [place] [address] * (ABNORMAL) Manual Differential (08/28/2024 9:31 AM CDT) Differential Manual Cells Counted 100 [facility] Neutrophil abs 13.1(H) 1.5 - 6.5 K/cumm [facility] Lymphocyte abs 2.5 0.8 - 3.3 K/cumm [facility] Monocyte abs 0.2 0.2 - 0.8 K/cumm [facility] Neutrophil pct 83.0 % [facility] Comment: Interpretive Data Percent cell count reference ranges are not reported, since discordance with absolute values may lead to misinterpretation of CBC data. Current Interpretive Data was last revised on 2017. Lymphocyte pct 16.0 % [facility] Comment: Interpretive Data Percent cell count reference ranges are not reported, since discordance with absolute values may lead to misinterpretation of CBC data. Current Interpretive Data was last revised on 2017. Monocyte pct 1.0 % [facility] Comment: Interpretive Data Percent cell count reference ranges are not reported, since discordance with absolute values may lead to misinterpretation of CBC data. Current Interpretive Data was last revised on 2017. RBC morphology Normal [facility] Platelet estimate Automated Count Confirmed [facility] Blood 08/28/2024 9:31 AM CDT 08/28/2024 10:02 AM CDT Leticia Gonzalez MD LAB BLOOD ORDERABLES Final Result Performing Organization Address [facility] de Phone Number [address] [address] * eGFR (08/28/2024 4:10 AM CDT) eGFR [...] ORDERABLES Fin al Result Performing Organization Address [facility] Co de Phone Number [address] [place] [address] * (ABNORMAL) Vancomycin level trough (08/28/2024 4:10 AM CDT) Vancomycin trough 9.4(L) 10.0 - 20.0 mcg/mL Blood 08/28/2024 4:10 AM CDT 08/28/2024 4:20 AM CDT Edith Peck DO LAB BLOOD ORDERABLES Mio shyanne Result - Final Performing Organization Address City/[facility]/ZIP Co de Phone Number [facility] [address] [place] [address] * (ABNORMAL) Basic metabolic panel (08/28/2024 4:10 AM CDT) Sodium 135 135 - 145 mmol/L Potassium, pl 3.1(L) 3.3 - 4.9 mmol/L [facility] Comment:Delta - Results Revi ewed Chloride 102 97 - 110 mmol/L [facility] CO2 19(L) 22 - 32 mmol/L [facility] Anion gap 14 2 - 15 mmol/L [facility] BUN 11 6 - 25 mg/dL [facility] Creatinine 0.77(L) 0.80 - 1.30 mg/dL [facility] Glucose 135 70 - 199 mg/dL [facility] Comment: Interpretive Data Fasting glucose [...] 2022. Calcium 8.9 8.5 - 10.3 mg/dL [facility] Blood 08/28/2024 4:10 AM CDT 08/28/2024 4:20 AM CDT Edith Peck DO LAB BLOOD ORDERABLES Fin al Result Performing Organization Address City/[facility]/ZIP Co de Phone Number [facility] [place] [address] * Hemoglobin and hematocrit (08/27/2024 4:57 PM CDT) Hgb 14.2 13.0 - 17.5 g/dL Hct 40.9 38.9 - 50.3 % [facility] Blood 08/27/2024 4:57 PM CDT 08/27/2024 5:47 PM CDT Leticia Gonzalez MD LAB BLOOD ORDERABLES Final Result [facility] [address] [facility] [place] [address] * ECG 12 lead (08/27/2024 3:10 PM CDT) Pathologist [facility] Ventricular Rate EKG/Min 77 BPM [facility] QRS-Interval (MSEC) 86 ms [facility] QT-Interval (MSEC) 400 ms [facility] QTc 452 ms [facility] R [place] 92 degrees [facility] T [place] 81 degrees [facility] Diagnosis Sinus rhythm with competing Junctional rhythm Rightward axis Abnormal ECG When compared with ECG of 27-AUG-2024 01:00, T wave inversion no longer evident in Anterior leads Junctional beats are new Confirmed by ANGELA PEREIRA M.D. ([id number]) on 08/30/2024 9:45:06 AM [facility] 08/27/2024 3:10 PM CDT 08/30/2024 9:45 AM CDT Leticia Gonzalez MD ECG ORDERABLES Final Resu lt Performing Organization Address City/[facility]/ZIP Co de Phone Number [facility] * Troponin T high-sensitivity 6-hour (08/27/2024 5:34 AM CDT) Pathologist [facility] Trop T hs 7 <=22 ng/L Comment: Interpretive Data For further hscTnT resources including the diagnostic algorithm and an aid in interpretation, copy and paste this link: https://nrl.testcatalog.org/show/hsTrop Current Interpretive Data last revised 2020. Trop T hs delta -1 ng/L [facility] Trop T hs interp Insignificant [facility] Blood 08/27/2024 5:34 AM CDT 08/27/2024 6:02 AM CDT Carmina Hoffmanbridger GARCIA LAB BLOOD ORDERABLES Final Resul t [facility] [address] [place] [address] * Sepsis Lactate w/ Reflex (08/27/2024 5:34 AM CDT) Sepsis Lactate 1.5 0.7 - 2.0 mmol/L Blood 08/27/2024 5:34 AM CDT 08/27/2024 6:03 AM CDT Carmina GARCIA LAB BLOOD ORDERABLES Final Resul t Performing Organization Address [facility] de Phone Number [facility] [address] [address] * eGFR (08/27/2024 5:34 AM CDT) eGFR [...] BLOOD ORDERABLES Fin al Result [facility] [address] [facility] Department [place] [address] * (ABNORMAL) Differential, auto (08/27/2024 5:34 AM CDT) Neutrophil abs 16.0(H) 1.5 - 6.5 K/cumm Imm gran abs 0.1 0.0 - 0.1 K/cumm [facility] Lymphocyte abs 1.3 0.8 - 3.3 K/cumm [facility] Monocyte abs 0.9(H) 0.2 - 0.8 K/cumm [facility] Eosinophil abs 0.0 0.0 - 0.5 K/cumm [facility] Basophil abs 0.0 0.0 - 0.1 K/cumm [facility] Neutrophil pct 87.7 % [facility] Comment: Interpretive Data Percent cell count reference ranges are not reported, since discordance with absolute values may lead to misinterpretation of CBC data. Current Interpretive Data was last revised on 2017. Imm gran pct 0.5 % [facility] Comment: Interpretive Data Percent cell count reference ranges are not reported, since discordance with absolute values may lead to misinterpretation of CBC data. Current Interpretive Data was last revised on 2017. Lymphocyte pct 6.8 % [facility] Comment: Interpretive Data Percent cell count reference ranges are not reported, since discordance with absolute values may lead to misinterpretation of CBC data. Current Interpretive Data was last revised on 2017. Monocyte pct 4.8 % [facility] Comment: Interpretive Data Percent cell count reference ranges are not reported, since discordance with absolute values may lead to misinterpretation of CBC data. Current Interpretive Data was last revised on 2017. Eosinophil pct 0.1 % [facility] Comment: Interpretive Data Percent cell count reference ranges are not reported, since discordance with absolute values may lead to misinterpretation of CBC data. Current Interpretive Data was last revised on 2017. Basophil pct 0.1 % [facility] Comment: Interpretive Data Percent cell count reference ranges are not reported, since discordance with absolute values may lead to misinterpretation of CBC data. Current Interpretive Data was last revised on 2017. Blood 08/27/2024 5:34 AM CDT 08/27/2024 6:02 AM CDT [facility] Fin al Result Performing Organization Address City/[facility] Co de Phone Number [facility] [address] [address] * (ABNORMAL) CBC with auto differential (08/27/2024 5:34 AM CDT) WBC 18.3(H) 3.8 - 9.9 K/cumm Hgb 14.4 13.0 - 17.5 g/dL [facility] Hct 42.8 38.9 - 50.3 % [facility] Plt 556(H) 150 - 400 K/cumm [facility] MPV 9.9 9.1 - 12.3 fL [facility] RBC 5.17 4.30 - 5.80 M/cumm [facility] MCV 82.8 81.3 - 96.4 fL [facility] MCH 27.9 27.1 - 33.3 pg [facility] MCHC 33.6 32.3 - 35.7 g/dL [facility] RDW CV 12.6 11.1 - 14.9 % [facility] RDW SD 37.9 35.7 - 48.1 fL [facility] NRBC abs 0.00 0.00 - 0.01 K/cumm [facility] Blood 08/27/2024 5:34 AM CDT 08/27/2024 6:02 AM CDT Edith Jacobs [employer] DO LAB BLOOD ORDERABLES Fin al Result Performing Organization Address City/[facility] Co de Phone Number [facility] [address] [place] [address] * Phosphorus (08/27/2024 5:34 AM CDT) Phosphorus, pl 3.6 2.3 - 4.5 mg/dL Blood 08/27/2024 5:34 AM CDT 08/27/2024 6:02 AM CDT Edith Peck LAB BLOOD ORDERABLES Fin al Result Performing Organization Address City/[facility] Co de Phone Number [address] [address] * Magnesium (08/27/2024 5:34 AM CDT) [facility] Magnesium 2.3 1.4 - 2.5 mg/dL Blood 08/27/2024 5:34 AM CDT 08/27/2024 6:02 AM CDT Edith Peck LAB BLOOD ORDERABLES Fin al Result Performing Organization Address [facility] de Phone Number [address] [address] * (ABNORMAL) Comprehensive metabolic panel (08/27/2024 5:34 AM CDT) [facility] Sodium 138 135 - 145 mmol/L Potassium, pl 4.6 3.3 - 4.9 mmol/L [facility] Chloride 103 97 - 110 mmol/L [facility] CO2 20(L) 22 - 32 mmol/L [facility] Anion gap 15 2 - 15 mmol/L [facility] BUN 15 6 - 25 mg/dL [facility] Creatinine 0.83 0.80 - 1.30 mg/dL [facility] Glucose 118 70 - 199 mg/dL [facility] Comment: Interpretive Data Fasting glucose [...] 2022. Calcium 9.6 8.5 - 10.3 mg/dL [facility] Bilirubin, total 0.2 0.1 - 1.2 mg/dL [facility] Protein, pl 7.3 6.5 - 8.5 g/dL [facility] Albumin 4.2 3.5 - 5.0 g/dL [facility] Alk phos 107 40 - 130 Units/L [facility] ALT 8 7 - 55 Units/L [facility] AST 17 10 - 50 Units/L [facility] Blood 08/27/2024 5:34 AM CDT 08/27/2024 6:02 AM CDT Edith Peck DO LAB BLOOD ORDERABLES Fin al Result [facility] [address] [facility] Department [place] [address] * Blood culture Blood Peripheral (08/27/2024 1:39 AM CDT) Report Final Report: No growth Comment:Testing performed by : [facility], [address] [place]., [address] Blood (Peripheral) 08/27/2024 1:39 AM CDT 08/27/2024 [...] performance characteristics have been verified by the [facility] Microbiology Laboratory. For questions about this culture, contact the Microbiology Laboratory at [phone]. Interpretive data was last revised on 24. Carmina GARCIA LAB MICROBIOLOGY - GENERAL ORDER LAINA Final Result [facility] [address] [facility] Department [place] [address] * Blood culture Blood Peripheral (08/27/2024 1:39 AM CDT) Report Final Report: No growth Comment:Testing performed by : [facility], [address] [place]., [address] Blood (Peripheral) 08/27/2024 1:39 AM CDT 08/27/2024 [...] performance characteristics have been verified by the [facility] Microbiology Laboratory. For questions about this culture, contact the Microbiology Laboratory at [phone]. Interpretive data was last revised on 24. Carmina GARCIA LAB MICROBIOLOGY - GENERAL ORDER LAINA Final Result Performing Organization Address City/[facility]/ZIP Co de Phone Number [facility] [address] [address] * Troponin T high-sensitivity 2-hour (08/27/2024 1:02 AM CDT) Trop T hs 7 <=22 ng/L Comment: Interpretive Data For further hscTnT resources including the diagnostic algorithm and an aid in interpretation, copy and paste this link: https://nrl.testcatalog.org/show/hsTrop Current Interpretive Data last revised 2020. Trop T hs delta -1 ng/L [facility] Trop T hs interp Insignificant [facility] Blood 08/27/2024 1:02 AM CDT 08/27/2024 1:07 AM CDT Carmina GARCIA LAB BLOOD ORDERABLES Final Resul t Performing Organization Address [facility] Co de Phone Number CANDIE[address] [address] * Prolactin (08/27/2024 1:02 AM CDT) Prolactin 4.7 4.0 - 15.2 ng/mL Comment:Testing performed by : [facility], [address] [place]., [address] Blood 08/27/2024 1:02 AM CDT 08/27/2024 7:24 AM CDT Narrative [facility] - 08/27/2024 7:51 AM CDT Please use blood drawn on 08/26 Edith Peck DO LAB BLOOD ORDERABLES Fin al Result Performing Organization Address City/[facility]/ZIP Co de Phone Number CANDIE[address] [place] [address] * CRP (acute phase) (08/27/2024 1:02 AM CDT) CRP 1.6 <=10.0 mg/L Blood 08/27/2024 1:02 AM CDT 08/27/2024 1:07 AM CDT Edith Peck DO LAB BLOOD ORDERABLES Fin al Result Performing Organization Address 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 ([id number]) on 08/30/2024 8:43:54 AM [facility] 08/27/2024 1:00 AM CDT 08/30/2024 8:43 AM CDT Carmina GARCIA ECG ORDERABLES Final Result Performing Organization Address [facility] de Phone Number [facility] Public [employer] [facility] * CT Chest PE (CTA) W [...] by Ti Willis M.D. T: Report ID: [id number] Reading Location: [place] [address] Procedure Note Ti Willis MD - 08/27/2024 [...] by Ti Willis M.D. T: Report ID: [id number] Reading Location: [id number] us Carmina GARCIA IMG CT PROCEDURES Final Result * CT head without contrast (08/27/2024 12:36 AM CDT) Anatomical Region Laterality Modality Head and Neck N/A Computed Tomogra phy 08/27/2024 12:5 3 AM CDT Narrative 08/27/2024 12:54 AM CDT EXAM DESCRIPTION: CT HEAD WO CONTRAST REASON FOR STUDY: syncope, syncope Pt bibems from [facility] for complaint of syncopal episode. Pt endorses chest pain and SoB in addition, beginning this AM. Pt actively receiving treatment at [facility] for Opiate, ETOH, and Canabis withdrawal [...] signed by Ti LONGORIA T: Report ID: [id number] Reading Location: [id number] Procedure Note Ti Willis MD - 08/27/2024 EXAM DESCRIPTION: CT HEAD WO CONTRAST REASON FOR STUDY: syncope, syncope Pt bibems from [facility] for complaint of syncopal episode. Ptendorses chest pain and SoB in addition, beginning this AM. Pt activelyreceiving treatment at [facility] for Opiate, ETOH, and Canabis withdrawal [...] signed by Ti LONGORIA T: Report ID: [id number] Reading Location: [id number] Carmina GARCIA IMG CT PROCEDURES Final Result [...] LAB BLOOD ORDERABLES Final Resul t [facility] [address] [facility] Department [place] [address] * Influenza A/B, RSV, and COVID-19 PCR Nasopharyngeal (08/26/2024 11:00 PM CDT) [facility] COVID-19 RNA Negative Negative Influenza A RNA Negative Negative [facility] Influenza B RNA Negative Negative [facility] RSV RNA Negative Negative [facility] Comment: Interpretive data: Testing performed by [facility]. This test is performed using the [employer] Xpert Xpress CoV-2/Flu/RSV plus assay. This is a multiplex, real-time reverse transcriptase PCR assay intended for the qualitative detection of nucleic acid from SARS-CoV-2, influenza A, influenza B, and respiratory syncytial virus. This assay has been cleared by the [place] Food and Drug administration. The performance characteristics have been verified by the [facility]. Results must be considered in the clinical context, and a negative result does not rule out infection. Interpretive Data last revised 2023 Nasopharyngeal 08/26/2024 11 :00 PM CDT 08/26/2024 11:07 PM CDT Narrative [facility] - 08/26/2024 11:45 PM CDT Is the Patient experiencing symptoms consistent with COVID?->Unknown us Carmina [employer] PA LAB MICROBIOLOGY - GENERAL ORDER LAINA Final Result [facility] [address] [address] * (ABNORMAL) Sepsis Lactate w/ Reflex (08/26/2024 11:00 PM CDT) Sepsis Lactate 2.5(H) 0.7 - 2.0 mmol/L Blood 08/26/2024 11:0 0 PM CDT 08/26/2024 11:06 PM CDT us [employer] PA LAB BLOOD ORDERABLES Final Resul t Performing Organization Address City/[facility]/ZIP Co de Phone Number [facility] [address] [address] * eGFR (08/26/2024 11:00 PM CDT) eGFR [...] PM CDT 08/26/2024 11:05 PM CDT us [employer]mina[employer]ounder [employer] PA LAB BLOOD ORDERABLES Final Resul t [facility] [address] [facility] Department [place] [address] * (ABNORMAL) Differential, auto (08/26/2024 11:00 PM CDT) Neutrophil abs 18.3(H) 1.5 - 6.5 K/cumm Imm gran abs 0.1 0.0 - 0.1 K/cumm [facility] Lymphocyte abs 1.0 0.8 - 3.3 K/cumm [facility] Monocyte abs 0.7 0.2 - 0.8 K/cumm [facility] Eosinophil abs 0.1 0.0 - 0.5 K/cumm [facility] Basophil abs 0.0 0.0 - 0.1 K/cumm [facility] Neutrophil pct 91.0 % [facility] Comment: Interpretive Data Percent cell count reference ranges are not reported, since discordance with absolute values may lead to misinterpretation of CBC data. Current Interpretive Data was last revised on 2017. Imm gran pct 0.4 % [facility] Comment: Interpretive Data Percent cell count reference ranges are not reported, since discordance with absolute values may lead to misinterpretation of CBC data. Current Interpretive Data was last revised on 2017. Lymphocyte pct 4.7 % [facility] Comment: Interpretive Data Percent cell count reference ranges are not reported, since discordance with absolute values may lead to misinterpretation of CBC data. Current Interpretive Data was last revised on 2017. Monocyte pct 3.4 % [facility] Comment: Interpretive Data Percent cell count reference ranges are not reported, since discordance with absolute values may lead to misinterpretation of CBC data. Current Interpretive Data was last revised on 2017. Eosinophil pct 0.4 % [facility] Comment: Interpretive Data Percent cell count reference ranges are not reported, since discordance with absolute values may lead to misinterpretation of CBC data. Current Interpretive Data was last revised on 2017. Basophil pct 0.1 % [facility] Comment: Interpretive Data Percent cell count reference ranges are not reported, since discordance with absolute values may lead to misinterpretation of CBC data. Current Interpretive Data was last revised on 2017. Blood 08/26/2024 11:0 0 PM CDT 08/26/2024 11:05 PM CDT us Carmina GARCIA LAB BLOOD ORDERABLES Final Resul t [facility] [address] [facility] Department [place] [address] * Pro B-type natriuretic peptide (08/26/2024 11:00 [...] ORDERABLES Final Resul t Performing Organization Address [facility] Co de Phone Number [address] [address] * (ABNORMAL) CBC with auto differential (08/26/2024 11:00 PM CDT) WBC 20.1(H) 3.8 - 9.9 K/cumm Hgb 15.3 13.0 - 17.5 g/dL [facility] Hct 43.7 38.9 - 50.3 % [facility] Plt 494(H) 150 - 400 K/cumm [facility] MPV 9.8 9.1 - 12.3 fL [facility] RBC 5.38 4.30 - 5.80 M/cumm [facility] MCV 81.2(L) 81.3 - 96.4 fL [facility] MCH 28.4 27.1 - 33.3 pg [facility] MCHC 35.0 32.3 - 35.7 g/dL [facility] RDW CV 12.4 11.1 - 14.9 % [facility] RDW SD 35.8 35.7 - 48.1 fL [facility] NRBC abs 0.00 0.00 - 0.01 K/cumm [facility] Blood 08/26/2024 11:0 0 PM CDT 08/26/2024 11:05 PM CDT Carmina GARCIA LAB BLOOD ORDERABLES Final Resul t Performing Organization Address [facility] Co de Phone Number CANDIE[address] [place] [address] * (ABNORMAL) Erythrocyte sedimentation rate (08/26/2024 11:00 PM CDT) Erythrocyte sedimentation rate 26(H) 1 - 15 mm/hr Blood 08/26/2024 11:0 0 PM CDT 08/26/2024 11:05 PM CDT Edith Peck DO LAB BLOOD ORDERABLES Fin al Result Performing Organization Address [facility] Co de Phone Number CANDIE[address] [place] [address] * (ABNORMAL) Phosphorus (08/26/2024 11:00 PM CDT) Phosphorus, pl 1.5(L) 2.3 - 4.5 mg/dL Blood 08/26/2024 11:0 0 PM CDT 08/26/2024 11:05 PM CDT Carmina GARCIA LAB BLOOD ORDERABLES Final Resul t Performing Organization Address [facility] Co de Phone Number [facility] [address] [place] [address] * Magnesium (08/26/2024 11:00 PM CDT) Pathologist [facility] Magnesium 2.0 1.4 - 2.5 mg/dL Blood 08/26/2024 11:0 0 PM CDT 08/26/2024 11:05 PM CDT Carmina GARCIA LAB BLOOD ORDERABLES Final Resul t Performing Organization Address [facility] de Phone Number CANDIE[address] [place] [address] * Ethanol (08/26/2024 11:00 PM CDT) Pathologist [facility] Ethanol <10 <=10 mg/dL Comment: Interpretive Data Legal limit of intoxication > or = 80 mg/dL Levels > or = 400 mg/dL are potentially TOXIC. Current interpretive data was last revised on 2018. Blood 08/26/2024 11:0 0 PM CDT 08/26/2024 11:05 PM CDT Carmina GARCIA LAB BLOOD ORDERABLES Final Resul t Performing Organization Address [facility] Co de Phone Number [facility] [address] [place] [address] * (ABNORMAL) Comprehensive metabolic panel (08/26/2024 11:00 PM CDT) Sodium 136 135 - 145 mmol/L Potassium, pl 3.8 3.3 - 4.9 mmol/L [facility] Chloride 98 97 - 110 mmol/L [facility] CO2 21(L) 22 - 32 mmol/L [facility] Anion gap 17(H) 2 - 15 mmol/L [facility] BUN 16 6 - 25 mg/dL [facility] Creatinine 0.89 0.80 - 1.30 mg/dL [facility] Glucose 149 70 - 199 mg/dL [facility] Comment: Interpretive Data Fasting glucose [...] 2022. Calcium 10.4(H) 8.5 - 10.3 mg/dL [facility] Bilirubin, total 0.3 0.1 - 1.2 mg/dL [facility] Protein, pl 7.8 6.5 - 8.5 g/dL [facility] Albumin 4.5 3.5 - 5.0 g/dL [facility] Alk phos 123 40 - 130 Units/L [facility] ALT 10 7 - 55 Units/L [facility] AST 21 10 - 50 Units/L [facility] Blood 08/26/2024 11:0 0 PM CDT 08/26/2024 11:05 PM CDT us Carmina GARCIA LAB BLOOD ORDERABLES Final Resul t [facility] [address] Department [place] [address] * XR Chest 1 Vw Portable (if patient condition/safety warrant portable) (08/26/2024 10:44 PM CDT) Anatomical Region Laterality Modality Body, Chest N/A Computed Radiogr aphy 08/26/2024 11:1 6 PM CDT Narrative 08/26/2024 11:19 PM CDT EXAM DESCRIPTION: XR CHEST 1 VIEW REASON FOR STUDY: Shortness of breath Pt bibems from [facility] for complaint of syncopal episode. Pt endorses chest pain and SoB in addition, beginning this AM. Pt actively receiving treatment at [facility] for Opiate, ETOH, and Canabis withdrawal [...] Adin Fitzpatrick M.D. AR T: Report ID: [id number] Reading Location: [id number] Procedure Note Adin Fitzpatrick MD - 08/26/2024 EXAM DESCRIPTION: XR CHEST 1 VIEW REASON FOR STUDY: Shortness of breath Pt bibems from [facility] for complaint of syncopal episode. Ptendorses chest pain and SoB in addition, beginning this AM. Pt activelyreceiving treatment at [facility] for Opiate, ETOH, and Canabis withdrawal [...] Adin Fitzpatrick M.D. AR T: Report ID: [id number] Reading Location: [place] [address] Carmina GARCIA IMG XR PROCEDURES Final Result * ECG 12 lead (08/26/2024 10:39 PM CDT) Ventricular Rate EKG/Min 81 BPM [facility] Atrial Rate 81 BPM [facility] CO-Interval (MSEC) 138 ms [facility] QRS-Interval (MSEC) 86 ms [facility] QT-Interval (MSEC) 356 ms [facility] QTc 413 ms [facility] P [place] 19 degrees [facility] R [place] 84 degrees [facility] T [place] 69 degrees [facility] Diagnosis Sinus rhythm with marked sinus arrhythmia Otherwise normal ECG When compared with ECG of 02-OCT-2020 15:36, No significant change was found Confirmed by ANGELA PEREIRA M.D. ([id number]) on 08/30/2024 8:40:53 AM [facility] 08/26/2024 10:3 9 PM CDT 08/30/2024 8:40 AM CDT Carmina GARCIA ECG ORDERABLES Final Result [facility] from Last 3 Months Insurance [facility] Advance Directives For more information, please contact: [phone] * Full Code (Latest Code Status on File) Date Activated Date Inactivated Comments 08/27/2024 2:54 AM 08/30/2024 10:39 PM Care Teams Sterile Proc Tech Relationship Specialty Start Date End Date Lion Velázquez [place] [id number] [address] PCP - General 06/26/17
--- OUTSIDE RECORDS SUMMARY | 2024-09-27 19:22 | XMS_ITS | Clinical Summary ---
Author Organization [facility] Address [address] [place] [address] Care Team Providers Care Sawdust Machine Operator Name Role Phone Unavailable Primary Care Provider Unavailabl e Source Comments [facility],non-owned Affiliates and Associated Physician Practices is amultiple site organization consisting of ambulatory clinics and hospital sitesin [place], [place], [place] and [place]. This disclosure is being madepursuant to the Care Everywhere program and may not contain all information available regarding this patient. Last updated 18.[facility] [email or web address] Allergies No known active allergies Medications * [...] on file Legal Sex Male 10:26 AM DIRECTOR REGULATORY COMPLIANCE Gender Identity Not on file Sexual Orientation [...] patient's age to complete this topic Insurance [facility] [place] [facility]ICAID [facility] [place] MEDICA[place] - [employer] [facility] Advance Directives * Full Code (Latest Code Status on File) Date Activated Date Inactivated Comments 10/02/2020 11:13 PM 10/04/2020 6:19 PM
--- OUTSIDE RECORDS SUMMARY | 2024-09-27 19:22 | XMS_ITS | Clinical Summary ---
Author Organization [facility] Address [address] [place] [address] Phone Care Team Providers Care Foot Worker Name Role Phone Jessica Carrington PAC Primary [...] = 0.6 oz pur e alcohol) [facility] Utilities Answer Date Recorded In the past 12 months has e [employer], gas, oil, or water [employer] threatened to shut off services in your [...] How often do you attend chur or jainism services? More than 4 times per year 06/28/2024 Do you belong to any clubs o r organizations such as protestant groups, unions, fraternal or athletic groups, or [...] care, and heating? Not very hard 06/28/2024 [facility] - Occupational [...] place to sleep or slept in a jail (including now)? No 09/12/2023 Housing Stability Vital Sign Answer Myles e Recorded In the last 12 months, was t here a time when you were not able to pay the mortgage or rent on time? No 06/28/19 In the past 12 months, how m any times have you moved where you were living? 1 06/28/2024 At any time in the past 12 m [facility], were you homeless or living in a jail (including now)? Patient declined 06/28/2024 Sexually Active Control Partners Comments Not Currently Female Sex and Gender Information Value Date Recorded Sex Assigned at Not on file Legal Sex Male 12:50 PM CDT Gender Identity Not on file Sexual Orientation Not on file Last Filed Vital Signs Vital Sign Reading Time Taken Comments Blood Pressure 114/80 06/30/2024 1:36 AM [employer]AD [employer]ERIAL [employer] Pulse 97 06/30/2024 1:36 AM LEAD MATERIAL HANDLER Temperature 36.4 C (97.6 F) 06/30/2024 1:36 AM LEAD MATERIAL HANDLER Respiratory Rate 16 06/30/2024 1:36 AM LEAD MATERIAL HANDLER Oxygen Saturation 96% 06/30/2024 1:36 AM LEAD MATERIAL HANDLER Inhaled Oxygen Concentration - - Weight 54.9 kg (121 lb) 06/29/2024 9:00 AM LEAD MATERIAL HANDLER b ed scale Height 172.7 cm (5' 8 ) 06/28/2024 5:20 PM LEAD [employer]ERIAL HAND[employer]ER Body Mass Index 18.4 06/28/2024 5:20 PM LEAD MATERIAL HANDLER Plan of Treatment Not on file Insurance [...] measures to stabilize the patient. Care Teams Foot Worker Relationship Specialty Start Date End Date Jessica Carrington PAC [address] [place] [address] PCP - General Physician Lifter/Driver 09/12/23
[2024-09-27 19:56] LABS: Basophils Percent Auto 0.6 % (0.2-1.2); Hematocrit 39.7 % (42.0-52.0); Immature Granulocyte Absolute 0.03 K/mm3 (0.00-0.031); Immature Granulocyte Percent A 0.4 % (0-0.5); Lymphocytes Absolute Auto 1.16 K/mm3 (0.9-3.2); Lymphocytes Percent Auto 17.2 % (18.3-44.2); Mean Corpuscular HGB Conc 32.7 g/dl (32-36); Mean Corpuscular Hemoglobin 28.5 pg (26-34); Mean Corpuscular Volume 87.1 fl (80-100); Mean Platelet Volume 9.5 fl (7.4-10.4); Monocytes Absolute Auto 0.3 K/mm3 (0.1-0.6); Monocytes Percent Auto 4.9 % (2.6-8.5); Neutrophils Absolute Auto 5.2 K/mm3 (1.3-6.7); Neutrophils Percent Auto 76.9 % (45.5-73.1); Platelet Count Result 326 k/mm3 (150-375); Red Blood Count 4.56 M/mm3 (4.6-6.20); Red Cell Distribution Width 12.3 % (11.5-14.5); White Blood Count 6.8 K/mm3 (4.5-10.0)
[2024-09-27 20:06] VITALS: PULSE 112; RESP 13
[2024-09-27 20:07] VITALS: BP 136/88; PULSE 111; RESP 15; O2SAT 99
[2024-09-27] MEDS: SODIUM CHLORIDE 0.9% IV 1,000 ML 999 ML IV CONT (20:08)
[2024-09-27 20:11] LABS: Anion Gap 7 mmol/L (4-12); Blood Urea Nitrogen 11 mg/dL (9-20); Calcium 9.4 mg/dL (8.4-10.2); Carbon Dioxide 32 mmol/L (22-30); Chloride 100 mmol/L (98-107); Estimated CRCL calculation 103 ml/min; Estimated Glomerular Filt Rate > 60; Glucose 116 mg/dL (65-110); Magnesium 1.6 mg/dL (1.6-2.3); Potassium 4.2 mmol/L (3.4-5.0); Sodium 139 mmol/L (137-145)
[2024-09-27 20:12] LABS: Ethanol < 10 mg/dL (<10)
--- NOTE | 2024-09-27 20:57 | PC.NURSE ---
This RN called Iban DALY to update on pt leaving AMA. EDP made aware
[2024-09-27 21:00] VITALS: BP 136/88; PULSE 111; RESP 15; O2SAT 99
== END 2024-09-27 21:01 | disposition left against medical advice (07) ==
PROVIDERS: Emergency Medicine; Emergency Provider Student in an Organized Health Care Education/Training Program; PCP Family Medicine
DX: F11.93 Opioid use, unspecified with withdrawal (principal); F12.90 Cannabis use, unspecified, uncomplicated; M41.9 Scoliosis, unspecified; F17.290 Nicotine dependence, other tobacco product, uncomplicated
CPT/HCPCS: 36415; 80048; 80307; 81001; 82077; 83735; 85025; 96360; 99284; J7030

== ENCOUNTER 2024-12-15 10:05 | Emergency (ER) | payer OTHER, SELFPAY ==
[2024-12-15] VITALS (15 sets, daily range): BP systolic 123–154; BP diastolic 97–100; PULSE 57–119; RESP 3–26; TEMP 36.6; O2SAT 93–100
--- NOTE | ~2024-12-15 | CT_ITS ---
EXAMINATION: CT brain wo con DATE: 12/15/2024 10:36 INDICATION: Seizure TECHNIQUE: Computed tomography (CT) of the head was performed without intravenous contrast. Sagittal and coronal reconstructions were performed. The mA was adjusted according to patient size. Iterative reconstruction technique was employed. The dose-length product was 605.33 mGy-cm. COMPARISON: head CT dated 04/06/2020 FINDINGS: No acute intracranial hemorrhage, acute infarction or abnormal extra axial fluid collection. Ventricl es are normal and symmetric. No mass/mass effect. Mild mucoperiosteal thickening the bilateral maxill shane sinuses and posterior left ethmoid sinus. The orbits and mastoid air cells are normal. IMPRESSION: 1. Normal brain. Reviewed, dictated and finalized at location B. IMPRESSION: 1. Normal brain.
--- NOTE | ~2024-12-15 | XR_ITS ---
CHEST RADIOGRAPH CLINICAL HISTORY: seizure . COMPARISON: None available TECHNIQUE: Single portable view of the chest. FINDINGS The cardiomediastinal silhouette is unremarkable. The lungs are clear. IMPRESSION: No focal infiltrate or effusion. Reviewed, dictated and finalized at location A.
--- NOTE | 2024-12-15 10:07 | ECG_ITS ---
Test Date: 2024-12-15 10:12:00 Measurements Intervals [place] Rate: 101 P: 46 HI: 135 QRS: 71 QRSD: 77 T: 46 QT: 328 QTc: 427 Interpretive Statements SINUS TACHYCARDIA ABNORMAL RHYTHM ECG Compared to ECG 05/08/2024 20:26:05 No significant changes Electronically Signed On 12-15-2024 12:53:54 CDT by Saurav Lainez M.D.
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
--- OUTSIDE RECORDS SUMMARY | 2024-12-15 10:37 | XMS_ITS ---
Author Organization [facility] Address [address] [place] [address] Care Team Providers Care Malware Analyst Name Role Phone Diego Masolas Primary Care Provider Chai iKara Kramer [phone] Allergies No Known Allergies Results Component Value Reference Range Notes 12 Panel Urine Drug Screen ( Not yet reviewed by provider) Interpretation: Performing Lab: Notes/Report: THC pos LOLIS neg MOP (OPI) neg AMP neg MET neg BAR neg BZO neg MDMA pos MTD neg OXY neg PCP neg BUP pos REASON FOR VISIT needs suboxone Medications Medication SIG (Take, Route, Frequency, Duration) Notes Start Date End Date Status Buprenorphine HCl-Naloxone HCl 8-2 MG 1 film under the tongue and allow to dissolve Sublingual 3 times a day 12/14/2024 Active Acetaminophen 500 MG two tablets as need ed for pain (maximum of 6 tablets in 24 hours) Orally every 6 hrs 10/24/2023 Active Narcan 4 MG/0.1ML 4mg as needed for op ioid overdose Nasally once 11/07/2023 Active QUEtiapine Fumarate 25 MG 1 tablet at be dtime Orally Once a day; Duration: 30 day(s) 12/14/2024 Active Social History Tobacco Use: Social History [...] Problem Status W/U Status Risk Notes Problem Sleep disturbance (91342315) Sleep disturbance (G47.9) Active confirmed Problem Nicotine dependence with current use (F17.200) Active confirmed Vital Signs Weight 119.6 lbs 12/14/2024 Height 69 in 12/14/2024 BMI 17.66 kg/m2 12/14/2024 Blood pressure systolic 112 mm Hg 12/15/19 25 Blood pressure diastolic 80 mm Hg 025 Heart Rate 98 /min 12/14/2024 Oximetry 100 % 12/14/2024 Temperature 98.0 degrees Fahrenheit 12/15/19 25 Respiratory Rate 20 /min 12/14/2024 Encounters Encounter Location Date Provider Diagnosis [place] [address] [place] [address] 12/14/2024 Kiara Tonyfranklin Opioid use disorder F11.99 ; Sleep disturbance G47.9 ; Underweight R63.6 and Nicotine dependence with current use F17.200 Assessments Encounter Date Diagnosis (ICD Code) Assessment Notes Treatment Notes Treatment Clinical Notes Section Notes 12/14/2024 Opioid use disorder (ICD-10 - F11.99) 12/14/2024 Sleep disturbance (ICD-10 - G47.9) 12/14/2024 Underweight (ICD-10 - R63.6) 12/14/2024 Nicotine dependence with current use (ICD-10 - F17.200) 12/14/2024 Other Discussed medication side effects, adverse effects, risks, benefits, as well as interactions. Encouraged non-use of opioids. Has naloxone. Recommended participation in recovery groups and/or counseling services. May contact office with questions or concerns. Patient may self-administer their own medications or may self-administer their own oral medications per [facility] Protocol. Plan Of Treatment Medication Medication Name Sig Start Date Stop Date Notes Buprenorphine HCl-Naloxone H Cl 8-2 MG 1 film under the tongue and allow to dissolve Sublingual 3 times a day 12/14/2024 QUEtiapine Fumarate 25 MG 1 tablet at be dtime Orally Once a day; Duration: 30 day(s) 12/14/2024 Treatment Notes Assessment Notes Other Discussed medication side effects, adverse effects, risks, benefits, as well as interactions. Encouraged non-use of opioids. Has naloxone. Recommended participation in recovery groups and/or counseling services. May contact office with questions or concerns. 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 Was hospitalized N o. D epression Screening: PHQ-9 L ittle interest or pleasure in doing things?Several days F eeling down, depressed, or hopeless M ore than half the days T rouble falling or staying asleep, or sleeping too much N early every day F eeling tired or having little energy S everal days P oor appetite or overeating S everal days F eeling bad about yourself or that you are a failure, or have let yourself or your family down M ore than half the days T rouble concentrating on things, such as reading the newspaper or watching television S everal days M oving or speaking so slowly that other people could have noticed; or the opposite, being so fidgety or restless that you have been moving around a lot more than usual S everal days T houghts that you would be better off or of hurting yourself in some way N ot at all T otal Score 1 2 I nterpretation M oderate Depression Intervention D epression Screening Findings P ositive F ollow-Up for Depression P atient refused intervention S creening: Taliaferro Suicide Severity Rating Scale (LF) D o you want to initiate with S creener form 1 . Wish to be : Have you wished you were or wished you could go to sleep and not wake up? N o 2 . Suicidal Thoughts: Have you actually had any thoughts of killing yourself? N o 6 . Suicide Behavior Question: Have you ever done anything,started to do anything, or prepared to end your life? N o I nterpretation: L ow Risk P reventative Health and Wellness follow-up: Action Plans for Clinical Quality Measures: C olorectal Cancer Screening: N ot addressed during this visit. See notes for details. D epression Screening and Follow-up: N ot addressed during this visit. See notes for details. H IV Screening: N ot addressed during this visit. See notes for details. T obacco Screening and Cessation: N ot addressed during this visit. See notes for details. . C SSRS Interpretation and Follow Up Plan: CSSRS Interpretation and Follow Up Plan C SSRS Screen documented using SF Y es R isk Disposition from L ow - No Follow Up Plan Required F ollow Up Plan N o Follow Up Plan required at this time. T imeframe of Screening T kathy ARCHULETA follow-up: Humberto presents for MAR f/u for treatment of OUD. Reports having a slip up last month and used fentanyl, last use 1 week ago. Reports use triggered by the of his cousing who of an overdose. States he restarted taking buprenoprhine 48 hours after last use. C/o difficulty sleeping, has been prescribed quetiapine in the past which helped and would like to restart. Medication Monitoring and Risk Mitigation U p-to-date on ASAM recommended lab testing??Yes P rescribed a buprenorphine product? Y es H as patient had a buprenorphine and metabolite lab ordered/collected? Y es (see notes for date of last metabolite testing) D ate of last buprenorphine and metabolite?11/19/2024 P rescription Drug Monitoring Program Review?Yes. No concerns at this time. P helena to address any concerns identified: R ecommending increased engagement with recovery support., In-office visits required at this time. Cravings, Setbacks, Substance use, and Stressors C ravings since last visit: N o. Patient denies cravings since last visit. S etbacks since last visit? Y es. See notes. M isuse of substances since last visit: N o, patient denies. S tressors Y es, patient admits to stressors. See notes. Withdrawal and Intoxication Symptoms I ntoxication Symptoms: N o signs of intoxication are present during visit. W ithdrawal Symptoms: N o withdrawal signs are present during visit. Mental Health, Support System, and Social Determinants M ental Health Status S table. S upport Systems Include: P ersonal support system (see notes). C ourt System Involvement? N o H ousing Stability: S table and safe housing. C urrently employed? U nemployed. R eferrals needed: Obi gonzalez recommended the following referrals, but the patient declined: R eferrals declined for: R ecovery meetings/recovery support peer Recommended Wellness and Prevention Follow-up R ecommended Wellness and Prevention reviewed:?Yes. No additional orders/actions needed at this time. Other concerns: O ther Concerns? N o. N arcan need N o. Patient already has Narcan. * ROS: B asic ROS: Denies C hills. D enies S weats. D enies C onstipation. I nsomnia A dmits. D enies S uicidal Thoughts. * Medical History: * Surgical History: Josephine mary Past Surgical History * Hospitalization/Major Diagno stic Procedure: f ractured spine etoxed [place]'s * Family History: F ather: alive, lukemia. M other: , drug overdose. * Social History: P jermaine Social History: L iving Arrangement L iving [...] of learning: D iscussion * Medications: T akingBuprenorphine HCl-Naloxone HCl 8-2 MG Film 1 film under the tongue and allow to dissolve Sublingual 3 times a day Acetaminophen 500 MG Tablet two tablets as needed for pain (maximum of 6 tablets in 24 hours) Orally every 6 hrs Narcan 4 MG/0.1ML Liquid 4mg as needed for opioid overdose Nasally once Medication List reviewed and reconciled with the patientTaking Buprenorphine HCl-Naloxone HCl 8-2 MG Film 1 film under the tongue and allow to dissolve Sublingual 3 times a day Taking Acetaminophen 500 MG Tablet two tablets as needed for pain (maximum of 6 tablets in 24 hours) Orally every 6 hrs Taking Narcan 4 MG/0.1ML Liquid 4mg as needed for opioid overdose Nasally once Medication List reviewed and reconciled with the patient * Allergies: N .K.D.A.no[Allergies Verified] Objective: * Vitals: I nitials: HM, Wt:119.6, Ht: 69, BMI:17.66, BP:112/80, HR:98, Oxygen sat %:100, Temp:98.0, RR:20, Pain scale:0. * Examination: [facility] Physical Assessment: Intoxication and Withdrawal signs I ntoxication signs N o signs of intoxication are present during examination. W ithdrawal Signs N o withdrawal signs are present during examination. G eneral Examination: GENERAL APPEARANCE: i n no acute distress. SKIN: w arm and dry. HEART: r egular rate and rhythm. LUNGS: r espirations regular and easy. PSYCH: a lert, oriented x4, speech clear, good eye contact, full range of affect/positive mood, thought process logical, goal directed. Assessment: * Assessment: 1. S leep disturbance - G47.9 2 . O pioid use disorder - F11.99 (Primary)? 3. U nderweight - R63.6 4 . N icotine dependence with current use - F17.200 Plan: * Treatment: Value Reference Range T HC pos * C OC neg * M OP (OPI) neg * A MP neg * M ET neg * B AR neg * B ZO neg * M DMA pos * M TD neg * O XY neg * P CP neg * B UP pos 2.?Sleep disturbance? Start QUEtiapine Fumarate Tablet, 25 MG, 1 tablet at bedtime, Orally, Once a day, 30 day(s), 30. ?3.?Others? Notes: Discussed medication side effects, adverse effects, risks, benefits, as well as interactions. Encouraged non-use of opioids. Has naloxone. Recommended participation in recovery groups and/or counseling services. May contact office with questions or concerns.?? Clinical Notes: Patient may self-administer their own medications or may self- administer their own oral medications per [facility] Protocol.?? * Recommended Wellness and Pre vention Guidelines: * S tatus A lert L ast Done N ext Due A ction Taken N ONCOMPLIANT A lcohol use screening - 0 12/14/2024 - - N ONCOMPLIANT A llergy List Verification - 0 12/14/2024 - - N ONCOMPLIANT D epression followup 0 12/14/2024 0 12/14/2024 - - * Procedure Codes: 9 9000 SPECIMEN [id number] BODY MASS INDEX DOCD * Preventive Medicine: Counseling: C are goal follow-up plan: BMI management provided Y es Below Normal BMI Follow-up L ifestyle education regarding diet S MOKING: Patient counselled on the dangers of tobacco use and urged to quit. . * Follow Up: 4 Weeks (Reason: AUG f/u) * Care Plan Details* * Sign off status: Completed true * Provider: Carmelita Paula, MSN, BENEFITS CONSULTANT, CABINET PROFESSIONAL-C Date: 12/14/2024 Generated for Jovany obrien/Terrie/eTransmitting on: 12/15/2024 10:37 AM CDT History and Physical Notes * HPI (History of Present Illness) Category Sub-Category Detail Notes Category Not es Interim History Was hospitalized No Emergency room visit No Depression Screening PHQ-9 Little inte rest or pleasure in doing things: Several days Feeling down, depressed, or hopeless: Mo re than half the days Trouble falling or staying asleep, or sl eeping too much: Nearly every day Feeling tired or having little energy: S everal days Poor appetite or overeating: Several day s Feeling bad about yourself o r that you are a failure, or have let yourself or your family down: More than half the days Trouble concentrating on thi ngs, such [...] yourself in some way: Not at all Total Score: 12 Interpretation: Moderate Depression Intervention Depression Screening Findings: P ositive Follow-Up for Depression: Patient refuse d intervention Screening Taliaferro Suicide Sev erity Rating Scale (LF) Do [...] end your life?: No Interpretation:: Low Risk MAR follow-up Medication Monitorin g and Risk Mitigation Up-to-date on ASAM recommended lab testing?: Yes Prescribed a buprenorphine product?: Yes Has patient had a buprenorphine and metabolite lab ordered/collected?: Yes (see notes for date of last metabolite testing) Date of last buprenorphine and metabolite: 11/19/2024 Prescription Drug Monitoring Program Rev iew: Yes. No concerns at this time. Plan to address any concerns identified:: Recommending increased engagement with recovery support., In-office visits required at this time. Cravings, Setbacks, Substanc e use, and Stressors Cravings since last visit:: No. Patient denies cravings since last visit. Setbacks since last visit?: Yes. See not es. Misuse of substances since last visit:: No, patient denies. Stressors: Yes, patient admits to stress ors. See notes. Withdrawal and Intoxication Symptoms Int oxication Symptoms:: No signs of intoxication are present during visit. Withdrawal Symptoms:: No withdrawal sign s are present during visit. Mental Health, Support Syste m, and Social Determinants Mental Health Status: Stable. Support Systems Include:: Personal suppo rt system (see notes). Court System Involvement?: No Housing Stability:: Stable and safe hous ing. Currently employed?: Unemployed. Referrals needed:: Provider recommended the following referrals, but the patient declined: Referrals declined for:: Recovery meetings/recovery support peer Recommended Wellness and Pre vention Follow-up Recommended Wellness and Prevention reviewed:: Yes. No additional orders/actions needed at this time. Other concerns: Other Concerns?: No. Narcan need: No. Patient already has [place] can. Preventative Health and Wellness follow-up Action Plans for Clinical Quality Measures: Colorectal Cancer Screening:: Not addressed during this visit. See notes for details. . Depression Screening and Fol low-up:: Not addressed during this visit. See notes for details. HIV Screening:: Not addressed during thi s visit. See notes for details. Tobacco Screening and Cessat ion:: Not addressed during this visit. See notes for details. CSSRS Interpretation and Follow Up Plan CSSRS Interpretation and Follow Up Plan CSSRS Screen documented using SF: Yes Risk Disposition from SF: Low - No Follo w Up Plan Required Follow Up Plan: No Follow Up Plan requir ed at this time. Timeframe of Screening: Today Examination Category Sub-Category Detail Notes Category Not es General Examination GENERAL APPEARANCE: in no acute di stress HEART: regular rate and rhy thm LUNGS: respirations regular and easy SKIN: warm and dry PSYCH: alert, oriented x4, speech clear, good eye contact, full range of affect/positive mood, thought process logical, goal directed ASAM Physical Assessment Intoxication an d Withdrawal signs Intoxication signs: No signs of intoxication are present during examination. Withdrawal Signs: No withdrawal signs ar e present during examination.
--- OUTSIDE RECORDS SUMMARY | 2024-12-15 10:38 | XMS_ITS | Clinical Summary ---
Author Organization [facility] Address [address] [place] [address] Phone Care Team Providers Care Desk Editor Name Role Phone Jessica Carrington PAC Primary [...] drink = 0.6 oz pur e alcohol) [facility] Utilities Answer Date Recorded In the past 12 months has e [employer], gas, oil, or water [employer] threatened to shut off services in your home? No 06/28/2024 Social Connection and Isolation Panel Answer Date Recorded In a typical week, how many times do you talk on the phone with family, friends, or neighbors? Three times a week 06/28/2024 How often do you get togethe r with friends or relatives? Twice a week 06/28/2024 How often do you attend chur or adventist services? More than 4 times per year 06/28/2024 Do you belong to any clubs o r organizations such as roman catholic groups, unions, fraternal or athletic groups, or [...] care, and heating? Not very hard 06/28/2024 [facility] - [...] money to buy more. Never true 06/28/19 25 Within the past 12 months, t [...] any time in the past 12 m [facility], were you homeless or living [...] Comments Blood Pressure 114/80 06/30/2024 1:36 AM POT PULLER Pulse 97 06/30/2024 1:36 AM POT PULLER Temperature 36.4 C (97.6 F) 06/30/2024 1:36 AM POT PULLER Respiratory Rate 16 06/30/2024 1:36 AM POT PULLER Oxygen Saturation 96% 06/30/2024 1:36 AM POT PULLER Inhaled Oxygen Concentration - - Weight 54.9 kg (121 lb) 06/29/2024 9:00 AM POT PULLER b ed scale Height 172.7 cm (5' 8) 06/28/2024 5:20 PM POT PULLER Body Mass Index 18.4 06/28/2024 5:20 PM POT PULLER Plan of Treatment Not on file Insurance [...] measures to stabilize the patient. 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
--- OUTSIDE RECORDS SUMMARY | 2024-12-15 10:38 | XMS_ITS | Patient Health Record ---
Author Organization [facility] Address [address] [place] [address] Care Team Providers Care Pewter Caster Name Role Phone Mas, [place] Primary Care Provider [phone] Kiara Paula Unavailable [phone] Ti Jain Unavailable [phone] Allergies No Known Allergies Results Component Value Reference Range Notes 12 Panel Urine Drug Screen ( Not yet reviewed by provider) Interpretation: Performing Lab: Notes/Report: THC pos LOLIS neg MOP (OPI) neg AMP neg MET neg BAR neg BZO neg MDMA pos MTD neg OXY neg PCP neg BUP pos 12 Panel Urine Drug Screen Reviewed date:11/19/2024 03:14:13 PM Interpretation: Performing Lab: Notes/Report: THC pos LOLIS neg MOP (OPI) neg AMP neg MET neg BAR neg BZO neg MDMA neg MTD neg OXY neg PCP neg BUP pos 12 Panel Urine Drug Screen Reviewed date:11/12/2024 02:17:41 PM Interpretation: Performing Lab: Notes/Report: THC POS LOLIS neg MOP (OPI) POS AMP neg MET neg BAR neg BZO neg MDMA neg MTD neg OXY neg PCP neg BUP POS HIV Screen *HIV 1, 2 Ab, p24 Ag ([id number]) Reviewed date:09/15/2024 09:13:40 AM Interpretation:Normal Performing Lab:[facility] [place], [address] [facility], Phone - [phone], [facility] Notes/Report: HIV Ab/p24 Ag Screen Non Reactive Non Reactive HIV-1/HIV-2 antibodies and HIV-1 p24 antigen were NOT detected. There is no laboratory evidence of HIV infection. HIV Negative Rapid Plasma Reagin (RPR) Te st With Reflex to Quantitative RPR and Confirmatory Treponema pallidum Antibodies Reviewed date:09/15/2024 09:14:26 AM Interpretation:Normal Performing [facility], [address] [facility], Phone - [phone], Director - Ricchiuti Notes/Report: RPR Non Reactive Non Reactive Buprenorphine and Metabolite (Urine test) Reviewed date:12/10/2024 11:49:52 AM Interpretation:Normal Performing Lab:[facility], [address] [facility], [facility], Phone - [phone], Director - PhDAbudu Notes/Report: Clinical Information:[id number] Buprenorphine Positive Confirmation p erformed by Mass Spectrometry Buprenorphine Positive Buprenorphine Conf, MS, UR 964 Cutoff=10 ng/mL Norbuprenorphine Positive Norbuprenorphine Conf, MS, UR >2000 Cutoff=10 ng/mL PDF Report Reviewed date:12/10/2024 11:46:13 AM Interpretation: Performing Lab:[facility], [address] [place] [address], Phone - [phone], Director - Colten Notes/Report: ToxAssure, ToxAssure FLEX or MAT drug testin -Technical component - Data analysis performed at [facility], [address] [place] [address]. [phone] Violin Maker Hand Bobby Roblero MD. ToxAssure, ToxAssure FLEX or MAT drug testin -Technical component - Data analysis performed at [facility], [address] [place] [address]. [phone] Violin Maker Hand Bobby Roblero MD.[place] PDF Report1 LS Comprehensive Drug Analysis, Urine Reviewed date:12/10/2024 11:46:13 AM Interpretation:Abnormal Performing Lab:[facility], [address] [place] [address], Phone - [phone], Director - Colten Notes/Report: ToxAssure, ToxAssure FLEX or MAT drug testin -Technical component - Data analysis performed at [facility], [address] [place] [address]. [phone] Violin Maker Hand Bobby Roblero MD. ToxAssure, ToxAssure FLEX or MAT drug testin -Technical component - Data analysis performed at [facility] [address] [address]. [phone] Violin Maker Hand Bobby Roblero MD.[place] Summary Report (Summary) FINAL COMPREHENSIVE DRUG ANALYSIS,UR Test Result Flag Units Drug Present Carboxy-THC 61 ng/mg creat Carboxy-THC is a metabolite of tetrahydrocannabinol (THC). Source of THC is most commonly herbal marijuana or marijuana-based products, but THC is also present in a scheduled prescription medication. Trace amounts of THC can be present in hemp and cannabidiol (CBD) products. This test is not intended to distinguish between qypey-0-vyynknywausugebcjhh l, the predominant form of THC in most herbal or marijuana-based products, and rqdtj-3-mqvjzwugbmtbslaaduk l. Morphine 76 ng/mg creat Potential sources of morphine include administration of codeine or morphine, use of heroin, or ingestion of poppy seeds. Buprenorphine 15 ng/mg creat Norbuprenorphine 76 ng/mg creat Source of buprenorphine is a scheduled prescription medication. Norbuprenorphine is an expected metabolite of buprenorphine. Fentanyl >327 ng/mg creat Norfentanyl >654 ng/mg creat Source of fentanyl is a scheduled prescription medication, including IV, patch, and transmucosal formulations. Norfentanyl is an expected metabolite of fentanyl. Diphenhydramine PRESENT Test Result Flag Units Ref Range Creatinine 153 mg/dL >=20 For clinical consultation, please call . PDF . CBC With Differential/Platel et* Reviewed date:09/15/2024 09:13:40 AM Interpretation:Normal Performing Lab:[facility] [place], [address], [place], Phone - [phone], Director - Elise Notes/Report: WBC 7.0 3.4-10.8 x10E3/uL RBC 4.55 [...] % Immature Grans (Abs) 0.0 0.0-0.1 x10E3/uL Hepatitis C Virus Antibody w /Rflx to Quantitative Real-time PCR ([id number]) Reviewed date:09/15/2024 09:13:40 AM Interpretation:Normal [facility]forming [facility], Phone - [phone], Director - [facility] Notes/Report: HCV Ab Non Reactive Non Reactive Interpretation: Not infected with HCV unless early or acute infection is suspected (which may be delayed in an immunocompromised individual), or other evidence exists to indicate HCV infection. CMP 14 Comprehensive Metabol ic Panel* Reviewed date:09/15/2024 09:14:26 AM Interpretation: Performing Lab[facility], Phone - [phone], [facility] Notes/Report: Glucose 68 70-99 mg/dL BUN 10 [...] 0-40 IU/L ALT (SGPT) 17 0-44 IU/L QuantiFERON-TB Gold Plus ([id number] 2879) Reviewed date:09/15/2024 09:14:26 AM Interpretation:Normal Performing Lab:[facility], [facility], Phone - [phone], Director [facility] Notes/Report: QuantiFERON Incubation Incubation performed. QuantiFERON-TB Gold [...] Nil Value 0.04 QuantiFERON Mitogen Value >10.00 Opiates Confirmation, Urine* Reviewed date:12/10/2024 11:49:58 AM Interpretation:Abnormal Performing Lab:[facility], [address] [facility], [place], Phone - [phone], Director - PhDAbudu Notes/Report: Clinical Information:CCU:[id number] LM Opiates Positive Opiate test inc ludmartha Codeine, Morphine, Hydromorphone, Hydrocodone. Codeine Positive Codeine Conf, MS, UR 1163 Ksxgiz=644 ng/mL Codeine detected; this finding is consistent with use of medications that include Tylenol #2, #3, #4, Empirin #2, #3, #4, Robitussin A-C Syrup, or numerous other trade or generic formulations containing Codeine. Drugs listed are branch customer service representative of common sources of the compound detected and are not intended to include all possible sources. Morphine Positive Morphine Conf, MS, UR >3000 Tvhuvw=692 ng/mL common sources of the compound detected and are not intended to include all possible sources. Morphine detected; this finding is consistent with use of medications that include Duromorph, MS-Contin, Roxanol, Masha, or drugs containing Codeine, or generic formulations. This drug may also be detected from use of Heroin. Drugs listed are branch customer service representative of Hydromorphone Negative Sptlaq=427 Hydrocodone Negative Esafku=745 Please Note: Drug test results should be interpreted in the context of clinical information. Patient metabolic variables, specific drug chemistry, and specimen characteristics can affect test outcome. Technical consultation is available if a test result is inconsistent with an expected outcome. Email: [email or web address] . Drug brands, if listed herein, are trademarks of their respective owners. 12 Panel Urine Drug Screen Reviewed date:01/09/2024 [...] neg OXY neg PCP neg BUP positive Reason For Referral No Information Medications Medication SIG (Take, Route, Frequency, Duration) [...] W/U Status Risk Notes Problem Mood disorder (56983712) Mood disorder (F39) 4 Active confirmed Problem Sleep disturbance (17155654) Sleep disturbance (G47.9) Active confirmed Problem Scoliosis (978479452) Scoliosis (M41.9) Active confirmed Problem Opioid use disorder (9456045529) Opioid use disorder (F11.99) Active confirmed Problem Tobacco user (309948620) Nicotine dependence with current use (F17.200) Active confirmed Vital Signs Heart Rate 98 /min 12/14/2024 Temperature 98.0 degrees Fahrenheit 12/14/2024 Respiratory Rate 20 /min 12/14/2024 Blood pressure diastolic 80 mm Hg 12/14/2024 Oximetry 100 % 12/14/2024 Height 69 in 12/14/2024 Blood pressure systolic 112 mm Hg 12/14/2024 Weight 119.6 lbs 12/14/2024 BMI 17.66 kg/m2 12/14/2024 Encounters Encounter Location Date Provider Diagnosis [facility] [address] [place] [address] 01/09/2024 Ti Jain Opioid use disorder F11.99 [facility] [place] [address] 09/07/2024 Jenia Heavens Opioid use disorder F11.99 ; Patient underweight R63.6 ; Nutritional counseling Z71.3 and Tobacco use disorder F17.200 [facility] [place] [address] 11/12/2024 Jenia Heavens Opioid use disorder F11.99 and Patient underweight R63.6 [place] [address] [place] [address] 11/19/2024 Jenia Heavens Opioid use disorder F11.99 ; Patient underweight R63.6 and Tobacco use disorder F17.200 [facility] [place] [address] 12/14/2024 Jenia Heavens Opioid use disorder F11.99 ; Sleep disturbance G47.9 ; Underweight R63.6 and Nicotine dependence with current use F17.[address] [place] [address] 12/17/2023 Ti Jain [facility] [address] [place] [address] 12/10/2024 Kiara Hefranklin Assessments Encounter Date Diagnosis (ICD Code) Assessment Notes Treatment Notes Treatment Clinical Notes Section Notes 12/14/2024 Sleep disturbance (ICD-10 - G47.9) 12/14/2024 Opioid use disorder (ICD-10 - F11.99) 11/19/2024 Patient underweight (ICD-10 - R63.6) 11/19/2024 Opioid use disorder (ICD-10 - F11.99) 09/07/2024 Patient underweight (ICD-10 - R63.6) 09/07/2024 Opioid use disorder (ICD-10 - F11.99) 01/09/2024 Opioid use disorder (ICD-10 - F11.99) 11/12/2024 Opioid use disorder (ICD-10 - F11.99) 11/19/2024 Tobacco use disorder (ICD-10 - F17.200) 11/12/2024 Patient underweight (ICD-10 - R63.6) 09/07/2024 Nutritional counseling (ICD-10 - Z71.3) 12/14/2024 Underweight (ICD-10 - R63.6) 12/14/2024 Nicotine dependence with current use (ICD-10 - F17.200) 09/07/2024 Tobacco use disorder (ICD-10 - F17.200) 09/07/2024 Other Discussed medication side effects, adverse effects, risks, benefits, as well as interactions. Encouraged non-use of opioids. Has naloxone. Recommended participation in recovery groups and/or counseling services. May contact office with questions or concerns. Patient may self-administer their own medications or may self-administer their own oral medications per [place] Protocol. 11/12/2024 Other Discussed medication side effects, adverse effects, risks, benefits, as well as interactions. Encouraged non-use of opioids. Has naloxone. Recommended participation in recovery groups and/or counseling services. May contact office with questions or concerns. Patient may self-administer their own medications or may self-administer their own oral medications per [place] Protocol. 11/19/2024 Other Discussed medication side effects, adverse effects, risks, benefits, as well as interactions. Encouraged non-use of opioids. Has naloxone. Recommended participation in recovery groups and/or counseling services. May contact office with questions or concerns. Patient may self-administer their own medications or may self-administer their own oral medications per [place] Protocol. 12/14/2024 Other Discussed medication side effects, adverse effects, risks, benefits, as well as interactions. Encouraged non-use of opioids. Has naloxone. Recommended participation in recovery groups and/or counseling services. May contact office with questions or concerns. Patient may self-administer their own medications or may self-administer their own oral medications per [place] Protocol. Plan Of Treatment Pending Test Test Name Order Date 12 Panel Urine Drug Screen 12/14/2024 Insurance Providers Payer Name Payer Address Payer Phone Subscriber Number Group Number Insured Name Patient Relationship to Insured Coverage Start Date Coverage End Date [employer] [address] [phone] [id number] Humberto Tan Self - patient is the insured 1 Medical (General) History Surgical History Surgery Date(Month/Year) Hospitalization History Reason Date(Month/Year) detoxed [place]'s fractured spine 09/2020
[2024-12-15] MEDS: SODIUM CHLORIDE 0.9% IV 1,000 ML 999 ML IV CONT (10:46)
--- NOTE | 2024-12-15 10:55 | PC.NURSE ---
Bedside reports given to this RN by Jazmine BAY. Pt. is alert, with a visitor at bedside. Speech clear. Pt. has no requests at this time.
[2024-12-15 11:03] LABS: Add Urine Microscopic? YES; Appearance Urine Clear (Clear); Glucose Urine UA Negative (Negative); Leukocyte Esterase Ur Negative LEU/UL (Negative); Nitrate Urine Negative (Negative); Non Pathogenic Casts 0-2; Specific Grav Ur 1.017 (1.001-1.035)
[2024-12-15 11:07] LABS: Hematocrit 37.2 % (42.0-52.0); Hemoglobin 11.9 g/dL (14.0-18.0); Immature Granulocyte Percent A 0.3 % (0-0.5); Lymphocytes Absolute Auto 1.38 K/mm3 (0.9-3.2); Mean Corpuscular HGB Conc 32.0 g/dl (32-36); Mean Corpuscular Hemoglobin 28.5 pg (26-34); Mean Corpuscular Volume 89.0 fl (80-100); Nucleated Red Blood Cells Absolute Auto 0.000 K/mm3 (0.0-0.012); Nucleated Red Blood Cells Perc 0.0 % (0.0-0.2); Platelet Count Result 227 k/mm3 (150-375); Red Blood Count 4.18 M/mm3 (4.6-6.20); White Blood Count 6.1 K/mm3 (4.5-10.0)
[2024-12-15 11:17] LABS: Alanine Aminotransferase 19 U/L (6-50); Albumin Level 4.0 g/dL (3.5-5.1); Alkaline Phosphatase 50 U/L (38-126); Anion Gap 6 mmol/L (4-12); Aspartate Amino Transferase 26 U/L (17-59); Bilirubin,Total 0.1 mg/dL (0.2-1.3); Blood Urea Nitrogen 12 mg/dL (9-20); Calcium 9.2 mg/dL (8.4-10.2); Carbon Dioxide 29 mmol/L (22-30); Chloride 104 mmol/L (98-107); Estimated Glomerular Filt Rate > 60; Glucose 81 mg/dL (65-110); Potassium 3.8 mmol/L (3.4-5.0); Sodium 139 mmol/L (137-145); Total Protein 6.5 g/dL (6.3-8.2)
[2024-12-15 11:32] LABS: Cannabinoid Screen Urine Positive (Negative)
--- NOTE | 2024-12-15 12:08 | PC.NURSE ---
Pt. is A&Ox4, drowsy, speech clear. Pt. able to stand at bedside to urinate. Steady on his feet.
[2024-12-15] MEDS: levETIRAcetam 1000MG/NACL100ML 1,000 MG/100 ML BAG 400 MG IVPB (12:46)
--- NOTE | 2024-12-15 12:56 | PC.NURSE ---
Dr. Garay at bedside updating pt. and visitor.
== END 2024-12-15 13:07 | disposition home or self-care (01) ==
PROVIDERS: Emergency Provider Emergency Medicine; PCP Family Medicine
DX: R56.9 Unspecified convulsions (principal); F11.20 Opioid dependence, uncomplicated; R00.0 Tachycardia, unspecified
CPT/HCPCS: 36415; 70450; 71045; 80053; 80307; 81001; 82077; 85025; 93005; 96361; 96365; 99284; J1953; J7030

== ENCOUNTER 2025-03-26 00:58 | Emergency (ER) | payer OTHER, SELFPAY ==
[2025-03-26 01:06] VITALS: BP 116/102; PULSE 128; RESP 22; TEMP 36.6; O2SAT 100
[2025-03-26 02:17] LABS: Hematocrit 37.3 % (42.0-52.0); Hemoglobin 12.6 g/dL (14.0-18.0); Immature Granulocyte Percent A 0.4 % (0-0.5); Lymphocytes Absolute Auto 1.51 K/mm3 (0.9-3.2); Mean Corpuscular HGB Conc 33.8 g/dl (32-36); Mean Corpuscular Hemoglobin 28.2 pg (26-34); Mean Corpuscular Volume 83.4 fl (80-100); Nucleated Red Blood Cells Absolute Auto 0.000 K/mm3 (0.0-0.012); Nucleated Red Blood Cells Perc 0.0 % (0.0-0.2); Platelet Count Result 310 k/mm3 (150-375); Red Blood Count 4.47 M/mm3 (4.6-6.20); White Blood Count 11.1 K/mm3 (4.5-10.0)
[2025-03-26 02:29] LABS: Alanine Aminotransferase 36 U/L (6-50); Albumin Level 4.5 g/dL (3.5-5.1); Alkaline Phosphatase 71 U/L (38-126); Anion Gap 10 mmol/L (4-12); Aspartate Amino Transferase 144 U/L (17-59); Bilirubin,Total 0.6 mg/dL (0.2-1.3); Blood Urea Nitrogen 14 mg/dL (9-20); Calcium 9.7 mg/dL (8.4-10.2); Carbon Dioxide 26 mmol/L (22-30); Chloride 102 mmol/L (98-107); Estimated CRCL calculation 79 ml/min; Estimated Glomerular Filt Rate > 60; Glucose 160 mg/dL (65-110); Potassium 4.1 mmol/L (3.4-5.0); Sodium 138 mmol/L (137-145); Total Protein 7.1 g/dL (6.3-8.2)
[2025-03-26 02:40] LABS: Need Manual Microscopic Reviewed
[2025-03-26 02:42] LABS: Acetaminophen < 10 ug/mL (10-30); Salicylate < 1.0 mg/dL (2-20)
[2025-03-26 02:51] LABS: Cannabinoid Screen Urine Positive (Negative)
[2025-03-26 02:58] LABS: SARS-CoV-2 RNA PCR Negative (Negative)
[2025-03-26 03:01] LABS: Thyroid Stimulating Hormone Reflex 0.754 uIU/mL (0.465-4.68)
[2025-03-26 03:18] LABS: Add Urine Microscopic? YES; Appearance Urine Clear (Clear); Glucose Urine UA Negative (Negative); Leukocyte Esterase Ur Negative LEU/UL (Negative); Nitrate Urine Negative (Negative); Specific Grav Ur 1.031 (1.001-1.035)
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
== END 2025-03-26 04:07 | disposition left against medical advice (07) ==
PROVIDERS: Student in an Organized Health Care Education/Training Program; Emergency Provider Physician Assistant; PCP Family Medicine
DX: F11.20 Opioid dependence, uncomplicated (principal); Z11.52 Encounter for screening for COVID-19; G40.909 Epilepsy, unspecified, not intractable, without status epilepticus; Z79.899 Other long term (current) drug therapy
CPT/HCPCS: 36415; 80053; 80143; 80179; 80307; 81001; 82077; 84443; 85025; 87635; 99283

== ENCOUNTER 2025-04-18 10:32 | Emergency (ER) | payer OTHER, SELFPAY ==
--- OUTSIDE RECORDS SUMMARY | 2023-11-28 04:00 | XMS_ITS ---
Author Organization [facility] Address [address] [place] [address] Care Team Providers Care Key Cutter Name Role Phone Dwight Mas Primary Care Provider [phone] Ti Jain [phone] REASON FOR VISIT MAT F/U Social History Sex Assigned At : Social History Observation Description Sex Assigned At Male Encounters Encounter Location Date Provider Diagnosis [facility] [address] [place] [address] 11/28/2023 Ti Jain Plan Of Treatment No Information Progress Notes * Humberto XIAODOB:2000 (24 yo M)Acc No.[id number]:11/28/2023 UNLOCKED PROGRESS NOTE Patient: Humberto MARISCAL Provider: Crista Jain :2000 A ge:23 Y S ex:Male Date:11/28/2023 Address:[address], [place], [place] Pcp:Dwight Mas Subjective: * Chief Complaints: * 1 . MAT F/U. * Medical History: Objective: * Vitals: Assessment: Plan: * Treatment: * Care Plan Details* * Electronic signature of Juvenal Jain , [id number] on 04/18/2025 at 11:35 AM REPORTER ANCHOR Sign off status: Pending * Provider: Crista Jain Date: 0 11/28/2023 Generated for Jovany obrien/Terrie/eTransmitting on: 06/18/2024 11:35 AM REPORTER ANCHOR
--- OUTSIDE RECORDS SUMMARY | 2023-12-19 05:00 | XMS_ITS ---
Author Organization [facility] Address [address] [place] [address] Care Team Providers Care Clinical Registered Nurse Name Role Phone Dwight Mas Primary Care Provider [phone] Ti Jain [phone] REASON FOR VISIT MAT F/U; relapsed in past 30 days; SUBOXONE; has warm handoff info Social History Sex Assigned At : Social History Observation Description Sex Assigned At Male Encounters Encounter Location Date Provider Diagnosis [facility] [address] [place] [address] [place] [address] 12/19/2023 Ti Jain Plan Of Treatment No Information Progress Notes * Humberto TANDOB:2000 (24 yo M)Acc No.[id number]:12/19/2023 UNLOCKED PROGRESS NOTE Patient: Humberto MARISCAL Provider: Crista Jain :2000 A ge:23 Y S ex:Male Date:12/19/2023 Address:[address] , [place], [place] Pcp:Dwight Mas Subjective: * Chief Complaints: * 1 . MAT F/U; relapsed in past 30 days; SUBOXONE; has warm handoff info. * Medical History: Objective: * Vitals: Assessment: Plan: * Treatment: * Care Plan Details* * Electronic signature of Juvenal Jain , [id number] on 04/18/2025 at 11:36 AM AIRPORT TRAFFIC CONTROLLER Sign off status: Pending * Provider: Crista Jain Date: 0 12/19/2023 Generated for Jovany obrien/Terrie/Afia on: 1 06/18/2024 11:36 AM AIRPORT TRAFFIC CONTROLLER
[2025-04-18 10:45] VITALS: BP 118/66; PULSE 101; O2SAT 96
[2025-04-18 10:46] VITALS: BP 99/59; PULSE 101; RESP 6; O2SAT 95
[2025-04-18 10:50] VITALS: BP 99/59; PULSE 96; RESP 18; TEMP 37.1; O2SAT 96
--- NOTE | 2025-04-18 10:56 | ED.GENADULT ---
HPI - General Adult General Chief complaint: Unspecified Stated complaint: fentanyl withdrawal. weakness x 2 days Time Seen by Provider: 04/18/25 10:43 History of Present Illness HPI narrative: Patient was arrested and while in police custody, told him that he was having fentanyl withdrawal, which point he was brought to the emergency room. He tells me that his symptoms include pain everywhere, nausea vomiting, but that he is going to rehab today at [place]. He reports his last use was more than 24 hours ago. Related Data Allergies Allergy/AdvReac Type Severity Reaction Status Date / Time No Known Allergies Allergy Verified 12/15/24 10:13 Review of Systems Review of Systems: All systems reviewed & are unremarkable except as noted in HPI and below PMFSH Past Medical History Medical History Scoliosis Surgical History Surgical History No history of previous surgery Social History Social History Smoking status: Smoker, status unknown Tobacco type: e-cigarettes/vaping Alcohol intake: never Substance use type: unknown Last use: 09/27/24 Gender identity (if verbalized by the patient): Male Exam Narrative: EXAMINATION OF ORGAN SYSTEMS/BODY AREAS: Constitutional: Vital signs per nursing GENERAL: Sleeping but rouses to voice. In no distress. HEAD: Normal with no signs of head trauma. EYES: EOMI, conjunctiva normal; pinpoint pupils ENT: Hearing grossly intact LUNGS: Nonlabored breathing. HEART: [Regular rate and rhythm] ABD: [Soft], [nontender to palpation] EXT: Normal range of motion SKIN: [No rashes or lesions.] NEURO: [Sleeping but wakes up to voice, falls asleep while I am talking to him. No gross focal sensory or strength deficits.] PSYCH: Normal affect Course Vital Signs Vital signs: Vital Signs Temperature 98.7 F 04/18/25 10:50 Pulse Rate 96 04/18/25 10:50 Respiratory Rate 18 04/18/25 10:50 Blood Pressure 99/59 L 04/18/25 10:50 Pulse Oximetry 96 04/18/25 10:50 Oxygen Delivery Room Air 04/18/25 10:50 Temperature 98.7 F 04/18/25 10:50 Pulse Rate 96 04/18/25 10:50 Respiratory Rate 18 04/18/25 10:50 Blood Pressure 99/59 L 04/18/25 10:50 Pulse Oximetry 96 04/18/25 10:50 Oxygen Delivery Room Air 04/18/25 10:50 Medical Decision Making MDM Narrative Medical decision making narrative: Patient presents here after he told police that he was having fentanyl withdrawal when he was arrested and in police custody. He is asleep when I walked in the room in no distress, normal vital signs, rouses easily when I talked to him, he did fall asleep during my interview, but otherwise has no focal neuro deficits, I will treat his symptoms, provide prescriptions for symptomatic management, at this point I do not feel he needs any emergent treatment at this time and he states that he will be going to the rehab today which sounds like a very reasonable plan. Stable for discharge with return precautions Vital Signs Vital Signs: Vital Signs Temperature 98.7 F 04/18/25 10:50 Pulse Rate 96 04/18/25 10:50 Respiratory Rate 18 04/18/25 10:50 Blood Pressure 99/59 L 04/18/25 10:50 Pulse Oximetry 96 04/18/25 10:50 Oxygen Delivery Room Air 04/18/25 10:50 Temperature 98.7 F 04/18/25 10:50 Pulse Rate 96 04/18/25 10:50 Respiratory Rate 18 04/18/25 10:50 Blood Pressure 99/59 L 04/18/25 10:50 Pulse Oximetry 96 04/18/25 10:50 Oxygen Delivery Room Air 04/18/25 10:50 Discharge Plan Discharge Clinical Impression: Fentanyl use disorder, severe, dependence Patient Disposition: Home Condition: Stable Instructions: Narcotic Use Disorder (ED) Additional Instructions: Please go to rehab for drug abuse. Follow up with your doctor; do not use any illicit drugs. You can always go to the ER for any further issues. Patient Language: Kazakh Prescriptions: New naloxone [Narcan] 4 mg/actuation spray,non-aerosol 4 mg intranasal Q2-3M PRN (Reason: opioid overdose) Qty: 2 0RF Rx Instructions: spray 1 dose into ONE nostril; alternate nostrils w each dose until help arrives ondansetron 4 mg tablet,disintegrating 4 mg PO Q8H PRN (Reason: nausea and vomiting) Qty: 10 0RF No Action ibuprofen 800 mg tablet 800 mg PO TID Qty: 90 0RF lidocaine 5 % adhesive patch,medicated 1 patch topical DAILY Qty: 30 0RF Rx Instructions: leave on most painful area for up to 12 hrs buprenorphine-naloxone [Suboxone] 8-2 mg film 1 film buccal Q24H Qty: 7 0RF naloxone [Narcan] 4 mg/actuation spray,non-aerosol 4 mg intranasal Q2-3M PRN (Reason: opioid overdose) Qty: 2 0RF Rx Instructions: spray 1 dose into ONE nostril; alternate nostrils w each dose until help arrives levetiracetam [Keppra] 500 mg tablet 500 mg PO BID Qty: 60 0RF Follow-up/Referrals: Aminah Torres MD [Primary Care Provider, Family Practice] - 2 Days
[2025-04-18] MEDS: ACETAMINOPHEN 325 MG TABLET 650 MG PO (10:58)
[2025-04-18] MEDS: ONDANSETRON HCL ODT 4 MG TABLET PO (10:59)
[2025-04-18] MEDS: KETOROLAC 30 MG/ML VIAL (*BKC) 15 MG IM (10:59)
[2025-04-18 11:00] VITALS: BP 101/68; PULSE 96; RESP 15; O2SAT 96
[2025-04-18 11:15] VITALS: BP 105/55; PULSE 88; RESP 13; O2SAT 99
--- OUTSIDE RECORDS SUMMARY | 2025-04-18 11:36 | XMS_ITS | Clinical Summary ---
Author Organization [facility] Address [address] [place] [address] Care Team Providers Care Esters And Emulsifiers Supervisor Name Role Phone Unavailable Primary Care Provider Unavailabl e Source Comments [facility],non-owned Affiliates and Associated Physician Practices is amultiple site organization consisting of ambulatory clinics and hospital sitesin [place], [place], [place] and [place]. This disclosure is being madepursuant to the Care Everywhere program and may not contain all information available regarding this patient. 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 Gender Identity Not on file Sexual Orientation [...] 8:03 PM CDT Height 177.8 cm (5' 10) 10/02/2020 8:03 PM CDT Body Mass Index 20.09 10/02/2020 8:03 PM CDT Plan of Treatment Health Maintenance Due Date Last Done Comments HIV SCREENING 2013 HPV VACCINE (1 - Male 3-dose series) 2013 HEPATITIS C SCREENING 06/16/2016 DTAP/TDAP/TD VACCINES (1 - Tdap) 2017 HEPATITIS B VACCINE (1 of 3 - 19+ 3-dose series) 2017 DEPRESSION SCREENING 06/16/2024 COVID-19 VACCINE (1 - 2023-2 5 season) 2025 INFLUENZA VACCINE (#1) 2025 ZOSTER VACCINE (1 of 2) 2048 [...] patient's age to complete this topic Insurance [facility] [place] [facility] [place] - [employer] [facility] Advance Directives * Full Code (Latest Code Status on File) Date Activated Date Inactivated Comments 10/02/2020 11:13 PM 10/04/2020 6:19 PM
--- OUTSIDE RECORDS SUMMARY | 2025-04-18 11:36 | XMS_ITS | Clinical Summary ---
Author Organization [facility] Address [address] [place] [address] Phone Care Team Providers Care Repairer Pump Name Role Phone Jessica Carrington PAC Primary [...] drink = 0.6 oz pur e alcohol) [facility] Utilities Answer Date Recorded In the past 12 months has e [employer], gas, oil, or water [employer] threatened to shut off services in your home? No 06/28/2024 Social Connection and Isolation Panel Answer Date Recorded In a typical week, how many times do you talk on the phone with family, friends, or neighbors? Three times a week 06/28/2024 How often do you get togethe r with friends or relatives? Twice a week 06/28/2024 How often do you attend chur or jew services? More than 4 times per year 06/28/2024 Do you belong to any clubs o r organizations such as jain groups, unions, fraternal or athletic groups, or [...] care, and heating? Not very hard 06/28/2024 [facility] of Occupat ional Health - Occupational Stress [...] any time in the past 12 m [facility], were you homeless or living in [...] Comments Blood Pressure 114/80 06/30/2024 1:36 AM WIRE CUTTER Pulse 97 06/30/2024 1:36 AM WIRE CUTTER Temperature 36.4 C (97.6 F) 06/30/2024 1:36 AM WIRE CUTTER Respiratory Rate 16 06/30/2024 1:36 AM WIRE CUTTER Oxygen Saturation 96% 06/30/2024 1:36 AM WIRE CUTTER Inhaled Oxygen Concentration - - Weight 54.9 kg (121 lb) 06/29/2024 9:00 AM WIRE CUTTER b ed scale Height 172.7 cm (5' 8) 06/28/2024 5:20 PM WIRE CUTTER Body Mass Index 18.4 06/28/2024 5:20 PM WIRE CUTTER Plan of Treatment Not on file Insurance [...] measures to stabilize the patient. Care Teams Repairer Pump Relationship Specialty Start Date End Date Jessica Carrington PAC [address] [place] [address] PCP - General Physician Mortgage Underwriter 09/12/23
--- OUTSIDE RECORDS SUMMARY | 2025-04-18 11:36 | XMS_ITS | Patient Health Record ---
Author Organization [facility] Address [address] [place] [address] Care Team Providers Care Director Non Profit Name Role Phone Dwight Mas Primary Care Provider Kiara Paula Williams [phone] Allergies No Known Allergies Results Component Value Reference Range Notes 12 Panel Urine Drug Screen Reviewed date:09/08/2024 04:01:46 PM Interpretation: Performing Lab: Notes/Report: THC positive LOLIS neg MOP (OPI) positive AMP neg MET neg BAR neg BZO positive MDMA positive MTD neg OXY neg PCP neg BUP positive 12 Panel Urine Drug Screen Reviewed date:11/12/2024 02:17:41 PM Interpretation: Performing Lab: Notes/Report: THC POS LOLIS neg MOP (OPI) POS AMP neg MET neg BAR neg BZO neg MDMA neg MTD neg OXY neg PCP neg BUP POS Comprehensive Drug Analysis, Urine Reviewed date:12/10/2024 11:46:13 AM Interpretation:Abnormal Performing Lab:[facility], [address] [place] [address], Phone - [phone], Director - Colten Notes/Report: ToxAssure, ToxAssure FLEX or MAT drug testin -Technical component - Data analysis performed at [facility] [address]. [phone] Dormitory Counselor Bobby Roblero MD. ToxAssure, ToxAssure FLEX or MAT drug testin -Technical component - Data analysis performed at [facility], [address] [place] [address]. [phone] Dormitory Counselor Bobby Roblero MD.CO Summary Report (Summary) FINAL COMPREHENSIVE DRUG ANALYSIS,UR [...] test is not intended to distinguish between auqdg-0-bxtkzycjenoniknhpnc l, the predominant form of THC in most herbal or marijuana-based products, and vohra-1-ekgmjdadrphuzctxiti l. Morphine 76 ng/mg creat Potential sources [...] clinical consultation, please call . PDF . 12 Panel Urine Drug Screen Reviewed date:11/19/2024 03:14:13 PM Interpretation: Performing Lab: Notes/Report: THC pos LOLIS neg MOP (OPI) neg AMP neg MET neg BAR neg BZO neg MDMA neg MTD neg OXY neg PCP neg BUP pos Opiates Confirmation, Urine* Reviewed date:12/10/2024 11:49:58 AM Interpretation:Abnormal Performing Lab:[facility], [address] [facility] [place], Phone - [phone], Director - PhDAbudu Notes/Report: Clinical Information:[id number] LM Opiates Positive Opiate test inc ludes Codeine, Morphine, Hydromorphone, Hydrocodone. Codeine Positive Codeine Conf, MS, UR 1163 Udoxss=118 ng/mL Codeine detected; this finding is consistent with use of medications that include Tylenol #2, #3, #4, Empirin #2, #3, #4, Robitussin A-C Syrup, or numerous other trade or generic formulations containing Codeine. Drugs listed are medical representative of common sources of the compound detected and are not intended to include all possible sources. Morphine Positive Morphine Conf, MS, UR >3000 Blgzak=401 ng/mL Morphine detected; this finding is consistent with use of medications that include Duromorph, MS-Contin, Roxanol, Masha, or drugs containing Codeine, or generic formulations. This drug may also be detected from use of Heroin. Drugs listed are medical representative of common sources of the compound detected and are not intended to include all possible sources. Hydromorphone Negative Kmlphf=742 Hydrocodone Negative Enznys=823 Please Note: Drug test results should be interpreted in the context of clinical information. Patient metabolic variables, specific drug chemistry, and specimen characteristics can affect test outcome. Technical consultation is available if a test result is inconsistent with an expected outcome. Email: [email or web address] Drug brands, if listed herein, are trademarks of their respective owners. Buprenorphine and Metabolite (Urine test) Reviewed date:12/10/2024 11:49:52 AM Interpretation:Normal Performing Lab:[facility], [address] [facility], Phone - [phone], Director - PhDAbudu Notes/Report: Clinical Information:[id number] LM Buprenorphine Positive Confirmation p erformed by Mass Spectrometry Buprenorphine Positive Buprenorphine Conf, MS, UR 964 Cutoff=10 ng/mL Norbuprenorphine Positive Norbuprenorphine Conf, MS, UR >2000 Cutoff=10 ng/mL HIV Screen *HIV 1, 2 Ab, p24 Ag ([id number]) Reviewed date:09/15/2024 09:13:40 AM Interpretation:Normal Performing Lab:[facility], [address] [place] [address], Phone - [phone], Director - [facility] Notes/Report: HIV Ab/p24 Ag Screen Non Reactive Non Reactive HIV-1/HIV-2 antibodies and HIV-1 p24 antigen were NOT detected. There is no laboratory evidence of HIV infection. HIV Negative QuantiFERON-TB Gold Plus (18 2879) Reviewed date:09/15/2024 09:14:26 AM Interpretation:Normal Performing Lab:[facility], [address] [place] [address], Phone - [phone], [facility] Notes/Report: QuantiFERON Incubation Incubation performed. QuantiFERON-TB Gold [...] Nil Value 0.04 QuantiFERON Mitogen Value >10.00 Rapid Plasma Reagin (RPR) Te st With Reflex to Quantitative RPR and Confirmatory Treponema pallidum Antibodies Reviewed date:09/15/2024 09:14:26 AM Interpretation:Normal Performing Lab:[facility], [address] [facility] Phone - [phone], Director - Elise Notes/Report: RPR Non Reactive Non Reactive PDF Report Reviewed date:12/10/2024 11:46:13 AM Interpretation: Performing Lab:[facility], [address] [place] [address], Phone - [phone], Director - Colten Notes/Report: ToxAssure, ToxAssure FLEX or MAT drug testin -Technical component - Data analysis performed at [facility], [address] [place] [address]. [phone] Dormitory Counselor Bobyb Roblero MD. ToxAssure, ToxAssure FLEX or MAT drug testin -Technical component - [facility] at [facility], [address] [place] [address]. [phone] Dormitory Counselor Bobby Roblero MD.CO PDF Report1 LCLS 12 Panel Urine Drug Screen Reviewed date:12/31/2024 11:14:34 AM Interpretation: Performing Lab: Notes/Report: THC pos LOLIS neg MOP (OPI) neg AMP neg MET neg BAR neg BZO neg MDMA pos MTD neg OXY neg PCP neg BUP pos CBC With Differential/Platel et* Reviewed date:09/15/2024 09:13:40 AM Interpretation:Normal Performing Lab:[facility], [address] [facility] Phone - [phone], Director - Elise Notes/Report: WBC 7.0 3.4-10.8 [...] Antibody w /Rflx to Quantitative Real-time PCR (853302) Reviewed date:09/15/2024 09:13:40 AM Interpretation:Normal Performing Lab:[facility], [address] [facility] Phone - [phone], Director - Elise Notes/Report: HCV Ab Non Reactive Non Reactive Interpretation: Not infected with HCV unless early or acute infection is suspected (which may be delayed in an immunocompromised individual), or other evidence exists to indicate HCV infection. CMP 14 Comprehensive Metabol ic Panel* Reviewed date:09/15/2024 09:14:26 AM Interpretation: Performing Lab:[facility], [address] [facility] Phone - [phone], Director - Elise Notes/Report: Glucose 68 70-99 [...] 0-40 IU/L ALT (SGPT) 17 0-44 IU/L Reason For Referral No Information Medications Medication [...] W/U Status Risk Notes Problem Mood disorder (29087233) Mood disorder (F39) 4 Active confirmed Problem Sleep disturbance (06485938) Sleep disturbance (G47.9) Active confirmed Problem Scoliosis (034113042) Scoliosis (M41.9) Active confirmed Problem Opioid use disorder (1015993028) Opioid use disorder (F11.99) Active confirmed Problem Tobacco user (486642890) Nicotine dependence with current use (F17.200) Active confirmed Vital Signs Heart Rate 98 /min 12/14/2024 Temperature 98.0 degrees Fahrenheit 12/14/2024 Respiratory Rate 20 /min 12/14/2024 Blood pressure diastolic 80 mm Hg 12/14/2024 Oximetry 100 % 12/14/2024 Height 69 in 12/14/2024 Blood pressure systolic 112 mm Hg 12/14/2024 Weight 119.6 lbs 12/14/2024 BMI 17.66 kg/m2 12/14/2024 Encounters Encounter Location Date Provider Diagnosis [facility] [place] [address] 09/07/2024 Kiara Paula Opioid use disorder F11.99 ; Patient underweight R63.6 ; Nutritional counseling Z71.3 and Tobacco use disorder F17.200 [place] [place] [address] 11/12/2024 Jenia Hefranklin Opioid use disorder F11.99 and Patient underweight R63.6 [address] [place] [address] 11/19/2024 Jenia Hefranklin Opioid use disorder F11.99 ; Patient underweight R63.6 and Tobacco use disorder F17.200 [facility] [place] [address] 12/14/2024 Jenia Hefranklin Opioid use disorder F11.99 ; Sleep disturbance G47.9 ; Underweight R63.6 and Nicotine dependence with current use F17.200 [facility] [place] [address] 12/10/2024 Kiara Paula Assessments Encounter Date Diagnosis (ICD Code) Assessment Notes Treatment Notes Treatment Clinical Notes Section Notes 09/07/2024 Patient underweight (ICD-10 - R63.6) 09/07/2024 Opioid use disorder (ICD-10 - F11.99) 11/12/2024 Opioid use disorder (ICD-10 - F11.99) 11/19/2024 Patient underweight (ICD-10 - R63.6) 11/19/2024 Opioid use disorder (ICD-10 - F11.99) 12/14/2024 Sleep disturbance (ICD-10 - G47.9) 12/14/2024 Opioid use disorder (ICD-10 - F11.99) 12/14/2024 Underweight (ICD-10 - R63.6) 11/19/2024 Tobacco use disorder (ICD-10 - F17.200) 11/12/2024 Patient underweight (ICD-10 - R63.6) 09/07/2024 Nutritional counseling (ICD-10 - Z71.3) 09/07/2024 Tobacco use disorder (ICD-10 - F17.200) 12/14/2024 Nicotine dependence with current use (ICD-10 - F17.200) 09/07/2024 Other Discussed medication side effects, adverse effects, risks, benefits, as well as interactions. Encouraged non-use of opioids. Has naloxone. Recommended participation in recovery groups and/or counseling services. May contact office with questions or concerns. Patient may self-administer their own medications or may self-administer their own oral medications per [facility] Protocol. 11/12/2024 Other Discussed medication side effects, adverse effects, risks, benefits, as well as interactions. Encouraged non-use of opioids. Has naloxone. Recommended participation in recovery groups and/or counseling services. May contact office with questions or concerns. Patient may self-administer their own medications or may self-administer their own oral medications per [facility] Protocol. 11/19/2024 Other Discussed medication side effects, adverse effects, risks, benefits, as well as interactions. Encouraged non-use of opioids. Has naloxone. Recommended participation in recovery groups and/or counseling services. May contact office with questions or concerns. Patient may self-administer their own medications or may self-administer their own oral medications per [facility] Protocol. 12/14/2024 Other Discussed medication side effects, adverse effects, risks, benefits, as well as interactions. Encouraged non-use of opioids. Has naloxone. Recommended participation in recovery groups and/or counseling services. May contact office with questions or concerns. Patient may self-administer their own medications or may self-administer their own oral medications per [facility] Protocol. Plan Of Treatment No Information Insurance Providers Payer Name Payer Address Payer Phone Subscriber Number Group Number Insured Name Patient Relationship to Insured Coverage Start Date Coverage End Date [facility] [address] [place] [address] [id number] Humberto Tan Self - patient is the insured Medical (General) History Surgical History Surgery Date(Month/Year) Hospitalization History Reason Date(Month/Year) detoxed [facility] fractured spine 09/2020
--- OUTSIDE RECORDS SUMMARY | 2025-04-18 11:36 | XMS_ITS | Clinical Summary ---
Author Organization [facility] Address [address] [place] [address] Care Team Providers Care Multi Spindle Operator Name Role Phone Lion Velázquez MD Primary Care Provider [phone] Allergies No known active allergies Medications naproxen (NAPROSYN,ALEVE) 500 mg tablet Take 1 tablet (500 mg total) by mouth 2 (two) times a day as needed for pain. 20 tablet 06/26/2017 Active cyclobenzaprine (FLEXERIL) 10 mg tablet Take 1 tablet (10 mg total) by mouth 2 (two) times a day as needed for muscle spasms. 20 tablet 06/26/2017 Active traMADol (ULTRAM) 50 mg tablet Take 1 tablet (50 mg total) by mouth every 4 (four) hours as needed for pain. 20 tablet 09/01/2017 Active ibuprofen (ADVIL,MOTRIN) 800 mg tablet Take 1 tablet (800 mg total) by mouth 3 (three) times a day. 21 tablet 09/01/2017 Active Active Problems Patient Care Coordination No te [...] Date Smoking Tobacco: Never Smokeless Tobacco: Never [facility] Utilities Answer Date Recorded In the past 12 months has [employer], gas, oil, or water [employer] threatened to shut off services in your home? No 08/27/2024 Social Connection and Isolation Panel Answer Date Recorded In a typical week, how many times do you talk on the phone with family, friends, or neighbors? Three times a week 08/28/19 How often do you get togethe r with friends or relatives? Three times a week 08/27/2024 How often do you attend chur ch or restoration services? 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 Gender Identity Not on file Sexual Orientation [...] 3:56 AM CDT Height 175.3 cm (5' 9) 08/27/2024 3:56 AM CDT Body Mass Index 17.91 08/27/2024 3:56 AM CDT Plan of Treatment Health Maintenance Due Date Last Done Comments Depression Screening 1998 Hepatitis C Screening 1998 HPV Vaccines (1 - Male 3-dose series) 2013 Regular Well Visit/Exam 18-64 2016 Influenza Vaccine (#1) 2025 , 02/15/2024, 04/27/2012 DTaP/Tdap/Td Vaccine (8 - Td or Tdap) 01/11/2029 01/11/2019, 02/13/2009, 02/22/2003, Additional history exists Hepatitis B Screening Completed 04/27/1999 , 1998, 1998 Varicella Vaccines Completed 07/18/2008, 06/29/1999 Pneumococcal vaccine <65 Aged Out No longer eligible based on patient's age to complete this topic Insurance [facility] Advance Directives For more information, please contact: [phone] * Full Code (Latest Code Status on File) Date Activated Date Inactivated Comments 08/27/2024 2:54 AM 08/30/2024 10:39 PM Care Teams Multi Spindle Operator Relationship Specialty Start Date End Date Lion Velázquez [place] [address] [address] PCP - General 06/26/17
--- NOTE | 2025-04-18 11:38 | PC.NURSE ---
Pt slumped over in bed. eyes closed, snot hanging out of nose. Pt arosed to verbal stimuli, still has slurred speech with delayed response. Pt states he does not want narcan. Explained to pt that he can not be d/c if he is unable to stay away and if he continues to fall asleep, narcan will have to be administered.
--- OUTSIDE RECORDS SUMMARY | 2025-04-18 12:05 | XMS_ITS | Clinical Summary ---
Author Organization [facility] Address [address] [place] [address] Care Team Providers Care Occupational Therapy Department Chair Name Role Phone Lion Velázquez MD Primary Care Provider [phone]- [phone] Allergies No known active allergies Medications naproxen [...] Date Smoking Tobacco: Never Smokeless Tobacco: Never [facility] Utilities Answer Date Recorded In the past 12 months has Variable electric, gas, oil, or water [employer] threatened to shut off services in your [...] often do you attend chur ch or buddhism services? Never 08/27/2024 Do you belong to any clubs o r organizations such as taoist groups, unions, fraternal or athletic groups, or [...] any time in the past 12 m [facility], were you homeless or living in a correction (including now)? No 08/27/2024 Personal Safety Answer Date Recorded Have you ever been in or are you currently in a harmful physical or emotional relationship or is someone making you feel afraid or unsafe? 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
--- OUTSIDE RECORDS SUMMARY | 2025-04-18 12:05 | XMS_ITS | Clinical Summary ---
Author Organization [facility] Address [address] [place] [address] Phone Care Team Providers Care Wood Veneer Taper Name Role Phone Jessica Carrington PAC Primary [...] 0.6 oz pur e alcohol) [facility] Utilities Answer Date Recorded In the past 12 months has e [employer], gas, oil, or water [employer] threatened to shut off services in your [...] any clubs o r organizations such as anabaptism groups, unions, fraternal or athletic groups, or [...] care, and heating? Not very hard 06/28/2024 [facility] - [...] any time in the past 12 m 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 Care Teams Wood Veneer Taper Relationship Specialty Start Date End Date Jessica Carrington PAC [address] [place] [address] PCP - General Physician Stove Polisher 09/12/23
--- OUTSIDE RECORDS SUMMARY | 2025-04-18 12:05 | XMS_ITS | Clinical Summary ---
Author Organization [facility] Address [address] [place] [address] Care Team Providers Care Communications Station Manager Name Role Phone Unavailable Primary Care Provider Unavailabl e Source Comments [facility],non-owned Affiliates and Associated Physician Practices is amultiple site organization consisting of ambulatory clinics and hospital sitesin [place], [place], [place] and [place]. This disclosure is being madepursuant to the Care Everywhere program and may not contain all information available regarding this patient. 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
[2025-04-18] MEDS: NALOXONE HCL INJ 2 MG/2 ML AMP 0.5 MG NASAL (12:06)
--- NOTE | 2025-04-18 12:07 | PC.NURSE ---
Pt again slumped completely over in bed, this RN administered Narcan IN. Pt immediately woke up and became agitated and ripped all wires off and started to get dressed. Pt talking clear and able to stand up straight. Pt alert and ambulated to the exit with a steady gait and states Fuck off
== END 2025-04-18 12:15 | disposition home or self-care (01) ==
LOC: ANHED 10:50
PROVIDERS: Emergency Provider Emergency Medicine; PCP Family Medicine
DX: F11.20 Opioid dependence, uncomplicated (principal)
CPT/HCPCS: 96372; 99283; A9270; J1885; J2312